=== PATIENT | female | born 1965 | race Caucasian/White ===

== ENCOUNTER → 2021-04-08 17:06 | Outpatient (CLI) | payer OTHER, SELFPAY ==
--- NOTE | 2021-04-08 17:08 | DI.MG.S_ITS ---
BILATERAL DIGITAL SCREENING MAMMOGRAM 3D/2D WITH CAD: 04/08/2021 CLINICAL: Routine screening. Comparison is made to exam dated: 03/15/2019 mammogram - outside location. There are scattered fibroglandular elements in both breasts. Current study was also evaluated with a Computer Aided Detection (CAD) system. There is an asymmetry in the right breast middle depth superior region seen on the mediolateral oblique view only. No other significant masses, calcifications, or other findings are seen in either breast. IMPRESSION: INCOMPLETE: NEEDS ADDITIONAL IMAGING EVALUATION The asymmetry in the right breast is indeterminate. Additional views with possible ultrasound are recommended. This exam was interpreted at Station ID: [id number]. NOTE: For mammograms, a report in lay terms will be sent to the patient. Approximately 15% of breast malignancies will not be visualized mammographically. In the management of a palpable breast mass, a negative mammogram must not discourage biopsy of a clinically suspicious lesion. Electronically Signed By: Glenn Abbasi acr/:04/08/2021 17:45:03 letter sent: Additional Imaging Needed ACR BI-RADS Category 0: Incomplete 3340F
== END ==
PROVIDERS: PCP Student in an Organized Health Care Education/Training Program; Referring Provider Student in an Organized Health Care Education/Training Program; Visit Provider Student in an Organized Health Care Education/Training Program
DX: Z12.31 Encounter for screening mammogram for malignant neoplasm of breast (principal)
CPT/HCPCS: 77063; 77067

== ENCOUNTER → 2021-04-29 13:43 | Outpatient (CLI) | payer OTHER, SELFPAY ==
--- NOTE | 2021-04-29 13:44 | DI.US.S_ITS ---
LIMITED ULTRASOUND OF RIGHT BREAST: 04/29/2021 CLINICAL: Patient returns today to evaluate a focal asymmetry in the right breast. Comparison is made to exams dated: 04/29/2021 mammogram, 04/08/2021 mammogram - [facility], and 03/15/2019 mammogram - outside location. Real-time ultrasound of the right breast was performed. Owens scale images of the real-time examination were reviewed. No significant abnormalities were seen sonographically in the right breast. Fibroglandular tissue but no mass is identifed in the area of the mammographic asymmetry in the right breast 11-12 o'clock position. IMPRESSION: NEGATIVE No sonographic abnormality is seen corresponding to the mammographic asymmetry in the right breast 11-12 o'clock position, which is compatible with normal fibroglandular tissue. Return to screening mammograms is recommended. There is no sonographic evidence of malignancy. A 1 year screening mammogram is recommended. This exam was interpreted at Station ID: [id number]. Electronically Signed By: Steven cifuentes/natalie:04/29/2021 15:15:39 letter sent: Normal Exam Ultrasound BI-RADS: 1 Negative
--- NOTE | 2021-04-29 13:44 | DI.MG.S_ITS ---
UNILATERAL RIGHT DIGITAL DIAGNOSTIC MAMMOGRAM 3D/2D WITH ADDITIONAL VIEWS: 04/29/2021 CLINICAL: Additional evaluation requested from prior study. Comparison is made to exams dated: 04/08/2021 mammogram - [facility] and 03/15/2019 mammogram - outside location. There are scattered fibroglandular elements in right breast. There is an asymmetry in the right breast middle depth superior region seen on the mediolateral oblique view only. This asymmetry disperses with spot compression. No other significant masses or calcifications are seen in the breast. IMPRESSION: INCOMPLETE: NEEDS ADDITIONAL IMAGING EVALUATION The asymmetry in the right breast resembles fibroglandular tissue and is indeterminate. An ultrasound is recommended. This exam was interpreted at Station ID: [id number]. NOTE: For mammograms, a report in lay terms will be sent to the patient. Approximately 15% of breast malignancies will not be visualized mammographically. In the management of a palpable breast mass, a negative mammogram must not discourage biopsy of a clinically suspicious lesion. Electronically Signed By: Steven cifuentes/natalie:04/29/2021 15:14:19 ACR BI-RADS Category 0: Incomplete [id number]
== END ==
PROVIDERS: PCP Student in an Organized Health Care Education/Training Program; Referring Provider Student in an Organized Health Care Education/Training Program; Visit Provider Student in an Organized Health Care Education/Training Program
DX: R92.8 Other abnormal and inconclusive findings on diagnostic imaging of breast (principal); N64.89 Other specified disorders of breast
CPT/HCPCS: 76642; 77065; G0279

== ENCOUNTER → 2021-08-13 07:49 | Outpatient (CLI) | payer OTHER, SELFPAY ==
[2021-08-13 09:48] LABS: Add Manual Diff / Slide Review NO; Basophils Absolute Auto 100 /uL (0-100); Basophils Percent Auto 1.1 % (0-2); Eosinophils Absolute Auto 200 /uL (0-450); Hematocrit 40.9 % (36-46); Hemoglobin 13.4 g/dL (12.0-16.0); Lymphocytes Absolute Auto 1500 /uL (1100-4500); Lymphocytes Percent Auto 29.1 % (25-40); Mean Corpuscular HGB Conc 32.8 % (30-36); Mean Corpuscular Hemoglobin 29.8 PG (26-34); Mean Corpuscular Volume 90.9 fL (80-100); Monocytes Absolute Auto 400 /uL (0-900); Monocytes Percent Auto 6.9 % (3-14); Neutrophils Absolute Auto 3000 /uL (1500-7000); Neutrophils Percent Auto 58.9 % (50-75); Platelet Count 328 X10^3/uL (150-400); Red Cell Distribution Width 13.1 % (11.6-14.8); White Blood Cell Count 5.1 X10^3/uL (4.5-11.0)
[2021-08-13 09:53] LABS: Hemoglobin A1C% w Est Avg Glu 5.4 % (4.0-6.0)
[2021-08-13 10:14] LABS: Alanine Aminotransferase 28 IU/L (<35); Albumin 4.7 g/dL (3.5-5.0); Albumin Globulin Ratio 1.8 (1.0-2.8); Alkaline Phosphatase 87 U/L (38-126); Aspartate Aminotransferase 37 IU/L (14-36); BUN Creatinine Ratio 22.2 (6-22); Bilirubin Total 0.5 mg/dL (0.2-1.3); Blood Urea Nitrogen 18 mg/dL (7-17); Calcium 10.1 mg/dL (8.4-10.2); Carbon Dioxide 30 mmol/L (22-32); Chloride 102 mmol/L (98-107); Cholesterol 222 mg/dL (140-199); Estimated Glomerular Filt Rate > 60.0 mL/min (>60); Globulin 2.6 g/dL (1.7-4.1); Glucose 86 mg/dL (70-100); HDL Cholesterol 79 mg/dL (40-60); HEMOLYSIS < 15 (0-50); LDL Cholesterol Calculated 110 mg/dL (<100); Potassium 4.6 mmol/L (3.4-5.1); Sodium 137 mmol/L (137-145); Total Protein 7.3 g/dL (6.3-8.2); Triglycerides 164 mg/dL (35-150)
[2021-08-13 10:20] LABS: Creatinine Urine Random 69.8 mg/dL
[2021-08-13 10:21] LABS: Free T3, Triiodothyronine Free 2.99 pg/mL (2.77-5.27); Free T4, Direct Thyroxine 1.06 ng/dL (0.78-2.19)
[2021-08-13 10:29] LABS: Microalbumin Urine Random < 0.6 mg/dL (0-1.6)
[2021-08-13 10:35] LABS: Thyroid Stimulating Hormone 1.16 uIU/mL (0.47-4.68)
[2021-08-13 15:46] LABS: Hep C Virus Ab w/Reflex Quant NEGATIVE s/c (NEGATIVE)
== END ==
PROVIDERS: PCP Nurse Practitioner; Referring Provider Nurse Practitioner; Visit Provider Nurse Practitioner
DX: E78.2 Mixed hyperlipidemia (principal); I10 Essential (primary) hypertension; Z00.00 Encounter for general adult medical examination without abnormal findings; Z79.899 Other long term (current) drug therapy; Z86.39 Personal history of other endocrine, nutritional and metabolic disease; Z11.59 Encounter for screening for other viral diseases
CPT/HCPCS: 36415; 80053; 80061; 82043; 82570; 83036; 84439; 84443; 84481; 85025; 86803

== ENCOUNTER → 2021-08-14 11:22 | Outpatient (CLI) | payer OTHER, SELFPAY ==
[2021-08-17 08:50] LABS: Fecal Immunochemical Test Positive (Negative)
== END ==
PROVIDERS: PCP Nurse Practitioner; Referring Provider Nurse Practitioner
DX: Z12.11 Encounter for screening for malignant neoplasm of colon (principal)
CPT/HCPCS: 82274

== ENCOUNTER → 2021-09-14 07:46 | Outpatient (CLI) | payer OTHER, SELFPAY ==
--- NOTE | 2021-09-14 07:47 | DI.US.S_ITS ---
PROCEDURE: US ABDOMEN LIMITED INDICATIONS: FAMILY HISTORY GAVIN TECHNIQUE: Real-time scanning was performed of the abdominal and retroperitoneal organs, with image documentation. COMPARISON: None. FINDINGS: Liver: The liver measures 15.8 cm in length. Increased echogenicity, compatible with hepatic steatosis. No focal nodules are appreciated. The portal vein is patent. Gallbladder: No gallbladder wall thickening, pericholecystic fluid, or shadowing gallstones. Biliary ducts: Intrahepatic bile ducts are non-dilated. Extrahepatic bile duct caliber measures 5.3 mm. Normal is 6-7 mm or less in diameter, or 10 mm or less post-cholecystectomy. Pancreas: Visualized portions of the pancreas are sonographically normal. Miscellaneous: No free abdominal fluid. IMPRESSION: No significant abnormality. Dictated by: Doc Clarke M.D. on 09/14/2021 at 9:00 Approved by: Doc Clarke M.D. on 09/14/2021 at 9:02
== END ==
PROVIDERS: PCP Nurse Practitioner; Referring Provider Nurse Practitioner; Visit Provider Nurse Practitioner
DX: R79.89 Other specified abnormal findings of blood chemistry (principal)
CPT/HCPCS: 76705

== ENCOUNTER → 2021-10-12 11:29 | Outpatient (CLI) | payer OTHER, SELFPAY ==
--- NOTE | 2021-10-12 11:32 | DI.RAD.S_ITS ---
PROCEDURE: XR LUMBAR SPINE 2-3V INDICATIONS: Acute onset back pain with sciatica bilaterally TECHNIQUE: 3 views of the lumbar spine were acquired. COMPARISON: None. FINDINGS: Bones: There is a transitional element at S1. There is moderate leftward curvature of the lower lumbar spine. Mild grade 1 anterolisthesis of L4 on L5. Mild left lateral subluxation of L4 relative to L5. Multilevel disc space narrowing and endplate osteophyte formation, as well as facet hypertrophy. No vertebral body compression fractures. No suspicious bony lesions. Soft tissues: Overlying bowel gas pattern is normal. No suspicious soft tissue calcifications. IMPRESSION: 1. Atypical numbering system as above. 2. Multilevel degenerative disc and facet disease. 3. Leftward curvature of the lower lumbar spine. 4. No acute fracture. No osseous lesion. If symptoms and/or clinical suspicion for pathology persist, further assessment with repeat, or advanced imaging (e.g., CT, MRI, or bone scan) may be helpful for further assessment. Dictated by: Pedro Saeed M.D. on 10/12/2021 at 15:44 Approved by: Pedro Saeed M.D. on 10/12/2021 at 15:46
== END ==
PROVIDERS: PCP Nurse Practitioner; Referring Provider Nurse Practitioner; Visit Provider Nurse Practitioner
DX: M51.16 Intervertebral disc disorders with radiculopathy, lumbar region (principal); M54.50 Low back pain, unspecified
CPT/HCPCS: 72100

== ENCOUNTER → 2022-01-29 15:04 | Outpatient (CLI) | payer OTHER, SELFPAY ==
[2022-01-30 09:38] LABS: Calcium 9.7 mg/dL (8.7-10.2); Parathyroid Hormone, Intact 49 pg/mL (15-65)
== END ==
PROVIDERS: Family Provider Nurse Practitioner; PCP Nurse Practitioner; Referring Provider Nurse Practitioner; Visit Provider Nurse Practitioner
DX: E83.52 Hypercalcemia (principal)
CPT/HCPCS: 36415; 82310; 83970

== ENCOUNTER 2022-02-02 16:00 | Outpatient (RCR) | payer OTHER, SELFPAY ==
--- NOTE | 2021-12-31 15:36 | PT.OPPOC ---
Physical, Occupational & Speech Therapy At [facility] Current Diagnoses Lesion of sciatic nerve, bilateral lower limbs (12/31/21) Other chronic pain (12/31/21) Bunion of unspecified foot (12/31/21) Cervicalgia (12/31/21) Lumbago with sciatica, right side (12/31/21) Lumbago with sciatica, left side (12/31/21) Pain in thoracic spine (12/31/21) Abnormal posture (12/31/21) Visit Care Team Role Provider Type MADIE Cruz Family Provider Advanced Judge Primary Care Provider Specialty: [facility] Practice Address: [address] [place] [address], [id number] Email: [email or web address] Misael Colón DO Attending Provider Physician Referring Provider Specialty: [facility] Address: [address] [place] [address], [id number] Email: Plan Of Care PT-OP-T Assessment and Plan Start: 12/27/21 16:51 Freq: Status: Active Protocol: Document 12/31/21 12:00 AW (Rec: 12/31/21 17:47 AW [id number]) Physical Therapy Assessment Rehab Potential Rehabilitation Potential Good Evaluation Complexity Number of Personal Factors/Comorbidities 1-2 Number of Body Systems Impaired 1-2 Clinical Presentation at Evaluation Stable Impairments Impairments Functional Activities,Pain, Posture,ROM,Strength Other Concerns Fall Risk low Goals Three Impairment LEFS Director Of Laboratory Operations Goal (LTG) Pt will improve LEFS score from 58 to 68 or greater as a measure of improved daily activities management. LTG Duration 6 weeks - 02/11/22 Two Impairment sitting tolerance Longterm Goal (LTG) Pt will sit for 60 minutes with no increase in baseline pain to facilitate return to cycling and rowing LTG Duration 6 weeks - 02/11/22 One Impairment HEP Director Of Laboratory Operations Goal (LTG) Pt will be independent with HEP for core facilitation, general strength, and pain mangement. LTG Duration 6 weeks - 02/11/22 Assessment Summary Assessment Donnie attends physical therapy with complaint of an acute episode of back pain and lower extremity weakness in September which has largely resolved. She presents with habitual postures including significant anterior pelvic tilt which likely predisposed her to this injury. She would benefit from skilled therapy for postural education, core stabilization, and general strengthening to prevent future injury as she returns to regular activities such as rowing, yoga, and hiking. Physical Therapy Plan Frequency and Duration Frequency of Treatment 1-2x/week Duration of Treatment 6 weeks Plan of Care Start Date 12/31/21 Plan of Care End Date 02/11/22 Therapeutic Interventions Therapeutic Interventions Balance Training,Gait Training ,Home Exercise Program,Manual Therapy,Neuromuscular Re- education,Self-Care/Home Management,Soft Tissue Mobilization,Therapeutic Activities,Therapeutic Exercises Modalities Electric Stimulation,Hot Packs Next Visit Focus/Plan Next Note Type Treatment Note Next Visit Plan review and progress supine core facilitation; initiate hip mobility and strength; postural education to address anterior pelvic tilt, thoracic kyphosis Plan of Care Dates Plan of Care Start Date 12/31/21 Plan of Care End Date 02/11/22 Electronically Signed by: Malina Worthington, PT 01/03/22 [id number] Please Sign and Return: I have reviewed this Plan of Care and certify that the skilled therapy services above are required to meet the patient?s needs. Physician Signature Date Printed Name and Credentials Clinical Instructor Signature Printed Name and Credentials
--- NOTE | 2021-12-31 15:36 | PT.OIE ---
Current Diagnoses Lesion of sciatic nerve, bilateral lower limbs (12/31/21) Other chronic pain (12/31/21) Bunion of unspecified foot (12/31/21) Cervicalgia (12/31/21) Lumbago with sciatica, right side (12/31/21) Lumbago with sciatica, left side (12/31/21) Pain in thoracic spine (12/31/21) Abnormal posture (12/31/21) Past Medical History (Last Updated 11/12/21 @ 12:27 by Misael Colón DO) Acquired hypothyroidism Acute bilateral low back pain with bilateral sciatica Allergies Ankle pain (~2014) Bilateral piriformis syndrome Cervical spine disease (~2014) Chicken pox Fibroids (~2014) Foot pain (~2014) Graves disease (~2002) Herpes History of foot surgery (~2014) History of hysterectomy (~2012) History of tonsillectomy (~1966) Hypertension (~2002) Hypertriglyceridemia Lumbar region somatic dysfunction Menopause Migraines Mumps OCD (obsessive compulsive disorder) (~1993) Osteoarthritis (~2014) Pelvic somatic dysfunction Peripheral neuropathy (~2005) Raynaud's disease Sacral region somatic dysfunction Segmental and somatic dysfunction of abdomen and other regions Shoulder pain (~2014) Sleep apnea (~2014) Somatic dysfunction of lower extremity Past Surgical History (Last Reviewed 10/12/21 @ 15:41 by MADIE Cruz) Anesthesia History of foot surgery (~2014) History of hysterectomy (~2012) History of radiation therapy (~2002) History of tonsillectomy (~1966) Melanoma (~1989) Visit Care Team Role Provider Type MADIE Cruz Family Provider Advanced Marine Specialist Primary Care Provider Specialty: Family Practice Address: [address] [place] [address], [id number] Email: [email or web address] Misael Colón DO Attending Provider Physician Referring Provider Specialty: Family Practice Address: [address] [place] [address], [id number] Email: Physical Therapy Initial Evaluation PT-OP-A Visit Information Start: 12/27/21 16:51 Freq: Status: Active Protocol: Document 12/31/21 12:00 AW (Rec: 12/31/21 11:00 AW [id number]) Out-Patient Physical Therapy Visit Information Visit Information Visit Type Initial Evaluation Visit Start Time 11:15 Visit Stop Time 12:00 Total Visit Minutes 45 Visit Number 11/26 Evaluation Information Evaluation Date 12/31/21 Precautions Precautions 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 She ran on the treadmill and felt good . However, a few days later, her back hurt so bad she needed help to get out of bed. She felt her leg would give out when trying to walk in the middle of the night. Walking helped. Sitting made it worse. Over time, her symptoms have 99% resolved. Pt has history of neck and shoulder pain, bilateral knee pain, bunions, hammertoes, flat feet. She adapts with supportive footwear and does not let pain interfere with her daily activities. Prior Treatments and Tests - OMT October 2021. - L/S xray September 2021: There is a transitional element at S1. There is moderate leftward curvature of the lower lumbar spine. Mild grade 1 anterolisthesis of L4 on L5. Mild left lateral subluxation of L4 relative to L5. Multilevel disc space narrowing and endplate osteophyte formation, as well as facet hypertrophy. No vertebral body compression fractures. No suspicious bony lesions. Treatment Goals Patient/Caregiver Goals Back to swimming and yoga at [employer]. PT-OP-C Subjective Start: 12/27/21 16:51 Freq: Status: Active Protocol: Document 12/31/21 12:00 AW (Rec: 12/31/21 12:57 AW [id number]) OP-PT Subjective Patient Comments Patient Comments I'm mostly better. I just want to learn some exercises to keep this from happening again. OP-PT Pain Assessment Pain Assessment Grid Paper Pain Assessment Grid Completed Yes: scanned to EMR PT-OP-D Balance Start: 12/27/21 16:51 Freq: Status: Active Protocol: Document 12/31/21 12:00 AW (Rec: 12/31/21 12:57 AW [id number]) Balance Tests Single Limb Standing Single Limb- Right 15 seconds but with increased shear Single Limb- Left 10 seconds with mild trendelenberg and lateral shear PT-OP-F Manual Assessment Start: 12/27/21 16:51 Freq: Status: Active Protocol: Document 12/31/21 12:00 AW (Rec: 12/31/21 12:57 AW [id number]) Manual Assessments Soft Tissue Assessment Soft Tissue Mobility Assessment Tenderness to palpation at lumbar musculature Joint Mobility Assessment Joint Mobility Assessment Pain provoked with grade III lumbar PA's PT-OP-G Mobility & Gait Start: 12/27/21 16:51 Freq: Status: Active Protocol: Document 12/31/21 12:00 AW (Rec: 12/31/21 17:27 AW [id number]) OP Gait Assessment Comments Gait Comments Pt ambulates with slightly wide base of support, slightly reduced step length, and vague appearance of trendelenberg sign bilaterally . PT-OP-H Neuro Start: 12/27/21 16:51 Freq: Status: Active Protocol: Document 12/31/21 12:00 AW (Rec: 12/31/21 17:27 AW [id number]) Sensation Evaluation Comments Summary Comments Pt has neuropathy in bilateral feet which causes occasional numbness. Pt has Reynaud's as well and states cold sensation often accompanies numbness. Deep Tendon Reflex & Clonus Assessment Deep Tendon Reflex Bicep Deep Tendon Reflex 2+ Normal Achilles Deep Tendon Reflex 1+ Diminished Patellar Deep Tendon Reflex 2+ Normal PT-OP-J Posture/Palpation/Skin Start: 12/27/21 16:51 Freq: Status: Active Protocol: Document 12/31/21 12:00 AW (Rec: 12/31/21 17:27 AW [id number]) Posture Evaluation Comments Posture Comments Significant anterior pelvic tilt. Slight genu varus bilaterally. Left iliac crest, ASIS, and PSIS lower than right. PT-OP-K Range of Motion Start: 12/27/21 16:51 Freq: Status: Active Protocol: Document 12/31/21 12:00 AW (Rec: 12/31/21 17:27 AW [id number]) Lumbar Spine Range of Motion Lumbar Spine Active Comments 65 degrees flexion, 10 degrees extension. Fingertips to 2.5 above knee joint line in lateral flexion bilaterally. Rotation WNL with hips fixed. No complaint of increased pain with lumbar movement in any direction. Hip Goniometric Range of Motion Hip bilat Hip ROM WFL Yes Testing Position Supine Comments No restrictions noted in PROM. End-range external rotation on the left reproduces back pain. HS lacking 15-20 degrees in 90/90 bilaterally Hip ROM Limitations Hip ROM Limitations Soft Tissue Tightness Knee Goniometric Range of Motion Knee bilat Knee ROM WFL Yes PT-OP-M Strength Start: 12/27/21 16:51 Freq: Status: Active Protocol: Document 12/31/21 12:00 AW (Rec: 12/31/21 17:27 AW [id number]) Hip Strength Hip Manual Muscle Testing bilat Flexion (L2) 4+ Good+ Extension (S1) 4+ Good+ Abduction 4+ Good+ Adduction 4+ Good+ Knee Strength Knee Manual Muscle Testing bilat Flexion (S2) 5 Normal Extension (L3) 5 Normal Ankle/Foot Strength Ankle and Foot Manual Muscle Testing bilat Dorsiflexion (L4) 5 Normal Comments PF tested with SL calf raise. Pt able to complete 10 reps right with good elevation. Left side, pt can only complete 6 with less elevation . Pt has history of Achilles tendon surgery. Muscle mass reduced in left calf. PT-OP-Q Treatments Start: 12/27/21 16:51 Freq: Status: Active Protocol: Document 12/31/21 12:00 AW (Rec: 12/31/21 17:34 AW [id number]) Therapeutic Exercises Supine Exercises TrA Supine Exercise Name ppt, isometric TrA, BKFO, single leg march Equipment Used nylon strap under L/S for feedback Comments HEP PT-OP-T Assessment and Plan Start: 12/27/21 16:51 Freq: Status: Active Protocol: Document 12/31/21 12:00 AW (Rec: 12/31/21 17:47 AW [id number]) Physical Therapy Assessment Rehab Potential Rehabilitation Potential Good Evaluation Complexity Number of Personal Factors/Comorbidities 1-2 Number of Body Systems Impaired 1-2 Clinical Presentation at Evaluation Stable Impairments Impairments Functional Activities,Pain, Posture,ROM,Strength Other Concerns Fall Risk low Goals Three Impairment LEFS Defective Cigarette Slitter Goal (LTG) Pt will improve LEFS score from 58 to 68 or greater as a measure of improved daily activities management. LTG Duration 6 weeks - 02/11/22 Two Impairment sitting tolerance Detention Goal (LTG) Pt will sit for 60 minutes with no increase in baseline pain to facilitate return to cycling and rowing LTG Duration 6 weeks - 02/11/22 One Impairment HEP Defective Cigarette Slitter Goal (LTG) Pt will be independent with HEP for core facilitation, general strength, and pain mangement. LTG Duration 6 weeks - 02/11/22 Assessment Summary Assessment Donnie attends physical therapy with complaint of an acute episode of back pain and lower extremity weakness in September which has largely resolved. She presents with habitual postures including significant anterior pelvic tilt which likely predisposed her to this injury. She would benefit from skilled therapy for postural education, core stabilization, and general strengthening to prevent future injury as she returns to regular activities such as rowing, yoga, and hiking. Physical Therapy Plan Frequency and Duration Frequency of Treatment 1-2x/week Duration of Treatment 6 weeks Plan of Care Start Date 12/31/21 Plan of Care End Date 02/11/22 Therapeutic Interventions Therapeutic Interventions Balance Training,Gait Training ,Home Exercise Program,Manual Therapy,Neuromuscular Re- education,Self-Care/Home Management,Soft Tissue Mobilization,Therapeutic Activities,Therapeutic Exercises Modalities Electric Stimulation,Hot Packs Next Visit Focus/Plan Next Note Type Treatment Note Next Visit Plan review and progress supine core facilitation; initiate hip mobility and strength; postural education to address anterior pelvic tilt, thoracic kyphosis
--- NOTE | 2022-01-05 12:02 | PT.OTN ---
Current Diagnoses Lesion of sciatic nerve, bilateral lower limbs (01/05/22) Other chronic pain (01/05/22) Bunion of unspecified foot (01/05/22) Cervicalgia (01/05/22) Lumbago with sciatica, right side (01/05/22) Lumbago with sciatica, left side (01/05/22) Pain in thoracic spine (01/05/22) Abnormal posture (01/05/22) Physical Therapy Treatment Note PT-OP-A Visit Information Start: 12/27/21 16:51 Freq: Status: Active Protocol: Document 01/05/22 11:19 DCW (Rec: 01/05/22 12:01 DCW [id number]) Out-Patient Physical Therapy Visit Information Visit Information Visit Type Treatment Note Visit Start Time 11:19 Visit Stop Time 12:00 Total Visit Minutes 41 Visit Number 2/6 Number of EXHAUST MACHINE OPERATOR Visits 0 Evaluation Information Evaluation Date 12/31/21 Precautions 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 She ran on the treadmill and felt good . However, a few days later, her back hurt so bad she needed help to get out of bed. She felt her leg would give out when trying to walk in the middle of the night. Walking helped. Sitting made it worse. Over time, her symptoms have 99% resolved. Pt has history of neck and shoulder pain, bilateral knee pain, bunions, hammertoes, flat feet. She adapts with supportive footwear and does not let pain interfere with her daily activities. Prior Treatments and Tests - OMT October 2021. - L/S xray September 2021: There is a transitional element at S1. There is moderate leftward curvature of the lower lumbar spine. Mild grade 1 anterolisthesis of L4 on L5. Mild left lateral subluxation of L4 relative to L5. Multilevel disc space narrowing and endplate osteophyte formation, as well as facet hypertrophy. No vertebral body compression fractures. No suspicious bony lesions. Treatment Goals Patient/Caregiver Goals Back to swimming and yoga at [employer] PT-OP-C Subjective Start: 12/27/21 16:51 Freq: Status: Active Protocol: Document 01/05/22 11:19 DCW (Rec: 01/05/22 12:01 DCW [id number]) OP-PT Subjective Patient Comments Patient Comments I started doing my exercises, and now I'm having some mid- back pain. PT-OP-D Balance Start: 12/27/21 16:51 Freq: Status: Active Protocol: Document 12/31/21 12:00 AW (Rec: 12/31/21 12:57 AW [id number]) Balance Tests Single Limb Standing Single Limb- Right 15 seconds but with increased shear Single Limb- Left 10 seconds with mild trendelenberg and lateral shear PT-OP-F Manual Assessment Start: 12/27/21 16:51 Freq: Status: Active Protocol: Document 12/31/21 12:00 AW (Rec: 12/31/21 12:57 AW [id number]) Manual Assessments Soft Tissue Assessment Soft Tissue Mobility Assessment Tenderness to palpation at lumbar musculature Joint Mobility Assessment Joint Mobility Assessment Pain provoked with grade III lumbar PA's PT-OP-G Mobility & Gait Start: 12/27/21 16:51 Freq: Status: Active Protocol: Document 12/31/21 12:00 AW (Rec: 12/31/21 17:27 AW [id number]) OP Gait Assessment Comments Gait Comments Pt ambulates with slightly wide base of support, slightly reduced step length, and vague appearance of trendelenberg sign bilaterally . PT-OP-H Neuro Start: 12/27/21 16:51 Freq: Status: Active Protocol: Document 12/31/21 12:00 AW (Rec: 12/31/21 17:27 AW [id number]) Sensation Evaluation Comments Summary Comments Pt has neuropathy in bilateral feet which causes occasional numbness. Pt has Reynaud's as well and states cold sensation often accompanies numbness. Deep Tendon Reflex & Clonus Assessment Deep Tendon Reflex Bicep Deep Tendon Reflex 2+ Normal Achilles Deep Tendon Reflex 1+ Diminished Patellar Deep Tendon Reflex 2+ Normal PT-OP-J Posture/Palpation/Skin Start: 02/06/22 16:51 Freq: Status: Active Protocol: Document 12/31/21 12:00 AW (Rec: 12/31/21 17:27 AW [id number]) Posture Evaluation Comments Posture Comments Significant anterior pelvic tilt. Slight genu varus bilaterally. Left iliac crest, ASIS, and PSIS lower than right. PT-OP-K Range of Motion Start: 12/27/21 16:51 Freq: Status: Active Protocol: Document 12/31/21 12:00 AW (Rec: 12/31/21 17:27 AW [id number]) Lumbar Spine Range of Motion Lumbar Spine Active Comments 65 degrees flexion, 10 degrees extension. Fingertips to 2.5 above knee joint line in lateral flexion bilaterally. Rotation WNL with hips fixed. No complaint of increased pain with lumbar movement in any direction. Hip Goniometric Range of Motion Hip bilat Hip ROM WFL Yes Testing Position Supine Comments No restrictions noted in PROM. End-range external rotation on the left reproduces back pain. HS lacking 15-20 degrees in 90/90 bilaterally Hip ROM Limitations Hip ROM Limitations Soft Tissue Tightness Knee Goniometric Range of Motion Knee bilat Knee ROM WFL Yes PT-OP-M Strength Start: 12/27/21 16:51 Freq: Status: Active Protocol: Document 12/31/21 12:00 AW (Rec: 12/31/21 17:27 AW [id number]) Hip Strength Hip Manual Muscle Testing bilat Flexion (L2) 4+ Good+ Extension (S1) 4+ Good+ Abduction 4+ Good+ Adduction 4+ Good+ Knee Strength Knee Manual Muscle Testing bilat Flexion (S2) 5 Normal Extension (L3) 5 Normal Ankle/Foot Strength Ankle and Foot Manual Muscle Testing bilat Dorsiflexion (L4) 5 Normal Comments PF tested with SL calf raise. Pt able to complete 10 reps right with good elevation. Left side, pt can only complete 6 with less elevation . Pt has history of Achilles tendon surgery. Muscle mass reduced in left calf. PT-OP-Q Treatments Start: 12/27/21 16:51 Freq: Status: Active Protocol: Document 01/05/22 11:19 DCW (Rec: 01/05/22 12:01 DCW [id number]) Gym Equipment Cable Column (Body Solid) Pallof Press Details 20# Therapeutic Ball LTR Exercise Details Low Trunk Rotation Ball Size/Color Red - 55 cm Therapeutic Exercises Supine Exercises Serratus punch Supine Exercise Name Supine serratus punch Side bilateral Sidelying Exercises hip abduction Sidelying Exercise Name hip abduction Side bilateral reverse clamshell Sidelying Exercise Name reverse clamshell Side bilateral clamshell Sidelying Exercise Name clamshell Side bilateral Standing Exercises Sh Extension Standing Exercise Name Shoulder extension Side bilateral Resistance Lv 3 Equipment Used T-band Rows Standing Exercise Name Rows Side bilateral Resistance Lv 3 Equipment Used T-band pec stretch Standing Exercise Name corner pec stretch Manual Therapy Treatment Soft Tissue Mobilization paraspinals Body Location rhomboids, infraspinatus, supraspinatus Mobilization Type Strumming,Sustained Pressure Intensity/Depth Moderate PT-OP-T Assessment and Plan Start: 12/27/21 16:51 Freq: Status: Active Protocol: Document 01/05/22 11:19 DCW (Rec: 01/05/22 12:01 DCW [id number]) Physical Therapy Assessment Impairments Impairments Functional Activities,Pain, Posture,ROM,Strength Goals Three Impairment LEFS Mcfp Goal (LTG) Pt will improve LEFS score from 58 to 68 or greater as a measure of improved daily activities management. LTG Duration 6 weeks - 02/11/22 Two Impairment sitting tolerance Mcfp Goal (LTG) Pt will sit for 60 minutes with no increase in baseline pain to facilitate return to cycling and rowing LTG Duration 6 weeks - 02/11/22 One Impairment HEP Meat Stuffer Goal (LTG) Pt will be independent with HEP for core facilitation, general strength, and pain management. LTG Duration 6 weeks - 02/11/22 Assessment Summary Assessment Pt tolerated treatment very well today, felt brief STM to paraspinals/parascapular muscles helped relieve a lot of her mid back pain. Pt appears motivated to consistently perform HEP. Physical Therapy Plan Frequency and Duration Frequency of Treatment 1-2x/week Duration of Treatment 6 weeks Plan of Care Start Date 12/31/21 Plan of Care End Date 02/11/22 Therapeutic Interventions Therapeutic Interventions Balance Training,Gait Training ,Home Exercise Program,Manual Therapy,Neuromuscular Re- education,Self-Care/Home Management,Soft Tissue Mobilization,Therapeutic Activities,Therapeutic Exercises Modalities Electric Stimulation,Hot Packs Next Visit Focus/Plan Next Note Type Treatment Note Next Visit Plan review and progress supine core facilitation; initiate hip mobility and strength; postural education to address anterior pelvic tilt, thoracic kyphosis
--- NOTE | 2022-01-13 16:16 | PT.OTN ---
Current Diagnoses Lesion of sciatic nerve, bilateral lower limbs (01/13/22) Other chronic pain (01/13/22) Bunion of unspecified foot (01/13/22) Cervicalgia (01/13/22) Lumbago with sciatica, right side (01/13/22) Lumbago with sciatica, left side (01/13/22) Pain in thoracic spine (01/13/22) Abnormal posture (01/13/22) Physical Therapy Treatment Note PT-OP-A Visit Information Start: 12/27/21 16:51 Freq: Status: Active Protocol: Document 01/13/22 15:17 AW (Rec: 01/13/22 16:16 AW [id number]) Out-Patient Physical Therapy Visit Information Visit Information Visit Type Treatment Note Visit Start Time 15:17 Visit Stop Time 16:00 Total Visit Minutes 43 Visit Number 3/6 Number of COMPUTER NUMERIC CONTROL SETTER Visits 0 Evaluation Information Evaluation Date 12/31/21 Precautions 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 She ran on the treadmill and felt good . However, a few days later, her back hurt so bad she needed help to get out of bed. She felt her leg would give out when trying to walk in the middle of the night. Walking helped. Sitting made it worse. Over time, her symptoms have 99% resolved. Pt has history of neck and shoulder pain, bilateral knee pain, bunions, hammertoes, flat feet. She adapts with supportive footwear and does not let pain interfere with her daily activities. Prior Treatments and Tests - OMT October 2021. - L/S xray September 2021: There is a transitional element at S1. There is moderate leftward curvature of the lower lumbar spine. Mild grade 1 anterolisthesis of L4 on L5. Mild left lateral subluxation of L4 relative to L5. Multilevel disc space narrowing and endplate osteophyte formation, as well as facet hypertrophy. No vertebral body compression fractures. No suspicious bony lesions. Treatment Goals Patient/Caregiver Goals Back to swimming and yoga at [employer]. PT-OP-C Subjective Start: 12/27/21 16:51 Freq: Status: Active Protocol: Document 01/13/22 15:17 AW (Rec: 01/13/22 16:16 AW [id number]) OP-PT Subjective Patient Comments Patient Comments I've been breaking up the exercises into manageable chunks and things are going well. PT-OP-D Balance Start: 12/27/21 16:51 Freq: Status: Active Protocol: Document 12/31/21 12:00 AW (Rec: 12/31/21 12:57 AW [id number]) Balance Tests Single Limb Standing Single Limb- Right 15 seconds but with increased shear Single Limb- Left 10 seconds with mild trendelenberg and lateral shear PT-OP-F Manual Assessment Start: 12/27/21 16:51 Freq: Status: Active Protocol: Document 12/31/21 12:00 AW (Rec: 12/31/21 12:57 AW [id number]) Manual Assessments Soft Tissue Assessment Soft Tissue Mobility Assessment Tenderness to palpation at lumbar musculature Joint Mobility Assessment Joint Mobility Assessment Pain provoked with grade III lumbar PA's PT-OP-G Mobility & Gait Start: 12/27/21 16:51 Freq: Status: Active Protocol: Document 12/31/21 12:00 AW (Rec: 12/31/21 17:27 AW [id number]) OP Gait Assessment Comments Gait Comments Pt ambulates with slightly wide base of support, slightly reduced step length, and vague appearance of trendelenberg sign bilaterally . PT-OP-H Neuro Start: 12/27/21 16:51 Freq: Status: Active Protocol: Document 12/31/21 12:00 AW (Rec: 12/31/21 17:27 AW [id number]) Sensation Evaluation Comments Summary Comments Pt has neuropathy in bilateral feet which causes occasional numbness. Pt has Reynaud's as well and states cold sensation often accompanies numbness. Deep Tendon Reflex & Clonus Assessment Deep Tendon Reflex Bicep Deep Tendon Reflex 2+ Normal Achilles Deep Tendon Reflex 1+ Diminished Patellar Deep Tendon Reflex 2+ Normal PT-OP-J Posture/Palpation/Skin Start: 12/27/21 16:51 Freq: Status: Active Protocol: Document 12/31/21 12:00 AW (Rec: 12/31/21 17:27 AW [id number]) Posture Evaluation Comments Posture Comments Significant anterior pelvic tilt. Slight genu varus bilaterally. Left iliac crest, ASIS, and PSIS lower than right. PT-OP-K Range of Motion Start: 12/27/21 16:51 Freq: Status: Active Protocol: Document 12/31/21 12:00 AW (Rec: 12/31/21 17:27 AW [id number]) Lumbar Spine Range of Motion Lumbar Spine Active Comments 65 degrees flexion, 10 degrees extension. Fingertips to 2.5 above knee joint line in lateral flexion bilaterally. Rotation WNL with hips fixed. No complaint of increased pain with lumbar movement in any direction. Hip Goniometric Range of Motion Hip bilat Hip ROM WFL Yes Testing Position Supine Comments No restrictions noted in PROM. End-range external rotation on the left reproduces back pain. HS lacking 15-20 degrees in 90/90 bilaterally Hip ROM Limitations Hip ROM Limitations Soft Tissue Tightness Knee Goniometric Range of Motion Knee bilat Knee ROM WFL Yes PT-OP-M Strength Start: 12/27/21 16:51 Freq: Status: Active Protocol: Document 12/31/21 12:00 AW (Rec: 12/31/21 17:27 AW [id number]) Hip Strength Hip Manual Muscle Testing bilat Flexion (L2) 4+ Good+ Extension (S1) 4+ Good+ Abduction 4+ Good+ Adduction 4+ Good+ Knee Strength Knee Manual Muscle Testing bilat Flexion (S2) 5 Normal Extension (L3) 5 Normal Ankle/Foot Strength Ankle and Foot Manual Muscle Testing bilat Dorsiflexion (L4) 5 Normal Comments PF tested with SL calf raise. Pt able to complete 10 reps right with good elevation. Left side, pt can only complete 6 with less elevation . Pt has history of Achilles tendon surgery. Muscle mass reduced in left calf. PT-OP-Q Treatments Start: 12/27/21 16:51 Freq: Status: Active Protocol: Document 01/13/22 15:17 AW (Rec: 01/13/22 16:16 AW [id number]) Therapeutic Exercises Supine Exercises hip flexor stretch Supine Exercise Name modified pete test position Side bilateral Reps/Minutes 30 SH x 2 Comments HEP bridge Supine Exercise Name bridge Reps/Minutes 10 SH x 10 Comments cued segmental control TrA Supine Exercise Name ppt, isometric TrA, double leg march; single leg hover Equipment Used nylon strap under L/S for feedback Comments HEP Prone Exercises prone press up Prone Exercise Name prone press up Resistance elbows at side Reps/Minutes 10 SH x 5 Comments PT provides thoracic PA glides during extension Sidelying Exercises hip abduction Sidelying Exercise Name hip abduction Side bilateral Comments cued avoid hip flexion clamshell Sidelying Exercise Name clamshell Side bilateral Comments cued stacked hips Standing Exercises paloff press Standing Exercise Name paloff press Side bilateral Resistance TB3 Sh Extension Standing Exercise Name Shoulder extension Side bilateral Resistance Lv 3 Equipment Used T-band Rows Standing Exercise Name Rows Side bilateral Resistance Lv 3 Equipment Used T-band Manual Therapy Treatment Soft Tissue Mobilization paraspinals Body Location rhomboids, infraspinatus, supraspinatus Mobilization Type Strumming,Sustained Pressure Intensity/Depth Moderate Joint Mobilizations scapulothoracic Joint scapulothoracic Direction depression, retraction Body Position Sidelying T/S Joint T/S Direction AP Body Position Prone Comments grade II-III ~T4-T8 while pt performs press up PT-OP-T Assessment and Plan Start: 12/27/21 16:51 Freq: Status: Active Protocol: Document 01/13/22 15:17 AW (Rec: 01/13/22 16:16 AW [id number]) Physical Therapy Assessment Impairments Impairments Functional Activities,Pain, Posture,ROM,Strength Goals Three Impairment LEFS Prison Goal (LTG) Pt will improve LEFS score from 58 to 68 or greater as a measure of improved daily activities management. LTG Duration 6 weeks - 02/11/22 Two Impairment sitting tolerance Prison Goal (LTG) Pt will sit for 60 minutes with no increase in baseline pain to facilitate return to cycling and rowing LTG Duration 6 weeks - 02/11/22 One Impairment HEP F[employer] Special Agent Goal (LTG) Pt will be independent with HEP for core facilitation, general strength, and pain mangement. LTG Duration 6 weeks - 02/11/22 Assessment Summary Assessment Donnie has been consistent with HEP. She responds well to postural education and has improved awareness of pelvic posture in daily activities. Physical Therapy Plan Frequency and Duration Frequency of Treatment 1-2x/week Duration of Treatment 6 weeks Plan of Care Start Date 12/31/21 Plan of Care End Date 02/11/22 Therapeutic Interventions Therapeutic Interventions Balance Training,Gait Training ,Home Exercise Program,Manual Therapy,Neuromuscular Re- education,Self-Care/Home Management,Soft Tissue Mobilization,Therapeutic Activities,Therapeutic Exercises Modalities Electric Stimulation,Hot Packs Next Visit Focus/Plan Next Note Type Treatment Note Next Visit Plan review and progress supine core facilitation; initiate hip mobility and strength; postural education to address anterior pelvic tilt, thoracic kyphosis
--- NOTE | 2022-01-21 14:42 | PT.OTN ---
Addendum entered and electronically signed by Mia Mullins PTA 01/21/22 15:51: REcheck body mechanics ed, open book added to HEP. Assess stair mgt for mechanics and why having difficulty end day. Original Note: Current Diagnoses Lesion of sciatic nerve, bilateral lower limbs (01/21/22) Other chronic pain (01/21/22) Bunion of unspecified foot (01/21/22) Cervicalgia (01/21/22) Lumbago with sciatica, right side (01/21/22) Lumbago with sciatica, left side (01/21/22) Pain in thoracic spine (01/21/22) Abnormal posture (01/21/22) Physical Therapy Treatment Note PT-OP-A Visit Information Start: 12/27/21 16:51 Freq: Status: Active Protocol: Document 01/21/22 13:47 SP (Rec: 01/21/22 14:38 SP [id number]) Out-Patient Physical Therapy Visit Information Visit Information Visit Type Treatment Note Visit Start Time 13:47 Visit Stop Time 14:42 Total Visit Minutes 55 Visit Number 4/6 Number of CORPSMAN Visits 1 PT-OP-B Current Condition Start: 12/27/21 16:51 Freq: Status: Active Protocol: Document 12/31/21 12:00 AW (Rec: 12/27/21 16:57 AW [id number]) Current Condition History of Current Condition Onset Date September 2021 Current Complaints LBP with BLE radiating pain; neck and shoulder pain ( chronic) History of Current Condition Donnie was in her usual state of health when she went to the gym with her son a few days before . She ran on the treadmill and felt good . However, a few days later, her back hurt so bad she needed help to get out of bed. She felt her leg would give out when trying to walk in the middle of the night. Walking helped. Sitting made it worse. Over time, her symptoms have 99% resolved. Pt has history of neck and shoulder pain, bilateral knee pain, bunions, hammertoes, flat feet. She adapts with supportive footwear and does not let pain interfere with her daily activities. Prior Treatments and Tests - OMT October 2021. - L/S xray September 2021: There is a transitional element at S1. There is moderate leftward curvature of the lower lumbar spine. Mild grade 1 anterolisthesis of L4 on L5. Mild left lateral subluxation of L4 relative to L5. Multilevel disc space narrowing and endplate osteophyte formation, as well as facet hypertrophy. No vertebral body compression fractures. No suspicious bony lesions. Treatment Goals Patient/Caregiver Goals Back to swimming and yoga at [employer]. PT-OP-C Subjective Start: 12/27/21 16:51 Freq: Status: Active Protocol: Document 01/21/22 13:47 SP (Rec: 01/21/22 14:38 SP [id number]) OP-PT Subjective Patient Comments Patient Comments Pt stated did 2 mile hike this am in [place] with son, did well. Did some gardening before came standing and bent over plants low to ground and raised beds having some LB discomfort. Did some swimming since last tx: felt good- freestyle,breast, side, back felt good. Also rowing on sound felt good, no adverse affects: states seat is forward and foot plat off to one side but we can change seats to allow ability to not over work one side, more recreational fun though. The only thing she notices hard doing stairs by end of day, want to address how make better. PT-OP-D Balance Start: 12/27/21 16:51 Freq: Status: Active Protocol: Document 12/31/21 12:00 AW (Rec: 12/31/21 12:57 AW [id number]) Balance Tests Single Limb Standing Single Limb- Right 15 seconds but with increased shear Single Limb- Left 10 seconds with mild trendelenberg and lateral shear PT-OP-F Manual Assessment Start: 12/27/21 16:51 Freq: Status: Active Protocol: Document 12/31/21 12:00 AW (Rec: 12/31/21 12:57 AW [id number]) Manual Assessments Soft Tissue Assessment Soft Tissue Mobility Assessment Tenderness to palpation at lumbar musculature Joint Mobility Assessment Joint Mobility Assessment Pain provoked with grade III lumbar PA's PT-OP-G Mobility & Gait Start: 12/27/21 16:51 Freq: Status: Active Protocol: Document 12/31/21 12:00 AW (Rec: 12/31/21 17:27 AW [id number]) OP Gait Assessment Comments Gait Comments Pt ambulates with slightly wide base of support, slightly reduced step length, and vague appearance of trendelenberg sign bilaterally . PT-OP-H Neuro Start: 12/27/21 16:51 Freq: Status: Active Protocol: Document 12/31/21 12:00 AW (Rec: 12/31/21 17:27 AW [id number]) Sensation Evaluation Comments Summary Comments Pt has neuropathy in bilateral feet which causes occasional numbness. Pt has Reynaud's as well and states cold sensation often accompanies numbness. Deep Tendon Reflex & Clonus Assessment Deep Tendon Reflex Bicep Deep Tendon Reflex 2+ Normal Achilles Deep Tendon Reflex 1+ Diminished Patellar Deep Tendon Reflex 2+ Normal PT-OP-J Posture/Palpation/Skin Start: 12/27/21 16:51 Freq: Status: Active Protocol: Document 12/31/21 12:00 AW (Rec: 12/31/21 17:27 AW [id number]) Posture Evaluation Comments Posture Comments Significant anterior pelvic tilt. Slight genu varus bilaterally. Left iliac crest, ASIS, and PSIS lower than right. PT-OP-K Range of Motion Start: 12/27/21 16:51 Freq: Status: Active Protocol: Document 12/31/21 12:00 AW (Rec: 12/31/21 17:27 AW [id number]) Lumbar Spine Range of Motion Lumbar Spine Active Comments 65 degrees flexion, 10 degrees extension. Fingertips to 2.5 above knee joint line in lateral flexion bilaterally. Rotation WNL with hips fixed. No complaint of increased pain with lumbar movement in any direction. Hip Goniometric Range of Motion Hip bilat Hip ROM WFL Yes Testing Position Supine Comments No restrictions noted in PROM. End-range external rotation on the left reproduces back pain. HS lacking 15-20 degrees in 90/90 bilaterally Hip ROM Limitations Hip ROM Limitations Soft Tissue Tightness Knee Goniometric Range of Motion Knee bilat Knee ROM WFL Yes PT-OP-M Strength Start: 12/27/21 16:51 Freq: Status: Active Protocol: Document 12/31/21 12:00 AW (Rec: 12/31/21 17:27 AW [id number]) Hip Strength Hip Manual Muscle Testing bilat Flexion (L2) 4+ Good+ Extension (S1) 4+ Good+ Abduction 4+ Good+ Adduction 4+ Good+ Knee Strength Knee Manual Muscle Testing bilat Flexion (S2) 5 Normal Extension (L3) 5 Normal Ankle/Foot Strength Ankle and Foot Manual Muscle Testing bilat Dorsiflexion (L4) 5 Normal Comments PF tested with SL calf raise. Pt able to complete 10 reps right with good elevation. Left side, pt can only complete 6 with less elevation . Pt has history of Achilles tendon surgery. Muscle mass reduced in left calf. PT-OP-Q Treatments Start: 12/27/21 16:51 Freq: Status: Active Protocol: Document 01/21/22 13:47 SP (Rec: 01/21/22 14:38 SP [id number]) Therapeutic Exercises Supine Exercises hip flexor stretch Supine Exercise Name modified pete test position Side bilateral Equipment Used towel assist behind thigh Reps/Minutes 30 SH x 2 Comments HEP Sidelying Exercises open book Sidelying Exercise Name added to HEP- good response, painfree Side bilateral Resistance AROM Reps/Minutes x5 ROM vs hold w/ breath for stretch ribcage ROM and pec stretch Comments cued slow mobility, head with arm, scap glide/ TS rotation slocomfort range hip abduction Sidelying Exercise Name hip abduction Side bilateral Resistance AROM Reps/Minutes x10 Comments cued neutral DF, quad fac/ ext , slow lift/ lower, no wobble- good stacked reverse clamshell Sidelying Exercise Name reverse clamshell Side bilateral Resistance AROM Equipment Used flat pillow between knees Reps/Minutes x10 Comments cued slow lift, stacked hips, stable pelvis clamshell Sidelying Exercise Name clamshell Side bilateral Resistance AROM Equipment Used flat pillow between knees Reps/Minutes x10 Comments cued stacked hips, cued lift not higher than hip, core fac no wobble Standing Exercises paloff press Standing Exercise Name paloff press Side bilateral Resistance TB3 Sh Extension Standing Exercise Name Shoulder extension Side bilateral Resistance Lv 3 Equipment Used T-band Reps/Minutes x10 Comments cued press down and toside seam pant, scap depress eccentric Rows Standing Exercise Name Rows Side bilateral Resistance Lv 3 Equipment Used T-band Reps/Minutes x20 Comments good form Self-Care/Home Management Treatment Education Patient Education Body Mechanics,Posture,Safety Other Education *TIme spent spinal alignment w / awareness TA what needed and proper body mechanics gardenin/2 kneel, tall kneel with pad behind knee(s) comfort deeper knee flexion. Discussion wt shift 1/2 kneel vs quadruped with improved understanding and if feeling discomfort then may be needing a break, tired. *Sleeping use pillows between B knees, front chest, under head/ neck good alingment and small under ribcage if comfortable for support spinal alignment. Found helpful. She states also places top arm behind back but doesn hurt her but helps keep from rolling forward. *Initiated open book (forgot provide HO, give next tx)- good response to continue at home. PT-OP-R Modalities Start: 12/27/21 16:51 Freq: Status: Active Protocol: Document 01/21/22 13:47 SP (Rec: 01/21/22 14:38 SP [id number]) Hot Pack/Cold Pack Treatment [facility] Location TS, LS Patient Position Hooklying Treatment Duration (minutes) 10 Patient Tolerance Good Comments decrease LS tightness, awareness w/ yoga breath relaxed arms sides. PT-OP-T Assessment and Plan Start: 12/27/21 16:51 Freq: Status: Active Protocol: Document 01/21/22 13:47 SP (Rec: 01/21/22 14:38 SP [id number]) Physical Therapy Assessment Goals Three Impairment LEFS Senior Living Goal (LTG) Pt will improve LEFS score from 58 to 68 or greater as a measure of improved daily activities management. LTG Duration 6 weeks - 02/11/22 Two Impairment sitting tolerance Senior Living Goal (LTG) Pt will sit for 60 minutes with no increase in baseline pain to facilitate return to cycling and rowing 01/21/22: started to row again: 1 hr feels good this last time . LTG Duration 6 weeks - 02/11/22 One Impairment HEP Refrigeration Brazer/Solderer Goal (LTG) Pt will be independent with HEP for core facilitation, general strength, and pain mangement. LTG Duration 6 weeks - 02/11/22 Assessment Summary Assessment Pt tolerated tx well reviewed HEP sidelying added open book, education with performance mechanics during gardening and sleeping on side with improved spinal alignment demonstrated and understanding . Pt welcoming to [facility] end tx with painfree end of tx. Physical Therapy Plan Frequency and Duration Frequency of Treatment 1-2x/week Duration of Treatment 6 weeks Plan of Care Start Date 12/31/21 Plan of Care End Date 02/11/22 Therapeutic Interventions Therapeutic Interventions Balance Training,Gait Training ,Home Exercise Program,Manual Therapy,Neuromuscular Re- education,Self-Care/Home Management,Soft Tissue Mobilization,Therapeutic Activities,Therapeutic Exercises Modalities Electric Stimulation,Hot Packs Next Visit Focus/Plan Next Note Type Treatment Note Next Visit Plan review and progress supine core facilitation; initiate hip mobility and strength; postural education to address anterior pelvic tilt, thoracic kyphosis
--- NOTE | 2022-01-28 12:00 | PT.OTN ---
Current Diagnoses Lesion of sciatic nerve, bilateral lower limbs (01/28/22) Other chronic pain (01/28/22) Bunion of unspecified foot (01/28/22) Cervicalgia (01/28/22) Lumbago with sciatica, right side (01/28/22) Lumbago with sciatica, left side (01/28/22) Pain in thoracic spine (01/28/22) Abnormal posture (01/28/22) Physical Therapy Treatment Note PT-OP-A Visit Information Start: 12/27/21 16:51 Freq: Status: Active Protocol: Document 01/28/22 11:15 DCW (Rec: 01/28/22 12:00 DCW [id number]) Out-Patient Physical Therapy Visit Information Visit Information Visit Type Treatment Note Visit Start Time 11:15 Visit Stop Time 12:05 Total Visit Minutes 50 Visit Number 5/6 Number of ENDO TECH Visits 0 Evaluation Information Evaluation Date 12/31/21 Precautions Precautions Reynaud's - no cryotherapy PT-OP-B Current Condition Start: 12/27/21 16:51 Freq: Status: Active Protocol: Document 12/31/21 12:00 AW (Rec: 12/27/21 16:57 AW [id number]) Current Condition History of Current Condition Onset Date September 2021 Current Complaints LBP with BLE radiating pain; neck and shoulder pain ( chronic) History of Current Condition Donnie was in her usual state of health when she went to the gym with her son a few days before [place]. She ran on the treadmill and felt good . However, a few days later, her back hurt so bad she needed help to get out of bed. She felt her leg would give out when trying to walk in the middle of the night. Walking helped. Sitting made it worse. Over time, her symptoms have 99% resolved. Pt has history of neck and shoulder pain, bilateral knee pain, bunions, hammertoes, flat feet. She adapts with supportive footwear and does not let pain interfere with her daily activities. Prior Treatments and Tests - OMT October 2021. - L/S xray September 2021: There is a transitional element at S1. There is moderate leftward curvature of the lower lumbar spine. Mild grade 1 anterolisthesis of L4 on L5. Mild left lateral subluxation of L4 relative to L5. Multilevel disc space narrowing and endplate osteophyte formation, as well as facet hypertrophy. No vertebral body compression fractures. No suspicious bony lesions. Treatment Goals Patient/Caregiver Goals Back to swimming and yoga at [employer]. PT-OP-C Subjective Start: 12/27/21 16:51 Freq: Status: Active Protocol: Document 01/28/22 11:15 DCW (Rec: 01/28/22 12:00 DCW [id number]) OP-PT Subjective Patient Comments Patient Comments It feels good when I don't do a lot. PT-OP-D Balance Start: 12/27/21 16:51 Freq: Status: Active Protocol: Document 12/31/21 12:00 AW (Rec: 12/31/21 12:57 AW [id number]) Balance Tests Single Limb Standing Single Limb- Right 15 seconds but with increased shear Single Limb- Left 10 seconds with mild trendelenberg and lateral shear PT-OP-F Manual Assessment Start: 12/27/21 16:51 Freq: Status: Active Protocol: Document 12/31/21 12:00 AW (Rec: 12/31/21 12:57 AW [id number]) Manual Assessments Soft Tissue Assessment Soft Tissue Mobility Assessment Tenderness to palpation at lumbar musculature Joint Mobility Assessment Joint Mobility Assessment Pain provoked with grade III lumbar PA's PT-OP-G Mobility & Gait Start: 12/27/21 16:51 Freq: Status: Active Protocol: Document 12/31/21 12:00 AW (Rec: 12/31/21 17:27 AW [id number]) OP Gait Assessment Comments Gait Comments Pt ambulates with slightly wide base of support, slightly reduced step length, and vague appearance of trendelenberg sign bilaterally . PT-OP-H Neuro Start: 12/27/21 16:51 Freq: Status: Active Protocol: Document 12/31/21 12:00 AW (Rec: 12/31/21 17:27 AW [id number]) Sensation Evaluation Comments Summary Comments Pt has neuropathy in bilateral feet which causes occasional numbness. Pt has Reynaud's as well and states cold sensation often accompanies numbness. Deep Tendon Reflex & Clonus Assessment Deep Tendon Reflex Bicep Deep Tendon Reflex 2+ Normal Achilles Deep Tendon Reflex 1+ Diminished Patellar Deep Tendon Reflex 2+ Normal PT-OP-J Posture/Palpation/Skin Start: 12/27/21 16:51 Freq: Status: Active Protocol: Document 12/31/21 12:00 AW (Rec: 12/31/21 17:27 AW [id number]) Posture Evaluation Comments Posture Comments Significant anterior pelvic tilt. Slight genu varus bilaterally. Left iliac crest, ASIS, and PSIS lower than right. PT-OP-K Range of Motion Start: 12/27/21 16:51 Freq: Status: Active Protocol: Document 12/31/21 12:00 AW (Rec: 12/31/21 17:27 AW [id number]) Lumbar Spine Range of Motion Lumbar Spine Active Comments 65 degrees flexion, 10 degrees extension. Fingertips to 2.5 above knee joint line in lateral flexion bilaterally. Rotation WNL with hips fixed. No complaint of increased pain with lumbar movement in any direction. Hip Goniometric Range of Motion Hip bilat Hip ROM WFL Yes Testing Position Supine Comments No restrictions noted in PROM. End-range external rotation on the left reproduces back pain. HS lacking 15-20 degrees in 90/90 bilaterally Hip ROM Limitations Hip ROM Limitations Soft Tissue Tightness Knee Goniometric Range of Motion Knee bilat Knee ROM WFL Yes PT-OP-M Strength Start: 12/27/21 16:51 Freq: Status: Active Protocol: Document 12/31/21 12:00 AW (Rec: 12/31/21 17:27 AW [id number]) Hip Strength Hip Manual Muscle Testing bilat Flexion (L2) 4+ Good+ Extension (S1) 4+ Good+ Abduction 4+ Good+ Adduction 4+ Good+ Knee Strength Knee Manual Muscle Testing bilat Flexion (S2) 5 Normal Extension (L3) 5 Normal Ankle/Foot Strength Ankle and Foot Manual Muscle Testing bilat Dorsiflexion (L4) 5 Normal Comments PF tested with SL calf raise. Pt able to complete 10 reps right with good elevation. Left side, pt can only complete 6 with less elevation . Pt has history of Achilles tendon surgery. Muscle mass reduced in left calf. PT-OP-Q Treatments Start: 12/27/21 16:51 Freq: Status: Active Protocol: Document 01/28/22 11:15 DCW (Rec: 01/28/22 12:00 DCW [id number]) Therapeutic Exercises Supine Exercises Piriformis stretch Supine Exercise Name Figure-4, Knee to opposite shoulder Side bilateral bridge Supine Exercise Name bridge with marching Sitting Exercises Piriformis stretch Sitting Exercise Name Seated figure-4 Standing Exercises paloff press Standing Exercise Name paloff press Side bilateral Resistance TB3 Sh Extension Standing Exercise Name Shoulder extension Side bilateral Resistance Lv 3 Equipment Used T-band Reps/Minutes x15 Comments good scap depression Rows Standing Exercise Name Rows Side bilateral Resistance Lv 3 Equipment Used T-band Reps/Minutes x15 Comments good form Manual Therapy Treatment Joint Mobilizations L/S Joint L/S Direction A->P Grade III Body Position Prone T/S Joint T/S Direction AP Grade II Body Position Prone PT-OP-R Modalities Start: 12/27/21 16:51 Freq: Status: Active Protocol: Document 01/28/22 11:15 DCW (Rec: 01/28/22 12:00 DC [id number]) Hot Pack/Cold Pack Treatment [facility] Location TS, LS Patient Position Hooklying Treatment Duration (minutes) 10 Patient Tolerance Good Comments decrease LS tightness, awareness w/ yoga breath relaxed arms sides. PT-OP-T Assessment and Plan Start: 12/27/21 16:51 Freq: Status: Active Protocol: Document 01/28/22 11:15 DCW (Rec: 01/28/22 12:00 DC [id number]) Physical Therapy Assessment Impairments Impairments Functional Activities,Pain, Posture,ROM,Strength Goals Three Impairment LEFS Custodial Goal (LTG) Pt will improve LEFS score from 58 to 68 or greater as a measure of improved daily activities management. LTG Duration 6 weeks - 02/11/22 Two Impairment sitting tolerance Chief Projectionist Goal (LTG) Pt will sit for 60 minutes with no increase in baseline pain to facilitate return to cycling and rowing LTG Duration 6 weeks - 02/11/22 One Impairment HEP Chief Projectionist Goal (LTG) Pt will be independent with HEP for core facilitation, general strength, and pain mangement. LTG Duration 6 weeks - 02/11/22 Assessment Summary Assessment Pt very happy with her current progress, feels that she has gotten good ideas and is more aware of her posture and body mechanics. Pt is feeling that discharge following her last scheduled appointment next week is appropriate at this time. Pt tolerated treatment well today. Physical Therapy Plan Frequency and Duration Frequency of Treatment 1-2x/week Duration of Treatment 6 weeks Plan of Care Start Date 12/31/21 Plan of Care End Date 02/11/22 Therapeutic Interventions Therapeutic Interventions Balance Training,Gait Training ,Home Exercise Program,Manual Therapy,Neuromuscular Re- education,Self-Care/Home Management,Soft Tissue Mobilization,Therapeutic Activities,Therapeutic Exercises Modalities Electric Stimulation,Hot Packs Next Visit Focus/Plan Next Note Type Discharge Summary Next Visit Plan review HEP, prep for discharge
--- NOTE | 2022-02-02 16:57 | PT.OTN ---
Current Diagnoses Lesion of sciatic nerve, bilateral lower limbs (02/02/22) Other chronic pain (02/02/22) Bunion of unspecified foot (02/02/22) Cervicalgia (02/02/22) Lumbago with sciatica, right side (02/02/22) Lumbago with sciatica, left side (02/02/22) Pain in thoracic spine (02/02/22) Abnormal posture (02/02/22) Physical Therapy Treatment Note PT-OP-A Visit Information Start: 12/27/21 16:51 Freq: Status: Active Protocol: Document 02/02/22 16:03 AW (Rec: 02/02/22 16:57 AW [id number]) Out-Patient Physical Therapy Visit Information Visit Information Visit Type Treatment Note Visit Start Time 16:04 Visit Stop Time 16:51 Total Visit Minutes 51 Visit Number 6/6 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 She ran on the treadmill and felt good . However, a few days later, her back hurt so bad she needed help to get out of bed. She felt her leg would give out when trying to walk in the middle of the night. Walking helped. Sitting made it worse. Over time, her symptoms have 99% resolved. Pt has history of neck and shoulder pain, bilateral knee pain, bunions, hammertoes, flat feet. She adapts with supportive footwear and does not let pain interfere with her daily activities. Prior Treatments and Tests - OMT October 2021. - L/S xray September 2021: There is a transitional element at S1. There is moderate leftward curvature of the lower lumbar spine. Mild grade 1 anterolisthesis of L4 on L5. Mild left lateral subluxation of L4 relative to L5. Multilevel disc space narrowing and endplate osteophyte formation, as well as facet hypertrophy. No vertebral body compression fractures. No suspicious bony lesions. Treatment Goals Patient/Caregiver Goals Back to swimming and yoga at [employer]. PT-OP-C Subjective Start: 12/27/21 16:51 Freq: Status: Active Protocol: Document 02/02/22 16:03 AW (Rec: 02/02/22 16:57 AW [id number]) OP-PT Subjective Patient Comments Patient Comments I still get sore after a long day of activity but nothing close to what I was having before I started therapy. Patient Reported Progress Improving PT-OP-D Balance Start: 12/27/21 16:51 Freq: Status: Active Protocol: Document 12/31/21 12:00 AW (Rec: 12/31/21 12:57 AW [id number]) Balance Tests Single Limb Standing Single Limb- Right 15 seconds but with increased shear Single Limb- Left 10 seconds with mild trendelenberg and lateral shear PT-OP-F Manual Assessment Start: 12/27/21 16:51 Freq: Status: Active Protocol: Document 12/31/21 12:00 AW (Rec: 12/31/21 12:57 AW [id number]) Manual Assessments Soft Tissue Assessment Soft Tissue Mobility Assessment Tenderness to palpation at lumbar musculature Joint Mobility Assessment Joint Mobility Assessment Pain provoked with grade III lumbar PA's PT-OP-G Mobility & Gait Start: 12/27/21 16:51 Freq: Status: Active Protocol: Document 12/31/21 12:00 AW (Rec: 12/31/21 17:27 AW [id number]) OP Gait Assessment Comments Gait Comments Pt ambulates with slightly wide base of support, slightly reduced step length, and vague appearance of trendelenberg sign bilaterally . PT-OP-H Neuro Start: 12/27/21 16:51 Freq: Status: Active Protocol: Document 12/31/21 12:00 AW (Rec: 12/31/21 17:27 AW [id number]) Sensation Evaluation Comments Summary Comments Pt has neuropathy in bilateral feet which causes occasional numbness. Pt has Reynaud's as well and states cold sensation often accompanies numbness. Deep Tendon Reflex & Clonus Assessment Deep Tendon Reflex Bicep Deep Tendon Reflex 2+ Normal Achilles Deep Tendon Reflex 1+ Diminished Patellar Deep Tendon Reflex 2+ Normal PT-OP-J Posture/Palpation/Skin Start: 12/27/21 16:51 Freq: Status: Active Protocol: Document 12/31/21 12:00 AW (Rec: 12/31/21 17:27 AW [id number]) Posture Evaluation Comments Posture Comments Significant anterior pelvic tilt. Slight genu varus bilaterally. Left iliac crest, ASIS, and PSIS lower than right. PT-OP-K Range of Motion Start: 12/27/21 16:51 Freq: Status: Active Protocol: Document 12/31/21 12:00 AW (Rec: 12/31/21 17:27 AW [id number]) Lumbar Spine Range of Motion Lumbar Spine Active Comments 65 degrees flexion, 10 degrees extension. Fingertips to 2.5 above knee joint line in lateral flexion bilaterally. Rotation WNL with hips fixed. No complaint of increased pain with lumbar movement in any direction. Hip Goniometric Range of Motion Hip bilat Hip ROM WFL Yes Testing Position Supine Comments No restrictions noted in PROM. End-range external rotation on the left reproduces back pain. HS lacking 15-20 degrees in 90/90 bilaterally Hip ROM Limitations Hip ROM Limitations Soft Tissue Tightness Knee Goniometric Range of Motion Knee bilat Knee ROM WFL Yes PT-OP-M Strength Start: 12/27/21 16:51 Freq: Status: Active Protocol: Document 12/31/21 12:00 AW (Rec: 12/31/21 17:27 AW [id number]) Hip Strength Hip Manual Muscle Testing bilat Flexion (L2) 4+ Good+ Extension (S1) 4+ Good+ Abduction 4+ Good+ Adduction 4+ Good+ Knee Strength Knee Manual Muscle Testing bilat Flexion (S2) 5 Normal Extension (L3) 5 Normal Ankle/Foot Strength Ankle and Foot Manual Muscle Testing bilat Dorsiflexion (L4) 5 Normal Comments PF tested with SL calf raise. Pt able to complete 10 reps right with good elevation. Left side, pt can only complete 6 with less elevation . Pt has history of Achilles tendon surgery. Muscle mass reduced in left calf. PT-OP-Q Treatments Start: 12/27/21 16:51 Freq: Status: Active Protocol: Document 02/02/22 16:03 AW (Rec: 02/02/22 16:57 AW [id number]) Therapeutic Exercises Supine Exercises LTR Supine Exercise Name LTR with feet on ball Piriformis stretch Supine Exercise Name Figure-4, Knee to opposite shoulder Side bilateral bridge Supine Exercise Name bridge with feet on ball Sidelying Exercises hip abduction Sidelying Exercise Name hip abduction Side bilateral Resistance AROM Reps/Minutes x10 Comments cued hip in line with trunk or slightly extended. Sitting Exercises HS stretch Sitting Exercise Name HS stretch Standing Exercises paloff press Standing Exercise Name paloff press Side bilateral Resistance TB3 Sh Extension Standing Exercise Name Shoulder extension Side bilateral Resistance Lv 3 Equipment Used T-band Reps/Minutes x15 Comments good scap depression Rows Standing Exercise Name Rows Side bilateral Resistance Lv 3 Equipment Used T-band Reps/Minutes x15 Comments good form Other Exercises modified plank Other Exercise Name modified plank Equipment Used forearms on plinth, feet on floor Comments cued core stab, pt able to hold 30 sec with good control, no pain cat/cow/side bend Other Exercise Name cat/cow/side bend/child pose Comments no pain Manual Therapy Treatment Joint Mobilizations L/S Joint L/S Direction A->P Grade III Body Position Prone T/S Joint T/S Direction AP Grade II Body Position Prone PT-OP-R Modalities Start: 12/27/21 16:51 Freq: Status: Active Protocol: Document 02/02/22 16:03 AW (Rec: 02/02/22 16:57 AW [id number]) Hot Pack/Cold Pack Treatment MHP Location TS, LS Patient Position Hooklying Treatment Duration (minutes) 10 Patient Tolerance Good Comments decrease LS tightness, awareness w/ yoga breath relaxed arms sides. PT-OP-T Assessment and Plan Start: 12/27/21 16:51 Freq: Status: Active Protocol: Document 02/02/22 16:03 AW (Rec: 02/02/22 16:57 AW [id number]) Physical Therapy Assessment Goals Three Impairment LEFS Shelter Goal (LTG) Pt will improve LEFS score from 58 to 68 or greater as a measure of improved daily activities management. 02/02/22 - Pt scores 67 on LEFS today. LTG Duration 6 weeks - 02/11/22 Two Impairment sitting tolerance Medical Artist Goal (LTG) Pt will sit for 60 minutes with no increase in baseline pain to facilitate return to cycling and rowing 02/02/22: Pt is rowing 60 minutes or greater without increased pain. Sitting to sew still painful but better if pt makes a point to take movement breaks. LTG Duration 6 weeks - 02/11/22 One Impairment HEP Medical Artist Goal (LTG) Pt will be independent with HEP for core facilitation, general strength, and pain mangement. 02/02/22 - MET LTG Duration 6 weeks - 02/11/22 Assessment Summary Assessment Pt tolerated final treatment well. Reviewed HEP questions and offered t-ball exercise and modified plank in addition . Pt is pleased with overall progress and is prepared for discharge. Physical Therapy Plan Frequency and Duration Frequency of Treatment 1-2x/week Duration of Treatment 6 weeks Plan of Care Start Date 12/31/21 Plan of Care End Date 02/11/22 Therapeutic Interventions Therapeutic Interventions Balance Training,Gait Training ,Home Exercise Program,Manual Therapy,Neuromuscular Re- education,Self-Care/Home Management,Soft Tissue Mobilization,Therapeutic Activities,Therapeutic Exercises Modalities Electric Stimulation,Hot Packs Discharge Physical Therapy Discharge Reasons Goals Met Discharge Comments Pt has progressed in postural awareness and ability to make small corrections. She is sitting longer without pain especially while active such as during rowing. She is independent with HEP and appropriate for discharge.
== END 2022-02-08 10:49 ==
LOC: PHYS 16:00
PROVIDERS: Family Provider Nurse Practitioner; PCP Nurse Practitioner; Referring Provider Family Medicine; Visit Provider Family Medicine
DX: G57.03 Lesion of sciatic nerve, bilateral lower limbs (principal); M54.42 Lumbago with sciatica, left side; M54.41 Lumbago with sciatica, right side; M54.6 Pain in thoracic spine; G89.29 Other chronic pain; M54.2 Cervicalgia; M21.619 Bunion of unspecified foot; R29.3 Abnormal posture
CPT/HCPCS: 97010; 97110; 97140; 97161; 97535

== ENCOUNTER → 2022-05-14 08:07 | Outpatient (CLI) | payer OTHER, SELFPAY ==
[2022-05-14 09:47] LABS: Alanine Aminotransferase 19 IU/L (<35); Albumin 4.5 g/dL (3.5-5.0); Alkaline Phosphatase 71 U/L (38-126); Aspartate Aminotransferase 26 IU/L (14-36); BUN Creatinine Ratio 18.4 (6-22); Bilirubin Total 0.4 mg/dL (0.2-1.3); Blood Urea Nitrogen 14 mg/dL (7-17); Calcium 9.7 mg/dL (8.4-10.2); Carbon Dioxide 28 mmol/L (22-32); Chloride 104 mmol/L (98-107); Cholesterol 207 mg/dL (140-199); Estimated Glomerular Filt Rate > 60 mL/min (>60); Globulin 2.3 g/dL (1.7-4.1); Glucose 84 mg/dL (70-100); HDL Cholesterol 78 mg/dL (40-60); HEMOLYSIS < 15 (0-50); LDL Cholesterol Calculated 99 mg/dL (<100); Potassium 5.1 mmol/L (3.4-5.1); Sodium 136 mmol/L (137-145); Total Protein 6.8 g/dL (6.3-8.2); Triglycerides 151 mg/dL (35-150)
== END ==
PROVIDERS: Family Provider Nurse Practitioner; PCP Nurse Practitioner; Referring Provider Nurse Practitioner; Visit Provider Nurse Practitioner
DX: E03.9 Hypothyroidism, unspecified (principal); E78.1 Pure hyperglyceridemia; E78.2 Mixed hyperlipidemia; E83.52 Hypercalcemia; R79.89 Other specified abnormal findings of blood chemistry
CPT/HCPCS: 36415; 80053; 80061

== ENCOUNTER → 2022-06-19 09:59 | Outpatient (CLI) | payer OTHER, SELFPAY ==
--- NOTE | 2022-06-19 10:00 | DI.MG.S_ITS ---
BILATERAL DIGITAL SCREENING MAMMOGRAM 3D/2D WITH CAD: 06/19/2022 CLINICAL: Routine screening. Family history of breast cancer. Comparison is made to exams dated: 04/29/2021 mammogram, 04/08/2021 mammogram - [facility], and 03/15/2019 mammogram - outside location. There are scattered fibroglandular elements in both breasts. Current study was also evaluated with a Computer Aided Detection (CAD) system. No significant masses, calcifications, or other findings are seen in either breast. There has been no significant interval change. IMPRESSION: NEGATIVE There is no mammographic evidence of malignancy. A 1 year screening mammogram is recommended. Based on the Tyrer Cuzick model (a risk assessment model) the patient's lifetime risk is 8.2% and her 10 year risk is 3.1%. According to the ACR, ACS, and NCCN guidelines, an annual breast MRI exam along with mammogram is recommended if the patient's lifetime risk is 20% or greater. This exam was interpreted at Station ID: [id number]. NOTE: For mammograms, a report in lay terms will be sent to the patient. Approximately 15% of breast malignancies will not be visualized mammographically. In the management of a palpable breast mass, a negative mammogram must not discourage biopsy of a clinically suspicious lesion. Electronically Signed By: Steven cifuentes/natalie:06/21/2022 08:49:05 letter sent: Normal Exam ACR BI-RADS Category 1: Negative 3341F
== END ==
PROVIDERS: Family Provider Nurse Practitioner; PCP Nurse Practitioner; Referring Provider Nurse Practitioner; Visit Provider Nurse Practitioner
DX: Z12.31 Encounter for screening mammogram for malignant neoplasm of breast (principal); Z80.3 Family history of malignant neoplasm of breast
CPT/HCPCS: 77063; 77067

== ENCOUNTER → 2023-02-07 10:16 | Outpatient (CLI) | payer OTHER, SELFPAY ==
[2023-02-07 11:46] LABS: Appearance Urine UA CLEAR; Bilirubin Urine UA NEGATIVE (NEGATIVE); Color Urine UA YELLOW; Glucose Urine UA NEGATIVE (Negative); Ketones Urine UA NEGATIVE (NEGATIVE); Leukocyte Esterase Urine UA NEGATIVE (NEGATIVE); Nitrite Urine UA NEGATIVE (Negative); Occult Blood Urine UA NEGATIVE (Negative); Protein Urine UA NEGATIVE (Negative); Specific Gravity Urine UA <=1.005 (1.000-1.035); Urobilinogen Urine UA 0.2 E.U./dL (0.2)
[2023-02-07 12:07] LABS: Bacteria Urine None Seen; Culture Indicated Urine Cult Not Indicated; RBC Urine None Seen (0-5/HPF); Urine Comments Microscopic Normal; WBC Urine None Seen (0-5/HPF)
[2023-02-07 12:09] LABS: Creatinine Urine Random 27.4 mg/dL
[2023-02-07 12:14] LABS: Microalbumin Urine Random < 0.6 mg/dL (0-1.6)
== END ==
PROVIDERS: Family Provider Nurse Practitioner; PCP Nurse Practitioner; Referring Provider Nurse Practitioner; Visit Provider Nurse Practitioner
DX: Z00.00 Encounter for general adult medical examination without abnormal findings (principal)
CPT/HCPCS: 81001; 82043; 82570

== ENCOUNTER → 2023-02-08 08:34 | Outpatient (CLI) | payer OTHER, SELFPAY ==
[2023-02-08 10:06] LABS: Add Manual Diff / Slide Review NO; Basophils Absolute Auto 100 /uL (0-100); Basophils Percent Auto 1.3 % (0-2); Eosinophils Absolute Auto 200 /uL (0-450); Hematocrit 40.6 % (36-46); Hemoglobin 13.7 g/dL (12.0-16.0); Lymphocytes Absolute Auto 1500 /uL (1100-4500); Lymphocytes Percent Auto 30.8 % (25-40); Mean Corpuscular HGB Conc 33.8 % (30-36); Mean Corpuscular Volume 88.7 fL (80-100); Monocytes Absolute Auto 300 /uL (0-900); Monocytes Percent Auto 5.7 % (3-14); Neutrophils Absolute Auto 2700 /uL (1500-7000); Neutrophils Percent Auto 58.2 % (50-75); Platelet Count 298 X10^3/uL (150-400); Red Blood Cell Count 4.57 X10^6/uL (4.0-5.2); Red Cell Distribution Width 13.1 % (11.6-14.8); White Blood Cell Count 4.7 X10^3/uL (4.5-11.0)
[2023-02-08 10:43] LABS: Alanine Aminotransferase 22 IU/L (<35); Albumin 4.7 g/dL (3.5-5.0); Alkaline Phosphatase 68 U/L (38-126); Aspartate Aminotransferase 33 IU/L (14-36); BUN Creatinine Ratio 22.5 (6-22); Bilirubin Total 0.5 mg/dL (0.2-1.3); Blood Urea Nitrogen 16 mg/dL (7-17); Calcium 9.7 mg/dL (8.4-10.2); Carbon Dioxide 29 mmol/L (22-32); Chloride 98 mmol/L (98-107); Cholesterol 208 mg/dL (140-199); Estimated Glomerular Filt Rate > 60 mL/min (>60); Globulin 2.4 g/dL (1.7-4.1); Glucose 84 mg/dL (70-100); HDL Cholesterol 89 mg/dL (40-60); HEMOLYSIS < 15 (0-50); LDL Cholesterol Calculated 96 mg/dL (<100); Potassium 4.5 mmol/L (3.4-5.1); Sodium 135 mmol/L (137-145); Total Protein 7.1 g/dL (6.3-8.2); Triglycerides 117 mg/dL (35-150)
[2023-02-08 11:08] LABS: Thyroid Stimulating Hormone 1.74 uIU/mL (0.47-4.68)
[2023-02-10 16:56] LABS: HIV 1 & 2 Ab/Ag 4th Gen Combo NEGATIVE (NEGATIVE); Hep C Virus Ab w/Reflex Quant NEGATIVE s/c (NEGATIVE)
== END ==
PROVIDERS: Family Provider Nurse Practitioner; PCP Nurse Practitioner; Referring Provider Nurse Practitioner; Visit Provider Nurse Practitioner
DX: Z00.00 Encounter for general adult medical examination without abnormal findings (principal); Z11.4 Encounter for screening for human immunodeficiency virus [HIV]; Z11.59 Encounter for screening for other viral diseases
CPT/HCPCS: 36415; 80053; 80061; 84443; 85025; 86803; 87389

== ENCOUNTER → 2023-04-20 13:07 | Outpatient (CLI) | payer OTHER, SELFPAY ==
--- NOTE | 2023-04-20 | DI.CT.S_ITS ---
PROCEDURE: CT SINUS SCREEN WO CON INDICATIONS: Chronic pansinusitis Headache, unspecified TECHNIQUE: Noncontrast 3.0 mm axial images acquired from the frontal sinuses to the mid-sella, with coronal and sagittal reformats. For radiation dose reduction, the following was used: automated exposure control, adjustment of mA and/or kV according to patient size. COMPARISON: None. FINDINGS: Image quality: Excellent. Maxillary Sinuses: No bony remodeling or destruction. Sinuses are clear. Ethmoid Air Cells: No bony remodeling or destruction. Sinuses are clear. Sphenoid Sinuses: No bony remodeling or destruction. Sinuses are clear. Frontal Sinuses: No bony remodeling or destruction. Sinuses are clear. Ostiomeatal Complexes: Ostiomeatal complexes are patent. No Beto cells. Miscellaneous: Visualized intra-orbital contents are normal. No abril bullosa or paradoxical turbinate curvature. No nasal septal deviation. IMPRESSION: No evidence of acute or chronic sinusitis. Dictated by: Antwon Douglas M.D. on 04/20/2023 at 17:04 Approved by: Antwon Douglas M.D. on 04/20/2023 at 17:04
== END ==
PROVIDERS: Family Provider Nurse Practitioner; PCP Nurse Practitioner; Referring Provider Otolaryngology; Visit Provider Otolaryngology
DX: R51.9 Headache, unspecified (principal); J32.4 Chronic pansinusitis
CPT/HCPCS: 70486

== ENCOUNTER → 2023-05-27 10:44 | Outpatient (CLI) | payer OTHER, SELFPAY ==
--- NOTE | 2023-05-27 10:48 | DI.RAD.S_ITS ---
PROCEDURE: XR HIP W PEL IF DONE LT 2V INDICATIONS: left pain TECHNIQUE: Left views of the hip were acquired. COMPARISON: None. FINDINGS: Bones: No fractures or dislocations. No suspicious bony lesions. The visualized pelvic ring appears intact. Soft tissues: No suspicious soft tissue calcifications or masses. IMPRESSION: Normal left hip radiographs Approved by: Ron Whitten M.D. on 05/27/2023 at 17:33
== END ==
PROVIDERS: Family Provider Nurse Practitioner; PCP Nurse Practitioner; Referring Provider Nurse Practitioner Family; Visit Provider Nurse Practitioner Family
DX: M25.552 Pain in left hip (principal)
CPT/HCPCS: 73502

== ENCOUNTER → 2023-06-20 12:51 | Outpatient (CLI) | payer OTHER, SELFPAY ==
--- NOTE | 2023-06-20 12:52 | DI.MG.S_ITS ---
BILATERAL DIGITAL SCREENING MAMMOGRAM 3D/2D WITH CAD: 06/20/2023 CLINICAL: Routine screening. Family history of breast cancer. Comparison is made to exams dated: 06/19/2022 mammogram, 04/08/2021 mammogram - [facility], and 03/15/2019 mammogram - outside location. There are scattered areas of fibroglandular density in both breasts (category b / 25%-50% glandular tissue). Current study was also evaluated with a Computer Aided Detection (CAD) system. No significant masses, calcifications, or other findings are seen in either breast. There has been no significant interval change. IMPRESSION: NEGATIVE There is no mammographic evidence of malignancy. A 1 year screening mammogram is recommended. Based on the Tyrer Cuzick model (a risk assessment model) the patient's lifetime risk is 8.0% and her 10 year risk is 3.2%. According to the ACR, ACS, and NCCN guidelines, an annual breast MRI exam along with mammogram is recommended if the patient's lifetime risk is 20% or greater. This exam was interpreted at Station ID: [id number]. NOTE: For mammograms, a report in lay terms will be sent to the patient. Approximately 15% of breast malignancies will not be visualized mammographically. In the management of a palpable breast mass, a negative mammogram must not discourage biopsy of a clinically suspicious lesion. Electronically Signed By: Qi cleemnte/natalie:06/20/2023 13:21:30 letter sent: Normal Exam ACR BI-RADS Category 1: Negative 3341F
== END ==
PROVIDERS: Family Provider Nurse Practitioner; PCP Nurse Practitioner; Referring Provider Nurse Practitioner; Visit Provider Nurse Practitioner
DX: Z12.31 Encounter for screening mammogram for malignant neoplasm of breast (principal); Z80.3 Family history of malignant neoplasm of breast
CPT/HCPCS: 77063; 77067

== ENCOUNTER → 2023-06-30 11:21 | Outpatient (CLI) | payer OTHER, SELFPAY ==
[2023-07-01 10:13] LABS: Rubeola Measles IgG > 300.0 AU/mL (Immune >16.4); Varicella IgG Antibody 591 index (Immune >165)
[2023-07-01 13:01] LABS: Mumps Virus IgG Antibody >300.0 AU/mL (Immune >10.9)
[2023-07-06 04:54] LABS: Hepatitis B Core Antibody Negative (Negative)
== END ==
PROVIDERS: Internal Medicine; Family Provider Nurse Practitioner; PCP Nurse Practitioner; Referring Provider Nurse Practitioner; Visit Provider Nurse Practitioner
DX: Z13.9 Encounter for screening, unspecified (principal)
CPT/HCPCS: 36415; 86704; 86735; 86762; 86765; 86787

== ENCOUNTER → 2023-08-10 14:39 | Outpatient (CLI) | payer OTHER, SELFPAY ==
--- NOTE | 2023-08-10 14:40 | DI.RAD.S_ITS ---
PROCEDURE: XR T AND L SPINE 4 TO 5 VIEWS INDICATIONS: evaluation for scoliosis, h/o Graves disease TECHNIQUE: 2 views acquired of the thoracolumbar spine. COMPARISON: None. FINDINGS: Bones: Convex left lumbar 30 degree scoliosis noted associated with lateral subluxation of the 3rd vertebral body. Disc space narrowing hypertrophic facet joints present in the mid lumbar spine. Soft tissues: Moderate fecal debris throughout the colon IMPRESSION: 30 degree lumbar levoscoliosis Approved by: Ron Whitten M.D. on 08/10/2023 at 19:04
== END ==
PROVIDERS: Family Provider Nurse Practitioner; PCP Nurse Practitioner; Referring Provider Family Medicine; Visit Provider Family Medicine
DX: M41.9 Scoliosis, unspecified (principal); E03.9 Hypothyroidism, unspecified; E05.00 Thyrotoxicosis with diffuse goiter without thyrotoxic crisis or storm; M54.42 Lumbago with sciatica, left side; M54.41 Lumbago with sciatica, right side
CPT/HCPCS: 72083

== ENCOUNTER → 2023-08-12 13:05 | Outpatient (CLI) | payer OTHER, SELFPAY ==
--- NOTE | 2023-08-12 13:06 | DI.RAD.S_ITS ---
Bone Density Report Name: LUX OROZOC Age: 58 Sex: Female Ethnicity: White Date of : 1965 Indication: postmenopausal; screening for osteoporosis; Referring Provider: KADY CAMPOVERDE Study: Bone densitometry was performed. Exam Date: August 12, 2023 Accession number: [id number] Bone Density: Region BMD T-score Z-score Classification AP Spine(L2) 0.991 -0.3 1.1 Normal Femoral Neck (Left) 0.766 -0.7 0.5 Normal Total Hip (Left) 0.932 -0.1 0.9 Normal Femoral Neck (Right) 0.760 -0.8 0.5 Normal Total Hip (Right) 0.986 0.4 1.3 Normal Total Hip Mean 0.959 0.2 1.1 Normal World Health Organization criteria for BMD impression classify patients as: Normal (T-score at or above -1.0), Osteopenia (T-score between -1.0 and -2.5), or Osteoporosis (T-score at or below -2.5). 10-year Fracture Risk: FRAX not reported because: All T-scores for Spine Total, Hip Total, Femoral Neck at or above -1.0 Impression: The patient has normal bone mass. Discussion: BONE DENSITY IS ABOVE THE MINIMUM DESIRABLE LEVEL AT ALL SKELETAL SITES TESTED. This patient's bone mineral density is above the minimum desirable level (T-score -1.0 or better) at all sites measured. The patient should follow a healthful lifestyle (good nutrition with adequate calcium and vitamin D, and appropriate weight-bearing exercise). Follow-Up: Consider repeating this study in 5 years or sooner if there is some new clinical indication. Reported by: DONTAE JUSTIN M.D. on 08/12/2023 1:35:00 PM.
[2023-08-12 15:58] LABS: TSH w/ Reflex to FT4 5.78 uIU/mL (0.47-4.68)
[2023-08-12 16:49] LABS: Free T4, Direct Thyroxine 1.26 ng/dL (0.78-2.19)
[2023-08-15 13:24] LABS: Hepatitis B Surf Ab Qualitativ Non Reactive (.)
== END ==
PROVIDERS: Family Provider Nurse Practitioner; PCP Nurse Practitioner; Referring Provider Family Medicine; Visit Provider Family Medicine
DX: E05.00 Thyrotoxicosis with diffuse goiter without thyrotoxic crisis or storm (principal); Z78.0 Asymptomatic menopausal state; M41.9 Scoliosis, unspecified; E03.9 Hypothyroidism, unspecified; M54.42 Lumbago with sciatica, left side; M54.41 Lumbago with sciatica, right side; B19.10 Unspecified viral hepatitis B without hepatic coma; Z90.710 Acquired absence of both cervix and uterus
CPT/HCPCS: 36415; 77080; 84439; 84443; 86706

== ENCOUNTER 2023-11-04 13:00 | Outpatient (RCR) | payer OTHER, SELFPAY ==
--- NOTE | 2023-11-02 15:45 | PT.OIE ---
Current Diagnoses Pain in left hip (11/02/23) Past Medical History (Last Updated 08/13/23 @ 09:40 by Afshan Ruelas DO) Acetabular labrum tear Acquired hypothyroidism Acute bilateral low back pain with bilateral sciatica Allergies Ankle pain (~2014) Bilateral piriformis syndrome Cervical spine disease (~2014) Chicken pox Fibroids (~2014) Foot pain (~2014) Graves disease (~2002) Herpes Hypercalcemia Hypertension (~2002) Hypertriglyceridemia Lumbar region somatic dysfunction Menopause Migraines Mumps OCD (obsessive compulsive disorder) (~1993) Osteoarthritis (~2014) Pelvic somatic dysfunction Peripheral neuropathy (~2005) Positive FIT (fecal immunochemical test) Raynaud's disease Sacral region somatic dysfunction Scoliosis Segmental and somatic dysfunction of abdomen and other regions Shoulder pain (~2014) Sleep apnea (~2014) Somatic dysfunction of lower extremity Past Surgical History (Last Reviewed 02/07/23 @ 09:25 by MADIE Cruz) Anesthesia History of foot surgery (~2014) History of hysterectomy (~2012) History of radiation therapy (~2002) History of tonsillectomy (~1966) Melanoma (~1989) Visit Care Team Role Provider Type MADIE Cruz Family Provider Advanced Turf Farmer Primary Care Provider Specialty: Family Practice Address: [address] [place] [address], [facility] Email: [email or web address] MADIE Gaines Attending Provider Non-Staff Referring Provider Specialty: Nursing Address: [address] [place] [address], [id number] Email: Physical Therapy Initial Evaluation PT-OP-A Visit Information Start: 11/03/23 12:35 Freq: Status: Active Protocol: Document 11/02/23 14:00 NM (Rec: 11/03/23 13:00 NM [id number]) Out-Patient Physical Therapy Visit Information Visit Information Visit Type Initial Evaluation Visit Note 12/05 visits Visit Start Time 13:45 Visit Stop Time 14:30 Total Visit Minutes 45 Visit Number 1 Evaluation Information Evaluation Date 11/02/23 PT-OP-B Current Condition Start: 11/03/23 12:35 Freq: Status: Active Protocol: Document 11/02/23 14:00 NM (Rec: 11/03/23 13:00 NM [id number]) Current Condition History of Current Condition Onset Date 2013 Current Complaints L lateral hip pain, L low back pain History of Current Condition Pt presents to clinic with L lateral hip pain near the greater trochanter for the past several months, which has been worsening. She reports a hx of L labrum tear from 2013 ; however, she reports no residual limitations from that . She also has a hx of OA at multiple joints and sciatica ( 3 years ago), for which she was successfully treated, along with levoscoliosis. 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 Her hip pain is worse with sleeping, changing position (e.g. gardening), sitting for > 1 hr , stairs, and walking > 2 mi. Prior Treatments and Tests X-rays 2022: 30 deg lumbar levoscoliosis, nml L hip Future Testing and Treatments Planned Future MRI (to be scheduled) Treatment Goals Patient/Caregiver Goals To be able to safely exercise and sleep with less hip pain Prior Functional Status Baseline Function- ADL's Independent Baseline Function- Mobility Independent Baseline Function- Gait 2 mi Baseline Function- Work/School No limitations during work Baseline Function- Recreation/Hobbies Gardening, pool exercise Current Functional Impairments (Reported) Functional Limitations- Mobility/Gait 1 mi Functional Limitations- Work/School Sit 1 hr before needing to ambulate Functional Limitations- Recreation/ Difficulty with transferring Hobbies to ground to garden or bend over Functional Limitations- Other Unable to sleep due to pain PT-OP-C Subjective Start: 11/03/23 12:35 Freq: Status: Active Protocol: Document 11/02/23 14:00 NM (Rec: 11/03/23 13:00 NM [id number]) OP-PT Subjective Patient Comments Patient Comments See report above for pt hx Patient Questionnaires Lower Extremity Functional Scale LEFS Score 35/80 OP-PT Pain Assessment Location Lumbar spine Pain Location Details left lateral spine Intensity 1 Scale Used Numeric (0 - 10) Description Aching,Dull Frequency Daily Pain Aggravating Factors Position,Bending,Lifting Pain Alleviating Factors Heat L hip Pain Location Details lateral hip ~ greater trochanter Intensity 3 Scale Used Numeric (0 - 10) Description Aching,Dull Frequency Constant Radiating Location to mid lateral thigh Pain Aggravating Factors Position,Changing Position, Activity,Exercise,Sitting, Walking,Stair Climbing,Bending ,Lifting Pain Alleviating Factors Heat Home Pain Medication Use Pain Medications Used Yes: Gabapentin PT-OP-D Balance Start: 11/03/23 12:35 Freq: Status: Active Protocol: Document 11/02/23 14:00 NM (Rec: 11/03/23 13:00 NM [id number]) Balance Tests Single Limb Standing Single Limb- Right 15 sec Single Limb- Left 15 sec PT-OP-E Functional Tests Start: 11/03/23 12:35 Freq: Status: Active Protocol: Document 11/02/23 14:00 NM (Rec: 11/03/23 13:00 NM [id number]) Functional Tests 30 Second Sit to Stand Test Score 15 Comments knee valgus, minor reported hip pain Squat Test Score 1 Comments B knee valgus, pronation; reproduces hip pain Single Leg Squat Test Score 1 Comment Demos knee valgus, + trendelenburg (R hip drop), reproduces hip pain PT-OP-F Manual Assessment Start: 11/03/23 12:35 Freq: Status: Active Protocol: Document 11/02/23 14:00 NM (Rec: 11/03/23 13:00 NM [id number]) Manual Assessments Soft Tissue Assessment Soft Tissue Mobility Assessment Moderate soft tissue restriction of L glute muscles , piriformis. Reproduces pain in L hip. Tenderness along L greater trochanter, but no palpable bursa or mass. L IT band tightness. Lumbar spine paraspinals have superficial restrictions, but are not tender or painful. Joint Mobility Assessment Joint Mobility Assessment Slight limitations in B hip flexion ROM but does not reproduce pain in L hip or low back. P-A springing mobilizations show hypomobile L1-L5, but do not reproduce pain. L lateral curve of lumbar spine. Full hip PROM bilaterally PT-OP-G Mobility & Gait Start: 11/03/23 12:35 Freq: Status: Active Protocol: Document 11/02/23 14:00 NM (Rec: 11/03/23 13:00 NM [id number]) OP Gait Assessment Gait Gait Assistance Required: Independent Gait Deviations General Gait Pattern Within Normal Limits Stair Climbing Evaluation Evaluation Level of Assist On Stairs Independent Technique/Endurance Stair Climbing Direction Ascend and Descend Stair Climbing Technique Step Over Step Number of Steps Climbed 8 Stair Climbing Set # Repetitions (reps) 1 Comments Stair Climbing Comments Reports L hip pain during descending stairs, knee valgus during descent. PT-OP-H Neuro Start: 11/03/23 12:35 Freq: Status: Active Protocol: Document 11/02/23 14:00 NM (Rec: 11/03/23 13:00 NM [id number]) Sensation Evaluation Gross Sensation Gross Sensation WNL PT-OP-J Posture/Palpation/Skin Start: 11/03/23 12:35 Freq: Status: Active Protocol: Document 11/02/23 14:00 NM (Rec: 11/03/23 13:00 NM [id number]) Posture Evaluation Position Standing Evaluation View anterior, lateral, posterior Head/C-Spine Posture Forward Head T-Spine Posture Increased Kyphosis L-Spine Posture Flattened,Fixed Scoliosis on ( L) Pelvis Posture Anteriorly Tilted Weight Distribution Balanced Hip Posture (R) Neutral,(L) Externally Rotated Knee Posture (L) Genu Valgus,(R) Genu Valgus Palpation Assessment Location Lumbar Spine Palpation Location paraspinals Palpation Findings None/Normal Palpation Details No soft tissue restrictions along lumbar spine that reproduce pain Buttock Palpation Location L glutes Palpation Findings Soft Tissue Tightness,Spasm, Tenderness Palpation Details Tenderness and soft tissue tightness of L glutes from sacrum to L greater trochanter L hip Palpation Location greater trochanter, lateral thigh along IT band Palpation Findings Soft Tissue Tightness,Spasm, Tenderness Palpation Details Tenderness of greater trochanter, no palpable mass PT-OP-K Range of Motion Start: 11/03/23 12:35 Freq: Status: Active Protocol: Document 11/02/23 14:00 NM (Rec: 11/03/23 13:00 NM [id number]) Lumbar Spine Range of Motion Lumbar Spine Active Percentage Testing Position Standing Flexion 100 Extension 100 Lateral Flexion Left 100 Lateral Flexion Right 100 Comments Rotation 10 cm bilaterally Lateral flex to knee joint line bilaterally No reported pain with any movement Hip Goniometric Range of Motion Hip Right Hip ROM WFL No Testing Position supine and sitting Flexion w/Knee Flexed 100 Abduction 30 Internal Rotation 40 External Rotation 40 Left Hip ROM WFL No Testing Position supine and sitting Flexion w/Knee Flexed 100 Abduction 30 Internal Rotation 40 External Rotation 40 Comments No reported pain with any motion PT-OP-L Special Tests Start: 11/03/23 12:35 Freq: Status: Active Protocol: Document 11/02/23 14:00 NM (Rec: 11/03/23 13:00 NM [id number]) Special Tests Lumbar Spine Special Tests SI Joint Cluster Test Results negative Comments Anterior gapping, posterior gapping, Thigh thrust Straight Leg Raise Test Results positive Comments left Slump Test Results positive Comments Left Hip Special Tests Cosmo Test Results negative Comments LLE Olivia Test Results positive Comments LLE FADIR Test Results negative Comments LLE Trendelenberg Test Results positive Comments R hip drop when standing on LLE, <15 sec SLS Scour Test Test Results negative Comments LLE Anterior Labral Test Test Results negative Comments LLE JASON Test Results positive Comments LLE, reproduces pain in lateral hip Neural Special Tests- Lower Body Lateral Femoral Cutaneous Nerve Tension Test Results negative Comments LLE Femoral Nerve Tension Test Results negative Comments LLE PT-OP-M Strength Start: 11/03/23 12:35 Freq: Status: Active Protocol: Document 11/02/23 14:00 NM (Rec: 11/03/23 13:00 NM [id number]) Hip Strength Hip Manual Muscle Testing Right Flexion (L2) 4+ Good+ Extension (S1) 4+ Good+ Abduction 4+ Good+ Adduction 4+ Good+ External Rotation 4+ Good+ Internal Rotation 4+ Good+ Left Flexion (L2) 4- Good- Extension (S1) 4- Good- Abduction 4- Good- Adduction 4+ Good+ External Rotation 4 Good Internal Rotation 4 Good Comments No pain with resisted motion Knee Strength Knee Manual Muscle Testing Right Flexion (S2) 4 Good Extension (L3) 4 Good Comments Crepitus Left Flexion (S2) 4- Good- Extension (L3) 4 Good Comments Minor glute pain with resisted knee flex, but does not reproduce lateral hip pain. Crepitus PT-OP-T Assessment and Plan Start: 11/03/23 12:35 Freq: Status: Active Protocol: Document 11/02/23 14:00 NM (Rec: 11/03/23 13:00 NM [id number]) Physical Therapy Assessment Rehab Potential Rehabilitation Potential Good Evaluation Complexity Number of Personal Factors/Comorbidities 3 or More Number of Body Systems Impaired 1-2 Clinical Presentation at Evaluation Stable Impairments Impairments Activity Tolerance,Balance, Functional Activities, Functional Mobility,Gait,Pain, Posture,ROM,Soft Tissue Mobility,Strength Goals Six Impairment sleep Impairment Unable to sleep on L side due to pain Sandstone Splitter Goal (LTG) Pt will report that she is able to sleep for at least 1 hour on her L side with 3/10 pain or less. LTG Duration 8 weeks Five Impairment function, balance Impairment B Single limb stance <15 sec with opposite hip drop on BLE Sandstone Splitter Goal (LTG) Pt will be able to perform a single limb stance for at least 30 seconds bilaterally without demonstrating a trendelenburg sign in order to demonstrate improved hip abduction strength and pelvis stability for functional mobility tasks. LTG Duration 8 weeks Four Impairment Function Impairment B squat with knee valgus, lateral hip pain Short Term Goal (STG) Pt will be able to perform at least 8 BLE squats without hip pain or compensations to demonstrate improved BLE strength and tolerance for exercise. STG Duration 4 weeks Sandstone Splitter Goal (LTG) Pt will be able to perform at least 15 BLE squats without hip pain or compensations to demonstrate improved BLE strength and tolerance for exercise. LTG Duration 8 weeks Three Impairment function Impairment 8 stairs, demos R hip drop on LLE stance, painful in L hip with descent Short Term Goal (STG) Pt will be able to ascend/ descend at least 12 stairs with hip pain of 3/10 or less and no compensations to show improved RLE strength and activity tolerance. STG Duration 4 weeks Custodial Goal (LTG) Pt will be able to ascend/ descend at least 20 stairs with hip pain of 3/10 or less and no compensations to show improved RLE strength and activity tolerance. LTG Duration 8 weeks Two Impairment strength Impairment R hip flex, ext, abd MMT 4-/5 Short Term Goal (STG) Pt will improve her R hip flexion, extension, and abduction MMT grade to at least 4/5 in order demonstrate improved RLE strength for gait, stairs, and recreational activities. STG Duration 4 weeks Sandstone Splitter Goal (LTG) Pt will improve her R hip flexion, extension, and abduction MMT grade to at least 4+/5 in order demonstrate improved RLE strength for gait, stairs, and recreational activities. LTG Duration 8 weeks One Impairment function Impairment LEFS 35/80 Short Term Goal (STG) Pt will improve LEFS score by at least 5 point (40/80) to demonstrate improved activity tolerance and QOL. STG Duration 4 weeks Custodial Goal (LTG) Pt will improve LEFS score by at least 9 points (44/80, MCID ) to demonstrate improved activity tolerance and QOL. LTG Duration 8 weeks Assessment Summary Assessment Pt is a 58 y.o. female presenting to clinic with L lateral hip pain that has worsened over the past several months. Pain is consistent with IT band irritation and piriformis restrictions; however, her hip pain is also likely influenced by her prior labral injury and levoscoliosis and the resulting postural adaptations . She is tender to palpation at the L greater trochanter and piriformis. There is no palpable mass. Pt demos decreased hip flexion ROM and decreased hip flexion/ abduction/extension strength. Despite scoliosis, she does not have any limitations in her thoracolumbar ROM ( symmetrical). She has positive sciatic neural tension signs, which coincides with occasional episodes of low back pain. Pt reports that she has most difficulty with sleeping and positional changes. Pt would benefit from skilled PT to address impairments in L hip strength and ROM, soft tissue restrictions, postural re- education, gait/stair training , and education regarding safe exercise in order for pt to decrease pain symptoms and to improve ADL tolerance for return to PLOF. Physical Therapy Plan Frequency and Duration Frequency of Treatment 1-2x/wk (15 visits) Duration of treatment (weeks) 8 Plan of Care Start Date 11/02/23 Plan of Care End Date 12/28/23 Therapeutic Interventions Therapeutic Interventions Aquatic Therapy,Balance Training,Gait Training,Home Exercise Program,Joint Mobilizations,Manual Therapy, Neuromuscular Re-education, Orthotic/Prosthetic Management ,Patient/Caregiver Education, Self-Care/Home Management,Soft Tissue Mobilization,Taping, Therapeutic Activities, Therapeutic Exercises Modalities Biofeedback,Cold Pack/Ice Massage,Electric Stimulation, Hot Packs,Iontophoresis, Traction- Mechanical, Ultrasound,Vasopneumatic Devices Next Visit Focus/Plan Next Note Type Treatment Note Next Visit Plan Hip stretching, manual tmt on piriformis/lumbar spine, hip abduction/glute strengthening
--- NOTE | 2023-11-02 15:54 | PT.OPPOC ---
Physical, Occupational & Speech Therapy At [facility] Current Diagnoses Pain in left hip (11/02/23) Visit Care Team Role Provider Type MADIE Cruz Family Provider Advanced [employer] Rep Primary Care Provider Specialty: Family Practice Address: [address] [place] [address], [id number] Email: [email or web address] MADIE Gaines Attending Provider Non-Staff Referring Provider Specialty: Nursing Address: [address] [place] [address], [id number] Email: Plan Of Care PT-OP-T Assessment and Plan Start: 11/03/23 12:35 Freq: Status: Active Protocol: Document 11/02/23 14:00 NM (Rec: 11/03/23 13:00 NM [id number]) Physical Therapy Assessment Rehab Potential Rehabilitation Potential Good Evaluation Complexity Number of Personal Factors/Comorbidities 3 or More Number of Body Systems Impaired 1-2 Clinical Presentation at Evaluation Stable Impairments Impairments Activity Tolerance,Balance, Functional Activities, Functional Mobility,Gait,Pain, Posture,ROM,Soft Tissue Mobility,Strength Goals Six Impairment sleep Impairment Unable to sleep on L side due to pain [facility] Goal (LTG) Pt will report that she is able to sleep for at least 1 hour on her L side with 3/10 pain or less. LTG Duration 8 weeks Five Impairment function, balance Impairment B Single limb stance <15 sec with opposite hip drop on BLE [facility] Goal (LTG) Pt will be able to perform a single limb stance for at least 30 seconds bilaterally without demonstrating a trendelenburg sign in order to demonstrate improved hip abduction strength and pelvis stability for functional mobility tasks. LTG Duration 8 weeks Four Impairment Function Impairment B squat with knee valgus, lateral hip pain Short Term Goal (STG) Pt will be able to perform at least 8 BLE squats without hip pain or compensations to demonstrate improved BLE strength and tolerance for exercise. STG Duration 4 weeks [facility] Goal (LTG) Pt will be able to perform at least 15 BLE squats without hip pain or compensations to demonstrate improved BLE strength and tolerance for exercise. LTG Duration 8 weeks Three Impairment function Impairment 8 stairs, demos R hip drop on LLE stance, painful in L hip with descent Short Term Goal (STG) Pt will be able to ascend/ descend at least 12 stairs with hip pain of 3/10 or less and no compensations to show improved RLE strength and activity tolerance. STG Duration 4 weeks [facility] Goal (LTG) Pt will be able to ascend/ descend at least 20 stairs with hip pain of 3/10 or less and no compensations to show improved RLE strength and activity tolerance. LTG Duration 8 weeks Two Impairment strength Impairment R hip flex, ext, abd MMT 4-/5 Short Term Goal (STG) Pt will improve her R hip flexion, extension, and abduction MMT grade to at least 4/5 in order demonstrate improved RLE strength for gait, stairs, and recreational activities. 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 LTG Duration 8 weeks One Impairment function Impairment LEFS 35/80 Short Term Goal (STG) Pt will improve LEFS score by at least 5 point (40/80) to demonstrate improved activity tolerance and QOL. STG Duration 4 weeks [facility] Goal (LTG) Pt will improve LEFS score by at least 9 points (44/80, MCID ) to demonstrate improved activity tolerance and QOL. LTG Duration 8 weeks Assessment Summary Assessment Pt is a 58 y.o. female presenting to clinic with L lateral hip pain that has worsened over the past several months. Pain is consistent with IT band irritation and piriformis restrictions; however, her hip pain is also likely influenced by her prior labral injury and levoscoliosis and the resulting postural adaptations . She is tender to palpation at the L greater trochanter and piriformis. There is no palpable mass. Pt demos decreased hip flexion ROM and decreased hip flexion/ abduction/extension strength. Despite scoliosis, she does not have any limitations in her thoracolumbar ROM ( symmetrical). She has positive sciatic neural tension signs, which coincides with occasional episodes of low back pain. Pt reports that she has most difficulty with sleeping and positional changes. Pt would benefit from skilled PT to address impairments in L hip strength and ROM, soft tissue restrictions, postural re- education, gait/stair training , and education regarding safe exercise in order for pt to decrease pain symptoms and to improve ADL tolerance for return to PLOF. Physical Therapy Plan Frequency and Duration Frequency of Treatment 1-2x/wk (15 visits) Duration of treatment (weeks) 8 Plan of Care Start Date 11/02/23 Plan of Care End Date 12/28/23 Therapeutic Interventions Therapeutic Interventions Aquatic Therapy,Balance Training,Gait Training,Home Exercise Program,Joint Mobilizations,Manual Therapy, Neuromuscular Re-education, Orthotic/Prosthetic Management ,Patient/Caregiver Education, Self-Care/Home Management,Soft Tissue Mobilization,Taping, Therapeutic Activities, Therapeutic Exercises Modalities Biofeedback,Cold Pack/Ice Massage,Electric Stimulation, Hot Packs,Iontophoresis, Traction- Mechanical, Ultrasound,Vasopneumatic Devices Next Visit Focus/Plan Next Note Type Treatment Note Next Visit Plan Hip stretching, manual tmt on piriformis/lumbar spine, hip abduction/glute strengthening Plan of Care Dates Plan of Care Start Date 11/02/23 Plan of Care End Date 12/28/23 Electronically Signed by: Otilia Valverde, PT 11/03/23 [id number] If you are in agreement with this Plan of Care, please return a signed and dated copy. I have reviewed this Plan of Care and certify that the skilled therapy services above are required to meet the patient?s needs. Physician Signature Date Printed Name and Credentials Clinical Instructor Signature Printed Name and Credentials
--- NOTE | 2023-11-04 15:44 | PT.OTN ---
Current Diagnoses Pain in left hip (11/04/23) Physical Therapy Treatment Note PT-OP-A Visit Information Start: 11/03/23 12:35 Freq: Status: Active Protocol: Document 11/04/23 13:05 NM (Rec: 11/04/23 13:45 NM [id number]) Out-Patient Physical Therapy Visit Information Visit Information Visit Type Treatment Note Visit Note 01/05 Visit Start Time 13:00 Visit Stop Time 13:45 Total Visit Minutes 45 Visit Number 2 Evaluation Information Evaluation Date 11/02/23 PT-OP-B Current Condition Start: 11/03/23 12:35 Freq: Status: Active Protocol: Document 11/02/23 14:00 NM (Rec: 11/03/23 13:00 NM [id number]) Current Condition History of Current Condition Onset Date 2013 Current Complaints L lateral hip pain, L low back pain History of Current Condition Pt presents to clinic with L lateral hip pain near the greater trochanter for the past several months, which has been worsening. She reports a hx of L labrum tear from 2013 ; however, she reports no residual limitations from that . She also has a hx of OA at multiple joints and sciatica ( 3 years ago), for which she was successfully treated, along with levoscoliosis. 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 Her hip pain is worse with sleeping, changing position (e.g. gardening), sitting for > 1 hr , stairs, and walking > 2 mi. Prior Treatments and Tests X-rays 2022: 30 deg lumbar levoscoliosis, nml L hip Future Testing and Treatments Planned Future MRI (to be scheduled) Treatment Goals Patient/Caregiver Goals To be able to safely exercise and sleep with less hip pain Prior Functional Status Baseline Function- ADL's Independent Baseline Function- Mobility Independent Baseline Function- Gait 2 mi Baseline Function- Work/School No limitations during work Baseline Function- Recreation/Hobbies Gardening, pool exercise Current Functional Impairments (Reported) Functional Limitations- Mobility/Gait 1 mi Functional Limitations- Work/School Sit 1 hr before needing to ambulate Functional Limitations- Recreation/ Difficulty with transferring Hobbies to ground to garden or bend over Functional Limitations- Other Unable to sleep due to pain PT-OP-C Subjective Start: 11/03/23 12:35 Freq: Status: Active Protocol: Document 11/04/23 13:05 NM (Rec: 11/04/23 13:45 NM [id number]) OP-PT Subjective Patient Comments Patient Comments Pt reports 3/10 in L hip. She will have MRI tonight; will follow up about results at next appt. PT-OP-D Balance Start: 11/03/23 12:35 Freq: Status: Active Protocol: Document 11/02/23 14:00 NM (Rec: 11/03/23 13:00 NM [id number]) Balance Tests Single Limb Standing Single Limb- Right 15 sec Single Limb- Left 15 sec PT-OP-E Functional Tests Start: 11/03/23 12:35 Freq: Status: Active Protocol: Document 11/02/23 14:00 NM (Rec: 11/03/23 13:00 NM [id number]) Functional Tests 30 Second Sit to Stand Test Score 15 Comments knee valgus, minor reported hip pain Squat Test Score 1 Comments B knee valgus, pronation; reproduces hip pain Single Leg Squat Test Score 1 Comment Demos knee valgus, + trendelenburg (R hip drop), reproduces hip pain PT-OP-F Manual Assessment Start: 11/03/23 12:35 Freq: Status: Active Protocol: Document 11/02/23 14:00 NM (Rec: 11/03/23 13:00 NM [id number]) Manual Assessments Soft Tissue Assessment Soft Tissue Mobility Assessment Moderate soft tissue restriction of L glute muscles , piriformis. Reproduces pain in L hip. Tenderness along L greater trochanter, but no palpable bursa or mass. L IT band tightness. Lumbar spine paraspinals have superficial restrictions, but are not tender or painful. Joint Mobility Assessment Joint Mobility Assessment Slight limitations in B hip flexion ROM but does not reproduce pain in L hip or low back. P-A springing mobilizations show hypomobile L1-L5, but do not reproduce pain. L lateral curve of lumbar spine. Full hip PROM bilaterally PT-OP-G Mobility & Gait Start: 11/03/23 12:35 Freq: Status: Active Protocol: Document 11/02/23 14:00 NM (Rec: 11/03/23 13:00 NM [id number]) OP Gait Assessment Gait Gait Assistance Required: Independent Gait Deviations General Gait Pattern Within Normal Limits Stair Climbing Evaluation Evaluation Level of Assist On Stairs Independent Technique/Endurance Stair Climbing Direction Ascend and Descend Stair Climbing Technique Step Over Step Number of Steps Climbed 8 Stair Climbing Set # Repetitions (reps) 1 Comments Stair Climbing Comments Reports L hip pain during descending stairs, knee valgus during descent. PT-OP-H Neuro Start: 11/03/23 12:35 Freq: Status: Active Protocol: Document 11/02/23 14:00 NM (Rec: 11/03/23 13:00 NM [id number]) Sensation Evaluation Gross Sensation Gross Sensation WNL PT-OP-J Posture/Palpation/Skin Start: 11/03/23 12:35 Freq: Status: Active Protocol: Document 11/02/23 14:00 NM (Rec: 11/03/23 13:00 NM [id number]) Posture Evaluation Position Standing Evaluation View anterior, lateral, posterior Head/C-Spine Posture Forward Head T-Spine Posture Increased Kyphosis L-Spine Posture Flattened,Fixed Scoliosis on ( L) Pelvis Posture Anteriorly Tilted Weight Distribution Balanced Hip Posture (R) Neutral,(L) Externally Rotated Knee Posture (L) Genu Valgus,(R) Genu Valgus Palpation Assessment Location Lumbar Spine Palpation Location paraspinals Palpation Findings None/Normal Palpation Details No soft tissue restrictions along lumbar spine that reproduce pain Buttock Palpation Location L glutes Palpation Findings Soft Tissue Tightness,Spasm, Tenderness Palpation Details Tenderness and soft tissue tightness of L glutes from sacrum to L greater trochanter L hip Palpation Location greater trochanter, lateral thigh along IT band Palpation Findings Soft Tissue Tightness,Spasm, Tenderness Palpation Details Tenderness of greater trochanter, no palpable mass PT-OP-K Range of Motion Start: 11/03/23 12:35 Freq: Status: Active Protocol: Document 11/02/23 14:00 NM (Rec: 11/03/23 13:00 NM [id number]) Lumbar Spine Range of Motion Lumbar Spine Active Percentage Testing Position Standing Flexion 100 Extension 100 Lateral Flexion Left 100 Lateral Flexion Right 100 Comments Rotation 10 cm bilaterally Lateral flex to knee joint line bilaterally No reported pain with any movement Hip Goniometric Range of Motion Hip Right Hip ROM WFL No Testing Position supine and sitting Flexion w/Knee Flexed 100 Abduction 30 Internal Rotation 40 External Rotation 40 Left Hip ROM WFL No Testing Position supine and sitting Flexion w/Knee Flexed 100 Abduction 30 Internal Rotation 40 External Rotation 40 Comments No reported pain with any motion PT-OP-L Special Tests Start: 11/03/23 12:35 Freq: Status: Active Protocol: Document 11/02/23 14:00 NM (Rec: 11/03/23 13:00 NM [id number]) Special Tests Lumbar Spine Special Tests SI Joint Cluster Test Results negative Comments Anterior gapping, posterior gapping, Thigh thrust Straight Leg Raise Test Results positive Comments left Slump Test Results positive Comments Left Hip Special Tests Cosmo Test Results negative Comments LLE Olivia Test Results positive Comments LLE FADIR Test Results negative Comments LLE Trendelenberg Test Results positive Comments R hip drop when standing on LLE, <15 sec SLS Scour Test Test Results negative Comments LLE Anterior Labral Test Test Results negative Comments LLE JASON Test Results positive Comments LLE, reproduces pain in lateral hip Neural Special Tests- Lower Body Lateral Femoral Cutaneous Nerve Tension Test Results negative Comments LLE Femoral Nerve Tension Test Results negative Comments LLE PT-OP-M Strength Start: 11/03/23 12:35 Freq: Status: Active Protocol: Document 11/02/23 14:00 NM (Rec: 11/03/23 13:00 NM [id number]) Hip Strength Hip Manual Muscle Testing Right Flexion (L2) 4+ Good+ Extension (S1) 4+ Good+ Abduction 4+ Good+ Adduction 4+ Good+ External Rotation 4+ Good+ Internal Rotation 4+ Good+ Left Flexion (L2) 4- Good- Extension (S1) 4- Good- Abduction 4- Good- Adduction 4+ Good+ External Rotation 4 Good Internal Rotation 4 Good Comments No pain with resisted motion Knee Strength Knee Manual Muscle Testing Right Flexion (S2) 4 Good Extension (L3) 4 Good Comments Crepitus Left Flexion (S2) 4- Good- Extension (L3) 4 Good Comments Minor glute pain with resisted knee flex, but does not reproduce lateral hip pain. Crepitus PT-OP-Q Treatments Start: 11/03/23 12:35 Freq: Status: Active Protocol: Document 11/04/23 13:05 NM (Rec: 11/04/23 13:45 NM [id number]) Therapeutic Exercises Supine Exercises SLR with foot IR Supine Exercise Name in hooklying Side bilateral Reps/Minutes 10x3 Comments with TFL emphasis; no pain but reports fatigue with inc reps Piriformis stretch Supine Exercise Name 1. Leg across opposite leg, 2. figure 4 with opp knee flex Side bilateral Reps/Minutes 2x30 Comments reports a good stretch Cosmo Stretch Side bilateral Reps/Minutes 1x30 Comments pt reports not feeling a stretch Prone Exercises hip extension Prone Exercise Name for glute strengthening Side bilateral Equipment Used leg straight Reps/Minutes 2x10 Comments cues to keep hips on table, no rotation; pt reports fatigue with inc reps Sidelying Exercises Hip abduction Side bilateral Equipment Used bottom leg knee bent to stabilize Reps/Minutes 4x5 Comments cues to prevent post rotation, toe down for glute med; fatiguing Sitting Exercises Hip IR Side bilateral Resistance teal tb (lvl 2) Equipment Used gold ball between knees Reps/Minutes 12x3 Comments added band for resistance Standing Exercises Hip ER Standing Exercise Name 1/2 kneel on stool with opposite leg on ground Side bilateral Resistance teal band lvl 2 Equipment Used stool Reps/Minutes 1x15 Comments for more hip ER rom during movement compared to sitting Manual Therapy Treatment Soft Tissue Mobilization Anterior hip Body Location TFL Mobilization Type Instrument Assisted,Rolling, Sustained Pressure Intensity/Depth Moderate Body Position Supine Comments Moderate mobilization. Will add MWM (IR and ER) next session if pt reports discomfort Glutes Body Location glutes, piriformis, proximal hamstring Mobilization Type Cross-Friction,Instrument Assisted,Rolling,Strumming, Sustained Pressure,Trigger Point Release Intensity/Depth Moderate Body Position Prone Comments Moderate mobilization of piriformis, glutes. Mob with movement of piriformis, leg moving into ER/IR while performing soft tissue. Pt reports relief. Pt with spasming of piriformis at beginning of tmt, but relaxation with sustained pressure, moving from origin to insertion near greater trochanter. PT-OP-T Assessment and Plan Start: 11/03/23 12:35 Freq: Status: Active Protocol: Document 11/04/23 13:05 NM (Rec: 11/04/23 13:45 NM [id number]) Physical Therapy Assessment Goals Six Impairment sleep Impairment Unable to sleep on L side due to pain Usp Goal (LTG) Pt will report that she is able to sleep for at least 1 hour on her L side with 3/10 pain or less. LTG Duration 8 weeks Five Impairment function, balance Impairment B Single limb stance <15 sec with opposite hip drop on BLE Blintze Roller Goal (LTG) Pt will be able to perform a single limb stance for at least 30 seconds bilaterally without demonstrating a trendelenburg sign in order to demonstrate improved hip abduction strength and pelvis stability for functional mobility tasks. LTG Duration 8 weeks Four Impairment Function Impairment B squat with knee valgus, lateral hip pain Short Term Goal (STG) Pt will be able to perform at least 8 BLE squats without hip pain or compensations to demonstrate improved BLE strength and tolerance for exercise. STG Duration 4 weeks Blintze Roller Goal (LTG) Pt will be able to perform at least 15 BLE squats without hip pain or compensations to demonstrate improved BLE strength and tolerance for exercise. LTG Duration 8 weeks Three Impairment function Impairment 8 stairs, demos R hip drop on LLE stance, painful in L hip with descent Short Term Goal (STG) Pt will be able to ascend/ descend at least 12 stairs with hip pain of 3/10 or less and no compensations to show improved RLE strength and activity tolerance. STG Duration 4 weeks Usp Goal (LTG) Pt will be able to ascend/ descend at least 20 stairs with hip pain of 3/10 or less and no compensations to show improved RLE strength and activity tolerance. LTG Duration 8 weeks Two Impairment strength Impairment R hip flex, ext, abd MMT 4-/5 Short Term Goal (STG) Pt will improve her R hip flexion, extension, and abduction MMT grade to at least 4/5 in order demonstrate improved RLE strength for gait, stairs, and recreational activities. STG Duration 4 weeks Usp Goal (LTG) Pt will improve her R hip flexion, extension, and abduction MMT grade to at least 4+/5 in order demonstrate improved RLE strength for gait, stairs, and recreational activities. LTG Duration 8 weeks One Impairment function Impairment LEFS 35/80 Short Term Goal (STG) Pt will improve LEFS score by at least 5 point (40/80) to demonstrate improved activity tolerance and QOL. STG Duration 4 weeks Blintze Roller Goal (LTG) Pt will improve LEFS score by at least 9 points (44/80, MCID ) to demonstrate improved activity tolerance and QOL. LTG Duration 8 weeks Assessment Summary Assessment Pt tolerated first tmt session well. Tmt focus today on strengthening B hip abductors/ extensors/flexors and initiating hip ER stretches to decrease tension near lateral hip and at IT band. She demos improved tolerance for figure 4 position today with contralateral knee bent to prevent excessive strain at L hip. Pt fatigues easily with exercise, but is motivated. Demos weakness in L hip abduction and internal rotation especially. Pt requires cues for correct execution of exercises and for targeting specific muscles with activity. Manual tmt focusing on decreasing soft tissue adhesions of glutes and piriformis; pt demos spasms at piriformis but improved muscle relaxation at end of session. Issued HEP with figure 4 stretch, SLR with IR, SL hip abd, and prone hip ext . Due to pt schooling and job, will add education about posture and activity to next session. Pt would benefit from skilled PT to address impairments in hip strength and endurance in order to improve activity tolerance and return to PLOF. Physical Therapy Plan Frequency and Duration Frequency of Treatment 1-2x/wk (15 visits) Duration of treatment (weeks) 8 Plan of Care Start Date 11/02/23 Plan of Care End Date 12/28/23 Therapeutic Interventions Therapeutic Interventions Aquatic Therapy,Balance Training,Gait Training,Home Exercise Program,Joint Mobilizations,Manual Therapy, Neuromuscular Re-education, Orthotic/Prosthetic Management ,Patient/Caregiver Education, Self-Care/Home Management,Soft Tissue Mobilization,Taping, Therapeutic Activities, Therapeutic Exercises Modalities Biofeedback,Cold Pack/Ice Massage,Electric Stimulation, Hot Packs,Iontophoresis, Traction- Mechanical, Ultrasound,Vasopneumatic Devices Next Visit Focus/Plan Next Note Type Treatment Note Next Visit Plan Hip stretching, manual tmt on piriformis/lumbar spine, continue hip abduction/glute strengthening. Add banded marches. Review HEP as needed. Follow up about pt MRI Education: posture, sitting ergonomics, activity limitations
--- NOTE | 2023-12-09 13:21 | PT-OP ANOTE ---
Pt called on 11/08/23 to cancel all appt on 11/08 and beyond after receiving hip MRI results; pt's physician ordered d/c from PT
--- NOTE | 2023-12-09 13:31 | PT.OPDS ---
Current Diagnoses Pain in left hip (11/04/23) Visit Care Team Role Provider Type MADIE Cruz Family Provider Advanced [employer] Inspector Primary Care Provider Specialty: Family Practice Address: [address] [place] [address], [id number] Email: [email or web address] MADIE Gaines Attending Provider Non-Staff Referring Provider Specialty: Nursing Address: [address] [place] [address], [id number] Email: Visit Number Visit Number 2 Discharge Summary PT-OP-B Current Condition Start: 11/03/23 12:35 Freq: Status: Active Protocol: Document 11/02/23 14:00 NM (Rec: 11/03/23 13:00 NM [id number]) Current Condition History of Current Condition Onset Date 2013 Current Complaints L lateral hip pain, L low back pain History of Current Condition Pt presents to clinic with L lateral hip pain near the greater trochanter for the past several months, which has been worsening. She reports a hx of L labrum tear from 2013 ; however, she reports no residual limitations from that . She also has a hx of OA at multiple joints and sciatica ( 3 years ago), for which she was successfully treated, along with levoscoliosis. 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 Her hip pain is worse with sleeping, changing position (e.g. gardening), sitting for > 1 hr , stairs, and walking > 2 mi. Prior Treatments and Tests X-rays 2022: 30 deg lumbar levoscoliosis, nml L hip Future Testing and Treatments Planned Future MRI (to be scheduled) Treatment Goals Patient/Caregiver Goals To be able to safely exercise and sleep with less hip pain Prior Functional Status Baseline Function- ADL's Independent Baseline Function- Mobility Independent Baseline Function- Gait 2 mi Baseline Function- Work/School No limitations during work Baseline Function- Recreation/Hobbies Gardening, pool exercise Current Functional Impairments (Reported) Functional Limitations- Mobility/Gait 1 mi Functional Limitations- Work/School Sit 1 hr before needing to ambulate Functional Limitations- Recreation/ Difficulty with transferring Hobbies to ground to garden or bend over Functional Limitations- Other Unable to sleep due to pain PT-OP-C Subjective Start: 11/03/23 12:35 Freq: Status: Active Protocol: Document 11/04/23 13:05 NM (Rec: 11/04/23 13:45 NM [id number]) OP-PT Subjective Patient Comments Patient Comments Pt reports 3/10 in L hip. She will have MRI tonight; will follow up about results at next appt. PT-OP-D Balance Start: 11/03/23 12:35 Freq: Status: Active Protocol: Document 11/02/23 14:00 NM (Rec: 11/03/23 13:00 NM [id number]) Balance Tests Single Limb Standing Single Limb- Right 15 sec Single Limb- Left 15 sec PT-OP-E Functional Tests Start: 11/03/23 12:35 Freq: Status: Active Protocol: Document 11/02/23 14:00 NM (Rec: 11/03/23 13:00 NM [id number]) Functional Tests 30 Second Sit to Stand Test Score 15 Comments knee valgus, minor reported hip pain Squat Test Score 1 Comments B knee valgus, pronation; reproduces hip pain Single Leg Squat Test Score 1 Comment Demos knee valgus, + trendelenburg (R hip drop), reproduces hip pain PT-OP-F Manual Assessment Start: 11/03/23 12:35 Freq: Status: Active Protocol: Document 11/02/23 14:00 NM (Rec: 11/03/23 13:00 NM [id number]) Manual Assessments Soft Tissue Assessment Soft Tissue Mobility Assessment Moderate soft tissue restriction of L glute muscles , piriformis. Reproduces pain in L hip. Tenderness along L greater trochanter, but no palpable bursa or mass. L IT band tightness. Lumbar spine paraspinals have superficial restrictions, but are not tender or painful. Joint Mobility Assessment Joint Mobility Assessment Slight limitations in B hip flexion ROM but does not reproduce pain in L hip or low back. P-A springing mobilizations show hypomobile L1-L5, but do not reproduce pain. L lateral curve of lumbar spine. Full hip PROM bilaterally PT-OP-G Mobility & Gait Start: 11/03/23 12:35 Freq: Status: Active Protocol: Document 11/02/23 14:00 NM (Rec: 11/03/23 13:00 NM [id number]) OP Gait Assessment Gait Gait Assistance Required: Independent Gait Deviations General Gait Pattern Within Normal Limits Stair Climbing Evaluation Evaluation Level of Assist On Stairs Independent Technique/Endurance Stair Climbing Direction Ascend and Descend Stair Climbing Technique Step Over Step Number of Steps Climbed 8 Stair Climbing Set # Repetitions (reps) 1 Comments Stair Climbing Comments Reports L hip pain during descending stairs, knee valgus during descent. PT-OP-H Neuro Start: 11/03/23 12:35 Freq: Status: Active Protocol: Document 11/02/23 14:00 NM (Rec: 11/03/23 13:00 NM [id number]) Sensation Evaluation Gross Sensation Gross Sensation WNL PT-OP-J Posture/Palpation/Skin Start: 11/03/23 12:35 Freq: Status: Active Protocol: Document 11/02/23 14:00 NM (Rec: 11/03/23 13:00 NM [id number]) Posture Evaluation Position Standing Evaluation View anterior, lateral, posterior Head/C-Spine Posture Forward Head T-Spine Posture Increased Kyphosis L-Spine Posture Flattened,Fixed Scoliosis on ( L) Pelvis Posture Anteriorly Tilted Weight Distribution Balanced Hip Posture (R) Neutral,(L) Externally Rotated Knee Posture (L) Genu Valgus,(R) Genu Valgus Palpation Assessment Location Lumbar Spine Palpation Location paraspinals Palpation Findings None/Normal Palpation Details No soft tissue restrictions along lumbar spine that reproduce pain Buttock Palpation Location L glutes Palpation Findings Soft Tissue Tightness,Spasm, Tenderness Palpation Details Tenderness and soft tissue tightness of L glutes from sacrum to L greater trochanter L hip Palpation Location greater trochanter, lateral thigh along IT band Palpation Findings Soft Tissue Tightness,Spasm, Tenderness Palpation Details Tenderness of greater trochanter, no palpable mass PT-OP-K Range of Motion Start: 11/03/23 12:35 Freq: Status: Active Protocol: Document 11/02/23 14:00 NM (Rec: 11/03/23 13:00 NM [id number]) Lumbar Spine Range of Motion Lumbar Spine Active Percentage Testing Position Standing Flexion 100 Extension 100 Lateral Flexion Left 100 Lateral Flexion Right 100 Comments Rotation 10 cm bilaterally Lateral flex to knee joint line bilaterally No reported pain with any movement Hip Goniometric Range of Motion Hip Right Hip ROM WFL No Testing Position supine and sitting Flexion w/Knee Flexed 100 Abduction 30 Internal Rotation 40 External Rotation 40 Left Hip ROM WFL No Testing Position supine and sitting Flexion w/Knee Flexed 100 Abduction 30 Internal Rotation 40 External Rotation 40 Comments No reported pain with any motion PT-OP-L Special Tests Start: 11/03/23 12:35 Freq: Status: Active Protocol: Document 11/02/23 14:00 NM (Rec: 11/03/23 13:00 NM [id number]) Special Tests Lumbar Spine Special Tests SI Joint Cluster Test Results negative Comments Anterior gapping, posterior gapping, Thigh thrust Straight Leg Raise Test Results positive Comments left Slump Test Results positive Comments Left Hip Special Tests Cosmo Test Results negative Comments LLE Olivia Test Results positive Comments LLE FADIR Test Results negative Comments LLE Trendelenberg Test Results positive Comments R hip drop when standing on LLE, <15 sec SLS Scour Test Test Results negative Comments LLE Anterior Labral Test Test Results negative Comments LLE JASON Test Results positive Comments LLE, reproduces pain in lateral hip Neural Special Tests- Lower Body Lateral Femoral Cutaneous Nerve Tension Test Results negative Comments LLE Femoral Nerve Tension Test Results negative Comments LLE PT-OP-M Strength Start: 11/03/23 12:35 Freq: Status: Active Protocol: Document 11/02/23 14:00 NM (Rec: 11/03/23 13:00 NM [id number]) Hip Strength Hip Manual Muscle Testing Right Flexion (L2) 4+ Good+ Extension (S1) 4+ Good+ Abduction 4+ Good+ Adduction 4+ Good+ External Rotation 4+ Good+ Internal Rotation 4+ Good+ Left Flexion (L2) 4- Good- Extension (S1) 4- Good- Abduction 4- Good- Adduction 4+ Good+ External Rotation 4 Good Internal Rotation 4 Good Comments No pain with resisted motion Knee Strength Knee Manual Muscle Testing Right Flexion (S2) 4 Good Extension (L3) 4 Good Comments Crepitus Left Flexion (S2) 4- Good- Extension (L3) 4 Good Comments Minor glute pain with resisted knee flex, but does not reproduce lateral hip pain. Crepitus PT-OP-T Assessment and Plan Start: 11/03/23 12:35 Freq: Status: Active Protocol: Document 12/09/23 13:23 NM (Rec: 12/09/23 13:31 NM [id number]) Physical Therapy Assessment Assessment Summary Assessment Pt evaluated on 11/02 for hip pain and attend one treatment session on 11/04. At treatment session, she reported that she would be having a L hip MRI later that evening. She received a hip MRI on 11/04 revealing tear of anterior labrum and hip abductors. Pt called on 11/08 to cancel all future PT appointments at her request and due to request from her physician after MRI results. Pt to be discharged from OP PT services at this time and will need a new referral if future PT required . Physical Therapy Plan Discharge Physical Therapy Discharge Reasons Change in Medical Status Discharge Comments Discharge from PT services at pt and physician request s/p MRI results on 11/08 Next Visit Focus/Plan Next Visit Plan discharge from PT services
== END 2023-12-12 10:17 | disposition home or self-care (01) ==
LOC: PHYS 13:00
PROVIDERS: Family Provider Nurse Practitioner; PCP Nurse Practitioner; Referring Provider Nurse Practitioner Family; Visit Provider Nurse Practitioner Family
DX: M25.552 Pain in left hip (principal)
CPT/HCPCS: 97110; 97140; 97162

== ENCOUNTER → 2023-11-04 18:48 | Outpatient (CLI) | payer OTHER, SELFPAY ==
--- NOTE | 2023-11-04 18:50 | DI.MRI.S_ITS ---
PROCEDURE: MR HIP LT WO CON INDICATIONS: Hip pain TECHNIQUE: Noncontrast coronal T1 spin echo and STIR through the bony pelvis. Coronal and axial T2 fast spin echo with fat saturation, sagittal T1 spin echo, and oblique axial T2 fast spin echo with fat saturation through the hip. COMPARISON: None. FINDINGS: Image quality: Good Bones: Pelvic ring: Overall intact. Femoral head and neck: No fracture. No osteonecrosis. Ligamentum teres: Intact. Lumbar spine and sacrum: Partially seen degenerative changes. Tendons: Abductors: Near full-thickness tear of the medius, and posterior fibers of the minimus at the insertion. Surrounding moderate edema in trochanteric bursal fluid is present. Adductors and rectus abdominis: Intact. No pubic symphyseal edema. IT band: Intact. Iliopsoas: Intact. No bursitis. Hamstrings: Intact. Rectus femoris: Intact. Joint: Joint space: No significant effusion. There are mild degenerative changes. Labrum: Not well evaluated on this study. Questionable mild signal abnormality at the anterior superior aspect. Cartilage: No full-thickness defect. Suspected mild degenerative changes. Soft tissues: Quadratus femoris: No edema or atrophy. Piriformis: Symmetric. Intrapelvic structures: Not well evaluated. No pathologic fluid, aneurysm, lymphadenopathy, or suspicious mass. No bowel obstruction. Bladder is unremarkable. IMPRESSION: High-grade tear of the left abductor muscles, with adjacent edema and trochanteric bursitis. Mild hip degenerative changes. Possible degenerative signal abnormality versus small tear of the anterior superior labrum, consider arthrogram if necessary to further evaluate. Dictated by: Wilfred Riley M.D. on 11/07/2023 at 11:16 Approved by: Wilfred Riley M.D. on 11/07/2023 at 11:22
== END ==
PROVIDERS: Family Provider Nurse Practitioner; PCP Nurse Practitioner; Referring Provider Nurse Practitioner; Visit Provider Nurse Practitioner
DX: S76.212A Strain of adductor muscle, fascia and tendon of left thigh, initial encounter (principal); M70.62 Trochanteric bursitis, left hip; M25.452 Effusion, left hip; M25.552 Pain in left hip
CPT/HCPCS: 73721

== ENCOUNTER → 2024-02-14 06:47 | Outpatient (CLI) | payer OTHER, SELFPAY ==
[2024-02-14 07:48] LABS: Add Manual Diff / Slide Review NO; Basophils Absolute Auto 100 /uL (0-100); Basophils Percent Auto 1.3 % (0-2); Eosinophils Absolute Auto 100 /uL (0-450); Eosinophils Percent Auto 3.4 % (2-4); Hematocrit 40.5 % (36-46); Hemoglobin 13.6 g/dL (12.0-16.0); Lymphocytes Absolute Auto 1000 /uL (1100-4500); Lymphocytes Percent Auto 22.6 % (25-40); Mean Corpuscular HGB Conc 33.6 % (30-36); Mean Corpuscular Hemoglobin 30.5 PG (26-34); Mean Corpuscular Volume 90.8 fL (80-100); Monocytes Absolute Auto 300 /uL (0-900); Monocytes Percent Auto 7.6 % (3-14); Neutrophils Absolute Auto 2800 /uL (1500-7000); Neutrophils Percent Auto 65.1 % (50-75); Platelet Count 279 X10^3/uL (150-400); Red Blood Cell Count 4.46 X10^6/uL (4.0-5.2); Red Cell Distribution Width 13.2 % (11.6-14.8); White Blood Cell Count 4.3 X10^3/uL (4.5-11.0)
[2024-02-14 08:11] LABS: HEMOLYSIS < 15 (0-50)
[2024-02-14 08:18] LABS: Alanine Aminotransferase 25 IU/L (<35); Albumin 4.6 g/dL (3.5-5.0); Albumin Globulin Ratio 1.8 (1.0-2.8); Alkaline Phosphatase 74 U/L (38-126); Aspartate Aminotransferase 28 IU/L (14-36); Bilirubin Total 0.5 mg/dL (0.2-1.3); Blood Urea Nitrogen 18 mg/dL (7-17); Calcium 10.1 mg/dL (8.4-10.2); Carbon Dioxide 28 mmol/L (22-32); Chloride 103 mmol/L (98-107); Cholesterol 199 mg/dL (140-199); Estimated Glomerular Filt Rate > 60 mL/min (>60); Globulin 2.6 g/dL (1.7-4.1); Glucose 84 mg/dL (80-110); HDL Cholesterol 76 mg/dL (40-60); LDL Cholesterol Calculated 96 mg/dL (<100); Potassium 4.8 mmol/L (3.4-5.1); Sodium 136 mmol/L (137-145); Total Protein 7.2 g/dL (6.3-8.2); Triglycerides 135 mg/dL (35-150)
[2024-02-14 08:45] LABS: Progesterone, Total 4.43 ng/mL; Thyroid Stimulating Hormone 0.394 uIU/mL (0.47-4.68)
[2024-02-14 08:52] LABS: Testosterone 21.6 ng/dL (5.71-77.0)
[2024-02-14 09:46] LABS: Creatinine Urine Random 54.9 mg/dL
[2024-02-14 09:52] LABS: Microalbumin Urine Random < 0.6 mg/dL (0-1.6)
[2024-02-19 18:35] LABS: Estrogen 114 pg/mL (40-244)
== END ==
LOC: LAB 06:47 → RESP 06:49
PROVIDERS: Family Provider Nurse Practitioner; PCP Nurse Practitioner; Referring Provider Nurse Practitioner; Visit Provider Nurse Practitioner
DX: E05.00 Thyrotoxicosis with diffuse goiter without thyrotoxic crisis or storm (principal); E03.9 Hypothyroidism, unspecified; R79.89 Other specified abnormal findings of blood chemistry; I10 Essential (primary) hypertension; E78.2 Mixed hyperlipidemia; R53.83 Other fatigue; R63.5 Abnormal weight gain
CPT/HCPCS: 36415; 80053; 80061; 82043; 82570; 82672; 84144; 84403; 84443; 85025; 93005

== ENCOUNTER → 2024-02-23 14:06 | Outpatient (CLI) | payer OTHER, SELFPAY | LOC: CAR 14:07 | PROVIDERS: Family Provider Nurse Practitioner; PCP Nurse Practitioner; Referring Provider Nurse Practitioner; Visit Provider Nurse Practitioner | DX: R00.2 Palpitations (principal); R42 Dizziness and giddiness | CPT/HCPCS: 93246 ==

== ENCOUNTER → 2024-02-28 14:54 | Outpatient (CLI) | payer OTHER, SELFPAY ==
--- NOTE | 2024-02-28 14:54 | DI.CT.S_ITS ---
PROCEDURE: CT ABDOMEN LIVER PROTOCOL INDICATIONS: previous imaging in 2020 showed hepatic steatosis, having ri TECHNIQUE: 4 phase scanning was performed. Non-contrast 5 mm axial sections acquired from the diaphragm to the iliac crests. Following the administration of intravenous contrast, 5 mm thick arterial-phase, portal venous-phase, and 5-minute delayed phase images were acquired through the liver. 5 mm thick coronal and sagittal reformats were performed. For radiation dose reduction, the following was used: automated exposure control, adjustment of mA and/or kV according to patient size. COMPARISON: [facility], ABDOMEN LIMITED, 09/14/2021, 8:23. FINDINGS: Image quality: Excellent. Lower chest: Small hiatal hernia. ABDOMEN: Liver: No solid mass. Normal enhancement. Smooth liver contour. No significant steatosis comparing the Hounsfield units of the noncontrast liver to the spleen. Gallbladder: No radiopaque gallstones or wall thickening. Biliary ducts: No biliary dilation. Pancreas: No ductal dilation. Spleen: Size is within normal limits. Adrenal Glands: No adrenal nodules. Kidneys and Ureters: No hydronephrosis. No solid mass. No complex renal cystic lesion which requires follow up. Stomach and Bowel: Normal colonic caliber, without significant wall thickening. Peritoneum: No abnormal intraperitoneal fluid. No free air. Ventral Wall: No hernia. Abdominal Nodes: No retroperitoneal or mesenteric adenopathy by size criteria. Vessels: Aorta and inferior vena cava are normal in size. PELVIS: Pelvic Organs: Unremarkable. Bladder: Unremarkable. Pelvic Nodes: No enlarged lymph nodes. Miscellaneous: No inguinal hernias are seen. Bones: No aggressive osseous abnormality. Degenerative opposing endplate sclerosis and moderate disc height loss at L4-5. IMPRESSION: No significant hepatic steatosis, comparing the Hounsfield units of the noncontrast liver to the spleen. Smooth liver contour. No solid mass. Small hiatal hernia. Moderate to severe degenerative disc disease at L4-5. Dictated by: Antwon Douglas M.D. on 02/28/2024 at 16:52 Approved by: Antwon Douglas M.D. on 02/28/2024 at 16:55
== END ==
LOC: CT 14:54
PROVIDERS: Family Provider Nurse Practitioner; PCP Nurse Practitioner; Referring Provider Nurse Practitioner; Visit Provider Nurse Practitioner
DX: K76.0 Fatty (change of) liver, not elsewhere classified (principal); R10.11 Right upper quadrant pain; K44.9 Diaphragmatic hernia without obstruction or gangrene; M51.36 Other intervertebral disc degeneration, lumbar region
CPT/HCPCS: 74170; Q9967

== ENCOUNTER → 2024-03-20 08:00 | Outpatient (CLI) | payer OTHER, SELFPAY ==
--- NOTE | 2024-03-20 08:01 | DI.ECHO.S_ITS ---
[facility] : : [address] : : [place] : : [id number] : : Phone: [phone] Echocardiogram Report + + :Name: LUX OROZCO Study Date: 03/20/2024 Height: 68.5 in: :[facility] ReadingLocation: Weight: 200 lb : : Gender: Female BSA: 2.1 m2 : :: 1965 Age: 58 yrs BP: 121/78 mmHg: :Reason For Study: HYPERTENSION : :Ordering Physician: ELI, : :SIDDHARTH Performed By: Kajal Viera : :Referring: SIDDHARTH BENITEZ : + + Interpretation Summary The left ventricle is normal in size and wall thickness. Left ventricular systolic function appears normal without focal wall motion abnormalities. The ejection fraction is estimated to be 55-60%. Diastolic parameters suggest probable normal left ventricular diastolic function and normal filling pressures. The right ventricle is at the upper limits of normal in size. The right ventricular systolic function is normal. The right ventricular systolic pressure is estimated to be at least 26 mmHg based on an estimated right atrial pressure of 3 mm Hg. The left atrial size is normal. There is mild mitral regurgitation. The ascending aorta is mild-moderately enlarged. Procedure: A two-dimensional transthoracic echocardiogram with color flow and Doppler was performed. The study quality was technically adequate. There is no prior echocardiogram noted for this patient. The patient was in sinus rhythm with heart rates between 56-60 bpm during the exam. Left Ventricle: The left ventricle is normal in size and wall thickness. Left ventricular systolic function appears normal without focal wall motion abnormalities. The ejection fraction is estimated to be 55-60%. Diastolic parameters suggest probable normal left ventricular diastolic function and normal filling pressures. Right Ventricle: The right ventricle is at the upper limits of normal in size. The right ventricular systolic function is normal. Atria: The left atrial size is normal. Right atrial size is normal. There is no Doppler evidence for an interatrial shunt. Mitral Valve: The mitral valve is normal in structure and function. There is mild mitral regurgitation. Aortic Valve: The aortic valve is trileaflet. The aortic valve opens well. There is no aortic valve stenosis. No aortic regurgitation is present. Tricuspid Valve: The tricuspid valve is normal in structure and function. There is mild tricuspid regurgitation. The right ventricular systolic pressure is estimated to be at least 26 mmHg based on an estimated right atrial pressure of 3 mm Hg. Pulmonic Valve: The pulmonic valve leaflets are thin and pliable; valve motion is normal. There is mild pulmonic regurgitation. Great Vessels: The aortic root is normal size. The ascending aorta is mild- moderately enlarged. The aortic arch is mildly enlarged. The IVC is of normal diameter and collapses greater than 50% with a sniff. This suggests a low right atrial pressure of 3 mm Hg. Pericardium/ Pleura There is no pericardial effusion. There is no pleural effusion. MMode/2D Measurements & Calculations LVIDd: 5.0 cm LVOT diam: 2.0 cm LVIDs: 3.4 cm Ao root diam: 3.3 cm FS: 30.9 % asc Aorta Diam: 4.1 cm EPSS: 0.52 cm Ao Arch Diam (Prox Trans): 3.4 cm IVSd: 0.58 cm LVPWd: 0.67 cm LV neal. diameter/BSA (cm/m^2): 2.4 LV sys. diameter/BSA (cm/m^2): 1.7 LA A2 area: 18.6 cm2 RA long axis: 4.7 cm LA A4 area: 17.8 cm2 RA area: 13.0 cm2 LA length (vol): 4.8 cm RA vol: 30.1 ml LA vol: 58.4 ml RA : 14.6 ml/m2 LA vol index: 28.4 ml/m2 IVC diam: 2.0 cm RVD1 (basal): 4.1 cm TAPSE: 2.3 cm Doppler Measurements & Calculations Ao V2 max: 154.5 cm/sec LVOT Max Sandip: 116.6 cm/sec Ao V2 mean: 108.3 cm/sec LV V1 max P.5 mmHg Ao max P.5 mmHg LV V1 VTI: 28.0 cm Ao mean P.4 mmHg GIDEON(I,D): 2.3 cm2 Ao V2 VTI: 37.9 cm GIDEON(V,D): 2.3 cm2 sev ratio: 0.74 GIDEON indexed to BSA (cm^2/m^2): 1.1 MV E max sandip: 71.2 cm/sec TR max sandip: 327.9 cm/sec MV A max sandip: 68.3 cm/sec TR max P.7 mmHg MV E/A: 1.0 PA V2 max: 89.1 cm/sec Med Peak E' Sandip: 7.0 cm/sec PA V2 mean: 56.4 cm/sec E/E' med: 10.1 PA mean P.5 mmHg Lat Peak E' Sandip: 10.3 cm/sec PA pr(Accel): 1.9 mmHg E/E' lat: 6.9 E/e' average: 8.5 MV dec time: 0.20 sec SV(OT): 86.3 ml Reading Physician:03:00 PM
== END ==
PROVIDERS: Family Provider Nurse Practitioner; PCP Nurse Practitioner; Referring Provider Nurse Practitioner; Visit Provider Nurse Practitioner
DX: I08.1 Rheumatic disorders of both mitral and tricuspid valves (principal); I10 Essential (primary) hypertension; I77.89 Other specified disorders of arteries and arterioles
CPT/HCPCS: 93306

== ENCOUNTER → 2024-06-21 13:09 | Outpatient (CLI) | payer OTHER, SELFPAY ==
--- NOTE | 2024-06-21 | DI.MG.S_ITS ---
BILATERAL DIGITAL SCREENING MAMMOGRAM 3D/2D WITH CAD: 06/21/2024 CLINICAL: Routine screening. Family history of breast cancer. Comparison is made to exams dated: 06/20/2023 mammogram, 06/19/2022 mammogram, and 04/08/2021 mammogram - [facility]. There are scattered areas of fibroglandular density in both breasts (category b / 25%-50% glandular tissue). Current study was also evaluated with a Computer Aided Detection (CAD) system. No significant masses, calcifications, or other findings are seen in either breast. There has been no significant interval change. IMPRESSION: NEGATIVE There is no mammographic evidence of malignancy. A 1 year screening mammogram is recommended. Based on the Tyrer Cuzick model (a risk assessment model) the patient's lifetime risk is 7.8% and her 10 year risk is 3.3%. According to the ACR, ACS, and NCCN guidelines, an annual breast MRI exam along with mammogram is recommended if the patient's lifetime risk is 20% or greater. This exam was interpreted at Station ID: [id number]. NOTE: For mammograms, a report in lay terms will be sent to the patient. Approximately 15% of breast malignancies will not be visualized mammographically. In the management of a palpable breast mass, a negative mammogram must not discourage biopsy of a clinically suspicious lesion. Electronically Signed By: Nereyda pavon/natalie:06/21/2024 16:59:52 letter sent: Normal Exam ACR BI-RADS Category 1: Negative [id number]
== END ==
PROVIDERS: Family Provider Nurse Practitioner; PCP Nurse Practitioner; Referring Provider Nurse Practitioner; Visit Provider Nurse Practitioner
DX: Z12.31 Encounter for screening mammogram for malignant neoplasm of breast (principal); Z80.3 Family history of malignant neoplasm of breast; R92.323 Mammographic fibroglandular density, bilateral breasts
CPT/HCPCS: 77063; 77067

== ENCOUNTER → 2024-08-08 07:13 | Outpatient (CLI) | payer OTHER, SELFPAY ==
[2024-08-08 08:34] LABS: Hemoglobin A1C% w Est Avg Glu 5.3 % (4.0-6.0)
[2024-08-08 08:47] LABS: Alanine Aminotransferase 26 IU/L (<35); Albumin 4.3 g/dL (3.5-5.0); Albumin Globulin Ratio 1.9 (1.0-2.8); Alkaline Phosphatase 77 U/L (38-126); Aspartate Aminotransferase 29 IU/L (14-36); BUN Creatinine Ratio 19.5 (6-22); Bilirubin Total 0.4 mg/dL (0.2-1.3); Blood Urea Nitrogen 16 mg/dL (7-17); Calcium 9.8 mg/dL (8.4-10.2); Carbon Dioxide 27 mmol/L (22-32); Chloride 95 mmol/L (98-107); Cholesterol 205 mg/dL (140-199); Estimated Glomerular Filt Rate > 60 mL/min (>60); Globulin 2.3 g/dL (1.7-4.1); Glucose 86 mg/dL (80-110); HDL Cholesterol 94 mg/dL (40-60); HEMOLYSIS < 15 (0-50); LDL Cholesterol Calculated 93 mg/dL (<100); Potassium 4.9 mmol/L (3.4-5.1); Sodium 129 mmol/L (137-145); Total Protein 6.6 g/dL (6.3-8.2); Triglycerides 91 mg/dL (35-150)
[2024-08-08 09:11] LABS: TSH w/ Reflex to FT4 2.66 uIU/mL (0.47-4.68)
== END ==
PROVIDERS: Family Provider Nurse Practitioner; PCP Family Medicine; Referring Provider Family Medicine; Visit Provider Family Medicine
DX: Z13.220 Encounter for screening for lipoid disorders (principal); Z13.1 Encounter for screening for diabetes mellitus; E03.9 Hypothyroidism, unspecified; R79.89 Other specified abnormal findings of blood chemistry
CPT/HCPCS: 36415; 80053; 80061; 83036; 84443

== ENCOUNTER 2024-08-09 08:15 | Outpatient (RCR) | payer OTHER, SELFPAY ==
--- NOTE | 2024-07-12 16:02 | PT.OIE ---
Current Diagnoses Pain in left hip (07/12/24) Stiffness of left hip, not elsewhere classified (07/12/24) Weakness (07/12/24) Past Medical History (Last Reviewed 04/04/24 @ 13:44 by MADIE Cruz) Acetabular labrum tear Acquired hypothyroidism Acute bilateral low back pain with bilateral sciatica Allergies Ankle pain (~2014) Ascending aorta dilatation Bilateral piriformis syndrome Cervical spine disease (~2014) Chicken pox Fatigue Fibroids (~2014) Foot pain (~2014) Graves disease (~2002) Hepatic steatosis Herpes Hypercalcemia Hypertension (~2002) Hypertriglyceridemia Lumbar region somatic dysfunction Menopause Migraines Mumps OCD (obsessive compulsive disorder) (~1993) Osteoarthritis (~2014) Pelvic somatic dysfunction Peripheral neuropathy (~2005) Positive FIT (fecal immunochemical test) Raynaud's disease Sacral region somatic dysfunction Scoliosis Segmental and somatic dysfunction of abdomen and other regions Shoulder pain (~2014) Sleep apnea (~2014) Somatic dysfunction of lower extremity Past Surgical History (Last Reviewed 04/04/24 @ 13:44 by MADIE Cruz) Anesthesia History of foot surgery (~2014) History of hysterectomy (~2012) History of radiation therapy (~2002) History of tonsillectomy (~1966) Melanoma (~1989) Visit Care Team Role Provider Type MADIE Cruz Family Provider Advanced Fruit Stuffer Primary Care Provider Specialty: Family Practice Address: [address] [place] [address], [id number] Email: [email or web address] Rosa Fuentes MD Attending Provider Non-Staff Referring Provider Specialty: Orthopedic Surgery Address: [address] [place] [address], [address] Fax: Email: Physical Therapy Initial Evaluation PT-OP-A Visit Information Start: 07/12/24 11:13 Freq: Status: Active Protocol: Document 07/12/24 11:15 NM (Rec: 07/12/24 12:22 NM [id number]) Out-Patient Physical Therapy Visit Information Visit Information Visit Type Initial Evaluation Visit Start Time 11:18 Visit Stop Time 12:03 Visit Number 1 Evaluation Information Evaluation Date 07/12/24 Precautions Precautions complete L glute medius tear , L lumbar scoliosis, neuropathy PT-OP-B Current Condition Start: 07/12/24 11:13 Freq: Status: Active Protocol: Document 07/12/24 11:15 NM (Rec: 07/12/24 12:22 NM [id number]) Current Condition History of Current Condition Onset Date 2 years ago Current Complaints pain, decreased mobility History of Current Condition Pt presents with chronic low back pain, onset 2 years ago. No known TRUPTI; however, pt does have hx of L lumbar scoliosis . Pain is B, but mainly L sided with L sided neural symptoms. Pain primarily radiates to lateral knee, but she has numbness occasionally to L toes. She also has L hip pain since October 2023. Pt has a complete abductor tear. Pt is planning to have surgical repair in July at but has to have low back pain reduced before surgery. However, she has moderate degeneration of lumbar spine. She will have a steroid injection to help with pain in hip, Monday 07/16. She will be planning to have a re- assessment in Aug 10 before planning surgery. Pt's most recent xray in 2022, indicating 30 deg curve. 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 Pt has pain with standing, ambulation, sitting for long periods especially in am or late pm, sleeping, pain with getting out of bed. Prior Treatments and Tests Radiograph of thoracolumbar spine 07/2023: 30 deg convex L lumbar scoliosis associated with lateral subluxation of 3rd vertebral body, disc space narrowoing hypertrophic facet joints in mid lumbar spine Radiograph of lumbar spine 2020: transitional element S1, multilevel degenerative disc and facet disease (mild grade I anterolisthesis L4 on L5, mild left lateral subluxation L4 relative to L5) Treatment Goals Patient/Caregiver Goals decrease pain associated w/ back Current Functional Impairments (Reported) Functional Limitations- ADL's cooking dinner Functional Limitations- Mobility/Gait 60 min for sit or stand walking 1 mi before pain Functional Limitations- Other sleeping: pillows between legs (cannot always sleep on L side); pain with rolling PT-OP-C Subjective Start: 07/12/24 11:13 Freq: Status: Active Protocol: Document 07/12/24 11:15 NM (Rec: 07/12/24 12:22 NM [id number]) OP-PT Subjective Patient Comments Patient Comments pt consents to participate in evaluation Patient Questionnaires Oswestry Low Back Index Oswestry Score 14/50 OP-PT Pain Assessment Location lumbar spine Pain Location Details L side pain near lower hip, mild R Intensity 5 Scale Used Numeric (0 - 10) Description Aching,Sharp Description- Other worse getting out of bed, evening Frequency Frequent Radiating Location lateral hip to knee, numbness in toes Pain Aggravating Factors Position,Standing,Sitting, Walking,Stair Climbing Pain Alleviating Factors None,Massage,Rest PT-OP-E Functional Tests Start: 07/12/24 11:13 Freq: Status: Active Protocol: Document 07/12/24 11:15 NM (Rec: 07/12/24 12:22 NM [id number]) Functional Tests Other Forward Trunk Flexion Test Name of Test measured finger to floor Score 1 in Comment reports stretch but denies pain PT-OP-F Manual Assessment Start: 07/12/24 11:13 Freq: Status: Active Protocol: Document 07/12/24 11:15 NM (Rec: 07/12/24 12:22 NM [id number]) Manual Assessments Soft Tissue Assessment Soft Tissue Mobility Assessment Decreased tissue length on L trunk, increased length on R trunk. Slight limitations in B HS length Joint Mobility Assessment Joint Mobility Assessment Scapular positioning from medial border to spine: 8 cm L , 12 cm R. Lumbar curve and spinous process rotation with apex at mid lumbar L side PT-OP-G Mobility & Gait Start: 07/12/24 11:13 Freq: Status: Active Protocol: Document 07/12/24 11:15 NM (Rec: 07/12/24 12:22 NM [id number]) OP Gait Assessment Gait Gait Assistance Required: Independent Distance (Feet) 150 Gait Deviations General Gait Pattern Antalgic Comments Gait Comments Trendelenburg gait pattern L sided, less stance time LLE PT-OP-H Neuro Start: 07/12/24 12:22 Freq: Status: Active Protocol: Document 07/12/24 11:15 NM (Rec: 07/12/24 16:06 NM [id number]) Sensation Evaluation Comments Summary Comments BLE and trunk intact equally to light touch sensation. Mild hypersensitivity along L medial foot with light touch Deep Tendon Reflex & Clonus Assessment Deep Tendon Reflex Right Patellar Deep Tendon Reflex 2+ Normal Left Patellar Deep Tendon Reflex 4+ Brisk PT-OP-J Posture/Palpation/Skin Start: 07/12/24 11:13 Freq: Status: Active Protocol: Document 07/12/24 11:15 NM (Rec: 07/12/24 12:22 NM [id number]) Posture Evaluation Position Standing Head/C-Spine Posture C-Spine Flattened Thorax Posture (L) Prominent L-Spine Posture Increased Lordosis,Fixed Scoliosis on (L) Shoulder Posture (L) Rounded,(R) Rounded Scapula Posture (L) Neutral,(R) Protracted,(R) Rotated Up,(R) Elevated Pelvis Posture Anteriorly Tilted,(L) Iliac Crest Superior Weight Distribution Weight Shifted Right Hip Posture (L) Externally Rotated,(R) Externally Rotated Knee Posture (L) Genu Valgus,(R) Genu Valgus Patellar Posture (L) Superior,(R) Superior Palpation Assessment Location lumbar spine Palpation Details Tenderness along L SIJ, PSIS. Curve and rotation of lumbar spinous processes to L. Hypomobility of lumbar spine with P-A springing PT-OP-K Range of Motion Start: 07/12/24 11:13 Freq: Status: Active Protocol: Document 07/12/24 11:15 NM (Rec: 07/12/24 12:22 NM [id number]) Lumbar Spine Range of Motion Lumbar Spine Active Percentage Flexion 95 Extension 100 Rotation Left 100 Rotation Right 75 Lateral Flexion Left 75 Lateral Flexion Right 100 Comments no pain or discomfort Hip Goniometric Range of Motion Hip Right Flexion w/Knee Flexed 110 Internal Rotation 40 External Rotation 28 Left Flexion w/Knee Flexed 110 Internal Rotation 38 External Rotation 28 Comments Hip pain with IR; active abduction PT-OP-L Special Tests Start: 07/12/24 11:13 Freq: Status: Active Protocol: Document 07/12/24 11:15 NM (Rec: 07/12/24 12:22 NM [id number]) Special Tests Lumbar Spine Special Tests traction Test Results + Comments reports reduction in symptoms in L foot Mary/quadrant Test Results + Comments increased numbness in L foot Straight Leg Raise Test Results - Slump Test Results - Hip Special Tests Trendelenberg Test Results + L Neural Special Tests- Lower Body Femoral Nerve Tension Test Results + L PT-OP-M Strength Start: 07/12/24 11:13 Freq: Status: Active Protocol: Document 07/12/24 11:15 NM (Rec: 07/12/24 12:22 NM [id number]) Trunk Strength Trunk Manual Muscle Testing Flexion 4+ Good+ Extension 4+ Good+ Rotation Left 4 Good Rotation Right 4 Good Lateral Flexion Left 4+ Good+ Lateral Flexion Right 4+ Good+ Comments R rotation Hip Strength Hip Manual Muscle Testing Right Flexion (L2) 4+ Good+ Extension (S1) 4+ Good+ Abduction 4+ Good+ Adduction 4+ Good+ External Rotation 4+ Good+ Internal Rotation 4+ Good+ Left Flexion (L2) 4 Good Extension (S1) 4- Good- Abduction 3 Fair Adduction 4+ Good+ External Rotation 4+ Good+ Internal Rotation 4+ Good+ Comments pain with hip abduction and extension, limited ROM Knee Strength Knee Manual Muscle Testing Right Flexion (S2) 4+ Good+ Extension (L3) 4+ Good+ Left Flexion (S2) 4+ Good+ Extension (L3) 4+ Good+ Ankle/Foot Strength Ankle and Foot Manual Muscle Testing Right Dorsiflexion (L4) 4+ Good+ Plantarflexion (S1) 4+ Good+ Comments tested in sitting Left Dorsiflexion (L4) 4+ Good+ Plantarflexion (S1) 4+ Good+ Comments tested in sitting PT-OP-Q Treatments Start: 07/12/24 11:13 Freq: Status: Active Protocol: Document 07/12/24 11:15 NM (Rec: 07/12/24 12:22 NM [id number]) Therapeutic Exercises Supine Exercises LTR Supine Exercise Name HEP Side bilateral Resistance AROM Reps/Minutes 2x60 Comments cued to limit ROM to avoid L hip ADD, maintain ppt; feels good bridge Supine Exercise Name HEP Side bilateral Resistance AROM Equipment Used with ppt Reps/Minutes 10 Comments pain free; educated to perform before leaving bed lumbar traction Supine Exercise Name 1. bolster, 2. comoran ball with manual traction (HEP) Side bilateral Reps/Minutes 1. 2 min, 2. 5x10 Comments reports symptom reduction; feels good Standing Exercises lumbar distraction Standing Exercise Name trialed at counter Side bilateral Reps/Minutes 2x10 Comments no change in symptoms Self-Care/Home Management Treatment Education Patient Education Body Mechanics,Joint Protection,Pain Management Other Education Educated on avoiding sitting with legs crossed, hip adduction PT-OP-T Assessment and Plan Start: 07/12/24 11:13 Freq: Status: Active Protocol: Document 07/12/24 11:15 NM (Rec: 07/12/24 12:22 NM [id number]) Physical Therapy Assessment Rehab Potential Rehabilitation Potential Good Evaluation Complexity Number of Personal Factors/Comorbidities 3 or More Number of Body Systems Impaired 3 Clinical Presentation at Evaluation Stable Impairments Impairments Activity Tolerance,Balance, Functional Activities, Functional Mobility,Gait, Integument,Pain,Posture,ROM, Sensation,Soft Tissue Mobility ,Strength,Transfers Other Concerns Barriers to Rehabilitation Pt planning to have hip abductor surgery scheduled in July, but must complete PT for lumbar spine prior to completion Goals Four Impairment body mechanics Short Term Goal (STG) Pt will be educated on core bracing and proper body builder techniques to improve lumbopelvic stability during stance/gait, lifting, and for improved symptom management STG Duration 3 weeks Detention Goal (LTG) Pt will be able to perform at least 8 repetitions of deadlifts or squats to pickle processor objects or during exercises while demonstrating good core bracing to improve lumbopelvic stability during stance/gait, lifting, and for improved symptom management LTG Duration 8 weeks Three Impairment standing time Detention Goal (LTG) Pt will report that she is able to stand >1 hour without increase in low back baseline pain in order to demonstrate improved symptom management and QOL LTG Duration 8 weeks Two Impairment trunk strength 4/5 Detention Goal (LTG) Pt will improve trunk strength by at least 1 grade in order to demonstrate increased strength for postural control and to improve WB status following planned surgery LTG Duration 8 weeks One Impairment oswestry 14/50 Bankruptcy Legal Assistant Goal (LTG) Pt will decrease Oswestry score <10/50 in order to demonstrate improved symptom management and QOL LTG Duration 8 weeks Assessment Summary Assessment Pt is a 59 y.o. female presenting with chronic low back pain and L hip pain. She has a complete tear of her hip abductors that will be repaired in upcoming months; however, pt must complete PT to address her low back pain symptoms prior to further assessment for her hip. Pt's low back symptoms are primarily related to her scoliosis; however, pt also has neural symptoms consistent with lumbar radiculopathy and femoral nerve tension. Pt has mild limitations in lumbar spine ROM and has minimal pain with resisted motions. Her hip L hip AROM is a limiting factor. Pt has hyper-reflexive L patellar reflexes. Her L hip flexor, glute, and quad strength are more limited than on her R side; however, glute strength is likely more limited due to injury to related muscles. Pt responds positively to lumbar traction but has increased symptoms with 3D testing and vertebral compression. PT educated pt on exam findings and plan of care. Pt would benefit from skilled PT to improve symptom management and activity tolerance prior to upcoming hip surgery. Physical Therapy Plan Frequency and Duration Frequency of Treatment 2x/Week Duration of treatment (weeks) 8 Plan of Care Start Date 07/12/24 Plan of Care End Date 09/07/24 Therapeutic Interventions Therapeutic Interventions Balance Training,Gait Training ,Home Exercise Program,Joint Mobilizations,Manual Therapy, Neuromuscular Re-education, Orthotic/Prosthetic Management ,Patient/Caregiver Education, Self-Care/Home Management, Sensory Integration,Soft Tissue Mobilization,Taping, Therapeutic Activities, Therapeutic Exercises Modalities Cold Pack/Ice Massage,Electric Stimulation,Hot Packs Other Therapeutic Interventions Manual traction only due to scoliosis No grade III-IV mobilizations to lumbar spine due to anterolisthesis Next Visit Focus/Plan Next Note Type Treatment Note Next Visit Plan bridge vs STS offload lumbar spine (LLE) in sidelying w/ manual traction, LAD, trunk elongation. Trial lateral flexion stretching in sidelying, strengthening of lateral flexors on R in sidelying, fwd flexion counter stretch. Core bracing: supine w/ progression to seated on comoran ball and standing Manual tx to lumbar spine: STM , rotation mobilizations, contract-relax
--- NOTE | 2024-07-12 16:03 | PT.OPPOC ---
Addendum entered and electronically signed by Otilia Valverde PT 07/17/24 14:41: plan of care faxed 07/17/24 to referring provider phone number Original Note: Physical, Occupational & Speech Therapy At [facility] Current Diagnoses Pain in left hip (07/12/24) Stiffness of left hip, not elsewhere classified (07/12/24) Weakness (07/12/24) Visit Care Team Role Provider Type MADIE Cruz Family Provider Advanced Camera Tuning Engineer Primary Care Provider Specialty: Family Practice Address: [address] [place] [address], [address] Email: [email or web address] Rosa Fuentes MD Attending Provider Non-Staff Referring Provider Specialty: Orthopedic Surgery Address: [address] [place] [address], [address] Fax: Email: Plan Of Care PT-OP-B Current Condition Start: 07/12/24 11:13 Freq: Status: Active Protocol: Document 07/12/24 11:15 NM (Rec: 07/12/24 12:22 NM [id number]) Current Condition History of Current Condition Onset Date 2 years ago Current Complaints pain, decreased mobility History of Current Condition Pt presents with chronic low back pain, onset 2 years ago. No known TRUPTI; however, pt does have hx of L lumbar scoliosis . Pain is B, but mainly L sided with L sided neural symptoms. Pain primarily radiates to lateral knee, but she has numbness occasionally to L toes. She also has L hip pain since October 2023. Pt has a complete abductor tear. Pt is planning to have surgical repair in July at but has to have low back pain reduced before surgery. However, she has moderate degeneration of lumbar spine. She will have a steroid injection to help with pain in hip, Monday 07/16. She will be planning to have a re- assessment in Aug 10 before planning surgery. Pt's most recent xray in 2022, indicating 30 deg curve. 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 Pt has pain with standing, ambulation, sitting for long periods especially in am or late pm, sleeping, pain with getting out of bed. Prior Treatments and Tests Radiograph of thoracolumbar spine 07/2023: 30 deg convex L lumbar scoliosis associated with lateral subluxation of 3rd vertebral body, disc space narrowoing hypertrophic facet joints in mid lumbar spine Radiograph of lumbar spine 2020: transitional element S1, multilevel degenerative disc and facet disease (mild grade I anterolisthesis L4 on L5, mild left lateral subluxation L4 relative to L5) Treatment Goals Patient/Caregiver Goals decrease pain associated w/ back Current Functional Impairments (Reported) Functional Limitations- ADL's cooking dinner Functional Limitations- Mobility/Gait 60 min for sit or stand walking 1 mi before pain Functional Limitations- Other sleeping: pillows between legs (cannot always sleep on L side); pain with rolling PT-OP-T Assessment and Plan Start: 07/12/24 11:13 Freq: Status: Active Protocol: Document 07/12/24 11:15 NM (Rec: 07/12/24 12:22 NM [id number]) Physical Therapy Assessment Rehab Potential Rehabilitation Potential Good Evaluation Complexity Number of Personal Factors/Comorbidities 3 or More Number of Body Systems Impaired 3 Clinical Presentation at Evaluation Stable Impairments Impairments Activity Tolerance,Balance, Functional Activities, Functional Mobility,Gait, Integument,Pain,Posture,ROM, Sensation,Soft Tissue Mobility ,Strength,Transfers Other Concerns Barriers to Rehabilitation Pt planning to have hip abductor surgery scheduled in July, but must complete PT for lumbar spine prior to completion Goals Four Impairment body mechanics Short Term Goal (STG) Pt will be educated on core bracing and proper body rolling machine tender techniques to improve lumbopelvic stability during stance/gait, lifting, and for improved symptom management STG Duration 3 weeks Alf Goal (LTG) Pt will be able to perform at least 8 repetitions of deadlifts or squats to picker/puller objects or during exercises while demonstrating good core bracing to improve lumbopelvic stability during stance/gait, lifting, and for improved symptom management LTG Duration 8 weeks Three Impairment standing time Alf Goal (LTG) Pt will report that she is able to stand >1 hour without increase in low back baseline pain in order to demonstrate improved symptom management and QOL LTG Duration 8 weeks Two Impairment trunk strength 4/5 Electronic Publications Specialist Goal (LTG) Pt will improve trunk strength by at least 1 grade in order to demonstrate increased strength for postural control and to improve WB status following planned surgery LTG Duration 8 weeks One Impairment oswestry 14/50 Alf Goal (LTG) Pt will decrease Oswestry score <10/50 in order to demonstrate improved symptom management and QOL LTG Duration 8 weeks Assessment Summary Assessment Pt is a 59 y.o. female presenting with chronic low back pain and L hip pain. She has a complete tear of her hip abductors that will be repaired in upcoming months; however, pt must complete PT to address her low back pain symptoms prior to further assessment for her hip. Pt's low back symptoms are primarily related to her scoliosis; however, pt also has neural symptoms consistent with lumbar radiculopathy and femoral nerve tension. Pt has mild limitations in lumbar spine ROM and has minimal pain with resisted motions. Her hip L hip AROM is a limiting factor. Pt has hyper-reflexive L patellar reflexes. Her L hip flexor, glute, and quad strength are more limited than on her R side; however, glute strength is likely more limited due to injury to related muscles. Pt responds positively to lumbar traction but has increased symptoms with 3D testing and vertebral compression. PT educated pt on exam findings and plan of care. Pt would benefit from skilled PT to improve symptom management and activity tolerance prior to upcoming hip surgery. Physical Therapy Plan Frequency and Duration Frequency of Treatment 2x/Week Duration of treatment (weeks) 8 Plan of Care Start Date 07/12/24 Plan of Care End Date 09/07/24 Therapeutic Interventions Therapeutic Interventions Balance Training,Gait Training ,Home Exercise Program,Joint Mobilizations,Manual Therapy, Neuromuscular Re-education, Orthotic/Prosthetic Management ,Patient/Caregiver Education, Self-Care/Home Management, Sensory Integration,Soft Tissue Mobilization,Taping, Therapeutic Activities, Therapeutic Exercises Modalities Cold Pack/Ice Massage,Electric Stimulation,Hot Packs Other Therapeutic Interventions Manual traction only due to scoliosis No grade III-IV mobilizations to lumbar spine due to anterolisthesis Next Visit Focus/Plan Next Note Type Treatment Note Next Visit Plan bridge vs STS offload lumbar spine (LLE) in sidelying w/ manual traction, LAD, trunk elongation. Trial lateral flexion stretching in sidelying, strengthening of lateral flexors on R in sidelying, fwd flexion counter stretch. Core bracing: supine w/ progression to seated on ukrainian ball and standing Manual tx to lumbar spine: STM , rotation mobilizations, contract-relax Plan of Care Dates Plan of Care Start Date 07/12/24 Plan of Care End Date 09/07/24 Electronically Signed by: Otilia Valverde, PT 07/13/24 [id number] If you are in agreement with this Plan of Care, please return a signed and dated copy. I have reviewed this Plan of Care and certify that the skilled therapy services above are required to meet the patient?s needs. Physician Signature Date Printed Name and Credentials Clinical Instructor Signature Printed Name and Credentials
--- NOTE | 2024-07-17 15:33 | PT.OTN ---
Current Diagnoses Pain in left hip (07/17/24) Stiffness of left hip, not elsewhere classified (07/17/24) Weakness (07/17/24) Physical Therapy Treatment Note PT-OP-A Visit Information Start: 07/12/24 11:13 Freq: Status: Active Protocol: Document 07/17/24 12:52 AB (Rec: 07/17/24 15:29 AB [id number]) Out-Patient Physical Therapy Visit Information Visit Information Visit Type Treatment Note Visit Note Access Code: [email or web address] Visit Start Time 14:33 Visit Stop Time 15:16 Visit Number 2 Number of ATHLETIC MONITOR Visits 1 Evaluation Information Evaluation Date 07/12/24 Precautions Precautions complete L glute medius tear , L lumbar scoliosis, neuropathy PT-OP-B Current Condition Start: 07/12/24 11:13 Freq: Status: Active Protocol: Document 07/12/24 11:15 NM (Rec: 07/12/24 12:22 NM [id number]) Current Condition History of Current Condition Onset Date 2 years ago Current Complaints pain, decreased mobility History of Current Condition Pt presents with chronic low back pain, onset 2 years ago. No known TRUPTI; however, pt does have hx of L lumbar scoliosis . Pain is B, but mainly L sided with L sided neural symptoms. Pain primarily radiates to lateral knee, but she has numbness occasionally to L toes. She also has L hip pain since October 2023. Pt has a complete abductor tear. Pt is planning to have surgical repair in July at but has to have low back pain reduced before surgery. However, she has moderate degeneration of lumbar spine. She will have a steroid injection to help with pain in hip, Monday 07/16. She will be planning to have a re- assessment in Aug 10 before planning surgery. Pt's most recent xray in 2022, indicating 30 deg curve. 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 Pt has pain with standing, ambulation, sitting for long periods especially in am or late pm, sleeping, pain with getting out of bed. Prior Treatments and Tests Radiograph of thoracolumbar spine 07/2023: 30 deg convex L lumbar scoliosis associated with lateral subluxation of 3rd vertebral body, disc space narrowoing hypertrophic facet joints in mid lumbar spine Radiograph of lumbar spine 2020: transitional element S1, multilevel degenerative disc and facet disease (mild grade I anterolisthesis L4 on L5, mild left lateral subluxation L4 relative to L5) Treatment Goals Patient/Caregiver Goals decrease pain associated w/ back Current Functional Impairments (Reported) Functional Limitations- ADL's cooking dinner Functional Limitations- Mobility/Gait 60 min for sit or stand walking 1 mi before pain Functional Limitations- Other sleeping: pillows between legs (cannot always sleep on L side); pain with rolling PT-OP-C Subjective Start: 07/12/24 11:13 Freq: Status: Active Protocol: Document 07/17/24 12:52 AB (Rec: 07/17/24 15:29 AB [id number]) OP-PT Subjective Patient Comments Patient Comments Patient reports she hand an injection left hip yesterday. Patient reports she has no pain, rode electric bike her. Patient reports she was told to work on glute strength and core strength. PT-OP-E Functional Tests Start: 07/12/24 11:13 Freq: Status: Active Protocol: Document 07/12/24 11:15 NM (Rec: 07/12/24 12:22 NM [id number]) Functional Tests Other Forward Trunk Flexion Test Name of Test measured finger to floor Score 1 in Comment reports stretch but denies pain PT-OP-F Manual Assessment Start: 07/12/24 11:13 Freq: Status: Active Protocol: Document 07/12/24 11:15 NM (Rec: 07/12/24 12:22 NM [id number]) Manual Assessments Soft Tissue Assessment Soft Tissue Mobility Assessment Decreased tissue length on L trunk, increased length on R trunk. Slight limitations in B HS length Joint Mobility Assessment Joint Mobility Assessment Scapular positioning from medial border to spine: 8 cm L , 12 cm R. Lumbar curve and spinous process rotation with apex at mid lumbar L side PT-OP-G Mobility & Gait Start: 07/12/24 11:13 Freq: Status: Active Protocol: Document 07/12/24 11:15 NM (Rec: 07/12/24 12:22 NM [id number]) OP Gait Assessment Gait Gait Assistance Required: Independent Distance (Feet) 150 Gait Deviations General Gait Pattern Antalgic Comments Gait Comments Trendelenburg gait pattern L sided, less stance time LLE PT-OP-H Neuro Start: 07/12/24 12:22 Freq: Status: Active Protocol: Document 07/12/24 11:15 NM (Rec: 07/12/24 16:06 NM [id number]) Sensation Evaluation Comments Summary Comments BLE and trunk intact equally to light touch sensation. Mild hypersensitivity along L medial foot with light touch Deep Tendon Reflex & Clonus Assessment Deep Tendon Reflex Right Patellar Deep Tendon Reflex 2+ Normal Left Patellar Deep Tendon Reflex 4+ Brisk PT-OP-J Posture/Palpation/Skin Start: 07/12/24 11:13 Freq: Status: Active Protocol: Document 07/12/24 11:15 NM (Rec: 07/12/24 12:22 NM [id number]) Posture Evaluation Position Standing Head/C-Spine Posture C-Spine Flattened Thorax Posture (L) Prominent L-Spine Posture Increased Lordosis,Fixed Scoliosis on (L) Shoulder Posture (L) Rounded,(R) Rounded Scapula Posture (L) Neutral,(R) Protracted,(R) Rotated Up,(R) Elevated Pelvis Posture Anteriorly Tilted,(L) Iliac Crest Superior Weight Distribution Weight Shifted Right Hip Posture (L) Externally Rotated,(R) Externally Rotated Knee Posture (L) Genu Valgus,(R) Genu Valgus Patellar Posture (L) Superior,(R) Superior Palpation Assessment Location lumbar spine Palpation Details Tenderness along L SIJ, PSIS. Curve and rotation of lumbar spinous processes to L. Hypomobility of lumbar spine with P-A springing PT-OP-K Range of Motion Start: 07/12/24 11:13 Freq: Status: Active Protocol: Document 07/12/24 11:15 NM (Rec: 07/12/24 12:22 NM [id number]) Lumbar Spine Range of Motion Lumbar Spine Active Percentage Flexion 95 Extension 100 Rotation Left 100 Rotation Right 75 Lateral Flexion Left 75 Lateral Flexion Right 100 Comments no pain or discomfort Hip Goniometric Range of Motion Hip Right Flexion w/Knee Flexed 110 Internal Rotation 40 External Rotation 28 Left Flexion w/Knee Flexed 110 Internal Rotation 38 External Rotation 28 Comments Hip pain with IR; active abduction PT-OP-L Special Tests Start: 07/12/24 11:13 Freq: Status: Active Protocol: Document 07/12/24 11:15 NM (Rec: 07/12/24 12:22 NM [id number]) Special Tests Lumbar Spine Special Tests traction Test Results + Comments reports reduction in symptoms in L foot Mary/quadrant Test Results + Comments increased numbness in L foot Straight Leg Raise Test Results - Slump Test Results - Hip Special Tests Trendelenberg Test Results + L Neural Special Tests- Lower Body Femoral Nerve Tension Test Results + L PT-OP-M Strength Start: 07/12/24 11:13 Freq: Status: Active Protocol: Document 07/12/24 11:15 NM (Rec: 07/12/24 12:22 NM [id number]) Trunk Strength Trunk Manual Muscle Testing Flexion 4+ Good+ Extension 4+ Good+ Rotation Left 4 Good Rotation Right 4 Good Lateral Flexion Left 4+ Good+ Lateral Flexion Right 4+ Good+ Comments R rotation Hip Strength Hip Manual Muscle Testing Right Flexion (L2) 4+ Good+ Extension (S1) 4+ Good+ Abduction 4+ Good+ Adduction 4+ Good+ External Rotation 4+ Good+ Internal Rotation 4+ Good+ Left Flexion (L2) 4 Good Extension (S1) 4- Good- Abduction 3 Fair Adduction 4+ Good+ External Rotation 4+ Good+ Internal Rotation 4+ Good+ Comments pain with hip abduction and extension, limited ROM Knee Strength Knee Manual Muscle Testing Right Flexion (S2) 4+ Good+ Extension (L3) 4+ Good+ Left Flexion (S2) 4+ Good+ Extension (L3) 4+ Good+ Ankle/Foot Strength Ankle and Foot Manual Muscle Testing Right Dorsiflexion (L4) 4+ Good+ Plantarflexion (S1) 4+ Good+ Comments tested in sitting Left Dorsiflexion (L4) 4+ Good+ Plantarflexion (S1) 4+ Good+ Comments tested in sitting PT-OP-Q Treatments Start: 07/12/24 11:13 Freq: Status: Active Protocol: Document 07/17/24 12:52 AB (Rec: 07/17/24 15:29 AB [id number]) Therapeutic Exercises Supine Exercises bent knee fall out Supine Exercise Name HEP Side bilateral Reps/Minutes X10 Comments verbal cues for bracing as LE moves away from core abdominal bracing with LE extension Supine Exercise Name HEP Reps/Minutes X10 Comments unable to fully extend without anterior pelvic tilt bridge Supine Exercise Name HEP Side bilateral Resistance AROM Reps/Minutes 10 Comments Pt ed to push into heels if HS cramps or back pain also dec height w/ pain Sitting Exercises [place] ball Sitting Exercise Name HEP1. lateral pelvic tilt 2. marching Reps/Minutes X10 each Comments Verbal cues, supervision Standing Exercises hip extension with abd bracing Standing Exercise Name HEPfrom flexed trunk position leaning on side of treadmill Side bilateral Reps/Minutes X10 Comments verbal cues to brace as LE is lifted sit to stand Standing Exercise Name HEP without UE use Side bilateral Reps/Minutes X10 Comments Pt ed use of self tactile cues for hip hinge Pallof press Standing Exercise Name HEP1. standing 2. seated on [place] ball HEP Side bilateral Resistance level 2 band Reps/Minutes X15 X 2 Comments Verbal and visual cues Other Exercises bird dog Other Exercise Name HEP Side bilateral Reps/Minutes X10 Comments does not lose dowel PT-OP-T Assessment and Plan Start: 07/12/24 11:13 Freq: Status: Active Protocol: Document 07/17/24 12:52 AB (Rec: 07/17/24 15:29 AB [id number]) Physical Therapy Assessment Goals Six Impairment Unable to sleep on L side due to pain Five Impairment B Single limb stance <15 sec with opposite hip drop on BLE Four Impairment body mechanics Impairment B squat with knee valgus, lateral hip pain Short Term Goal (STG) Pt will be educated on core bracing and proper body engineer techniques to improve lumbopelvic stability during stance/gait, lifting, and for improved symptom management STG Duration 3 weeks Black Top Paver Operator Goal (LTG) Pt will be able to perform at least 8 repetitions of deadlifts or squats to worm picker objects or during exercises while demonstrating good core bracing to improve lumbopelvic stability during stance/gait, lifting, and for improved symptom management LTG Duration 8 weeks Three Impairment standing time Impairment 8 stairs, demos R hip drop on LLE stance, painful in L hip with descent Long-Term Goal (LTG) Pt will report that she is able to stand >1 hour without increase in low back baseline pain in order to demonstrate improved symptom management and QOL LTG Duration 8 weeks Two Impairment trunk strength 4/5 Impairment R hip flex, ext, abd MMT 4-/5 Black Top Paver Operator Goal (LTG) Pt will improve trunk strength by at least 1 grade in order to demonstrate increased strength for postural control and to improve WB status following planned surgery LTG Duration 8 weeks One Impairment oswestry 14/50 Impairment LEFS 35/80 Long-Term Goal (LTG) Pt will decrease Oswestry score <10/50 in order to demonstrate improved symptom management and QOL LTG Duration 8 weeks Assessment Summary Assessment Patient reports a little tingling left LE end of session, attributes to hip ext with abdominal bracing, and comments it is resolving prior to leaving session. Pt ed to lift LE less with standing hip extension. Patient ed to limit ex to Pallof press, sit to stand, bird dog, and bracing with LE extension if having increased pain post this session. Physical Therapy Plan Frequency and Duration Frequency of Treatment 2x/Week Duration of treatment (weeks) 8 Plan of Care Start Date 07/12/24 Plan of Care End Date 09/07/24 Next Visit Focus/Plan Next Note Type Treatment Note Next Visit Plan Assess nino to HEP, modify as needed. offload lumbar spine (LLE) in sidelying w/ manual traction, LAD, trunk elongation. Trial lateral flexion stretching in sidelying, strengthening of lateral flexors on R in Assess nino to last session HEP for core strengthening and glute max strengthening. sidelying, fwd flexion counter stretch. Core bracing: supine w/ progression to seated on [place] ball and standing Manual tx to lumbar spine: STM , rotation mobilizations, contract-relax
--- NOTE | 2024-07-19 15:29 | PT.OTN ---
Current Diagnoses Pain in left hip (07/19/24) Stiffness of left hip, not elsewhere classified (07/19/24) Weakness (07/19/24) Physical Therapy Treatment Note PT-OP-A Visit Information Start: 07/12/24 11:13 Freq: Status: Active Protocol: Document 07/19/24 14:35 NM (Rec: 07/19/24 15:27 NM [id number]) Out-Patient Physical Therapy Visit Information Visit Information Visit Type Treatment Note Visit Start Time 14:36 Visit Stop Time 15:15 Visit Number 3 Evaluation Information Evaluation Date 07/12/24 Precautions Precautions complete L glute medius tear , L lumbar scoliosis, neuropathy PT-OP-B Current Condition Start: 07/12/24 11:13 Freq: Status: Active Protocol: Document 07/12/24 11:15 NM (Rec: 07/12/24 12:22 NM [id number]) Current Condition History of Current Condition Onset Date 2 years ago Current Complaints pain, decreased mobility History of Current Condition Pt presents with chronic low back pain, onset 2 years ago. No known TRUPTI; however, pt does have hx of L lumbar scoliosis . Pain is B, but mainly L sided with L sided neural symptoms. Pain primarily radiates to lateral knee, but she has numbness occasionally to L toes. She also has L hip pain since October 2023. Pt has a complete abductor tear. Pt is planning to have surgical repair in July at but has to have low back pain reduced before surgery. However, she has moderate degeneration of lumbar spine. She will have a steroid injection to help with pain in hip, Monday 07/16. She will be planning to have a re- assessment in Aug 10 before planning surgery. Pt's most recent xray in 2022, indicating 30 deg curve. 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 Pt has pain with standing, ambulation, sitting for long periods especially in am or late pm, sleeping, pain with getting out of bed. Prior Treatments and Tests Radiograph of thoracolumbar spine 07/2023: 30 deg convex L lumbar scoliosis associated with lateral subluxation of 3rd vertebral body, disc space narrowoing hypertrophic facet joints in mid lumbar spine Radiograph of lumbar spine 2020: transitional element S1, multilevel degenerative disc and facet disease (mild grade I anterolisthesis L4 on L5, mild left lateral subluxation L4 relative to L5) Treatment Goals Patient/Caregiver Goals decrease pain associated w/ back Current Functional Impairments (Reported) Functional Limitations- ADL's cooking dinner Functional Limitations- Mobility/Gait 60 min for sit or stand walking 1 mi before pain Functional Limitations- Other sleeping: pillows between legs (cannot always sleep on L side); pain with rolling PT-OP-C Subjective Start: 07/12/24 11:13 Freq: Status: Active Protocol: Document 07/19/24 14:35 NM (Rec: 07/19/24 15:27 NM [id number]) OP-PT Subjective Patient Comments Patient Comments Pt reports that she had an echo stress test yesterday and did not perform HEP. States hip is still feeling well. Continues to have tingling in L leg from low back PT-OP-E Functional Tests Start: 07/12/24 11:13 Freq: Status: Active Protocol: Document 07/12/24 11:15 NM (Rec: 07/12/24 12:22 NM [id number]) Functional Tests Other Forward Trunk Flexion Test Name of Test measured finger to floor Score 1 in Comment reports stretch but denies pain PT-OP-F Manual Assessment Start: 07/12/24 11:13 Freq: Status: Active Protocol: Document 07/12/24 11:15 NM (Rec: 07/12/24 12:22 NM [id number]) Manual Assessments Soft Tissue Assessment Soft Tissue Mobility Assessment Decreased tissue length on L trunk, increased length on R trunk. Slight limitations in B HS length Joint Mobility Assessment Joint Mobility Assessment Scapular positioning from medial border to spine: 8 cm L , 12 cm R. Lumbar curve and spinous process rotation with apex at mid lumbar L side PT-OP-G Mobility & Gait Start: 07/12/24 11:13 Freq: Status: Active Protocol: Document 07/12/24 11:15 NM (Rec: 07/12/24 12:22 NM [id number]) OP Gait Assessment Gait Gait Assistance Required: Independent Distance (Feet) 150 Gait Deviations General Gait Pattern Antalgic Comments Gait Comments Trendelenburg gait pattern L sided, less stance time LLE PT-OP-H Neuro Start: 07/12/24 12:22 Freq: Status: Active Protocol: Document 07/12/24 11:15 NM (Rec: 07/12/24 16:06 NM [id number]) Sensation Evaluation Comments Summary Comments BLE and trunk intact equally to light touch sensation. Mild hypersensitivity along L medial foot with light touch Deep Tendon Reflex & Clonus Assessment Deep Tendon Reflex Right Patellar Deep Tendon Reflex 2+ Normal Left Patellar Deep Tendon Reflex 4+ Brisk PT-OP-J Posture/Palpation/Skin Start: 07/12/24 11:13 Freq: Status: Active Protocol: Document 07/12/24 11:15 NM (Rec: 07/12/24 12:22 NM [id number]) Posture Evaluation Position Standing Head/C-Spine Posture C-Spine Flattened Thorax Posture (L) Prominent L-Spine Posture Increased Lordosis,Fixed Scoliosis on (L) Shoulder Posture (L) Rounded,(R) Rounded Scapula Posture (L) Neutral,(R) Protracted,(R) Rotated Up,(R) Elevated Pelvis Posture Anteriorly Tilted,(L) Iliac Crest Superior Weight Distribution Weight Shifted Right Hip Posture (L) Externally Rotated,(R) Externally Rotated Knee Posture (L) Genu Valgus,(R) Genu Valgus Patellar Posture (L) Superior,(R) Superior Palpation Assessment Location lumbar spine Palpation Details Tenderness along L SIJ, PSIS. Curve and rotation of lumbar spinous processes to L. Hypomobility of lumbar spine with P-A springing PT-OP-K Range of Motion Start: 07/12/24 11:13 Freq: Status: Active Protocol: Document 07/12/24 11:15 NM (Rec: 07/12/24 12:22 NM [id number]) Lumbar Spine Range of Motion Lumbar Spine Active Percentage Flexion 95 Extension 100 Rotation Left 100 Rotation Right 75 Lateral Flexion Left 75 Lateral Flexion Right 100 Comments no pain or discomfort Hip Goniometric Range of Motion Hip Right Flexion w/Knee Flexed 110 Internal Rotation 40 External Rotation 28 Left Flexion w/Knee Flexed 110 Internal Rotation 38 External Rotation 28 Comments Hip pain with IR; active abduction PT-OP-L Special Tests Start: 07/12/24 11:13 Freq: Status: Active Protocol: Document 07/12/24 11:15 NM (Rec: 07/12/24 12:22 NM [id number]) Special Tests Lumbar Spine Special Tests traction Test Results + Comments reports reduction in symptoms in L foot Mary/quadrant Test Results + Comments increased numbness in L foot Straight Leg Raise Test Results - Slump Test Results - Hip Special Tests Trendelenberg Test Results + L Neural Special Tests- Lower Body Femoral Nerve Tension Test Results + L PT-OP-M Strength Start: 07/12/24 11:13 Freq: Status: Active Protocol: Document 07/12/24 11:15 NM (Rec: 07/12/24 12:22 NM [id number]) Trunk Strength Trunk Manual Muscle Testing Flexion 4+ Good+ Extension 4+ Good+ Rotation Left 4 Good Rotation Right 4 Good Lateral Flexion Left 4+ Good+ Lateral Flexion Right 4+ Good+ Comments R rotation Hip Strength Hip Manual Muscle Testing Right Flexion (L2) 4+ Good+ Extension (S1) 4+ Good+ Abduction 4+ Good+ Adduction 4+ Good+ External Rotation 4+ Good+ Internal Rotation 4+ Good+ Left Flexion (L2) 4 Good Extension (S1) 4- Good- Abduction 3 Fair Adduction 4+ Good+ External Rotation 4+ Good+ Internal Rotation 4+ Good+ Comments pain with hip abduction and extension, limited ROM Knee Strength Knee Manual Muscle Testing Right Flexion (S2) 4+ Good+ Extension (L3) 4+ Good+ Left Flexion (S2) 4+ Good+ Extension (L3) 4+ Good+ Ankle/Foot Strength Ankle and Foot Manual Muscle Testing Right Dorsiflexion (L4) 4+ Good+ Plantarflexion (S1) 4+ Good+ Comments tested in sitting Left Dorsiflexion (L4) 4+ Good+ Plantarflexion (S1) 4+ Good+ Comments tested in sitting PT-OP-Q Treatments Start: 07/12/24 11:13 Freq: Status: Active Protocol: Document 07/19/24 14:35 NM (Rec: 07/19/24 15:27 NM [id number]) Therapeutic Exercises Supine Exercises pete stretch Supine Exercise Name HEP Side bilateral Reps/Minutes 60 ea Comments L tighter; strong ant pelvic tilt TrA activation Supine Exercise Name hooklying march Side bilateral Reps/Minutes 10 Comments maintains ppt w/ cueing bent knee fall out Supine Exercise Name HEP review Side bilateral Reps/Minutes 2x10 ea Comments cues for draw abdominal abdominal bracing with LE extension Supine Exercise Name HEP review Side bilateral Reps/Minutes 10 Comments improved post pete stretch Sidelying Exercises lateral flexion stretch Sidelying Exercise Name with lat stretch Side left Reps/Minutes 60 Sitting Exercises swazi ball Sitting Exercise Name 1. cat camel, 2. january Equipment Used cat camel ppt to neutral Reps/Minutes 1. 10, 2. 20 alternating Comments Verbal cues, supervision Standing Exercises hip extension with abd bracing Standing Exercise Name from flexed trunk position leaning on side of treadmill Side bilateral Reps/Minutes 10, 10 w/ level 1 band- d/c band d/t Lat hip pain Comments verbal cues to brace as LE is lifted Other Exercises quadruped Other Exercise Name 1. child's pose stretch, 2. with lateral flexion Side bilateral Reps/Minutes 60 ea Comments feels good Manual Therapy Treatment Consent Patient gave verbal consent for manual Yes treatment Soft Tissue Mobilization lumbar spine Body Location paraspinals, QL, iliopsoas Mobilization Type Rolling,Sustained Pressure, Other Intensity/Depth Superficial Body Position Rsidelying Comments 1. posterior pelvic tilt with iliopsoas mobilization with movement 2. caudal distraction iliac crest for QL stretch 3. lateral flexion paraspinal stretch Manual Traction lumbar spine Body Position Hooklying Reps/Duration 2x30 Comments legs elevated on bolster, use of strap. Monitored for pain or increased neural symptoms, reports reduction in symptoms with traction PT-OP-T Assessment and Plan Start: 07/12/24 11:13 Freq: Status: Active Protocol: Document 07/19/24 14:35 NM (Rec: 07/19/24 15:27 NM [id number]) Physical Therapy Assessment Goals Six Impairment Unable to sleep on L side due to pain Five Impairment B Single limb stance <15 sec with opposite hip drop on BLE Four Impairment body mechanics Impairment B squat with knee valgus, lateral hip pain Short Term Goal (STG) Pt will be educated on core bracing and proper body man techniques to improve lumbopelvic stability during stance/gait, lifting, and for improved symptom management STG Duration 3 weeks Long-Term Goal (LTG) Pt will be able to perform at least 8 repetitions of deadlifts or squats to peanut picker objects or during exercises while demonstrating good core bracing to improve lumbopelvic stability during stance/gait, lifting, and for improved symptom management LTG Duration 8 weeks Three Impairment standing time Impairment 8 stairs, demos R hip drop on LLE stance, painful in L hip with descent Long-Term Goal (LTG) Pt will report that she is able to stand >1 hour without increase in low back baseline pain in order to demonstrate improved symptom management and QOL LTG Duration 8 weeks Two Impairment trunk strength 4/5 Impairment R hip flex, ext, abd MMT 4-/5 Youth Development Specialist Goal (LTG) Pt will improve trunk strength by at least 1 grade in order to demonstrate increased strength for postural control and to improve WB status following planned surgery LTG Duration 8 weeks One Impairment oswestry 14/50 Impairment LEFS 35/80 Long-Term Goal (LTG) Pt will decrease Oswestry score <10/50 in order to demonstrate improved symptom management and QOL LTG Duration 8 weeks Assessment Summary Assessment Pt tolerated session well, reporting reduction in neural symptoms at end of session. Continued with core bracing and hip extension strengthening to promote improved lumbar stabilization. Addressed muscle imbalances with lateral flexion stretches in both sidleying and quadruped, in addition to anterior pelvic tilt with pete stretch. L flank/hip is more restricted than R side. Trialed small resistance with standing but pt reports discomfort in lateral hip with resistance so discontinued. Pt demos better core bracing during supine exercises today with reps but continues to require cues for posterior pelvic tilt and abdominal bracing. Good repsonse to manual treatment today. Pt would benefit from skilled PT for posterior chain flexibility and strengthening in order to improve symptom management and ADL tolerance. Physical Therapy Plan Frequency and Duration Frequency of Treatment 2x/Week Duration of treatment (weeks) 8 Plan of Care Start Date 07/12/24 Plan of Care End Date 09/07/24 Therapeutic Interventions Therapeutic Interventions Balance Training,Gait Training ,Home Exercise Program,Joint Mobilizations,Manual Therapy, Neuromuscular Re-education, Orthotic/Prosthetic Management ,Patient/Caregiver Education, Self-Care/Home Management, Sensory Integration,Soft Tissue Mobilization,Taping, Therapeutic Activities, Therapeutic Exercises Modalities Cold Pack/Ice Massage,Electric Stimulation,Hot Packs Other Therapeutic Interventions Manual traction only due to scoliosis No grade III-IV mobilizations to lumbar spine due to anterolisthesis Next Visit Focus/Plan Next Note Type Treatment Note Next Visit Plan Assess nino to HEP (pt did not attempt last session), modify as needed. pete stretch. Trial ball march w/ lat pulldown or pallof. Retrial resistance w/ standing hip ext offload lumbar spine (LLE) in sidelying w/ manual traction, traction, trunk elongation. Trial lateral flexion stretching in sidelying, strengthening of lateral flexors on R in Assess nino to last session HEP for core strengthening and glute max strengthening. sidelying, fwd flexion counter stretch. Core bracing: supine w/ progression to seated on swazi ball and standing Manual tx to lumbar spine: STM , rotation mobilizations, contract-relax
--- NOTE | 2024-07-25 16:11 | PT.OTN ---
Current Diagnoses Pain in left hip (07/25/24) Stiffness of left hip, not elsewhere classified (07/25/24) Weakness (07/25/24) Physical Therapy Treatment Note PT-OP-A Visit Information Start: 07/12/24 11:13 Freq: Status: Active Protocol: Document 07/25/24 14:08 AB (Rec: 07/25/24 16:11 AB [id number]) Out-Patient Physical Therapy Visit Information Visit Information Visit Type Treatment Note Visit Note Access Code: [email or web address] Visit Start Time 14:34 Visit Stop Time 15:17 Visit Number 4 Number of ROBOT PROGRAMMER Visits 1 Evaluation Information Evaluation Date 07/12/24 PT-OP-B Current Condition Start: 07/12/24 11:13 Freq: Status: Active Protocol: Document 07/12/24 11:15 NM (Rec: 07/12/24 12:22 NM [id number]) Current Condition History of Current Condition Onset Date 2 years ago Current Complaints pain, decreased mobility History of Current Condition Pt presents with chronic low back pain, onset 2 years ago. No known TRUPTI; however, pt does have hx of L lumbar scoliosis . Pain is B, but mainly L sided with L sided neural symptoms. Pain primarily radiates to lateral knee, but she has numbness occasionally to L toes. She also has L hip pain since October 2023. Pt has a complete abductor tear. Pt is planning to have surgical repair in July at but has to have low back pain reduced before surgery. However, she has moderate degeneration of lumbar spine. She will have a steroid injection to help with pain in hip, Monday 07/16. She will be planning to have a re- assessment in Aug 10 before planning surgery. Pt's most recent xray in 2022, indicating 30 deg curve. 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 Pt has pain with standing, ambulation, sitting for long periods especially in am or late pm, sleeping, pain with getting out of bed. Prior Treatments and Tests Radiograph of thoracolumbar spine 07/2023: 30 deg convex L lumbar scoliosis associated with lateral subluxation of 3rd vertebral body, disc space narrowoing hypertrophic facet joints in mid lumbar spine Radiograph of lumbar spine 2020: transitional element S1, multilevel degenerative disc and facet disease (mild grade I anterolisthesis L4 on L5, mild left lateral subluxation L4 relative to L5) Treatment Goals Patient/Caregiver Goals decrease pain associated w/ back Current Functional Impairments (Reported) Functional Limitations- ADL's cooking dinner Functional Limitations- Mobility/Gait 60 min for sit or stand walking 1 mi before pain Functional Limitations- Other sleeping: pillows between legs (cannot always sleep on L side); pain with rolling PT-OP-C Subjective Start: 07/12/24 11:13 Freq: Status: Active Protocol: Document 07/25/24 14:08 AB (Rec: 07/25/24 16:11 AB [id number]) OP-PT Subjective Patient Comments Patient Comments Patient reports she is still doing good, does get an occasional ping of pain. Patient describes the Cosmo stretch as an exercise that doesn't have the same stretch at home as it does on the mat in clinic. PT-OP-E Functional Tests Start: 07/12/24 11:13 Freq: Status: Active Protocol: Document 07/12/24 11:15 NM (Rec: 07/12/24 12:22 NM [id number]) Functional Tests Other Forward Trunk Flexion Test Name of Test measured finger to floor Score 1 in Comment reports stretch but denies pain PT-OP-F Manual Assessment Start: 07/12/24 11:13 Freq: Status: Active Protocol: Document 07/12/24 11:15 NM (Rec: 07/12/24 12:22 NM [id number]) Manual Assessments Soft Tissue Assessment Soft Tissue Mobility Assessment Decreased tissue length on L trunk, increased length on R trunk. Slight limitations in B HS length Joint Mobility Assessment Joint Mobility Assessment Scapular positioning from medial border to spine: 8 cm L , 12 cm R. Lumbar curve and spinous process rotation with apex at mid lumbar L side PT-OP-G Mobility & Gait Start: 07/12/24 11:13 Freq: Status: Active Protocol: Document 07/12/24 11:15 NM (Rec: 07/12/24 12:22 NM [id number]) OP Gait Assessment Gait Gait Assistance Required: Independent Distance (Feet) 150 Gait Deviations General Gait Pattern Antalgic Comments Gait Comments Trendelenburg gait pattern L sided, less stance time LLE PT-OP-H Neuro Start: 07/12/24 12:22 Freq: Status: Active Protocol: Document 07/12/24 11:15 NM (Rec: 07/12/24 16:06 NM [id number]) Sensation Evaluation Comments Summary Comments BLE and trunk intact equally to light touch sensation. Mild hypersensitivity along L medial foot with light touch Deep Tendon Reflex & Clonus Assessment Deep Tendon Reflex Right Patellar Deep Tendon Reflex 2+ Normal Left Patellar Deep Tendon Reflex 4+ Brisk PT-OP-J Posture/Palpation/Skin Start: 07/12/24 11:13 Freq: Status: Active Protocol: Document 07/12/24 11:15 NM (Rec: 07/12/24 12:22 NM [id number]) Posture Evaluation Position Standing Head/C-Spine Posture C-Spine Flattened Thorax Posture (L) Prominent L-Spine Posture Increased Lordosis,Fixed Scoliosis on (L) Shoulder Posture (L) Rounded,(R) Rounded Scapula Posture (L) Neutral,(R) Protracted,(R) Rotated Up,(R) Elevated Pelvis Posture Anteriorly Tilted,(L) Iliac Crest Superior Weight Distribution Weight Shifted Right Hip Posture (L) Externally Rotated,(R) Externally Rotated Knee Posture (L) Genu Valgus,(R) Genu Valgus Patellar Posture (L) Superior,(R) Superior Palpation Assessment Location lumbar spine Palpation Details Tenderness along L SIJ, PSIS. Curve and rotation of lumbar spinous processes to L. Hypomobility of lumbar spine with P-A springing PT-OP-K Range of Motion Start: 07/12/24 11:13 Freq: Status: Active Protocol: Document 07/12/24 11:15 NM (Rec: 07/12/24 12:22 NM [id number]) Lumbar Spine Range of Motion Lumbar Spine Active Percentage Flexion 95 Extension 100 Rotation Left 100 Rotation Right 75 Lateral Flexion Left 75 Lateral Flexion Right 100 Comments no pain or discomfort Hip Goniometric Range of Motion Hip Right Flexion w/Knee Flexed 110 Internal Rotation 40 External Rotation 28 Left Flexion w/Knee Flexed 110 Internal Rotation 38 External Rotation 28 Comments Hip pain with IR; active abduction PT-OP-L Special Tests Start: 07/12/24 11:13 Freq: Status: Active Protocol: Document 07/12/24 11:15 NM (Rec: 07/12/24 12:22 NM [id number]) Special Tests Lumbar Spine Special Tests traction Test Results + Comments reports reduction in symptoms in L foot Mary/quadrant Test Results + Comments increased numbness in L foot Straight Leg Raise Test Results - Slump Test Results - Hip Special Tests Trendelenberg Test Results + L Neural Special Tests- Lower Body Femoral Nerve Tension Test Results + L PT-OP-M Strength Start: 07/12/24 11:13 Freq: Status: Active Protocol: Document 07/12/24 11:15 NM (Rec: 07/12/24 12:22 NM [id number]) Trunk Strength Trunk Manual Muscle Testing Flexion 4+ Good+ Extension 4+ Good+ Rotation Left 4 Good Rotation Right 4 Good Lateral Flexion Left 4+ Good+ Lateral Flexion Right 4+ Good+ Comments R rotation Hip Strength Hip Manual Muscle Testing Right Flexion (L2) 4+ Good+ Extension (S1) 4+ Good+ Abduction 4+ Good+ Adduction 4+ Good+ External Rotation 4+ Good+ Internal Rotation 4+ Good+ Left Flexion (L2) 4 Good Extension (S1) 4- Good- Abduction 3 Fair Adduction 4+ Good+ External Rotation 4+ Good+ Internal Rotation 4+ Good+ Comments pain with hip abduction and extension, limited ROM Knee Strength Knee Manual Muscle Testing Right Flexion (S2) 4+ Good+ Extension (L3) 4+ Good+ Left Flexion (S2) 4+ Good+ Extension (L3) 4+ Good+ Ankle/Foot Strength Ankle and Foot Manual Muscle Testing Right Dorsiflexion (L4) 4+ Good+ Plantarflexion (S1) 4+ Good+ Comments tested in sitting Left Dorsiflexion (L4) 4+ Good+ Plantarflexion (S1) 4+ Good+ Comments tested in sitting PT-OP-Q Treatments Start: 07/12/24 11:13 Freq: Status: Active Protocol: Document 07/25/24 14:08 AB (Rec: 07/25/24 16:11 AB [id number]) Therapeutic Exercises Supine Exercises cosmo stretch Supine Exercise Name HEP Side bilateral Reps/Minutes 60 ea with AROM knee flexion X 10 abdominal bracing with LE extension Supine Exercise Name HEP review Side bilateral Reps/Minutes 10 Comments improved post cosmo stretch Sitting Exercises barbadian ball Sitting Exercise Name january 20. HEP barbadian ball Pallof Resistance level 3 [place] green band Reps/Minutes 1. X 15 Comments Verbal cues, supervision Standing Exercises Pallof press Standing Exercise Name HEP1. standing 2. seated on barbadian ball HEP Side bilateral Resistance level 3 band Reps/Minutes X15 Comments monitored for pain Other Exercises bird dog Other Exercise Name HEP Side bilateral Reps/Minutes X10 Manual Therapy Treatment Soft Tissue Mobilization lumbar spine Body Location paraspinals, QL, iliopsoas Mobilization Type Rolling,Sustained Pressure, Other Intensity/Depth Superficial Body Position Hooklying PT-OP-T Assessment and Plan Start: 07/12/24 11:13 Freq: Status: Active Protocol: Document 07/25/24 14:08 AB (Rec: 07/25/24 16:11 AB [id number]) Physical Therapy Assessment Goals Four Impairment body mechanics Impairment B squat with knee valgus, lateral hip pain Short Term Goal (STG) Pt will be educated on core bracing and proper assembler body techniques to improve lumbopelvic stability during stance/gait, lifting, and for improved symptom management STG Duration 3 weeks Retirement Goal (LTG) Pt will be able to perform at least 8 repetitions of deadlifts or squats to pick remover objects or during exercises while demonstrating good core bracing to improve lumbopelvic stability during stance/gait, lifting, and for improved symptom management LTG Duration 8 weeks Three Impairment standing time Impairment 8 stairs, demos R hip drop on LLE stance, painful in L hip with descent Retirement Goal (LTG) Pt will report that she is able to stand >1 hour without increase in low back baseline pain in order to demonstrate improved symptom management and QOL LTG Duration 8 weeks Two Impairment trunk strength 4/5 Impairment R hip flex, ext, abd MMT 4-/5 Retirement Goal (LTG) Pt will improve trunk strength by at least 1 grade in order to demonstrate increased strength for postural control and to improve WB status following planned surgery LTG Duration 8 weeks One Impairment oswestry 14/50 Impairment LEFS 35/80 Boiler Setter Goal (LTG) Pt will decrease Oswestry score <10/50 in order to demonstrate improved symptom management and QOL LTG Duration 8 weeks Assessment Summary Assessment Patient reports having no pain , tingling or numbness end of session. Physical Therapy Plan Frequency and Duration Frequency of Treatment 2x/Week Duration of treatment (weeks) 8 Plan of Care Start Date 07/12/24 Plan of Care End Date 09/07/24 Next Visit Focus/Plan Next Note Type Treatment Note Next Visit Plan Assess HS, squats.ext offload lumbar spine (LLE) in sidelying w/ manual traction, traction, trunk elongation. Trial lateral flexion stretching in sidelying, strengthening of lateral flexors on R in Assess nino to last session HEP for core strengthening and glute max strengthening. sidelying, fwd flexion counter stretch. Core bracing: supine w/ progression to seated on barbadian ball and standing Manual tx to lumbar spine: STM , rotation mobilizations, contract-relax
--- NOTE | 2024-07-27 12:00 | PT.OTN ---
Current Diagnoses Pain in left hip (07/27/24) Stiffness of left hip, not elsewhere classified (07/27/24) Weakness (07/27/24) Physical Therapy Treatment Note PT-OP-A Visit Information Start: 07/12/24 11:13 Freq: Status: Active Protocol: Document 07/27/24 11:18 NM (Rec: 07/27/24 12:00 NM [id number]) Out-Patient Physical Therapy Visit Information Visit Information Visit Type Treatment Note Visit Start Time 11:18 Visit Stop Time 11:56 Visit Number 5 Number of RETAIL CENTER RECEPTIONIST Visits 0 Evaluation Information Evaluation Date 07/12/24 Precautions Precautions complete L glute medius tear , L lumbar scoliosis, neuropathy PT-OP-B Current Condition Start: 07/12/24 11:13 Freq: Status: Active Protocol: Document 07/12/24 11:15 NM (Rec: 07/12/24 12:22 NM [id number]) Current Condition History of Current Condition Onset Date 2 years ago Current Complaints pain, decreased mobility History of Current Condition Pt presents with chronic low back pain, onset 2 years ago. No known TRUPTI; however, pt does have hx of L lumbar scoliosis . Pain is B, but mainly L sided with L sided neural symptoms. Pain primarily radiates to lateral knee, but she has numbness occasionally to L toes. She also has L hip pain since October 2023. Pt has a complete abductor tear. Pt is planning to have surgical repair in July at but has to have low back pain reduced before surgery. However, she has moderate degeneration of lumbar spine. She will have a steroid injection to help with pain in hip, Monday 07/16. She will be planning to have a re- assessment in Aug 10 before planning surgery. Pt's most recent xray in 2022, indicating 30 deg curve. 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 Pt has pain with standing, ambulation, sitting for long periods especially in am or late pm, sleeping, pain with getting out of bed. Prior Treatments and Tests Radiograph of thoracolumbar spine 07/2023: 30 deg convex L lumbar scoliosis associated with lateral subluxation of 3rd vertebral body, disc space narrowoing hypertrophic facet joints in mid lumbar spine Radiograph of lumbar spine 2020: transitional element S1, multilevel degenerative disc and facet disease (mild grade I anterolisthesis L4 on L5, mild left lateral subluxation L4 relative to L5) Treatment Goals Patient/Caregiver Goals decrease pain associated w/ back Current Functional Impairments (Reported) Functional Limitations- ADL's cooking dinner Functional Limitations- Mobility/Gait 60 min for sit or stand walking 1 mi before pain Functional Limitations- Other sleeping: pillows between legs (cannot always sleep on L side); pain with rolling PT-OP-C Subjective Start: 07/12/24 11:13 Freq: Status: Active Protocol: Document 07/27/24 11:18 NM (Rec: 07/27/24 12:00 NM [id number]) OP-PT Subjective Patient Comments Patient Comments Pt reports that she is getting sharp twinges again in standing, when in [place] yesterday. States no pain with HEP, exercises going well. States low back is feeling better, Reports that still has numbness/tingling but not right now. Goes back to [facility] on 08/07 to determine if getting blood injectino vs surgery PT-OP-E Functional Tests Start: 07/12/24 11:13 Freq: Status: Active Protocol: Document 07/12/24 11:15 NM (Rec: 07/12/24 12:22 NM [id number]) Functional Tests Other Forward Trunk Flexion Test Name of Test measured finger to floor Score 1 in Comment reports stretch but denies pain PT-OP-F Manual Assessment Start: 07/12/24 11:13 Freq: Status: Active Protocol: Document 07/12/24 11:15 NM (Rec: 07/12/24 12:22 NM [id number]) Manual Assessments Soft Tissue Assessment Soft Tissue Mobility Assessment Decreased tissue length on L trunk, increased length on R trunk. Slight limitations in B HS length Joint Mobility Assessment Joint Mobility Assessment Scapular positioning from medial border to spine: 8 cm L , 12 cm R. Lumbar curve and spinous process rotation with apex at mid lumbar L side PT-OP-G Mobility & Gait Start: 07/12/24 11:13 Freq: Status: Active Protocol: Document 07/12/24 11:15 NM (Rec: 07/12/24 12:22 NM [id number]) OP Gait Assessment Gait Gait Assistance Required: Independent Distance (Feet) 150 Gait Deviations General Gait Pattern Antalgic Comments Gait Comments Trendelenburg gait pattern L sided, less stance time LLE PT-OP-H Neuro Start: 07/12/24 12:22 Freq: Status: Active Protocol: Document 07/12/24 11:15 NM (Rec: 07/12/24 16:06 NM [id number]) Sensation Evaluation Comments Summary Comments BLE and trunk intact equally to light touch sensation. Mild hypersensitivity along L medial foot with light touch Deep Tendon Reflex & Clonus Assessment Deep Tendon Reflex Right Patellar Deep Tendon Reflex 2+ Normal Left Patellar Deep Tendon Reflex 4+ Brisk PT-OP-J Posture/Palpation/Skin Start: 07/12/24 11:13 Freq: Status: Active Protocol: Document 07/12/24 11:15 NM (Rec: 07/12/24 12:22 NM [id number]) Posture Evaluation Position Standing Head/C-Spine Posture C-Spine Flattened Thorax Posture (L) Prominent L-Spine Posture Increased Lordosis,Fixed Scoliosis on (L) Shoulder Posture (L) Rounded,(R) Rounded Scapula Posture (L) Neutral,(R) Protracted,(R) Rotated Up,(R) Elevated Pelvis Posture Anteriorly Tilted,(L) Iliac Crest Superior Weight Distribution Weight Shifted Right Hip Posture (L) Externally Rotated,(R) Externally Rotated Knee Posture (L) Genu Valgus,(R) Genu Valgus Patellar Posture (L) Superior,(R) Superior Palpation Assessment Location lumbar spine Palpation Details Tenderness along L SIJ, PSIS. Curve and rotation of lumbar spinous processes to L. Hypomobility of lumbar spine with P-A springing PT-OP-K Range of Motion Start: 07/12/24 11:13 Freq: Status: Active Protocol: Document 07/12/24 11:15 NM (Rec: 07/12/24 12:22 NM [id number]) Lumbar Spine Range of Motion Lumbar Spine Active Percentage Flexion 95 Extension 100 Rotation Left 100 Rotation Right 75 Lateral Flexion Left 75 Lateral Flexion Right 100 Comments no pain or discomfort Hip Goniometric Range of Motion Hip Right Flexion w/Knee Flexed 110 Internal Rotation 40 External Rotation 28 Left Flexion w/Knee Flexed 110 Internal Rotation 38 External Rotation 28 Comments Hip pain with IR; active abduction PT-OP-L Special Tests Start: 07/12/24 11:13 Freq: Status: Active Protocol: Document 07/12/24 11:15 NM (Rec: 07/12/24 12:22 NM [id number]) Special Tests Lumbar Spine Special Tests traction Test Results + Comments reports reduction in symptoms in L foot Mary/quadrant Test Results + Comments increased numbness in L foot Straight Leg Raise Test Results - Slump Test Results - Hip Special Tests Trendelenberg Test Results + L Neural Special Tests- Lower Body Femoral Nerve Tension Test Results + L PT-OP-M Strength Start: 07/12/24 11:13 Freq: Status: Active Protocol: Document 07/12/24 11:15 NM (Rec: 07/12/24 12:22 NM [id number]) Trunk Strength Trunk Manual Muscle Testing Flexion 4+ Good+ Extension 4+ Good+ Rotation Left 4 Good Rotation Right 4 Good Lateral Flexion Left 4+ Good+ Lateral Flexion Right 4+ Good+ Comments R rotation Hip Strength Hip Manual Muscle Testing Right Flexion (L2) 4+ Good+ Extension (S1) 4+ Good+ Abduction 4+ Good+ Adduction 4+ Good+ External Rotation 4+ Good+ Internal Rotation 4+ Good+ Left Flexion (L2) 4 Good Extension (S1) 4- Good- Abduction 3 Fair Adduction 4+ Good+ External Rotation 4+ Good+ Internal Rotation 4+ Good+ Comments pain with hip abduction and extension, limited ROM Knee Strength Knee Manual Muscle Testing Right Flexion (S2) 4+ Good+ Extension (L3) 4+ Good+ Left Flexion (S2) 4+ Good+ Extension (L3) 4+ Good+ Ankle/Foot Strength Ankle and Foot Manual Muscle Testing Right Dorsiflexion (L4) 4+ Good+ Plantarflexion (S1) 4+ Good+ Comments tested in sitting Left Dorsiflexion (L4) 4+ Good+ Plantarflexion (S1) 4+ Good+ Comments tested in sitting PT-OP-Q Treatments Start: 07/12/24 11:13 Freq: Status: Active Protocol: Document 07/27/24 11:18 NM (Rec: 07/27/24 12:00 NM [id number]) Therapeutic Exercises Supine Exercises pete stretch Supine Exercise Name HEP review Side bilateral Reps/Minutes 60 ea with AROM knee flexion Comments cued comfortable stretch only; edu only few knee ext to limit nerve mob TrA activation Supine Exercise Name 90/90 position trialed > hooklying january w/ knee ext Side bilateral Reps/Minutes 10 ea leg -alt ea; 10 alt january, tactile and verbal cues TRA Comments maintains ppt w/ cueing, good breath work; 90/90 too advanced Prone Exercises hip extension Prone Exercise Name trialed Side bilateral Reps/Minutes 10 ea Comments cued TrA Sitting Exercises kyrgyz ball Sitting Exercise Name 1. january w/ lat pull down 2. HEP review Pallof, 3. lat pull down Resistance level 3 [place] green band Equipment Used 65 cm swissball Reps/Minutes 1. 15 ea leg (non-alt), 2. 30, 3. 20 Comments Verbal cues for TrA, supervision Manual Therapy Treatment Consent Patient gave verbal consent for manual Yes treatment Soft Tissue Mobilization lumbar spine Body Location paraspinals, QL, iliopsoas Mobilization Type Rolling,Sustained Pressure, Other Intensity/Depth Superficial Comments reports feels good with lateral paraspinal stretch but sidelying and hooklying. reports slight tingling after several reps, stopped once finished 1. caudal distraction iliac crest for QL 2. ppt with iliopsoas mobilization 3. TFL with slight lateral distraction of iliac crest PT-OP-T Assessment and Plan Start: 07/12/24 11:13 Freq: Status: Active Protocol: Document 07/27/24 11:18 NM (Rec: 07/27/24 12:00 NM [id number]) Physical Therapy Assessment Goals Four Impairment body mechanics Impairment B squat with knee valgus, lateral hip pain Short Term Goal (STG) Pt will be educated on core bracing and proper mechanic/welder techniques to improve lumbopelvic stability during stance/gait, lifting, and for improved symptom management STG Duration 3 weeks Mcfp Goal (LTG) Pt will be able to perform at least 8 repetitions of deadlifts or squats to cone picker objects or during exercises while demonstrating good core bracing to improve lumbopelvic stability during stance/gait, lifting, and for improved symptom management LTG Duration 8 weeks Three Impairment standing time Impairment 8 stairs, demos R hip drop on LLE stance, painful in L hip with descent Mcfp Goal (LTG) Pt will report that she is able to stand >1 hour without increase in low back baseline pain in order to demonstrate improved symptom management and QOL LTG Duration 8 weeks Two Impairment trunk strength 4/5 Impairment R hip flex, ext, abd MMT 4-/5 Immunology Teacher Goal (LTG) Pt will improve trunk strength by at least 1 grade in order to demonstrate increased strength for postural control and to improve WB status following planned surgery LTG Duration 8 weeks One Impairment oswestry 14/50 Impairment LEFS 35/80 Immunology Teacher Goal (LTG) Pt will decrease Oswestry score <10/50 in order to demonstrate improved symptom management and QOL LTG Duration 8 weeks Assessment Summary Assessment Pt reports intermittent tingling in LLE with hip extension and flexion biased core exercises; however, reduced with neutral spine positioning and cueing for posterior pelvic tilt/core bracing. Requires increased time for supine core exercises to facilitate better form. Pt able to progress january to include knee ext with tactile/verbal cues for core bracing. However, unable to progress to 90/90 position due to limitations with maintaining corrext execution. Added lat pull down to promote better lumbar spine strength. Pt still requires occasional cues for coordinating breathwork with correct core activation while on exercise ball. No numbness or tingling reported at end of session. Physical Therapy Plan Frequency and Duration Frequency of Treatment 2x/Week Duration of treatment (weeks) 8 Plan of Care Start Date 07/12/24 Plan of Care End Date 09/07/24 Therapeutic Interventions Therapeutic Interventions Balance Training,Gait Training ,Home Exercise Program,Joint Mobilizations,Manual Therapy, Neuromuscular Re-education, Orthotic/Prosthetic Management ,Patient/Caregiver Education, Self-Care/Home Management, Sensory Integration,Soft Tissue Mobilization,Taping, Therapeutic Activities, Therapeutic Exercises Modalities Cold Pack/Ice Massage,Electric Stimulation,Hot Packs Other Therapeutic Interventions Manual traction only due to scoliosis No grade III-IV mobilizations to lumbar spine due to anterolisthesis Next Visit Focus/Plan Next Note Type Treatment Note Next Visit Plan Assess HS, squats.ext offload lumbar spine (LLE) in sidelying w/ manual traction, traction, trunk elongation. Trial lateral flexion stretching in sidelying, strengthening of lateral flexors on R in Assess nino to last session HEP for core strengthening and glute max strengthening. sidelying, fwd flexion counter stretch. Core bracing: supine w/ progression to seated on kyrgyz ball and standing Manual tx to lumbar spine: STM , rotation mobilizations, contract-relax
--- NOTE | 2024-07-30 15:15 | PT.OTN ---
Current Diagnoses Pain in left hip (07/30/24) Stiffness of left hip, not elsewhere classified (07/30/24) Weakness (07/30/24) Physical Therapy Treatment Note PT-OP-A Visit Information Start: 07/12/24 11:13 Freq: Status: Active Protocol: Document 07/30/24 14:32 NM (Rec: 07/30/24 15:15 NM [id number]) Out-Patient Physical Therapy Visit Information Visit Information Visit Type Treatment Note Visit Start Time 14:33 Visit Stop Time 15:11 Visit Number 6 Evaluation Information Evaluation Date 07/12/24 Precautions Precautions complete L glute medius tear , L lumbar scoliosis, neuropathy PT-OP-B Current Condition Start: 07/12/24 11:13 Freq: Status: Active Protocol: Document 07/12/24 11:15 NM (Rec: 07/12/24 12:22 NM [id number]) Current Condition History of Current Condition Onset Date 2 years ago Current Complaints pain, decreased mobility History of Current Condition Pt presents with chronic low back pain, onset 2 years ago. No known TRUPTI; however, pt does have hx of L lumbar scoliosis . Pain is B, but mainly L sided with L sided neural symptoms. Pain primarily radiates to lateral knee, but she has numbness occasionally to L toes. She also has L hip pain since October 2023. Pt has a complete abductor tear. Pt is planning to have surgical repair in July at but has to have low back pain reduced before surgery. However, she has moderate degeneration of lumbar spine. She will have a steroid injection to help with pain in hip, Monday 07/16. She will be planning to have a re- assessment in Aug 10 before planning surgery. Pt's most recent xray in 2022, indicating 30 deg curve. 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 Pt has pain with standing, ambulation, sitting for long periods especially in am or late pm, sleeping, pain with getting out of bed. Prior Treatments and Tests Radiograph of thoracolumbar spine 07/2023: 30 deg convex L lumbar scoliosis associated with lateral subluxation of 3rd vertebral body, disc space narrowoing hypertrophic facet joints in mid lumbar spine Radiograph of lumbar spine 2020: transitional element S1, multilevel degenerative disc and facet disease (mild grade I anterolisthesis L4 on L5, mild left lateral subluxation L4 relative to L5) Treatment Goals Patient/Caregiver Goals decrease pain associated w/ back Current Functional Impairments (Reported) Functional Limitations- ADL's cooking dinner Functional Limitations- Mobility/Gait 60 min for sit or stand walking 1 mi before pain Functional Limitations- Other sleeping: pillows between legs (cannot always sleep on L side); pain with rolling PT-OP-C Subjective Start: 07/12/24 11:13 Freq: Status: Active Protocol: Document 07/30/24 14:32 NM (Rec: 07/30/24 15:15 NM [id number]) OP-PT Subjective Patient Comments Patient Comments Pt reports no change since last session, reports no numbness/tingling. No soreness since last session. She also did a lot of yard work, states a little sore but goes away with sleeping. Reports no pain at the moment, reports no pain wiht ambulating 4 blocks. Did HEP and reports well. PT-OP-E Functional Tests Start: 07/12/24 11:13 Freq: Status: Active Protocol: Document 07/12/24 11:15 NM (Rec: 07/12/24 12:22 NM [id number]) Functional Tests Other Forward Trunk Flexion Test Name of Test measured finger to floor Score 1 in Comment reports stretch but denies pain PT-OP-F Manual Assessment Start: 07/12/24 11:13 Freq: Status: Active Protocol: Document 07/12/24 11:15 NM (Rec: 07/12/24 12:22 NM [id number]) Manual Assessments Soft Tissue Assessment Soft Tissue Mobility Assessment Decreased tissue length on L trunk, increased length on R trunk. Slight limitations in B HS length Joint Mobility Assessment Joint Mobility Assessment Scapular positioning from medial border to spine: 8 cm L , 12 cm R. Lumbar curve and spinous process rotation with apex at mid lumbar L side PT-OP-G Mobility & Gait Start: 07/12/24 11:13 Freq: Status: Active Protocol: Document 07/12/24 11:15 NM (Rec: 07/12/24 12:22 NM [id number]) OP Gait Assessment Gait Gait Assistance Required: Independent Distance (Feet) 150 Gait Deviations General Gait Pattern Antalgic Comments Gait Comments Trendelenburg gait pattern L sided, less stance time LLE PT-OP-H Neuro Start: 07/12/24 12:22 Freq: Status: Active Protocol: Document 07/12/24 11:15 NM (Rec: 07/12/24 16:06 NM [id number]) Sensation Evaluation Comments Summary Comments BLE and trunk intact equally to light touch sensation. Mild hypersensitivity along L medial foot with light touch Deep Tendon Reflex & Clonus Assessment Deep Tendon Reflex Right Patellar Deep Tendon Reflex 2+ Normal Left Patellar Deep Tendon Reflex 4+ Brisk PT-OP-J Posture/Palpation/Skin Start: 07/12/24 11:13 Freq: Status: Active Protocol: Document 07/12/24 11:15 NM (Rec: 07/12/24 12:22 NM [id number]) Posture Evaluation Position Standing Head/C-Spine Posture C-Spine Flattened Thorax Posture (L) Prominent L-Spine Posture Increased Lordosis,Fixed Scoliosis on (L) Shoulder Posture (L) Rounded,(R) Rounded Scapula Posture (L) Neutral,(R) Protracted,(R) Rotated Up,(R) Elevated Pelvis Posture Anteriorly Tilted,(L) Iliac Crest Superior Weight Distribution Weight Shifted Right Hip Posture (L) Externally Rotated,(R) Externally Rotated Knee Posture (L) Genu Valgus,(R) Genu Valgus Patellar Posture (L) Superior,(R) Superior Palpation Assessment Location lumbar spine Palpation Details Tenderness along L SIJ, PSIS. Curve and rotation of lumbar spinous processes to L. Hypomobility of lumbar spine with P-A springing PT-OP-K Range of Motion Start: 07/12/24 11:13 Freq: Status: Active Protocol: Document 07/12/24 11:15 NM (Rec: 07/12/24 12:22 NM [id number]) Lumbar Spine Range of Motion Lumbar Spine Active Percentage Flexion 95 Extension 100 Rotation Left 100 Rotation Right 75 Lateral Flexion Left 75 Lateral Flexion Right 100 Comments no pain or discomfort Hip Goniometric Range of Motion Hip Right Flexion w/Knee Flexed 110 Internal Rotation 40 External Rotation 28 Left Flexion w/Knee Flexed 110 Internal Rotation 38 External Rotation 28 Comments Hip pain with IR; active abduction PT-OP-L Special Tests Start: 07/12/24 11:13 Freq: Status: Active Protocol: Document 07/12/24 11:15 NM (Rec: 07/12/24 12:22 NM [id number]) Special Tests Lumbar Spine Special Tests traction Test Results + Comments reports reduction in symptoms in L foot Mary/quadrant Test Results + Comments increased numbness in L foot Straight Leg Raise Test Results - Slump Test Results - Hip Special Tests Trendelenberg Test Results + L Neural Special Tests- Lower Body Femoral Nerve Tension Test Results + L PT-OP-M Strength Start: 07/12/24 11:13 Freq: Status: Active Protocol: Document 07/12/24 11:15 NM (Rec: 07/12/24 12:22 NM [id number]) Trunk Strength Trunk Manual Muscle Testing Flexion 4+ Good+ Extension 4+ Good+ Rotation Left 4 Good Rotation Right 4 Good Lateral Flexion Left 4+ Good+ Lateral Flexion Right 4+ Good+ Comments R rotation Hip Strength Hip Manual Muscle Testing Right Flexion (L2) 4+ Good+ Extension (S1) 4+ Good+ Abduction 4+ Good+ Adduction 4+ Good+ External Rotation 4+ Good+ Internal Rotation 4+ Good+ Left Flexion (L2) 4 Good Extension (S1) 4- Good- Abduction 3 Fair Adduction 4+ Good+ External Rotation 4+ Good+ Internal Rotation 4+ Good+ Comments pain with hip abduction and extension, limited ROM Knee Strength Knee Manual Muscle Testing Right Flexion (S2) 4+ Good+ Extension (L3) 4+ Good+ Left Flexion (S2) 4+ Good+ Extension (L3) 4+ Good+ Ankle/Foot Strength Ankle and Foot Manual Muscle Testing Right Dorsiflexion (L4) 4+ Good+ Plantarflexion (S1) 4+ Good+ Comments tested in sitting Left Dorsiflexion (L4) 4+ Good+ Plantarflexion (S1) 4+ Good+ Comments tested in sitting PT-OP-Q Treatments Start: 07/12/24 11:13 Freq: Status: Active Protocol: Document 07/30/24 14:32 NM (Rec: 07/30/24 15:15 NM [id number]) Gym Equipment Shuttle Recovery B squat Details cued breathwork Resistance 75# (3 navy) Shuttle Recovery Platform Stable Reps/Time 2x10 Therapeutic Exercises Supine Exercises TrA activation Supine Exercise Name 1. dying bug, 2. cross body stabilization dying bug, 3. KTC Side bilateral Equipment Used blue ball Reps/Minutes 1. 2x10, 2. 10 ea, 3. 2 min to dec symptoms Comments tingling w/ L cross body, reduced with knees to chest Standing Exercises hip flexor stretch Side bilateral Equipment Used 3rd 6 step up Reps/Minutes 60 ea hip extension with abd bracing Standing Exercise Name d/c from HEP due to inc tingling with HEP sit to stand Standing Exercise Name band added to HEP Side bilateral Resistance level 3 band at thighs Reps/Minutes 10 Comments no pain in hip or neural symptoms Pallof press Standing Exercise Name 1. pallof walkout, 2. pallof + overhead Side bilateral Reps/Minutes 1. 10, 2. Comments cued smaller ROM for walkout ( reports dec in tingling) Other Exercises quadruped Other Exercise Name with hip hike Side bilateral Reps/Minutes 10 ea bird dog Other Exercise Name HEP review Side bilateral Reps/Minutes 10 Comments medium difficulty PT-OP-T Assessment and Plan Start: 07/12/24 11:13 Freq: Status: Active Protocol: Document 07/30/24 14:32 NM (Rec: 07/30/24 15:15 NM [id number]) Physical Therapy Assessment Goals Four Impairment body mechanics Impairment B squat with knee valgus, lateral hip pain Short Term Goal (STG) Pt will be educated on core bracing and proper body bumper techniques to improve lumbopelvic stability during stance/gait, lifting, and for improved symptom management STG Duration 3 weeks [facility] Goal (LTG) Pt will be able to perform at least 8 repetitions of deadlifts or squats to pickle cutter objects or during exercises while demonstrating good core bracing to improve lumbopelvic stability during stance/gait, lifting, and for improved symptom management LTG Duration 8 weeks Three Impairment standing time Impairment 8 stairs, demos R hip drop on LLE stance, painful in L hip with descent Home Help Aide Goal (LTG) Pt will report that she is able to stand >1 hour without increase in low back baseline pain in order to demonstrate improved symptom management and QOL LTG Duration 8 weeks Two Impairment trunk strength 4/5 Impairment R hip flex, ext, abd MMT 4-/5 [facility] Goal (LTG) Pt will improve trunk strength by at least 1 grade in order to demonstrate increased strength for postural control and to improve WB status following planned surgery LTG Duration 8 weeks One Impairment oswestry 14/50 Impairment LEFS 35/80 [facility] Goal (LTG) Pt will decrease Oswestry score <10/50 in order to demonstrate improved symptom management and QOL LTG Duration 8 weeks Assessment Summary Assessment Pt tolerated session well. She does have a slight increase in symptoms with exercises when core poorly stabilized or with hip extension. However, pt's symptoms resolved quickly with flexion (e.g. knee to chest) or with core bracing. Pt able to progress pallof to walkout and press with overhead resistance. Requires cues for breathwork and abdominal bracing. Trialed B squat on leg press to progress STS (band issued for home), which pt able to tolerate without increase in symptoms. Pt would benefit from skilled PT for progressive core, trunk , and BLE strengthening to improve symptom management and activity tolerance. Physical Therapy Plan Frequency and Duration Frequency of Treatment 2x/Week Duration of treatment (weeks) 8 Plan of Care Start Date 07/12/24 Plan of Care End Date 09/07/24 Therapeutic Interventions Therapeutic Interventions Balance Training,Gait Training ,Home Exercise Program,Joint Mobilizations,Manual Therapy, Neuromuscular Re-education, Orthotic/Prosthetic Management ,Patient/Caregiver Education, Self-Care/Home Management, Sensory Integration,Soft Tissue Mobilization,Taping, Therapeutic Activities, Therapeutic Exercises Modalities Cold Pack/Ice Massage,Electric Stimulation,Hot Packs Other Therapeutic Interventions Manual traction only due to scoliosis No grade III-IV mobilizations to lumbar spine due to anterolisthesis Next Visit Focus/Plan Next Note Type Treatment Note Next Visit Plan trial deadlift/hinge. progress leg press. cont w/ sb abnded exercises offload lumbar spine (LLE) in sidelying w/ manual traction, traction, trunk elongation. Trial lateral flexion stretching in sidelying, strengthening of lateral flexors on R in Assess nino to last session HEP for core strengthening and glute max strengthening. sidelying, fwd flexion counter stretch. Core bracing: supine w/ progression to seated on ethiopian ball and standing Manual tx to lumbar spine: STM , rotation mobilizations, contract-relax
--- NOTE | 2024-08-03 15:16 | PT.OTN ---
Current Diagnoses Pain in left hip (08/03/24) Stiffness of left hip, not elsewhere classified (08/03/24) Weakness (08/03/24) Physical Therapy Treatment Note PT-OP-A Visit Information Start: 07/12/24 11:13 Freq: Status: Active Protocol: Document 08/03/24 14:30 NM (Rec: 08/03/24 15:16 NM [id number]) Out-Patient Physical Therapy Visit Information Visit Information Visit Type Treatment Note Visit Start Time 14:31 Visit Stop Time 15:11 Visit Number 7 Evaluation Information Evaluation Date 07/12/24 Precautions Precautions complete L glute medius tear , L lumbar scoliosis, neuropathy PT-OP-B Current Condition Start: 07/12/24 11:13 Freq: Status: Active Protocol: Document 07/12/24 11:15 NM (Rec: 07/12/24 12:22 NM [id number]) Current Condition History of Current Condition Onset Date 2 years ago Current Complaints pain, decreased mobility History of Current Condition Pt presents with chronic low back pain, onset 2 years ago. No known TRUPTI; however, pt does have hx of L lumbar scoliosis . Pain is B, but mainly L sided with L sided neural symptoms. Pain primarily radiates to lateral knee, but she has numbness occasionally to L toes. She also has L hip pain since October 2023. Pt has a complete abductor tear. Pt is planning to have surgical repair in July at but has to have low back pain reduced before surgery. However, she has moderate degeneration of lumbar spine. She will have a steroid injection to help with pain in hip, Monday 07/16. She will be planning to have a re- assessment in Aug 10 before planning surgery. Pt's most recent xray in 2022, indicating 30 deg curve. 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 Pt has pain with standing, ambulation, sitting for long periods especially in am or late pm, sleeping, pain with getting out of bed. Prior Treatments and Tests Radiograph of thoracolumbar spine 07/2023: 30 deg convex L lumbar scoliosis associated with lateral subluxation of 3rd vertebral body, disc space narrowoing hypertrophic facet joints in mid lumbar spine Radiograph of lumbar spine 2020: transitional element S1, multilevel degenerative disc and facet disease (mild grade I anterolisthesis L4 on L5, mild left lateral subluxation L4 relative to L5) Treatment Goals Patient/Caregiver Goals decrease pain associated w/ back Current Functional Impairments (Reported) Functional Limitations- ADL's cooking dinner Functional Limitations- Mobility/Gait 60 min for sit or stand walking 1 mi before pain Functional Limitations- Other sleeping: pillows between legs (cannot always sleep on L side); pain with rolling PT-OP-C Subjective Start: 07/12/24 11:13 Freq: Status: Active Protocol: Document 08/03/24 14:30 NM (Rec: 08/03/24 15:16 NM [id number]) OP-PT Subjective Patient Comments Patient Comments Pt reports that she's marcelo a lot of fun things and activities. She reports that she has been moving boxes all morning but states no increase in pain levels or numbness/ tingling. Still occurring intermittently but states overall feeling good. PT-OP-E Functional Tests Start: 07/12/24 11:13 Freq: Status: Active Protocol: Document 07/12/24 11:15 NM (Rec: 07/12/24 12:22 NM [id number]) Functional Tests Other Forward Trunk Flexion Test Name of Test measured finger to floor Score 1 in Comment reports stretch but denies pain PT-OP-F Manual Assessment Start: 07/12/24 11:13 Freq: Status: Active Protocol: Document 07/12/24 11:15 NM (Rec: 07/12/24 12:22 NM [id number]) Manual Assessments Soft Tissue Assessment Soft Tissue Mobility Assessment Decreased tissue length on L trunk, increased length on R trunk. Slight limitations in B HS length Joint Mobility Assessment Joint Mobility Assessment Scapular positioning from medial border to spine: 8 cm L , 12 cm R. Lumbar curve and spinous process rotation with apex at mid lumbar L side PT-OP-G Mobility & Gait Start: 07/12/24 11:13 Freq: Status: Active Protocol: Document 07/12/24 11:15 NM (Rec: 07/12/24 12:22 NM [id number]) OP Gait Assessment Gait Gait Assistance Required: Independent Distance (Feet) 150 Gait Deviations General Gait Pattern Antalgic Comments Gait Comments Trendelenburg gait pattern L sided, less stance time LLE PT-OP-H Neuro Start: 07/12/24 12:22 Freq: Status: Active Protocol: Document 07/12/24 11:15 NM (Rec: 07/12/24 16:06 NM [id number]) Sensation Evaluation Comments Summary Comments BLE and trunk intact equally to light touch sensation. Mild hypersensitivity along L medial foot with light touch Deep Tendon Reflex & Clonus Assessment Deep Tendon Reflex Right Patellar Deep Tendon Reflex 2+ Normal Left Patellar Deep Tendon Reflex 4+ Brisk PT-OP-J Posture/Palpation/Skin Start: 07/12/24 11:13 Freq: Status: Active Protocol: Document 07/12/24 11:15 NM (Rec: 07/12/24 12:22 NM [id number]) Posture Evaluation Position Standing Head/C-Spine Posture C-Spine Flattened Thorax Posture (L) Prominent L-Spine Posture Increased Lordosis,Fixed Scoliosis on (L) Shoulder Posture (L) Rounded,(R) Rounded Scapula Posture (L) Neutral,(R) Protracted,(R) Rotated Up,(R) Elevated Pelvis Posture Anteriorly Tilted,(L) Iliac Crest Superior Weight Distribution Weight Shifted Right Hip Posture (L) Externally Rotated,(R) Externally Rotated Knee Posture (L) Genu Valgus,(R) Genu Valgus Patellar Posture (L) Superior,(R) Superior Palpation Assessment Location lumbar spine Palpation Details Tenderness along L SIJ, PSIS. Curve and rotation of lumbar spinous processes to L. Hypomobility of lumbar spine with P-A springing PT-OP-K Range of Motion Start: 07/12/24 11:13 Freq: Status: Active Protocol: Document 07/12/24 11:15 NM (Rec: 07/12/24 12:22 NM [id number]) Lumbar Spine Range of Motion Lumbar Spine Active Percentage Flexion 95 Extension 100 Rotation Left 100 Rotation Right 75 Lateral Flexion Left 75 Lateral Flexion Right 100 Comments no pain or discomfort Hip Goniometric Range of Motion Hip Right Flexion w/Knee Flexed 110 Internal Rotation 40 External Rotation 28 Left Flexion w/Knee Flexed 110 Internal Rotation 38 External Rotation 28 Comments Hip pain with IR; active abduction PT-OP-L Special Tests Start: 07/12/24 11:13 Freq: Status: Active Protocol: Document 07/12/24 11:15 NM (Rec: 07/12/24 12:22 NM [id number]) Special Tests Lumbar Spine Special Tests traction Test Results + Comments reports reduction in symptoms in L foot Mary/quadrant Test Results + Comments increased numbness in L foot Straight Leg Raise Test Results - Slump Test Results - Hip Special Tests Trendelenberg Test Results + L Neural Special Tests- Lower Body Femoral Nerve Tension Test Results + L PT-OP-M Strength Start: 07/12/24 11:13 Freq: Status: Active Protocol: Document 07/12/24 11:15 NM (Rec: 07/12/24 12:22 NM [id number]) Trunk Strength Trunk Manual Muscle Testing Flexion 4+ Good+ Extension 4+ Good+ Rotation Left 4 Good Rotation Right 4 Good Lateral Flexion Left 4+ Good+ Lateral Flexion Right 4+ Good+ Comments R rotation Hip Strength Hip Manual Muscle Testing Right Flexion (L2) 4+ Good+ Extension (S1) 4+ Good+ Abduction 4+ Good+ Adduction 4+ Good+ External Rotation 4+ Good+ Internal Rotation 4+ Good+ Left Flexion (L2) 4 Good Extension (S1) 4- Good- Abduction 3 Fair Adduction 4+ Good+ External Rotation 4+ Good+ Internal Rotation 4+ Good+ Comments pain with hip abduction and extension, limited ROM Knee Strength Knee Manual Muscle Testing Right Flexion (S2) 4+ Good+ Extension (L3) 4+ Good+ Left Flexion (S2) 4+ Good+ Extension (L3) 4+ Good+ Ankle/Foot Strength Ankle and Foot Manual Muscle Testing Right Dorsiflexion (L4) 4+ Good+ Plantarflexion (S1) 4+ Good+ Comments tested in sitting Left Dorsiflexion (L4) 4+ Good+ Plantarflexion (S1) 4+ Good+ Comments tested in sitting PT-OP-Q Treatments Start: 07/12/24 11:13 Freq: Status: Active Protocol: Document 08/03/24 14:30 NM (Rec: 08/03/24 15:16 NM [id number]) Therapeutic Exercises Standing Exercises lat pull down Standing Exercise Name 1. pull down w/ january (alt), 2 . pull down Side bilateral Resistance 1. lvl 2 band, 2. lvl 4 > 5 Reps/Minutes 1. 2x15 ea, 2. 2x10 lateral flexion Standing Exercise Name with arm over head and lateral flexion, leg off step for distraction Side bilateral Equipment Used 4 step Reps/Minutes 10x10 ea Comments opening on L side, mild tingling on R side w/ L compression lateral step down Side bilateral Equipment Used 4, B hand support Reps/Minutes 10 Other Exercises carries Other Exercise Name 1. suitcase, 2. symmetrical, 3 . asymmetrical Side bilateral Resistance 8# db Reps/Minutes 2x25 ft ea direction Comments cued upright posture; feels appropriate muscle activation Therapeutic Activity Therapeutic Activity hip hinge Reps/Minutes 10 minutes Comments 1. hip hinge w/ dowel, 15 ea Wall for tactile cue 2. crate pick ups, w/o wt and w/ 5# 3. staggered stance hip hinge w/ push and dowel, simulate vacuum and broom Cued neutral spine and abdominal bracing to facilitate TrA and multifidus. No rounding of spine Manual Therapy Treatment Consent Patient gave verbal consent for manual Yes treatment Soft Tissue Mobilization lumbar spine Body Location paraspinals, QL, iliopsoas Mobilization Type Rolling,Sustained Pressure, Other Intensity/Depth Superficial Comments reports feels good with lateral paraspinal stretch but sidelying and hooklying. 1. caudal distraction iliac crest for QL 2. ppt with iliopsoas mobilization 3. TFL with slight lateral distraction of iliac crest PT-OP-T Assessment and Plan Start: 07/12/24 11:13 Freq: Status: Active Protocol: Document 08/03/24 14:30 NM (Rec: 08/03/24 15:16 NM [id number]) Physical Therapy Assessment Goals Four Impairment body mechanics Impairment . Short Term Goal (STG) Pt will be educated on core bracing and proper body maker techniques to improve lumbopelvic stability during stance/gait, lifting, and for improved symptom management 08/03/24: educated on core bracing and body mechanics w.o pain STG Duration 3 weeks MET Research Scientist Goal (LTG) Pt will be able to perform at least 8 repetitions of deadlifts or squats to corn picker objects or during exercises while demonstrating good core bracing to improve lumbopelvic stability during stance/gait, lifting, and for improved symptom management LTG Duration 8 weeks Three Impairment standing time Impairment . Research Scientist Goal (LTG) Pt will report that she is able to stand >1 hour without increase in low back baseline pain in order to demonstrate improved symptom management and QOL LTG Duration 8 weeks Two Impairment trunk strength 4/5 Impairment . Halfway Goal (LTG) Pt will improve trunk strength by at least 1 grade in order to demonstrate increased strength for postural control and to improve WB status following planned surgery LTG Duration 8 weeks One Impairment oswestry 14/50 Impairment . Halfway Goal (LTG) Pt will decrease Oswestry score <10/50 in order to demonstrate improved symptom management and QOL LTG Duration 8 weeks Assessment Summary Assessment Pt tolerated session well, mild increase in tingling with activities but decreased when stopped. Pt progressed to standing lat pull down with highest level resistance band and standing march with lat pull down. Pt challenged to maintain balance with standing march due to L glute weakness . Trialed 4 lateral touch down and lateral flexion to facilitate glute activation, lumbopelvic stability, and to facilitate paraspinal lengthening; very challenging for pt. Good response to manual therapy today, continues to have increased tightness of B hip flexors, especially on L side. Remaining session emphasis on body mechanics to address correct execution, core/trunk bracing, and improve ADL tolerance. Pt would benefit from skilled PT for progressive strengthening of trunk and BLE, in addition to flexibility in order to improve ability to participate in ADLs, manage symptoms, and prepare pt for functional mobility related to upcoming procedure. Physical Therapy Plan Frequency and Duration Frequency of Treatment 2x/Week Duration of treatment (weeks) 8 Plan of Care Start Date 07/12/24 Plan of Care End Date 09/07/24 Therapeutic Interventions Therapeutic Interventions Balance Training,Gait Training ,Home Exercise Program,Joint Mobilizations,Manual Therapy, Neuromuscular Re-education, Orthotic/Prosthetic Management ,Patient/Caregiver Education, Self-Care/Home Management, Sensory Integration,Soft Tissue Mobilization,Taping, Therapeutic Activities, Therapeutic Exercises Modalities Cold Pack/Ice Massage,Electric Stimulation,Hot Packs Other Therapeutic Interventions Manual traction only due to scoliosis No grade III-IV mobilizations to lumbar spine due to anterolisthesis Next Visit Focus/Plan Next Note Type Treatment Note Next Visit Plan progress leg press. cont w/ sb banded exercises and core offload lumbar spine (LLE) in sidelying w/ manual traction, traction, trunk elongation. Trial lateral flexion stretching in sidelying, strengthening of lateral flexors on R in Assess nino to last session HEP for core strengthening and glute max strengthening. sidelying, fwd flexion counter stretch. Core bracing: supine w/ progression to seated on egyptian ball and standing Manual tx to lumbar spine: STM , rotation mobilizations, contract-relax
--- NOTE | 2024-08-07 15:23 | PT.OTN ---
Current Diagnoses Pain in left hip (08/07/24) Stiffness of left hip, not elsewhere classified (08/07/24) Weakness (08/07/24) Physical Therapy Treatment Note PT-OP-A Visit Information Start: 07/12/24 11:13 Freq: Status: Active Protocol: Document 08/07/24 14:33 NM (Rec: 08/07/24 15:23 NM [id number]) Out-Patient Physical Therapy Visit Information Visit Information Visit Type Treatment Note Visit Start Time 14:35 Visit Stop Time 15:15 Visit Number 8 Evaluation Information Evaluation Date 07/12/24 Precautions Precautions complete L glute medius tear , L lumbar scoliosis, neuropathy PT-OP-B Current Condition Start: 07/12/24 11:13 Freq: Status: Active Protocol: Document 07/12/24 11:15 NM (Rec: 07/12/24 12:22 NM [id number]) Current Condition History of Current Condition Onset Date 2 years ago Current Complaints pain, decreased mobility History of Current Condition Pt presents with chronic low back pain, onset 2 years ago. No known TRUPTI; however, pt does have hx of L lumbar scoliosis . Pain is B, but mainly L sided with L sided neural symptoms. Pain primarily radiates to lateral knee, but she has numbness occasionally to L toes. She also has L hip pain since October 2023. Pt has a complete abductor tear. Pt is planning to have surgical repair in July at but has to have low back pain reduced before surgery. However, she has moderate degeneration of lumbar spine. She will have a steroid injection to help with pain in hip, Monday 07/16. She will be planning to have a re- assessment in Aug 10 before planning surgery. Pt's most recent xray in 2022, indicating 30 deg curve. 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 Pt has pain with standing, ambulation, sitting for long periods especially in am or late pm, sleeping, pain with getting out of bed. Prior Treatments and Tests Radiograph of thoracolumbar spine 07/2023: 30 deg convex L lumbar scoliosis associated with lateral subluxation of 3rd vertebral body, disc space narrowoing hypertrophic facet joints in mid lumbar spine Radiograph of lumbar spine 2020: transitional element S1, multilevel degenerative disc and facet disease (mild grade I anterolisthesis L4 on L5, mild left lateral subluxation L4 relative to L5) Treatment Goals Patient/Caregiver Goals decrease pain associated w/ back Current Functional Impairments (Reported) Functional Limitations- ADL's cooking dinner Functional Limitations- Mobility/Gait 60 min for sit or stand walking 1 mi before pain Functional Limitations- Other sleeping: pillows between legs (cannot always sleep on L side); pain with rolling PT-OP-C Subjective Start: 07/12/24 11:13 Freq: Status: Active Protocol: Document 08/07/24 14:33 NM (Rec: 08/07/24 15:23 NM [id number]) OP-PT Subjective Patient Comments Patient Comments Pt reports doing well. States felt good after last session. She reports that she has more tingling in LLE today. Reports that she worked all am and drove to [place] and back; helped son move furniture. PT-OP-E Functional Tests Start: 07/12/24 11:13 Freq: Status: Active Protocol: Document 07/12/24 11:15 NM (Rec: 07/12/24 12:22 NM [id number]) Functional Tests Other Forward Trunk Flexion Test Name of Test measured finger to floor Score 1 in Comment reports stretch but denies pain PT-OP-F Manual Assessment Start: 07/12/24 11:13 Freq: Status: Active Protocol: Document 07/12/24 11:15 NM (Rec: 07/12/24 12:22 NM [id number]) Manual Assessments Soft Tissue Assessment Soft Tissue Mobility Assessment Decreased tissue length on L trunk, increased length on R trunk. Slight limitations in B HS length Joint Mobility Assessment Joint Mobility Assessment Scapular positioning from medial border to spine: 8 cm L , 12 cm R. Lumbar curve and spinous process rotation with apex at mid lumbar L side PT-OP-G Mobility & Gait Start: 07/12/24 11:13 Freq: Status: Active Protocol: Document 07/12/24 11:15 NM (Rec: 07/12/24 12:22 NM [id number]) OP Gait Assessment Gait Gait Assistance Required: Independent Distance (Feet) 150 Gait Deviations General Gait Pattern Antalgic Comments Gait Comments Trendelenburg gait pattern L sided, less stance time LLE PT-OP-H Neuro Start: 07/12/24 12:22 Freq: Status: Active Protocol: Document 07/12/24 11:15 NM (Rec: 07/12/24 16:06 NM [id number]) Sensation Evaluation Comments Summary Comments BLE and trunk intact equally to light touch sensation. Mild hypersensitivity along L medial foot with light touch Deep Tendon Reflex & Clonus Assessment Deep Tendon Reflex Right Patellar Deep Tendon Reflex 2+ Normal Left Patellar Deep Tendon Reflex 4+ Brisk PT-OP-J Posture/Palpation/Skin Start: 07/12/24 11:13 Freq: Status: Active Protocol: Document 07/12/24 11:15 NM (Rec: 07/12/24 12:22 NM [id number]) Posture Evaluation Position Standing Head/C-Spine Posture C-Spine Flattened Thorax Posture (L) Prominent L-Spine Posture Increased Lordosis,Fixed Scoliosis on (L) Shoulder Posture (L) Rounded,(R) Rounded Scapula Posture (L) Neutral,(R) Protracted,(R) Rotated Up,(R) Elevated Pelvis Posture Anteriorly Tilted,(L) Iliac Crest Superior Weight Distribution Weight Shifted Right Hip Posture (L) Externally Rotated,(R) Externally Rotated Knee Posture (L) Genu Valgus,(R) Genu Valgus Patellar Posture (L) Superior,(R) Superior Palpation Assessment Location lumbar spine Palpation Details Tenderness along L SIJ, PSIS. Curve and rotation of lumbar spinous processes to L. Hypomobility of lumbar spine with P-A springing PT-OP-K Range of Motion Start: 07/12/24 11:13 Freq: Status: Active Protocol: Document 07/12/24 11:15 NM (Rec: 07/12/24 12:22 NM [id number]) Lumbar Spine Range of Motion Lumbar Spine Active Percentage Flexion 95 Extension 100 Rotation Left 100 Rotation Right 75 Lateral Flexion Left 75 Lateral Flexion Right 100 Comments no pain or discomfort Hip Goniometric Range of Motion Hip Right Flexion w/Knee Flexed 110 Internal Rotation 40 External Rotation 28 Left Flexion w/Knee Flexed 110 Internal Rotation 38 External Rotation 28 Comments Hip pain with IR; active abduction PT-OP-L Special Tests Start: 07/12/24 11:13 Freq: Status: Active Protocol: Document 07/12/24 11:15 NM (Rec: 07/12/24 12:22 NM [id number]) Special Tests Lumbar Spine Special Tests traction Test Results + Comments reports reduction in symptoms in L foot Mary/quadrant Test Results + Comments increased numbness in L foot Straight Leg Raise Test Results - Slump Test Results - Hip Special Tests Trendelenberg Test Results + L Neural Special Tests- Lower Body Femoral Nerve Tension Test Results + L PT-OP-M Strength Start: 07/12/24 11:13 Freq: Status: Active Protocol: Document 07/12/24 11:15 NM (Rec: 07/12/24 12:22 NM [id number]) Trunk Strength Trunk Manual Muscle Testing Flexion 4+ Good+ Extension 4+ Good+ Rotation Left 4 Good Rotation Right 4 Good Lateral Flexion Left 4+ Good+ Lateral Flexion Right 4+ Good+ Comments R rotation Hip Strength Hip Manual Muscle Testing Right Flexion (L2) 4+ Good+ Extension (S1) 4+ Good+ Abduction 4+ Good+ Adduction 4+ Good+ External Rotation 4+ Good+ Internal Rotation 4+ Good+ Left Flexion (L2) 4 Good Extension (S1) 4- Good- Abduction 3 Fair Adduction 4+ Good+ External Rotation 4+ Good+ Internal Rotation 4+ Good+ Comments pain with hip abduction and extension, limited ROM Knee Strength Knee Manual Muscle Testing Right Flexion (S2) 4+ Good+ Extension (L3) 4+ Good+ Left Flexion (S2) 4+ Good+ Extension (L3) 4+ Good+ Ankle/Foot Strength Ankle and Foot Manual Muscle Testing Right Dorsiflexion (L4) 4+ Good+ Plantarflexion (S1) 4+ Good+ Comments tested in sitting Left Dorsiflexion (L4) 4+ Good+ Plantarflexion (S1) 4+ Good+ Comments tested in sitting PT-OP-Q Treatments Start: 07/12/24 11:13 Freq: Status: Active Protocol: Document 08/07/24 14:33 NM (Rec: 08/07/24 15:23 NM [id number]) Gym Equipment Shuttle Recovery B squat Details cued breathwork Resistance 75# (3 navy) Shuttle Recovery Platform Stable Reps/Time 3x10 Therapeutic Exercises Prone Exercises paraspinal extension Prone Exercise Name 1. trunk ext (1/2 superman), 2 . hip ext, 3. lumbar ext (opp arm/leg) Side bilateral Reps/Minutes 10 ea Comments appropriate activation w/o symptom increase; cued keep chest on plinth Standing Exercises deadlift Side bilateral Resistance level 3 band under feet Equipment Used mirror for visual cues Reps/Minutes 10 Comments good hip hinge; reports tingling in LLE Pallof press Standing Exercise Name pallof press Side bilateral Resistance level 4 Reps/Minutes 15 ea Other Exercises carries Other Exercise Name 1. suitcase, 2. symmetrical, 3 . asymmetrical Side bilateral Resistance 10# db Reps/Minutes 2x25 ft ea direction Comments cued upright posture; feels appropriate muscle activation Manual Therapy Treatment Consent Patient gave verbal consent for manual Yes treatment Soft Tissue Mobilization lumbar spine Body Location paraspinals, QL, iliopsoas Mobilization Type Rolling,Sustained Pressure, Other Intensity/Depth Superficial Body Position prone,supine Comments Prone paraspinals and QL; supine hip flexors and lateral iliac crest distraction 1. caudal distraction posterior iliac crest for QL 2. ppt with iliopsoas mobilization 3. TFL with slight lateral distraction of iliac crest 4. lateral distraction of iliac crest PT-OP-T Assessment and Plan Start: 07/12/24 11:13 Freq: Status: Active Protocol: Document 08/07/24 14:33 NM (Rec: 08/07/24 15:23 NM [id number]) Physical Therapy Assessment Goals Four Impairment body mechanics Impairment . Short Term Goal (STG) Pt will be educated on core bracing and proper assembler body techniques to improve lumbopelvic stability during stance/gait, lifting, and for improved symptom management 08/03/24: educated on core bracing and body mechanics w.o pain STG Duration 3 weeks MET Intermediate Goal (LTG) Pt will be able to perform at least 8 repetitions of deadlifts or squats to bulk picker objects or during exercises while demonstrating good core bracing to improve lumbopelvic stability during stance/gait, lifting, and for improved symptom management LTG Duration 8 weeks Three Impairment standing time Impairment . Intermediate Goal (LTG) Pt will report that she is able to stand >1 hour without increase in low back baseline pain in order to demonstrate improved symptom management and QOL 08/07/24: pt reports can stand about 30 minutes before her back starts to hurt LTG Duration 8 weeks Two Impairment trunk strength 4/5 Impairment . Intermediate Goal (LTG) Pt will improve trunk strength by at least 1 grade in order to demonstrate increased strength for postural control and to improve WB status following planned surgery LTG Duration 8 weeks One Impairment oswestry 14/50 Impairment . Painting Contractor Goal (LTG) Pt will decrease Oswestry score <10/50 in order to demonstrate improved symptom management and QOL LTG Duration 8 weeks Assessment Summary Assessment Pt tolerated session well. Progressed resistance and form with carries today. Demonstrates improved hip hinge today with core activation using band; however , reports increased tingling in LLE, so discontinued rest of session. Trialed prone paraspinal and hip strengthening; pt able to perform without increase in symptoms or pain, but is limited by range. Pt has increased restriction of B hip flexors, R>L; reduced with mobilization. Donnie would benefit from skilled PT for further progressive strengthening and flexibility in order to improve symptom management and activity tolerance. Physical Therapy Plan Frequency and Duration Frequency of Treatment 2x/Week Duration of treatment (weeks) 8 Plan of Care Start Date 07/12/24 Plan of Care End Date 09/07/24 Therapeutic Interventions Therapeutic Interventions Balance Training,Gait Training ,Home Exercise Program,Joint Mobilizations,Manual Therapy, Neuromuscular Re-education, Orthotic/Prosthetic Management ,Patient/Caregiver Education, Self-Care/Home Management, Sensory Integration,Soft Tissue Mobilization,Taping, Therapeutic Activities, Therapeutic Exercises Modalities Cold Pack/Ice Massage,Electric Stimulation,Hot Packs Other Therapeutic Interventions Manual traction only due to scoliosis No grade III-IV mobilizations to lumbar spine due to anterolisthesis Next Visit Focus/Plan Next Note Type Progress Note Next Visit Plan Ask about MD follow up. Assess tolerance to prone extension exercises. progress leg press. cont w/ sb banded exercises and core offload lumbar spine (LLE), traction, trunk elongation. sidelying, fwd flexion counter stretch. Core bracing: supine w/ progression to seated on jordanian ball and standing Manual tx to lumbar spine: STM , rotation mobilizations, contract-relax
--- NOTE | 2024-08-09 08:59 | PT.OTN ---
Current Diagnoses Pain in left hip (08/09/24) Stiffness of left hip, not elsewhere classified (08/09/24) Weakness (08/09/24) Physical Therapy Treatment Note PT-OP-A Visit Information Start: 07/12/24 11:13 Freq: Status: Active Protocol: Document 08/09/24 08:14 NM (Rec: 08/09/24 08:59 NM [id number]) Out-Patient Physical Therapy Visit Information Visit Information Visit Type Progress Note Visit Start Time 08:15 Visit Stop Time 08:55 Visit Number 9 Evaluation Information Evaluation Date 07/12/24 Precautions Precautions complete L glute medius tear , L lumbar scoliosis, neuropathy PT-OP-B Current Condition Start: 07/12/24 11:13 Freq: Status: Active Protocol: Document 07/12/24 11:15 NM (Rec: 07/12/24 12:22 NM [id number]) Current Condition History of Current Condition Onset Date 2 years ago Current Complaints pain, decreased mobility History of Current Condition Pt presents with chronic low back pain, onset 2 years ago. No known TRUPTI; however, pt does have hx of L lumbar scoliosis . Pain is B, but mainly L sided with L sided neural symptoms. Pain primarily radiates to lateral knee, but she has numbness occasionally to L toes. She also has L hip pain since October 2023. Pt has a complete abductor tear. Pt is planning to have surgical repair in July at but has to have low back pain reduced before surgery. However, she has moderate degeneration of lumbar spine. She will have a steroid injection to help with pain in hip, Monday 07/16. She will be planning to have a re- assessment in Aug 10 before planning surgery. Pt's most recent xray in 2022, indicating 30 deg curve. 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 Pt has pain with standing, ambulation, sitting for long periods especially in am or late pm, sleeping, pain with getting out of bed. Prior Treatments and Tests Radiograph of thoracolumbar spine 07/2023: 30 deg convex L lumbar scoliosis associated with lateral subluxation of 3rd vertebral body, disc space narrowoing hypertrophic facet joints in mid lumbar spine Radiograph of lumbar spine 2020: transitional element S1, multilevel degenerative disc and facet disease (mild grade I anterolisthesis L4 on L5, mild left lateral subluxation L4 relative to L5) Treatment Goals Patient/Caregiver Goals decrease pain associated w/ back Current Functional Impairments (Reported) Functional Limitations- ADL's cooking dinner Functional Limitations- Mobility/Gait 60 min for sit or stand walking 1 mi before pain Functional Limitations- Other sleeping: pillows between legs (cannot always sleep on L side); pain with rolling PT-OP-C Subjective Start: 07/12/24 11:13 Freq: Status: Active Protocol: Document 08/09/24 08:14 NM (Rec: 08/09/24 08:59 NM [id number]) OP-PT Subjective Patient Comments Patient Comments Pt went to the surgeon. They are planning for surgery at end of August-September. Pt is wanting to be done with PT today because planning to do PT afterward, will need 6 weeks in brace. Pt reports still has numbness and tingling intermittently. PT-OP-E Functional Tests Start: 07/12/24 11:13 Freq: Status: Active Protocol: Document 07/12/24 11:15 NM (Rec: 07/12/24 12:22 NM [id number]) Functional Tests Other Forward Trunk Flexion Test Name of Test measured finger to floor Score 1 in Comment reports stretch but denies pain PT-OP-F Manual Assessment Start: 07/12/24 11:13 Freq: Status: Active Protocol: Document 07/12/24 11:15 NM (Rec: 07/12/24 12:22 NM [id number]) Manual Assessments Soft Tissue Assessment Soft Tissue Mobility Assessment Decreased tissue length on L trunk, increased length on R trunk. Slight limitations in B HS length Joint Mobility Assessment Joint Mobility Assessment Scapular positioning from medial border to spine: 8 cm L , 12 cm R. Lumbar curve and spinous process rotation with apex at mid lumbar L side PT-OP-G Mobility & Gait Start: 07/12/24 11:13 Freq: Status: Active Protocol: Document 07/12/24 11:15 NM (Rec: 07/12/24 12:22 NM [id number]) OP Gait Assessment Gait Gait Assistance Required: Independent Distance (Feet) 150 Gait Deviations General Gait Pattern Antalgic Comments Gait Comments Trendelenburg gait pattern L sided, less stance time LLE PT-OP-H Neuro Start: 07/12/24 12:22 Freq: Status: Active Protocol: Document 07/12/24 11:15 NM (Rec: 07/12/24 16:06 NM [id number]) Sensation Evaluation Comments Summary Comments BLE and trunk intact equally to light touch sensation. Mild hypersensitivity along L medial foot with light touch Deep Tendon Reflex & Clonus Assessment Deep Tendon Reflex Right Patellar Deep Tendon Reflex 2+ Normal Left Patellar Deep Tendon Reflex 4+ Brisk PT-OP-J Posture/Palpation/Skin Start: 07/12/24 11:13 Freq: Status: Active Protocol: Document 07/12/24 11:15 NM (Rec: 07/12/24 12:22 NM [id number]) Posture Evaluation Position Standing Head/C-Spine Posture C-Spine Flattened Thorax Posture (L) Prominent L-Spine Posture Increased Lordosis,Fixed Scoliosis on (L) Shoulder Posture (L) Rounded,(R) Rounded Scapula Posture (L) Neutral,(R) Protracted,(R) Rotated Up,(R) Elevated Pelvis Posture Anteriorly Tilted,(L) Iliac Crest Superior Weight Distribution Weight Shifted Right Hip Posture (L) Externally Rotated,(R) Externally Rotated Knee Posture (L) Genu Valgus,(R) Genu Valgus Patellar Posture (L) Superior,(R) Superior Palpation Assessment Location lumbar spine Palpation Details Tenderness along L SIJ, PSIS. Curve and rotation of lumbar spinous processes to L. Hypomobility of lumbar spine with P-A springing PT-OP-K Range of Motion Start: 07/12/24 11:13 Freq: Status: Active Protocol: Document 08/09/24 08:14 NM (Rec: 08/09/24 08:59 NM [id number]) Lumbar Spine Range of Motion Lumbar Spine Active Percentage Flexion 95 Extension 100 Rotation Left 100 Rotation Right 75 Lateral Flexion Left 75 Lateral Flexion Right 100 Comments no pain or discomfort 08/09/24: 2 from floor, 95% flexion, no other changes to ROM PT-OP-L Special Tests Start: 07/12/24 11:13 Freq: Status: Active Protocol: Document 07/12/24 11:15 NM (Rec: 07/12/24 12:22 NM [id number]) Special Tests Lumbar Spine Special Tests traction Test Results + Comments reports reduction in symptoms in L foot Mary/quadrant Test Results + Comments increased numbness in L foot Straight Leg Raise Test Results - Slump Test Results - Hip Special Tests Trendelenberg Test Results + L Neural Special Tests- Lower Body Femoral Nerve Tension Test Results + L PT-OP-M Strength Start: 07/12/24 11:13 Freq: Status: Active Protocol: Document 08/09/24 08:14 NM (Rec: 08/09/24 08:59 NM [id number]) Trunk Strength Trunk Manual Muscle Testing Flexion 5 Normal Extension 5 Normal Rotation Left 5 Normal Rotation Right 5 Normal Lateral Flexion Left 5 Normal Lateral Flexion Right 5 Normal Comments R rotation 08/09/24: 5/5; pain free PT-OP-Q Treatments Start: 07/12/24 11:13 Freq: Status: Active Protocol: Document 08/09/24 08:14 NM (Rec: 08/09/24 08:59 NM [id number]) Therapeutic Exercises Supine Exercises hamstring mobilization Side bilateral Equipment Used towel behind knee Reps/Minutes 15 ea Prone Exercises paraspinal extension Prone Exercise Name 1. hip ext, 2. opp arm/leg, 3. same arm/leg Reps/Minutes 1. 10, 2. 10 ea, 3. Comments limited ROM Sitting Exercises t[place] ball Sitting Exercise Name 1. january, 2. january w/ shldr ER , 3. january + w/ shoulder ER, 4. lat tilts Side bilateral Equipment Used 65 cm ball Reps/Minutes 1. 20x3 ea, 2. 15 ea, 3. 15 ea, 4. 20 Standing Exercises squats Standing Exercise Name wall squats Side bilateral Equipment Used 65 cm ball behind pt Reps/Minutes 2x10 Comments reports mild increase in tingling hip flexor stretch Standing Exercise Name seated on ball Side bilateral Equipment Used 65 cm Reps/Minutes 30 ea (~10 breaths) Manual Therapy Treatment Consent Patient gave verbal consent for manual Yes treatment Soft Tissue Mobilization lumbar spine Body Location paraspinals, QL, iliopsoas, HS Mobilization Type Rolling,Sustained Pressure, Other Intensity/Depth Superficial Body Position prone,supine Comments Prone paraspinals and QL; supine hip flexors and lateral iliac crest distraction 1. caudal distraction posterior iliac crest for QL 2. ppt with iliopsoas mobilization 3. TFL with slight lateral distraction of iliac crest 4. lateral distraction of iliac crest PT-OP-T Assessment and Plan Start: 07/12/24 11:13 Freq: Status: Active Protocol: Document 08/09/24 08:14 NM (Rec: 08/09/24 08:59 NM [id number]) Physical Therapy Assessment Goals Four Impairment body mechanics Impairment . Short Term Goal (STG) Pt will be educated on core bracing and proper body service team member techniques to improve lumbopelvic stability during stance/gait, lifting, and for improved symptom management 08/03/24: educated on core bracing and body mechanics w.o pain STG Duration 3 weeks MET Bench Hand Goal (LTG) Pt will be able to perform at least 8 repetitions of deadlifts or squats to rock picker objects or during exercises while demonstrating good core bracing to improve lumbopelvic stability during stance/gait, lifting, and for improved symptom management 08/09/24: able to do deadlifts and squats to rock picker objects from ground but causes increased tingling in legs in 08/07 and 08/09 sessions; not issued as HEP. Pt has been educated on body mechanics LTG Duration 8 weeks MET Three Impairment standing time Impairment . Bench Hand Goal (LTG) Pt will report that she is able to stand >1 hour without increase in low back baseline pain in order to demonstrate improved symptom management and QOL 08/07/24: pt reports can stand about 30 minutes before her back starts to hurt LTG Duration 8 weeks NOT MET Two Impairment trunk strength 4/5 Impairment . Bench Hand Goal (LTG) Pt will improve trunk strength by at least 1 grade in order to demonstrate increased strength for postural control and to improve WB status following planned surgery 08/09/24: 5/5 w/o pain LTG Duration 8 weeks MET One Impairment oswestry 14/50 Impairment . Bench Hand Goal (LTG) Pt will decrease Oswestry score <10/50 in order to demonstrate improved symptom management and QOL 08/09/24: LTG Duration 8 weeks Progress Towards Goals Progress Towards Goals Progressing Toward Goals,Slow Progress due to Medical Issues ,Goals Met Progress Comments Did not meet standing goal due to back/hip pain; however, improvements in all other areas Assessment Summary Assessment Pt tolerated session well. Reports mild tingling with wall squats. Demonstrates good form with squats including improved core bracing and form . Demonstrates improved trunk and core stability on exercise ball with activities. Pt still responds well to prone exercises in limited ROM without increase in back/hip pain or neural symptoms in LLE . PT and pt discussed discharge today as pt will be having surgery in upcoming months with many months of PT following; pt is compliant with HEP and understands performing maintenance program . Physical Therapy Plan Frequency and Duration Frequency of Treatment 2x/Week Duration of treatment (weeks) 8 Plan of Care Start Date 07/12/24 Plan of Care End Date 09/07/24 Therapeutic Interventions Therapeutic Interventions Balance Training,Gait Training ,Home Exercise Program,Joint Mobilizations,Manual Therapy, Neuromuscular Re-education, Orthotic/Prosthetic Management ,Patient/Caregiver Education, Self-Care/Home Management, Sensory Integration,Soft Tissue Mobilization,Taping, Therapeutic Activities, Therapeutic Exercises Modalities Cold Pack/Ice Massage,Electric Stimulation,Hot Packs Other Therapeutic Interventions Manual traction only due to scoliosis No grade III-IV mobilizations to lumbar spine due to anterolisthesis Discharge Physical Therapy Discharge Reasons Patient Request Discharge Comments Pt planning to have surgery, scheduling for next month. Pt requesting discharge today due to planned PT following surgery to save benefits Next Visit Focus/Plan Next Note Type Discharge Summary Next Visit Plan discharge from PT
--- NOTE | 2024-08-09 12:18 | PT.OTN ---
Current Diagnoses Pain in left hip (08/09/24) Stiffness of left hip, not elsewhere classified (08/09/24) Weakness (08/09/24) Physical Therapy Treatment Note PT-OP-A Visit Information Start: 07/12/24 11:13 Freq: Status: Active Protocol: Document 08/09/24 08:14 NM (Rec: 08/09/24 08:59 NM [id number]) Out-Patient Physical Therapy Visit Information Visit Information Visit Type Progress Note Visit Start Time 08:15 Visit Stop Time 08:55 Visit Number 9 Evaluation Information Evaluation Date 07/12/24 Precautions Precautions complete L glute medius tear , L lumbar scoliosis, neuropathy PT-OP-B Current Condition Start: 07/12/24 11:13 Freq: Status: Active Protocol: Document 07/12/24 11:15 NM (Rec: 07/12/24 12:22 NM [id number]) Current Condition History of Current Condition Onset Date 2 years ago Current Complaints pain, decreased mobility History of Current Condition Pt presents with chronic low back pain, onset 2 years ago. No known TRUPTI; however, pt does have hx of L lumbar scoliosis . Pain is B, but mainly L sided with L sided neural symptoms. Pain primarily radiates to lateral knee, but she has numbness occasionally to L toes. She also has L hip pain since October 2023. Pt has a complete abductor tear. Pt is planning to have surgical repair in July at but has to have low back pain reduced before surgery. However, she has moderate degeneration of lumbar spine. She will have a steroid injection to help with pain in hip, Monday 07/16. She will be planning to have a re- assessment in Aug 10 before planning surgery. Pt's most recent xray in 2022, indicating 30 deg curve. 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 Pt has pain with standing, ambulation, sitting for long periods especially in am or late pm, sleeping, pain with getting out of bed. Prior Treatments and Tests Radiograph of thoracolumbar spine 07/2023: 30 deg convex L lumbar scoliosis associated with lateral subluxation of 3rd vertebral body, disc space narrowoing hypertrophic facet joints in mid lumbar spine Radiograph of lumbar spine 2020: transitional element S1, multilevel degenerative disc and facet disease (mild grade I anterolisthesis L4 on L5, mild left lateral subluxation L4 relative to L5) Treatment Goals Patient/Caregiver Goals decrease pain associated w/ back Current Functional Impairments (Reported) Functional Limitations- ADL's cooking dinner Functional Limitations- Mobility/Gait 60 min for sit or stand walking 1 mi before pain Functional Limitations- Other sleeping: pillows between legs (cannot always sleep on L side); pain with rolling PT-OP-C Subjective Start: 07/12/24 11:13 Freq: Status: Active Protocol: Document 08/09/24 08:14 NM (Rec: 08/09/24 08:59 NM [id number]) OP-PT Subjective Patient Comments Patient Comments Pt went to the surgeon. They are planning for surgery at end of August-September. Pt is wanting to be done with PT today because planning to do PT afterward, will need 6 weeks in brace. Pt reports still has numbness and tingling intermittently. PT-OP-E Functional Tests Start: 07/12/24 11:13 Freq: Status: Active Protocol: Document 07/12/24 11:15 NM (Rec: 07/12/24 12:22 NM [id number]) Functional Tests Other Forward Trunk Flexion Test Name of Test measured finger to floor Score 1 in Comment reports stretch but denies pain PT-OP-F Manual Assessment Start: 07/12/24 11:13 Freq: Status: Active Protocol: Document 07/12/24 11:15 NM (Rec: 07/12/24 12:22 NM [id number]) Manual Assessments Soft Tissue Assessment Soft Tissue Mobility Assessment Decreased tissue length on L trunk, increased length on R trunk. Slight limitations in B HS length Joint Mobility Assessment Joint Mobility Assessment Scapular positioning from medial border to spine: 8 cm L , 12 cm R. Lumbar curve and spinous process rotation with apex at mid lumbar L side PT-OP-G Mobility & Gait Start: 07/12/24 11:13 Freq: Status: Active Protocol: Document 07/12/24 11:15 NM (Rec: 07/12/24 12:22 NM [id number]) OP Gait Assessment Gait Gait Assistance Required: Independent Distance (Feet) 150 Gait Deviations General Gait Pattern Antalgic Comments Gait Comments Trendelenburg gait pattern L sided, less stance time LLE PT-OP-H Neuro Start: 07/12/24 12:22 Freq: Status: Active Protocol: Document 07/12/24 11:15 NM (Rec: 07/12/24 16:06 NM [id number]) Sensation Evaluation Comments Summary Comments BLE and trunk intact equally to light touch sensation. Mild hypersensitivity along L medial foot with light touch Deep Tendon Reflex & Clonus Assessment Deep Tendon Reflex Right Patellar Deep Tendon Reflex 2+ Normal Left Patellar Deep Tendon Reflex 4+ Brisk PT-OP-J Posture/Palpation/Skin Start: 07/12/24 11:13 Freq: Status: Active Protocol: Document 07/12/24 11:15 NM (Rec: 07/12/24 12:22 NM [id number]) Posture Evaluation Position Standing Head/C-Spine Posture C-Spine Flattened Thorax Posture (L) Prominent L-Spine Posture Increased Lordosis,Fixed Scoliosis on (L) Shoulder Posture (L) Rounded,(R) Rounded Scapula Posture (L) Neutral,(R) Protracted,(R) Rotated Up,(R) Elevated Pelvis Posture Anteriorly Tilted,(L) Iliac Crest Superior Weight Distribution Weight Shifted Right Hip Posture (L) Externally Rotated,(R) Externally Rotated Knee Posture (L) Genu Valgus,(R) Genu Valgus Patellar Posture (L) Superior,(R) Superior Palpation Assessment Location lumbar spine Palpation Details Tenderness along L SIJ, PSIS. Curve and rotation of lumbar spinous processes to L. Hypomobility of lumbar spine with P-A springing PT-OP-K Range of Motion Start: 07/12/24 11:13 Freq: Status: Active Protocol: Document 08/09/24 08:14 NM (Rec: 08/09/24 08:59 NM [id number]) Lumbar Spine Range of Motion Lumbar Spine Active Percentage Flexion 95 Extension 100 Rotation Left 100 Rotation Right 75 Lateral Flexion Left 75 Lateral Flexion Right 100 Comments no pain or discomfort 08/09/24: 2 from floor, 95% flexion, no other changes to ROM PT-OP-L Special Tests Start: 07/12/24 11:13 Freq: Status: Active Protocol: Document 07/12/24 11:15 NM (Rec: 07/12/24 12:22 NM [id number]) Special Tests Lumbar Spine Special Tests traction Test Results + Comments reports reduction in symptoms in L foot Mary/quadrant Test Results + Comments increased numbness in L foot Straight Leg Raise Test Results - Slump Test Results - Hip Special Tests Trendelenberg Test Results + L Neural Special Tests- Lower Body Femoral Nerve Tension Test Results + L PT-OP-M Strength Start: 07/12/24 11:13 Freq: Status: Active Protocol: Document 08/09/24 08:14 NM (Rec: 08/09/24 08:59 NM [id number]) Trunk Strength Trunk Manual Muscle Testing Flexion 5 Normal Extension 5 Normal Rotation Left 5 Normal Rotation Right 5 Normal Lateral Flexion Left 5 Normal Lateral Flexion Right 5 Normal Comments R rotation 08/09/24: 5/5; pain free PT-OP-Q Treatments Start: 07/12/24 11:13 Freq: Status: Active Protocol: Document 08/09/24 08:14 NM (Rec: 08/09/24 08:59 NM [id number]) Therapeutic Exercises Supine Exercises hamstring mobilization Side bilateral Equipment Used towel behind knee Reps/Minutes 15 ea Prone Exercises paraspinal extension Prone Exercise Name 1. hip ext, 2. opp arm/leg, 3. same arm/leg Reps/Minutes 1. 10, 2. 10 ea, 3. Comments limited ROM Sitting Exercises mexican ball Sitting Exercise Name 1. january, 2. january w/ shldr ER , 3. january + w/ shoulder ER, 4. lat tilts Side bilateral Equipment Used 65 cm ball Reps/Minutes 1. 20x3 ea, 2. 15 ea, 3. 15 ea, 4. 20 Standing Exercises squats Standing Exercise Name wall squats Side bilateral Equipment Used 65 cm ball behind pt Reps/Minutes 2x10 Comments reports mild increase in tingling hip flexor stretch Standing Exercise Name seated on ball Side bilateral Equipment Used 65 cm Reps/Minutes 30 ea (~10 breaths) Manual Therapy Treatment Consent Patient gave verbal consent for manual Yes treatment Soft Tissue Mobilization lumbar spine Body Location paraspinals, QL, iliopsoas, HS Mobilization Type Rolling,Sustained Pressure, Other Intensity/Depth Superficial Body Position prone,supine Comments Prone paraspinals and QL; supine hip flexors and lateral iliac crest distraction 1. caudal distraction posterior iliac crest for QL 2. ppt with iliopsoas mobilization 3. TFL with slight lateral distraction of iliac crest 4. lateral distraction of iliac crest PT-OP-T Assessment and Plan Start: 07/12/24 11:13 Freq: Status: Active Protocol: Document 08/09/24 08:14 NM (Rec: 08/09/24 08:59 NM [id number]) Physical Therapy Assessment Goals Four Impairment body mechanics Impairment . Short Term Goal (STG) Pt will be educated on core bracing and proper body mechanic apprentice techniques to improve lumbopelvic stability during stance/gait, lifting, and for improved symptom management 08/03/24: educated on core bracing and body mechanics w.o pain STG Duration 3 weeks MET Microphone Boom Operator Goal (LTG) Pt will be able to perform at least 8 repetitions of deadlifts or squats to spanish moss picker objects or during exercises while demonstrating good core bracing to improve lumbopelvic stability during stance/gait, lifting, and for improved symptom management 08/09/24: able to do deadlifts and squats to spanish moss picker objects from ground but causes increased tingling in legs in 08/07 and 08/09 sessions; not issued as HEP. Pt has been educated on body mechanics LTG Duration 8 weeks MET Three Impairment standing time Impairment . Microphone Boom Operator Goal (LTG) Pt will report that she is able to stand >1 hour without increase in low back baseline pain in order to demonstrate improved symptom management and QOL 08/07/24: pt reports can stand about 30 minutes before her back starts to hurt LTG Duration 8 weeks NOT MET Two Impairment trunk strength 4/5 Impairment . Microphone Boom Operator Goal (LTG) Pt will improve trunk strength by at least 1 grade in order to demonstrate increased strength for postural control and to improve WB status following planned surgery 08/09/24: 5/5 w/o pain LTG Duration 8 weeks MET One Impairment oswestry 14/50 Impairment . Microphone Boom Operator Goal (LTG) Pt will decrease Oswestry score <10/50 in order to demonstrate improved symptom management and QOL 08/09/24: 4/50 LTG Duration 8 weeks MET Progress Towards Goals Progress Towards Goals Progressing Toward Goals,Slow Progress due to Medical Issues ,Goals Met Progress Comments Did not meet standing goal due to back/hip pain; however, improvements in all other areas Assessment Summary Assessment Pt tolerated session well. Reports mild tingling with wall squats. Demonstrates good form with squats including improved core bracing and form . Demonstrates improved trunk and core stability on exercise ball with activities. Pt still responds well to prone exercises in limited ROM without increase in back/hip pain or neural symptoms in LLE . PT and pt discussed discharge today as pt will be having surgery in upcoming months with many months of PT following; pt is compliant with HEP and understands performing maintenance program . Physical Therapy Plan Frequency and Duration Frequency of Treatment 2x/Week Duration of treatment (weeks) 8 Plan of Care Start Date 07/12/24 Plan of Care End Date 09/07/24 Therapeutic Interventions Therapeutic Interventions Balance Training,Gait Training ,Home Exercise Program,Joint Mobilizations,Manual Therapy, Neuromuscular Re-education, Orthotic/Prosthetic Management ,Patient/Caregiver Education, Self-Care/Home Management, Sensory Integration,Soft Tissue Mobilization,Taping, Therapeutic Activities, Therapeutic Exercises Modalities Cold Pack/Ice Massage,Electric Stimulation,Hot Packs Other Therapeutic Interventions Manual traction only due to scoliosis No grade III-IV mobilizations to lumbar spine due to anterolisthesis Discharge Physical Therapy Discharge Reasons Patient Request Discharge Comments Pt planning to have surgery, scheduling for next month. Pt requesting discharge today due to planned PT following surgery to save benefits Next Visit Focus/Plan Next Note Type Discharge Summary Next Visit Plan discharge from PT
== END 2024-08-14 13:23 | disposition home or self-care (01) ==
LOC: PHYS 08:15
PROVIDERS: Family Provider Nurse Practitioner; PCP Nurse Practitioner; Referring Provider Orthopaedic Surgery Sports Medicine; Visit Provider Orthopaedic Surgery Sports Medicine
DX: M25.552 Pain in left hip (principal); M25.652 Stiffness of left hip, not elsewhere classified; R53.1 Weakness
CPT/HCPCS: 97110; 97140; 97161; 97530

== ENCOUNTER → 2024-10-29 14:23 | Outpatient (CLI) | payer OTHER, SELFPAY | PROVIDERS: Family Provider Family Medicine; PCP Family Medicine; Visit Provider Nurse Practitioner Family | DX: R30.0 Dysuria (principal); N89.8 Other specified noninflammatory disorders of vagina | CPT/HCPCS: 87086; 87210 ==

== ENCOUNTER 2025-03-28 13:45 | Outpatient (RCR) | payer OTHER, SELFPAY ==
--- NOTE | 2024-12-18 15:55 | PT.OIE ---
Current Diagnoses Pain in left hip (12/18/24) Stiffness of left hip, not elsewhere classified (12/18/24) Trochanteric bursitis, left hip (12/18/24) Unsteadiness on feet (12/18/24) Other abnormalities of gait and mobility (12/18/24) Weakness (12/18/24) Strain of muscle, fascia and tendon of unspecified hip, sequela (12/18/24) Past Medical History (Last Reviewed 04/04/24 @ 13:44 by MADIE Cruz) Acetabular labrum tear Acquired hypothyroidism Acute bilateral low back pain with bilateral sciatica Allergies Ankle pain (~2014) Ascending aorta dilatation Bilateral piriformis syndrome Cervical spine disease (~2014) Chicken pox Fatigue Fibroids (~2014) Foot pain (~2014) Graves disease (~2002) Hepatic steatosis Herpes Hypercalcemia Hypertension (~2002) Hypertriglyceridemia Lumbar region somatic dysfunction Menopause Migraines Mumps OCD (obsessive compulsive disorder) (~1993) Osteoarthritis (~2014) Pelvic somatic dysfunction Peripheral neuropathy (~2005) Positive FIT (fecal immunochemical test) Raynaud's disease Sacral region somatic dysfunction Scoliosis Segmental and somatic dysfunction of abdomen and other regions Shoulder pain (~2014) Sleep apnea (~2014) Somatic dysfunction of lower extremity Past Surgical History (Last Reviewed 04/04/24 @ 13:44 by MADIE Cruz) Anesthesia History of foot surgery (~2014) History of hysterectomy (~2012) History of radiation therapy (~2002) History of tonsillectomy (~1966) Melanoma (~1989) Visit Care Team Role Provider Type Nubia Khan MD Family Provider Physician Primary Care Provider Specialty: Family Practice PROBATE CLERK Address: [address] [place] [address], [id number] Fax: Email: [email or web address] Candy Mcmahon PA-C Attending Provider Non-Staff Referring Provider Specialty: Medical Address: [facility] [place], [address] Fax: Email: Physical Therapy Initial Evaluation PT-OP-A Visit Information Start: 12/18/24 07:27 Freq: Status: Active Protocol: Document 12/18/24 07:28 NM (Rec: 12/18/24 08:18 NM [id number]) Out-Patient Physical Therapy Visit Information Visit Information Visit Type Initial Evaluation Visit Start Time 07:32 Visit Stop Time 08:15 Visit Number 1 Evaluation Information Evaluation Date 12/18/24 Precautions Precautions Glute medius repair 11/02/24; brace x6 weeks, WBAT with wean crutches 2>1>0 after 6 weeks, upright stationary bike (no resistance), stop shy of pinchy PROM (IR no limit, ER 0 deg 2 weeks, ext 0 deg for 2 weeks, flex 120 deg for week 3 , no straight leg raise, abduction 0-25 deg by week 3 ( passive), no passive ADD past midline 6 weeks PT-OP-B Current Condition Start: 12/18/24 07:27 Freq: Status: Active Protocol: Document 12/18/24 07:28 NM (Rec: 12/18/24 08:18 NM [id number]) Current Condition History of Current Condition Onset Date DOS 11/02/24 History of Current Condition Pt had L glute med repaired. Pt had surgery 11/02, currently 6 weeks 4 days post- op. Does not have to wear brace when out in community; can begin to wean off use of brace. Currently WBAT with crutches, to wean off beginning 6 weeks. No pain currently, no complications following surgery. Has follow up with surgeon last , all going well, no changes. She reports that her L calf is tender, increased since weight bearing; also had Cammie procedure previously on that leg. 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 No numbness/tingling into LLE unless standing for long periods. Home modified to live on main level, office 2nd level. Ok to walk in pool, bike per MD. Reports sensitive extreme cold in her L foot following surgery, but not numbness/tingling or temperature changes. Did not perform HEP provided post-op ( PROM), also reports not remaining passive ROM prior to last appt with surgeon. 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 ( does not require a lot of standing) PT-OP-C Subjective Start: 12/18/24 07:27 Freq: Status: Active Protocol: Document 12/18/24 07:28 NM (Rec: 12/18/24 08:18 NM [id number]) OP-PT Subjective Patient Comments Patient Comments Pt consents to participate in PT evaluation Patient Questionnaires Lower Extremity Functional Scale LEFS Score 32/80 OP-PT Pain Assessment Location L hip Pain Location Details lateral hip Description Aching Description- Other tightness Pain Aggravating Factors Changing Position,ADL's, Activity,Exercise,Standing, Walking,Stair Climbing Pain Alleviating Factors Cold,Medication Other Pain Alleviating Factors change position; tylenol 4x/ day, baby aspirin Comments Pain Comments Still has back pain PT-OP-E Functional Tests Start: 12/18/24 07:27 Freq: Status: Active Protocol: Document 12/18/24 07:28 NM (Rec: 12/18/24 09:22 NM [id number]) Functional Tests 6 Minute Walk Test Distance 823 ft Device Used 2 axillary crutches Comments no glute pain but has L sided LBP Other Single leg stance Score 5 sec L, 8 sec R Comment maintains L level hips; no brace PT-OP-F Manual Assessment Start: 12/18/24 07:27 Freq: Status: Active Protocol: Document 12/18/24 07:28 NM (Rec: 12/18/24 09:22 NM [id number]) Manual Assessments Soft Tissue Assessment Soft Tissue Mobility Assessment Restrictions of L hip flexors Joint Mobility Assessment Joint Mobility Assessment Decreased hip extension ROM actively, no joint pain passively PT-OP-G Mobility & Gait Start: 12/18/24 07:27 Freq: Status: Active Protocol: Document 12/18/24 07:28 NM (Rec: 12/18/24 08:18 NM [id number]) OP Mobility Evaluation Bed Mobility Rolling IND Supine to and from Sit IND Transfers Sit to Stand IND with UE assist OP Gait Assessment Gait Gait Assistance Required: Independent Distance (Feet) 150 Assistive Devices Assistive Device Gait Belt,Axillary Crutches Orthotic/Prosthetic Devices or Brace: Yes Gait Deviations General Gait Pattern Antalgic,Flexed Trunk Factors Limiting Gait Function Factors Limiting Gait Function Decreased Activity Tolerance, Decreased Strength,Limited Range of Motion,Pain PT-OP-J Posture/Palpation/Skin Start: 12/18/24 07:27 Freq: Status: Active Protocol: Document 12/18/24 07:28 NM (Rec: 12/18/24 09:22 NM [id number]) Posture Evaluation Position Standing Head/C-Spine Posture Forward Head L-Spine Posture Increased Lordosis Pelvis Posture Anteriorly Tilted Weight Distribution Weight Shifted Right Comments Posture Comments Demos slight forward trunk posturing Palpation Assessment Location L hip Palpation Details Minimal tenderness along glute max muscle belly and glute medius/minimus None along incision Minimal low back tenderness but tightness present Skin Assessment Incisional Assessment Incision Appearance/Comments Incision intact, no tenderness , no redness or signs of infection PT-OP-K Range of Motion Start: 12/18/24 07:27 Freq: Status: Active Protocol: Document 12/18/24 07:28 NM (Rec: 12/18/24 08:18 NM [id number]) Hip Goniometric Range of Motion Hip Left Flexion w/Knee Flexed 110 Extension 0 Abduction 23 Internal Rotation 30 External Rotation 15 L PROM Flexion w/Knee Flexed 105 Extension 10 Abduction 20 Right Flexion w/Knee Flexed 110 Abduction 25 Internal Rotation 25 External Rotation 32 PT-OP-M Strength Start: 12/18/24 07:27 Freq: Status: Active Protocol: Document 12/18/24 07:28 NM (Rec: 12/18/24 08:18 NM [id number]) Hip Strength Hip Manual Muscle Testing Right Flexion (L2) 4 Good Extension (S1) 4 Good Abduction 4 Good Adduction 4 Good External Rotation 4 Good Internal Rotation 4 Good Left Flexion (L2) 3 Fair Extension (S1) 3- Fair- Abduction 3- Fair- Adduction 3 Fair External Rotation 3 Fair Internal Rotation 3 Fair Comments abduction tested in supine, extension tested in sidelying as unable to perform prone Knee Strength Knee Manual Muscle Testing Right Flexion (S2) 4+ Good+ Extension (L3) 4+ Good+ Left Flexion (S2) 3+ Fair+ Extension (L3) 3+ Fair+ PT-OP-Q Treatments Start: 12/18/24 07:27 Freq: Status: Active Protocol: Document 12/18/24 07:28 NM (Rec: 12/18/24 08:18 NM [id number]) Therapeutic Exercises Supine Exercises gluteal squeeze Supine Exercise Name HEP Side left Reps/Minutes 10x3 Comments pain free; good activation bridge Equipment Used with ppt Reps/Minutes 2x5 Comments cued push through heels; no pain Prone Exercises prone hip extension Side left Comments reports pinch so d/c AROM prone hamstring curls Side left Resistance AROM Reps/Minutes 10 Comments pain free; limited ROM prone on elbows Side bilateral Reps/Minutes 1 min Comments for hip flexor stretch; minimal stretch felt Gait Training Gait Activity axillary crutches Device Used 1 crutch Level of Assistance CGA Surface stable Distance/Duration 2x50ft Treatment Focus posture, sequencing, pattern, gait mechanics Comments Minimal pain L hip with stance . Emphasis on posture and sequencing of 1 crutch with LLE, moderate cues for initial gait mechanics including posture and initial stance time PT-OP-T Assessment and Plan Start: 12/18/24 07:27 Freq: Status: Active Protocol: Document 12/18/24 07:28 NM (Rec: 12/18/24 08:18 NM [id number]) Physical Therapy Assessment Rehab Potential Rehabilitation Potential Good Evaluation Complexity Number of Personal Factors/Comorbidities 3 or More Number of Body Systems Impaired 4 or More Clinical Presentation at Evaluation Stable Impairments Impairments Activity Tolerance,Balance, Functional Activities, Functional Mobility,Gait, Integument,Pain,Posture,ROM, Sensation,Soft Tissue Mobility ,Strength,Transfers Goals Five Impairment . Four Impairment SLS time 5 sec LLE indicating weakness; L hip strength impaired Impairment ... Short Term Goal (STG) Pt will be able to stand on LLE at least 10 sec without L hip pain or compensation to demonstrate functional L glute medius strength for gait/ stance STG Duration 02/12/25 Skilled Nursing Goal (LTG) Pt will increase L hip strength globally to at least 4+/5 MMT in order to demonstrate improved strength for ADLs/IADLs and return to recreational activities including hiking and ambulation LTG Duration 03/15/25 Three Impairment 6 MWT distance 823 ft w/ B crutches, brace Impairment ... Short Term Goal (STG) Pt will ambulate with minimal gait deviations without brace and without LRAD if appropriate at least 500 ft for community distances in order to return to PLOF STG Duration 01/29/25 Resident Intern Goal (LTG) Pt will ambulate at least 1500 ft (75% age-gender norm) during 6 MWT without LRAD or brace and no L hip pain in order to return to ambulation program LTG Duration 03/15/25 Two Impairment not performing HEP; LEFS 32/80 indicating ADL/IADL impairment Impairment ... Short Term Goal (STG) Pt will be IND with HEP to maximize progression with PT and transition to maintenance upon discharge STG Duration 01/29/25 Resident Intern Goal (LTG) Pt will report that she is not limited in standing time due to L hip pain in order to be able to cook meals LTG Duration 03/15/25 One Impairment L hip ROM limited Impairment ... Short Term Goal (STG) Pt will have symmetrical ROM within at least 3 deg in B hips with pain <3/10 L hip STG Duration 01/15/25 Assessment Summary Assessment Pt is a 59 y.o. presenting to clinic 6 weeks s/p L glute medius repair and L open bursectomy. Pt is currently WBAT on B axillary crutches with a brace, but now able to wean from brace and crutches. Pt has mild limitations in L hip AROM and PROM, most specifically with extension and rotation. Pt's L hip strength is decreased following surgery; however, able to activate all muscles appropriately. Pt's 6 MWT distance is 823 ft with crutches and brace, below age- related norm; hip pain is present during ambulation, and pt fatigues quickly. She has extensive family caregiving at this time for her recovery. 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 Pt also has concurrent low back pain with radicular symptoms related to scoliosis, which has been limiting for pt's rehabilitation in past PT episodes of care. PT educated pt on exam findings and plan of care. Pt would benefit from skilled PT for progressive L hip flexibility and strengthening in order to improve symptom management, increase mobility, and improve ability to perform all ADLs/ IADLs with more independence. Physical Therapy Plan Frequency and Duration Frequency of Treatment 2x/Week Duration of treatment (weeks) 12 Plan of Care Start Date 12/18/24 Plan of Care End Date 03/15/25 Therapeutic Interventions Therapeutic Interventions Aquatic Therapy,Balance Training,Gait Training,Home Exercise Program,Joint Mobilizations,Manual Therapy, Neuromuscular Re-education, Orthotic/Prosthetic Management ,Patient/Caregiver Education, Self-Care/Home Management, Sensory Integration,Soft Tissue Mobilization,Taping, Therapeutic Activities, Therapeutic Exercises Modalities Cold Pack/Ice Massage,Electric Stimulation,Hot Packs, Ultrasound Other Therapeutic Interventions TrP treatment Next Visit Focus/Plan Next Note Type Treatment Note Next Visit Plan Progress per protocol. Trial upright bike w/o resistance Cont with glute strengthening: prone hip ext, bridge progression, leg press. Trial hip flexor stretch standing. Gait training: pre-gait, progress to 1 crutch vs cane
--- NOTE | 2024-12-20 07:49 | PT-OP ANOTE ---
Pt thought 12/20 appt was on 12/21; did not show up. PT had opening, appt moved to 12/21 to accommodate
--- NOTE | 2024-12-21 11:20 | PT.OTN ---
Current Diagnoses Pain in left hip (12/21/24) Stiffness of left hip, not elsewhere classified (12/21/24) Trochanteric bursitis, left hip (12/21/24) Unsteadiness on feet (12/21/24) Other abnormalities of gait and mobility (12/21/24) Weakness (12/21/24) Strain of muscle, fascia and tendon of unspecified hip, sequela (12/21/24) Physical Therapy Treatment Note PT-OP-A Visit Information Start: 12/18/24 07:27 Freq: Status: Active Protocol: Document 12/21/24 07:28 NM (Rec: 12/21/24 11:20 NM [id number]) Out-Patient Physical Therapy Visit Information Visit Information Visit Type Treatment Note Visit Note allergic to tape Visit Start Time 07:32 Visit Stop Time 08:15 Visit Number 01/05 Evaluation Information Evaluation Date 12/18/24 Precautions Precautions Glute medius repair 11/02/24; brace x6 weeks, WBAT with wean crutches 2>1>0 after 6 weeks, upright stationary bike (no resistance), stop shy of pinchy PROM (IR no limit, ER 0 deg 2 weeks, ext 0 deg for 2 weeks, flex 120 deg for week 3 , no straight leg raise, abduction 0-25 deg by week 3 ( passive), no passive ADD past midline 6 weeks PT-OP-B Current Condition Start: 12/18/24 07:27 Freq: Status: Active Protocol: Document 12/18/24 07:28 NM (Rec: 12/18/24 08:18 NM [id number]) Current Condition History of Current Condition Onset Date DOS 11/02/24 History of Current Condition Pt had L glute med repaired. Pt had surgery 11/02, currently 6 weeks 4 days post- op. Does not have to wear brace when out in community; can begin to wean off use of brace. Currently WBAT with crutches, to wean off beginning 6 weeks. No pain currently, no complications following surgery. Has follow up with surgeon last , all going well, no changes. She reports that her L calf is tender, increased since weight bearing; also had Cammie procedure previously on that leg. 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 No numbness/tingling into LLE unless standing for long periods. Home modified to live on main level, office 2nd level. Ok to walk in pool, bike per MD. Reports sensitive extreme cold in her L foot following surgery, but not numbness/tingling or temperature changes. Did not perform HEP provided post-op ( PROM), also reports not remaining passive ROM prior to last appt with surgeon. 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 She is having low back pain. She got silicone. Pt ok to ambulate without brace at home, but has to use in community due uneven surfaces. Has been using 1 crutch at home, no brace per surgeon recommendations; occasionally walks a few feet without a crutch but states has to reach for furniture occasionally PT-OP-E Functional Tests Start: 12/18/24 07:27 Freq: Status: Active Protocol: Document 12/18/24 07:28 NM (Rec: 12/18/24 09:22 NM [id number]) Functional Tests 6 Minute Walk Test Distance 823 ft Device Used 2 axillary crutches Comments no glute pain but has L sided LBP Other Single leg stance Score 5 sec L, 8 sec R Comment maintains L level hips; no brace PT-OP-F Manual Assessment Start: 12/18/24 07:27 Freq: Status: Active Protocol: Document 12/18/24 07:28 NM (Rec: 12/18/24 09:22 NM [id number]) Manual Assessments Soft Tissue Assessment Soft Tissue Mobility Assessment Restrictions of L hip flexors Joint Mobility Assessment Joint Mobility Assessment Decreased hip extension ROM actively, no joint pain passively PT-OP-G Mobility & Gait Start: 12/18/24 07:27 Freq: Status: Active Protocol: Document 12/18/24 07:28 NM (Rec: 12/18/24 08:18 NM [id number]) OP Mobility Evaluation Bed Mobility Rolling IND Supine to and from Sit IND Transfers Sit to Stand IND with UE assist OP Gait Assessment Gait Gait Assistance Required: Independent Distance (Feet) 150 Assistive Devices Assistive Device Gait Belt,Axillary Crutches Orthotic/Prosthetic Devices or Brace: Yes Gait Deviations General Gait Pattern Antalgic,Flexed Trunk Factors Limiting Gait Function Factors Limiting Gait Function Decreased Activity Tolerance, Decreased Strength,Limited Range of Motion,Pain PT-OP-J Posture/Palpation/Skin Start: 12/18/24 07:27 Freq: Status: Active Protocol: Document 12/18/24 07:28 NM (Rec: 12/18/24 09:22 NM [id number]) Posture Evaluation Position Standing Head/C-Spine Posture Forward Head L-Spine Posture Increased Lordosis Pelvis Posture Anteriorly Tilted Weight Distribution Weight Shifted Right Comments Posture Comments Demos slight forward trunk posturing Palpation Assessment Location L hip Palpation Details Minimal tenderness along glute max muscle belly and glute medius/minimus None along incision Minimal low back tenderness but tightness present Skin Assessment Incisional Assessment Incision Appearance/Comments Incision intact, no tenderness , no redness or signs of infection PT-OP-K Range of Motion Start: 12/18/24 07:27 Freq: Status: Active Protocol: Document 12/18/24 07:28 NM (Rec: 12/18/24 08:18 NM [id number]) Hip Goniometric Range of Motion Hip Left Flexion w/Knee Flexed 110 Extension 0 Abduction 23 Internal Rotation 30 External Rotation 15 L PROM Flexion w/Knee Flexed 105 Extension 10 Abduction 20 Right Flexion w/Knee Flexed 110 Abduction 25 Internal Rotation 25 External Rotation 32 PT-OP-M Strength Start: 12/18/24 07:27 Freq: Status: Active Protocol: Document 12/18/24 07:28 NM (Rec: 12/18/24 08:18 NM [id number]) Hip Strength Hip Manual Muscle Testing Right Flexion (L2) 4 Good Extension (S1) 4 Good Abduction 4 Good Adduction 4 Good External Rotation 4 Good Internal Rotation 4 Good Left Flexion (L2) 3 Fair Extension (S1) 3- Fair- Abduction 3- Fair- Adduction 3 Fair External Rotation 3 Fair Internal Rotation 3 Fair Comments abduction tested in supine, extension tested in sidelying as unable to perform prone Knee Strength Knee Manual Muscle Testing Right Flexion (S2) 4+ Good+ Extension (L3) 4+ Good+ Left Flexion (S2) 3+ Fair+ Extension (L3) 3+ Fair+ PT-OP-Q Treatments Start: 12/18/24 07:27 Freq: Status: Active Protocol: Document 12/21/24 07:28 NM (Rec: 12/21/24 11:20 NM [id number]) Therapeutic Exercises Supine Exercises bridge Supine Exercise Name HEP review Side bilateral Equipment Used feet on small blue ball (edu to use several pillows or couch arm at home) Reps/Minutes 2x10 Comments no pain in glute but feels activation Prone Exercises prone IR/ER Prone Exercise Name AROM Side left Reps/Minutes 2x60 ea prone hip extension Side left Reps/Minutes 10 Comments partial ROM; cued for glute activation prone hamstring curls Prone Exercise Name HEP review Side left Resistance level 1 band at ankles Reps/Minutes 2x8 Comments feels activation but no pain in buttocks Standing Exercises hip flexor stretch Standing Exercise Name staggered stance Side left Equipment Used with ppt Reps/Minutes 60 ea Comments edu L only; does not feel in prone stool hip IR/ER Standing Exercise Name PROM/AAROM Side left Equipment Used knee on stool Reps/Minutes 2 min Comments feels more in IR but pain free ; cued to remain small ROM and inc as able Gait Training Gait Activity Pre-gait Description c/o brace Device Used 1 crutch > no crutch for all Level of Assistance close SBA Surface stable Treatment Focus weight shifting, gait mechanics Comments 1. Weight shifts A/P 2. Weight shifts A/L 3. Weight shifts diagonal 4. heel <> toe rocking axillary crutches Description c/o brace Device Used 1 crutch R Level of Assistance close SBA, prn CGA Surface stable Comments 1. 1 tomasz stepping over c/ 1 crutch 2. 6 hurdles c/ reciprocal pattern, minimal use of crutch except for balance no hip pain 3. 1 tomasz c/o crutch able to maintain level hips, slightly antalgic (limp w/ L stance) but not painful 4. trialed - 6 hurdles c/ reciprocal pattern close SBA, slightly antalgic ( limp w/ L stance) but not painful. Recommended continue use of crutch at this time Manual Therapy Treatment Consent Patient gave verbal consent for manual Yes treatment Soft Tissue Mobilization L hip Body Location hip flexors, TFL, quad, glutes Mobilization Type Rolling,Strumming,Sustained Pressure Intensity/Depth Superficial Comments Hooklying and prone with pillows under hips. Increased restrictions of hip flexors. No tenderness over glutes. Monitored for pain scar mobility Body Location L lateral hip Mobilization Type Instrument Assisted,Rolling, Other Intensity/Depth Superficial Body Position Sidelying Comments Pillow between legs for support and to prevent adduction. Superficial scar mobility with rolling, lifting , twisting. More restricted distally nearer to greater trochanter. Trialed superficial IASTM to decrease adhesions. No scabbing or redness present. Monitored for pain Self-Care/Home Management Treatment Education Patient Education Body Mechanics,Fall Risk,Pain Management,Safety Other Education Recommended use of 1 crutch at home since ambulating without brace Recommended brace and use of at least 1 crutch in community PT-OP-T Assessment and Plan Start: 12/18/24 07:27 Freq: Status: Active Protocol: Document 12/21/24 07:28 NM (Rec: 12/21/24 11:20 NM [id number]) Physical Therapy Assessment Goals Four Impairment SLS time 5 sec LLE indicating weakness; L hip strength impaired Impairment ... Short Term Goal (STG) Pt will be able to stand on LLE at least 10 sec without L hip pain or compensation to demonstrate functional L glute medius strength for gait/ stance STG Duration 02/12/25 [employer] Goal (LTG) Pt will increase L hip strength globally to at least 4+/5 MMT in order to demonstrate improved strength for ADLs/IADLs and return to recreational activities including hiking and ambulation LTG Duration 03/15/25 Three Impairment 6 MWT distance 823 ft w/ B crutches, brace Impairment ... Short Term Goal (STG) Pt will ambulate with minimal gait deviations without brace and without LRAD if appropriate at least 500 ft for community distances in order to return to PLOF STG Duration 01/29/25 [facility] Goal (LTG) Pt will ambulate at least 1500 ft (75% age-gender norm) during 6 MWT without LRAD or brace and no L hip pain in order to return to ambulation program LTG Duration 03/15/25 Two Impairment not performing HEP; LEFS 32/80 indicating ADL/IADL impairment Impairment ... Short Term Goal (STG) Pt will be IND with HEP to maximize progression with PT and transition to maintenance upon discharge STG Duration 01/29/25 [facility] Goal (LTG) Pt will report that she is not limited in standing time due to L hip pain in order to be able to cook meals LTG Duration 03/15/25 One Impairment L hip ROM limited Impairment ... Short Term Goal (STG) Pt will have symmetrical ROM within at least 3 deg in B hips with pain <3/10 L hip STG Duration 01/15/25 Assessment Summary Assessment Pt tolerated session well, no pain in L hip during session. Currently 7 weeks post-op. Progressing per protocol. Exhibits weakness in L glute with hip extension; prone hip extension still challenging but no pain or pulling sensation. Only able to perform partial ROM. Progressed glute strengthening with bridge on ball, in addition to resistance for hamstring curl. Pt fatigues with exercise quickly. Trialed hip ER/IR, cueing needed to limit ROM as progressing (not due to pain but just limited motion). Maintains level pelvis in stance with 1 crutch but not without AD; no pain at hip but demos glute weakness in stance and with trunk control. Initiated scar mobility as limited distally. Pt would continue to benefit from skilled PT for progressive ROM anad strengthening per protocol to improve gait and increase mobility. Physical Therapy Plan Frequency and Duration Frequency of Treatment 2x/Week Duration of treatment (weeks) 12 Plan of Care Start Date 12/18/24 Plan of Care End Date 03/15/25 Therapeutic Interventions Therapeutic Interventions Aquatic Therapy,Balance Training,Gait Training,Home Exercise Program,Joint Mobilizations,Manual Therapy, Neuromuscular Re-education, Orthotic/Prosthetic Management ,Patient/Caregiver Education, Self-Care/Home Management, Sensory Integration,Soft Tissue Mobilization,Taping, Therapeutic Activities, Therapeutic Exercises Modalities Cold Pack/Ice Massage,Electric Stimulation,Hot Packs, Ultrasound Other Therapeutic Interventions TrP treatment Next Visit Focus/Plan Next Note Type Treatment Note Next Visit Plan Progress per protocol. supine PROM of hip. Trial upright bike w/o resistance Cont with glute strengthening: recheck prone hip ext, bridge progression, partial squat > squat progression> leg press. Hip abd with IR, SLS, proprioception. Gait training: pre-gait, progress to 1 crutch vs cane vs no AD (trial cane next session)
--- NOTE | 2024-12-25 15:52 | PT.OTN ---
Current Diagnoses Pain in left hip (12/25/24) Stiffness of left hip, not elsewhere classified (12/25/24) Trochanteric bursitis, left hip (12/25/24) Unsteadiness on feet (12/25/24) Other abnormalities of gait and mobility (12/25/24) Weakness (12/25/24) Strain of muscle, fascia and tendon of unspecified hip, sequela (12/25/24) Physical Therapy Treatment Note PT-OP-A Visit Information Start: 12/18/24 07:27 Freq: Status: Active Protocol: Document 12/25/24 13:46 NM (Rec: 12/25/24 14:37 NM [id number]) Out-Patient Physical Therapy Visit Information Visit Information Visit Type Treatment Note Visit Note allergic to tape Visit Start Time 13:47 Visit Stop Time 14:36 Visit Number 02/02 Evaluation Information Evaluation Date 12/18/24 Precautions Precautions Glute medius repair 11/02/24; brace x6 weeks, WBAT with wean crutches 2>1>0 after 6 weeks, upright stationary bike (no resistance), stop shy of pinchy PROM (IR no limit, ER 0 deg 2 weeks, ext 0 deg for 2 weeks, flex 120 deg for week 3 , no straight leg raise, abduction 0-25 deg by week 3 ( passive), no passive ADD past midline 6 weeks PT-OP-B Current Condition Start: 12/18/24 07:27 Freq: Status: Active Protocol: Document 12/18/24 07:28 NM (Rec: 12/18/24 08:18 NM [id number]) Current Condition History of Current Condition Onset Date DOS 11/02/24 History of Current Condition Pt had L glute med repaired. Pt had surgery 11/02, currently 6 weeks 4 days post- op. Does not have to wear brace when out in community; can begin to wean off use of brace. Currently WBAT with crutches, to wean off beginning 6 weeks. No pain currently, no complications following surgery. Has follow up with surgeon last , all going well, no changes. She reports that her L calf is tender, increased since weight bearing; also had Cammie procedure previously on that leg. 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 No numbness/tingling into LLE unless standing for long periods. Home modified to live on main level, office 2nd level. Ok to walk in pool, bike per MD. Reports sensitive extreme cold in her L foot following surgery, but not numbness/tingling or temperature changes. Did not perform HEP provided post-op ( PROM), also reports not remaining passive ROM prior to last appt with surgeon. 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 Had 2 meetings yesterday, so had to be out and about a lot; lots of sitting. Reports a little soreness along lateral hip from those meetings, then followed with exercises. States did her exercises too hard. She also reports that she stood for a long time to make a crockpot meal today. Pt reports that she has been ambulating at home without any crutches, without brace; reports no pain but has to make a conscious effort to have tall posture which is hard. States that PT-OP-E Functional Tests Start: 12/18/24 07:27 Freq: Status: Active Protocol: Document 12/18/24 07:28 NM (Rec: 12/18/24 09:22 NM [id number]) Functional Tests 6 Minute Walk Test Distance 823 ft Device Used 2 axillary crutches Comments no glute pain but has L sided LBP Other Single leg stance Score 5 sec L, 8 sec R Comment maintains L level hips; no brace PT-OP-F Manual Assessment Start: 12/18/24 07:27 Freq: Status: Active Protocol: Document 12/18/24 07:28 NM (Rec: 12/18/24 09:22 NM [id number]) Manual Assessments Soft Tissue Assessment Soft Tissue Mobility Assessment Restrictions of L hip flexors Joint Mobility Assessment Joint Mobility Assessment Decreased hip extension ROM actively, no joint pain passively PT-OP-G Mobility & Gait Start: 12/18/24 07:27 Freq: Status: Active Protocol: Document 12/18/24 07:28 NM (Rec: 12/18/24 08:18 NM [id number]) OP Mobility Evaluation Bed Mobility Rolling IND Supine to and from Sit IND Transfers Sit to Stand IND with UE assist OP Gait Assessment Gait Gait Assistance Required: Independent Distance (Feet) 150 Assistive Devices Assistive Device Gait Belt,Axillary Crutches Orthotic/Prosthetic Devices or Brace: Yes Gait Deviations General Gait Pattern Antalgic,Flexed Trunk Factors Limiting Gait Function Factors Limiting Gait Function Decreased Activity Tolerance, Decreased Strength,Limited Range of Motion,Pain PT-OP-J Posture/Palpation/Skin Start: 12/18/24 07:27 Freq: Status: Active Protocol: Document 12/18/24 07:28 NM (Rec: 12/18/24 09:22 NM [id number]) Posture Evaluation Position Standing Head/C-Spine Posture Forward Head L-Spine Posture Increased Lordosis Pelvis Posture Anteriorly Tilted Weight Distribution Weight Shifted Right Comments Posture Comments Demos slight forward trunk posturing Palpation Assessment Location L hip Palpation Details Minimal tenderness along glute max muscle belly and glute medius/minimus None along incision Minimal low back tenderness but tightness present Skin Assessment Incisional Assessment Incision Appearance/Comments Incision intact, no tenderness , no redness or signs of infection PT-OP-K Range of Motion Start: 12/18/24 07:27 Freq: Status: Active Protocol: Document 12/18/24 07:28 NM (Rec: 12/18/24 08:18 NM [id number]) Hip Goniometric Range of Motion Hip Left Flexion w/Knee Flexed 110 Extension 0 Abduction 23 Internal Rotation 30 External Rotation 15 L PROM Flexion w/Knee Flexed 105 Extension 10 Abduction 20 Right Flexion w/Knee Flexed 110 Abduction 25 Internal Rotation 25 External Rotation 32 PT-OP-M Strength Start: 12/18/24 07:27 Freq: Status: Active Protocol: Document 12/18/24 07:28 NM (Rec: 12/18/24 08:18 NM [id number]) Hip Strength Hip Manual Muscle Testing Right Flexion (L2) 4 Good Extension (S1) 4 Good Abduction 4 Good Adduction 4 Good External Rotation 4 Good Internal Rotation 4 Good Left Flexion (L2) 3 Fair Extension (S1) 3- Fair- Abduction 3- Fair- Adduction 3 Fair External Rotation 3 Fair Internal Rotation 3 Fair Comments abduction tested in supine, extension tested in sidelying as unable to perform prone Knee Strength Knee Manual Muscle Testing Right Flexion (S2) 4+ Good+ Extension (L3) 4+ Good+ Left Flexion (S2) 3+ Fair+ Extension (L3) 3+ Fair+ PT-OP-Q Treatments Start: 12/18/24 07:27 Freq: Status: Active Protocol: Document 12/25/24 13:46 NM (Rec: 12/25/24 14:37 NM [id number]) Cardio Equipment Bicycle (Upright) Duration (Minutes) 5 Resistance 2 Seat Position 7 Other warm up Therapeutic Exercises Prone Exercises prone hip extension Prone Exercise Name HEP Side left Reps/Minutes 4x5 Comments able to lift 4, no pain today ; min thigh lift from table Standing Exercises marching Standing Exercise Name for hip flex strength Side bilateral Resistance 1# ankle weight Reps/Minutes 2x10 Comments no pa partial squat Side bilateral Resistance AROM Equipment Used B hand support on bar for balance Reps/Minutes 3x8 Comments no hip pain; hip abduction Standing Exercise Name with hip IR- HEP Side bilateral Resistance AROM Equipment Used B hand support on bar Reps/Minutes 2x10 ea Comments cued tall posture, core bracing, form, no trunk lean opp Gait Training Gait Activity spc Device Used spc R hand Level of Assistance SBA Surface stable- indoors Distance/Duration 8 min Treatment Focus posture, less UE support, balance, gait mechanics Comments Less dependence on UE and demos taller posture with spc vs 1 crutch. Cueing needed initially to coordinate spc and for gait mechanics but demos improved taller posture, less tendency to lean toward R side with stance. Still has slight pulling feeling reported at L anterior hip with swing phase but denies pain Manual Therapy Treatment Consent Patient gave verbal consent for manual Yes treatment Soft Tissue Mobilization L hip Body Location hip flexors, TFL, quad, glutes Mobilization Type Rolling,Strumming,Sustained Pressure Intensity/Depth Superficial Comments Performed in sidelying and hooklying. Increased trigger points around hip flexors and TFL, tender but reduced with soft tissue mobilization. No glute tenderness or incision tenderness Self-Care/Home Management Treatment Education Other Education SonBinh, present for part of session. Recommended to pt and son that pt does not carry laundry or bags/groceries etc at this time due to tendency to lean to R side d/t pull on L glute repair. Also educated on ok to do upright bike at gym; recommended against other LE weights/equipment at this time; likely ok to do supported upper body (press bicep curls) with back support as long as hips above knees, pt not compensating with trunk or heavy weights , but pt should check with surgeon first PT-OP-T Assessment and Plan Start: 12/18/24 07:27 Freq: Status: Active Protocol: Document 12/25/24 13:46 NM (Rec: 12/25/24 14:37 NM [id number]) Physical Therapy Assessment Goals Four Impairment SLS time 5 sec LLE indicating weakness; L hip strength impaired Impairment ... Short Term Goal (STG) Pt will be able to stand on LLE at least 10 sec without L hip pain or compensation to demonstrate functional L glute medius strength for gait/ stance STG Duration 02/12/25 Assisted Goal (LTG) Pt will increase L hip strength globally to at least 4+/5 MMT in order to demonstrate improved strength for ADLs/IADLs and return to recreational activities including hiking and ambulation LTG Duration 03/15/25 Three Impairment 6 MWT distance 823 ft w/ B crutches, brace Impairment ... 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 Short Term Goal (STG) Pt will be IND with HEP to maximize progression with PT and transition to maintenance upon discharge STG Duration 01/29/25 Assisted Goal (LTG) Pt will report that she is not limited in standing time due to L hip pain in order to be able to cook meals LTG Duration 03/15/25 One Impairment L hip ROM limited Impairment ... Short Term Goal (STG) Pt will have symmetrical ROM within at least 3 deg in B hips with pain <3/10 L hip STG Duration 01/15/25 Assessment Summary Assessment Pt reports significantly less soreness in her hips/back at end of session, in addition to less pulling at anterior hip with gait. Education provided to pt and son about exercise pt allowed to do per protocol; recommended ask surgeon before return to gym for upper body. Pt able to progress to standing glute strengthening with support for balance; cueing needed for correct execution and to limit trunk compensations. No glute pain during gait or exercises. Trialed ambulation with spc for improved postural control and less UE support during gait except for balance. Currently 7 weeks post op. Pt would continue to benefit from skilled PT for progressive strengthening, gait training, and balance training in order to return to PLOF. Physical Therapy Plan Frequency and Duration Frequency of Treatment 2x/Week Duration of treatment (weeks) 12 Plan of Care Start Date 12/18/24 Plan of Care End Date 03/15/25 Therapeutic Interventions Therapeutic Interventions Aquatic Therapy,Balance Training,Gait Training,Home Exercise Program,Joint Mobilizations,Manual Therapy, Neuromuscular Re-education, Orthotic/Prosthetic Management ,Patient/Caregiver Education, Self-Care/Home Management, Sensory Integration,Soft Tissue Mobilization,Taping, Therapeutic Activities, Therapeutic Exercises Modalities Cold Pack/Ice Massage,Electric Stimulation,Hot Packs, Ultrasound Other Therapeutic Interventions TrP treatment Next Visit Focus/Plan Next Note Type Treatment Note Next Visit Plan Progress per protocol. supine PROM of hip. Upright bike. trial leg press. Cont with glute strengthening: recheck prone hip ext, bridge progression, partial squat > squat progression> leg press. Hip abd with IR, SLS, proprioception. Gait training: pre-gait, progress to 1 crutch vs cane vs no AD (trial cane next session)
--- NOTE | 2024-12-28 15:44 | PT.OTN ---
Current Diagnoses Pain in left hip (12/28/24) Stiffness of left hip, not elsewhere classified (12/28/24) Trochanteric bursitis, left hip (12/28/24) Unsteadiness on feet (12/28/24) Other abnormalities of gait and mobility (12/28/24) Weakness (12/28/24) Strain of muscle, fascia and tendon of unspecified hip, sequela (12/28/24) Physical Therapy Treatment Note PT-OP-A Visit Information Start: 12/18/24 07:27 Freq: Status: Active Protocol: Document 12/28/24 13:48 NM (Rec: 12/28/24 14:33 NM [id number]) Out-Patient Physical Therapy Visit Information Visit Information Visit Type Treatment Note Visit Note allergic to tape Visit Start Time 13:49 Visit Stop Time 14:30 Visit Number 03/05 Evaluation Information Evaluation Date 12/18/24 Precautions Precautions Glute medius repair 11/02/24; brace x6 weeks, WBAT with wean crutches 2>1>0 after 6 weeks, upright stationary bike (no resistance), stop shy of pinchy PROM (IR no limit, ER 0 deg 2 weeks, ext 0 deg for 2 weeks, flex 120 deg for week 3 , no straight leg raise, abduction 0-25 deg by week 3 ( passive), no passive ADD past midline 6 weeks PT-OP-B Current Condition Start: 12/18/24 07:27 Freq: Status: Active Protocol: Document 12/18/24 07:28 NM (Rec: 12/18/24 08:18 NM [id number]) Current Condition History of Current Condition Onset Date DOS 11/02/24 History of Current Condition Pt had L glute med repaired. Pt had surgery 11/02, currently 6 weeks 4 days post- op. Does not have to wear brace when out in community; can begin to wean off use of brace. Currently WBAT with crutches, to wean off beginning 6 weeks. No pain currently, no complications following surgery. Has follow up with surgeon last , all going well, no changes. She reports that her L calf is tender, increased since weight bearing; also had Cammie procedure previously on that leg. 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 No numbness/tingling into LLE unless standing for long periods. Home modified to live on main level, office 2nd level. Ok to walk in pool, bike per MD. Reports sensitive extreme cold in her L foot following surgery, but not numbness/tingling or temperature changes. Did not perform HEP provided post-op ( PROM), also reports not remaining passive ROM prior to last appt with surgeon. 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 Reports tired after pool, used muscles did not use in a while . No longer feels the discomfort in the front of pool. Presents with spc and brace to clinic. Reports no pain with ambulation without brace and using spc. PT-OP-E Functional Tests Start: 12/18/24 07:27 Freq: Status: Active Protocol: Document 12/18/24 07:28 NM (Rec: 12/18/24 09:22 NM [id number]) Functional Tests 6 Minute Walk Test Distance 823 ft Device Used 2 axillary crutches Comments no glute pain but has L sided LBP Other Single leg stance Score 5 sec L, 8 sec R Comment maintains L level hips; no brace PT-OP-F Manual Assessment Start: 12/18/24 07:27 Freq: Status: Active Protocol: Document 12/18/24 07:28 NM (Rec: 12/18/24 09:22 NM [id number]) Manual Assessments Soft Tissue Assessment Soft Tissue Mobility Assessment Restrictions of L hip flexors Joint Mobility Assessment Joint Mobility Assessment Decreased hip extension ROM actively, no joint pain passively PT-OP-G Mobility & Gait Start: 12/18/24 07:27 Freq: Status: Active Protocol: Document 12/18/24 07:28 NM (Rec: 12/18/24 08:18 NM [id number]) OP Mobility Evaluation Bed Mobility Rolling IND Supine to and from Sit IND Transfers Sit to Stand IND with UE assist OP Gait Assessment Gait Gait Assistance Required: Independent Distance (Feet) 150 Assistive Devices Assistive Device Gait Belt,Axillary Crutches Orthotic/Prosthetic Devices or Brace: Yes Gait Deviations General Gait Pattern Antalgic,Flexed Trunk Factors Limiting Gait Function Factors Limiting Gait Function Decreased Activity Tolerance, Decreased Strength,Limited Range of Motion,Pain PT-OP-J Posture/Palpation/Skin Start: 12/18/24 07:27 Freq: Status: Active Protocol: Document 12/18/24 07:28 NM (Rec: 12/18/24 09:22 NM [id number]) Posture Evaluation Position Standing Head/C-Spine Posture Forward Head L-Spine Posture Increased Lordosis Pelvis Posture Anteriorly Tilted Weight Distribution Weight Shifted Right Comments Posture Comments Demos slight forward trunk posturing Palpation Assessment Location L hip Palpation Details Minimal tenderness along glute max muscle belly and glute medius/minimus None along incision Minimal low back tenderness but tightness present Skin Assessment Incisional Assessment Incision Appearance/Comments Incision intact, no tenderness , no redness or signs of infection PT-OP-K Range of Motion Start: 12/18/24 07:27 Freq: Status: Active Protocol: Document 12/18/24 07:28 NM (Rec: 12/18/24 08:18 NM [id number]) Hip Goniometric Range of Motion Hip Left Flexion w/Knee Flexed 110 Extension 0 Abduction 23 Internal Rotation 30 External Rotation 15 L PROM Flexion w/Knee Flexed 105 Extension 10 Abduction 20 Right Flexion w/Knee Flexed 110 Abduction 25 Internal Rotation 25 External Rotation 32 PT-OP-M Strength Start: 12/18/24 07:27 Freq: Status: Active Protocol: Document 12/18/24 07:28 NM (Rec: 12/18/24 08:18 NM [id number]) Hip Strength Hip Manual Muscle Testing Right Flexion (L2) 4 Good Extension (S1) 4 Good Abduction 4 Good Adduction 4 Good External Rotation 4 Good Internal Rotation 4 Good Left Flexion (L2) 3 Fair Extension (S1) 3- Fair- Abduction 3- Fair- Adduction 3 Fair External Rotation 3 Fair Internal Rotation 3 Fair Comments abduction tested in supine, extension tested in sidelying as unable to perform prone Knee Strength Knee Manual Muscle Testing Right Flexion (S2) 4+ Good+ Extension (L3) 4+ Good+ Left Flexion (S2) 3+ Fair+ Extension (L3) 3+ Fair+ PT-OP-Q Treatments Start: 12/18/24 07:27 Freq: Status: Active Protocol: Document 12/28/24 13:48 NM (Rec: 12/28/24 14:33 NM [id number]) Gym Equipment Shuttle Recovery B squat Details no pain; good form; no pulling sensation Resistance 50# (1 navy) Reps/Time 2x10 Therapeutic Exercises Prone Exercises prone IR/ER Side left Resistance light resistance from PT ea direction Reps/Minutes 10 ea Comments full ROM prone hip extension Prone Exercise Name HEP review Side bilateral Reps/Minutes 2x10 - L able to lift several inches off table Comments improved height and thigh lift from table Standing Exercises wall squat Standing Exercise Name trialed and d/c Side bilateral Reps/Minutes 2 Comments reports pull at lateral hip d/ c partial squat Standing Exercise Name HEP Side bilateral Resistance AROM Equipment Used B hand support on counter Reps/Minutes 2x10 Comments no pain Manual Therapy Treatment Consent Patient gave verbal consent for manual Yes treatment Soft Tissue Mobilization L hip Body Location hip flexors, TFL, quad, glutes Mobilization Type Rolling,Strumming,Sustained Pressure Intensity/Depth Superficial Comments Performed in sidelying and hooklying. Fewer trigger points around hip flexors and TFL, not tender but reduced with soft tissue mobilization. No glute tenderness or incision tenderness scar mobility Body Location L lateral hip Mobilization Type Instrument Assisted,Rolling, Other Intensity/Depth Superficial Body Position Sidelying Comments Pillow between legs for support and to prevent adduction. Superficial scar mobility with rolling, lifting , twisting. More restricted distally nearer to greater trochanter. Improved from last time, no palpable adhesions below scar. Monitored for pain educated on use of STM at home , have gently perform if pt unable to reach. demonstrated on pt's arm Neuro Re-Education Treatment Balance Activities proprioception Details rockerboard- double leg Surface unstable Equipment rail to assist on/off; close SBA Reps/Duration 8 min total Comments 1. rockerboard A/P 2. perturbations on A/P board 3. rockerboard M/L 4. perturbations M/L board No pain in hips. cueing for tall posture. able to maintain steady balance, level pelvis SLS Details HEP Reps/Duration 3x10 ea leg Comments prn hand support on bar to steady, maintains level pelvis until fatigues cued for gluteal activation, core bracing, and tall posture ; no pain Self-Care/Home Management Treatment Education Other Education Educated can ambulate w/ cane and w/o brace in community as long as remains painfree, good gait mechanics as demonstrate in clinic. Continue with spc use in community. However, would recommend use of brace if pain occurs or if pt having to ambulate longer distances (e.g. to [facility]) PT-OP-T Assessment and Plan Start: 12/18/24 07:27 Freq: Status: Active Protocol: Document 12/28/24 13:48 NM (Rec: 12/28/24 14:33 NM [id number]) Physical Therapy Assessment Goals Four Impairment SLS time 5 sec LLE indicating weakness; L hip strength impaired Impairment ... Short Term Goal (STG) Pt will be able to stand on LLE at least 10 sec without L hip pain or compensation to demonstrate functional L glute medius strength for gait/ stance STG Duration 02/12/25 Organisation And Methods Analyst Goal (LTG) Pt will increase L hip strength globally to at least 4+/5 MMT in order to demonstrate improved strength for ADLs/IADLs and return to recreational activities including hiking and ambulation LTG Duration 03/15/25 Three Impairment 6 MWT distance 823 ft w/ B crutches, brace Impairment ... Short Term Goal (STG) Pt will ambulate with minimal gait deviations without brace and without LRAD if appropriate at least 500 ft for community distances in order to return to PLOF STG Duration 01/29/25 Organisation And Methods Analyst Goal (LTG) Pt will ambulate at least 1500 ft (75% age-gender norm) during 6 MWT without LRAD or brace and no L hip pain in order to return to ambulation program LTG Duration 03/15/25 Two Impairment not performing HEP; LEFS 32/80 indicating ADL/IADL impairment Impairment ... Short Term Goal (STG) Pt will be IND with HEP to maximize progression with PT and transition to maintenance upon discharge STG Duration 01/29/25 [facility] Goal (LTG) Pt will report that she is not limited in standing time due to L hip pain in order to be able to cook meals LTG Duration 03/15/25 One Impairment L hip ROM limited Impairment ... Short Term Goal (STG) Pt will have symmetrical ROM within at least 3 deg in B hips with pain <3/10 L hip STG Duration 01/15/25 Assessment Summary Assessment Pt tolerated session well. Reports no pain during or at end of session. Pt does have pulling in L glute with wall squat, so discontinued. Able to perform partial supported squat toward chair and B squat on shuttle without pulling/ pain but limited resistance. Demos improved ROM with prone hip IR and ER, did not measure due to time. Pt also able to completely lift thigh from plinth during prone hip ext, an improvement from last session and especially from evaluation. Maintains balance during unstable proprioception activities. SLS still challenging past 10 sec but able to perform with level pelvis until fatigues; added to HEP. Pt would continue to benefit from skilled PT for progressive strengthening and ROM per protocol in order to return to PLOF. Physical Therapy Plan Frequency and Duration Frequency of Treatment 2x/Week Duration of treatment (weeks) 12 Plan of Care Start Date 12/18/24 Plan of Care End Date 03/15/25 Therapeutic Interventions Therapeutic Interventions Aquatic Therapy,Balance Training,Gait Training,Home Exercise Program,Joint Mobilizations,Manual Therapy, Neuromuscular Re-education, Orthotic/Prosthetic Management ,Patient/Caregiver Education, Self-Care/Home Management, Sensory Integration,Soft Tissue Mobilization,Taping, Therapeutic Activities, Therapeutic Exercises Modalities Cold Pack/Ice Massage,Electric Stimulation,Hot Packs, Ultrasound Other Therapeutic Interventions TrP treatment Next Visit Focus/Plan Next Note Type Treatment Note Next Visit Plan Progress per protocol. supine PROM of hip. Upright bike. progress leg press. trial lunge, step up. cont proprioception- progress to foam, ball toss, etc Cont with glute strengthening: recheck prone hip ext, bridge progression, partial squat > squat progression> leg press. Hip abd with IR, SLS, proprioception. Gait training: pre-gait, progress to 1 crutch vs cane vs no AD (trial cane next session)
--- NOTE | 2025-01-04 10:36 | PT.OTN ---
Current Diagnoses Pain in left hip (01/04/25) Stiffness of left hip, not elsewhere classified (01/04/25) Trochanteric bursitis, left hip (01/04/25) Unsteadiness on feet (01/04/25) Other abnormalities of gait and mobility (01/04/25) Weakness (01/04/25) Strain of muscle, fascia and tendon of unspecified hip, sequela (01/04/25) Physical Therapy Treatment Note PT-OP-A Visit Information Start: 12/18/24 07:27 Freq: Status: Active Protocol: Document 01/04/25 08:06 AB (Rec: 01/04/25 10:36 AB [id number]) Out-Patient Physical Therapy Visit Information Visit Information Visit Type Treatment Note Visit Note allergic to tape Visit Start Time 09:48 Visit Stop Time 10:31 Visit Number 04/04 Number of SUPERVISOR COLD ROLLING Visits 1 Evaluation Information Evaluation Date 12/18/24 Precautions Precautions Glute medius repair 11/02/24; brace x6 weeks, WBAT with wean crutches 2>1>0 after 6 weeks, upright stationary bike (no resistance), stop shy of pinchy PROM (IR no limit, ER 0 deg 2 weeks, ext 0 deg for 2 weeks, flex 120 deg for week 3 , no straight leg raise, abduction 0-25 deg by week 3 ( passive), no passive ADD past midline 6 weeks PT-OP-B Current Condition Start: 12/18/24 07:27 Freq: Status: Active Protocol: Document 12/18/24 07:28 NM (Rec: 12/18/24 08:18 NM [id number]) Current Condition History of Current Condition Onset Date DOS 11/02/24 History of Current Condition Pt had L glute med repaired. Pt had surgery 11/02, currently 6 weeks 4 days post- op. Does not have to wear brace when out in community; can begin to wean off use of brace. Currently WBAT with crutches, to wean off beginning 6 weeks. No pain currently, no complications following surgery. Has follow up with surgeon last , all going well, no changes. She reports that her L calf is tender, increased since weight bearing; also had Cammie procedure previously on that leg. 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 No numbness/tingling into LLE unless standing for long periods. Home modified to live on main level, office 2nd level. Ok to walk in pool, bike per MD. Reports sensitive extreme cold in her L foot following surgery, but not numbness/tingling or temperature changes. Did not perform HEP provided post-op ( PROM), also reports not remaining passive ROM prior to last appt with surgeon. 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 Patient reports she feels pretty good, has been walking around home without device, is using SPC when out it public. Patient reports she has sensitivity witht the scar, comments feeling occasional tugging SI area. Patient rates 1/10 discomfort lateral L hip . SLS L LE 3 seconds without UE Use, with ipslateral trunk sidebend and reports of pulling L ITB. PT-OP-E Functional Tests Start: 12/18/24 07:27 Freq: Status: Active Protocol: Document 12/18/24 07:28 NM (Rec: 12/18/24 09:22 NM [id number]) Functional Tests 6 Minute Walk Test Distance 823 ft Device Used 2 axillary crutches Comments no glute pain but has L sided LBP Other Single leg stance Score 5 sec L, 8 sec R Comment maintains L level hips; no brace PT-OP-F Manual Assessment Start: 12/18/24 07:27 Freq: Status: Active Protocol: Document 12/18/24 07:28 NM (Rec: 12/18/24 09:22 NM [id number]) Manual Assessments Soft Tissue Assessment Soft Tissue Mobility Assessment Restrictions of L hip flexors Joint Mobility Assessment Joint Mobility Assessment Decreased hip extension ROM actively, no joint pain passively PT-OP-G Mobility & Gait Start: 12/18/24 07:27 Freq: Status: Active Protocol: Document 12/18/24 07:28 NM (Rec: 12/18/24 08:18 NM [id number]) OP Mobility Evaluation Bed Mobility Rolling IND Supine to and from Sit IND Transfers Sit to Stand IND with UE assist OP Gait Assessment Gait Gait Assistance Required: Independent Distance (Feet) 150 Assistive Devices Assistive Device Gait Belt,Axillary Crutches Orthotic/Prosthetic Devices or Brace: Yes Gait Deviations General Gait Pattern Antalgic,Flexed Trunk Factors Limiting Gait Function Factors Limiting Gait Function Decreased Activity Tolerance, Decreased Strength,Limited Range of Motion,Pain PT-OP-J Posture/Palpation/Skin Start: 12/18/24 07:27 Freq: Status: Active Protocol: Document 12/18/24 07:28 NM (Rec: 12/18/24 09:22 NM [id number]) Posture Evaluation Position Standing Head/C-Spine Posture Forward Head L-Spine Posture Increased Lordosis Pelvis Posture Anteriorly Tilted Weight Distribution Weight Shifted Right Comments Posture Comments Demos slight forward trunk posturing Palpation Assessment Location L hip Palpation Details Minimal tenderness along glute max muscle belly and glute medius/minimus None along incision Minimal low back tenderness but tightness present Skin Assessment Incisional Assessment Incision Appearance/Comments Incision intact, no tenderness , no redness or signs of infection PT-OP-K Range of Motion Start: 12/18/24 07:27 Freq: Status: Active Protocol: Document 12/18/24 07:28 NM (Rec: 12/18/24 08:18 NM [id number]) Hip Goniometric Range of Motion Hip Left Flexion w/Knee Flexed 110 Extension 0 Abduction 23 Internal Rotation 30 External Rotation 15 L PROM Flexion w/Knee Flexed 105 Extension 10 Abduction 20 Right Flexion w/Knee Flexed 110 Abduction 25 Internal Rotation 25 External Rotation 32 PT-OP-M Strength Start: 12/18/24 07:27 Freq: Status: Active Protocol: Document 12/18/24 07:28 NM (Rec: 12/18/24 08:18 NM [id number]) Hip Strength Hip Manual Muscle Testing Right Flexion (L2) 4 Good Extension (S1) 4 Good Abduction 4 Good Adduction 4 Good External Rotation 4 Good Internal Rotation 4 Good Left Flexion (L2) 3 Fair Extension (S1) 3- Fair- Abduction 3- Fair- Adduction 3 Fair External Rotation 3 Fair Internal Rotation 3 Fair Comments abduction tested in supine, extension tested in sidelying as unable to perform prone Knee Strength Knee Manual Muscle Testing Right Flexion (S2) 4+ Good+ Extension (L3) 4+ Good+ Left Flexion (S2) 3+ Fair+ Extension (L3) 3+ Fair+ PT-OP-Q Treatments Start: 12/18/24 07:27 Freq: Status: Active Protocol: Document 01/04/25 08:06 AB (Rec: 01/04/25 10:36 [id number]) Gym Equipment Shuttle Recovery B squat Details no pain; good form; Resistance 50# (1 navy) Reps/Time 2x10 Therapeutic Exercises Prone Exercises prone IR/ER Side left Resistance light resistance from PT ea direction Reps/Minutes 10 ea Comments full ROM prone hip extension Prone Exercise Name HEP review Side bilateral Reps/Minutes 2x10 - L able to lift several inches off table Comments improved height and thigh lift from table Standing Exercises step ups Standing Exercise Name step up step back bilateral UE use Side left Resistance 4 inch step Reps/Minutes X10 X 2 Comments Riley for pain, Pt ed pain rules Manual Therapy Treatment Consent Patient gave verbal consent for manual Yes treatment Soft Tissue Mobilization L hip Body Location hip flexors, TFL, quad, glutes Mobilization Type Rolling,Strumming,Sustained Pressure Intensity/Depth Superficial Comments Pt reports having no pain scar mobility Body Location L lateral hip Mobilization Type Instrument Assisted,Rolling, Other Intensity/Depth Superficial Body Position Sidelying Comments Pillow between legs for support and to prevent adduction. PT-OP-T Assessment and Plan Start: 12/18/24 07:27 Freq: Status: Active Protocol: Document 01/04/25 08:06 AB (Rec: 01/04/25 10:36 [id number]) Physical Therapy Assessment Goals Four Impairment SLS time 5 sec LLE indicating weakness; L hip strength impaired Impairment ... Short Term Goal (STG) Pt will be able to stand on LLE at least 10 sec without L hip pain or compensation to demonstrate functional L glute medius strength for gait/ stance STG Duration 02/12/25 Custodial Goal (LTG) Pt will increase L hip strength globally to at least 4+/5 MMT in order to demonstrate improved strength for ADLs/IADLs and return to recreational activities including hiking and ambulation LTG Duration 03/15/25 Three Impairment 6 MWT distance 823 ft w/ B crutches, brace Impairment ... Short Term Goal (STG) Pt will ambulate with minimal gait deviations without brace and without LRAD if appropriate at least 500 ft for community distances in order to return to PLOF STG Duration 01/29/25 Custodial Goal (LTG) Pt will ambulate at least 1500 ft (75% age-gender norm) during 6 MWT without LRAD or brace and no L hip pain in order to return to ambulation program LTG Duration 03/15/25 Two Impairment not performing HEP; LEFS 32/80 indicating ADL/IADL impairment Impairment ... Short Term Goal (STG) Pt will be IND with HEP to maximize progression with PT and transition to maintenance upon discharge STG Duration 01/29/25 Can Machine Operator Goal (LTG) Pt will report that she is not limited in standing time due to L hip pain in order to be able to cook meals LTG Duration 03/15/25 One Impairment L hip ROM limited Impairment ... Short Term Goal (STG) Pt will have symmetrical ROM within at least 3 deg in B hips with pain <3/10 L hip STG Duration 01/15/25 Assessment Summary Assessment Patient reports having no pain end of session, does have pulling sensation L ITB area with SLS 3 sec without UE use and has been advised to use SPC out of home and rest/use SPC as needed when ITB pulling is sensed. Donnie reports having no pain end of session. Physical Therapy Plan Frequency and Duration Frequency of Treatment 2x/Week Duration of treatment (weeks) 12 Plan of Care Start Date 12/18/24 Plan of Care End Date 03/15/25 Next Visit Focus/Plan Next Note Type Treatment Note Next Visit Plan Progress per protocol. supine PROM of hip. Upright bike. progress leg press. trial lunge, assess nino to step up/ possibly progres to 6 inch work up to 6 inch steps with one rail as able. cont proprioception- progress to foam, ball toss, etc Cont with glute strengthening: recheck prone hip ext, bridge progression, partial squat > squat progression> leg press. Hip abd with IR, SLS, proprioception. Gait training:
--- NOTE | 2025-01-07 15:51 | PT.OTN ---
Current Diagnoses Pain in left hip (01/07/25) Stiffness of left hip, not elsewhere classified (01/07/25) Trochanteric bursitis, left hip (01/07/25) Unsteadiness on feet (01/07/25) Other abnormalities of gait and mobility (01/07/25) Weakness (01/07/25) Strain of muscle, fascia and tendon of unspecified hip, sequela (01/07/25) Physical Therapy Treatment Note PT-OP-A Visit Information Start: 12/18/24 07:27 Freq: Status: Active Protocol: Document 01/07/25 13:00 NM (Rec: 01/07/25 15:50 NM [id number]) Out-Patient Physical Therapy Visit Information Visit Information Visit Type Treatment Note Visit Note allergic to tape Visit Start Time 13:01 Visit Stop Time 13:45 Visit Number 05/05 Number of DISTRICT BRANCH MANAGER Visits 0 Evaluation Information Evaluation Date 12/18/24 Precautions Precautions Glute medius repair 11/02/24; brace x6 weeks, WBAT with wean crutches 2>1>0 after 6 weeks, upright stationary bike (no resistance), stop shy of pinchy PROM (IR no limit, ER 0 deg 2 weeks, ext 0 deg for 2 weeks, flex 120 deg for week 3 , no straight leg raise, abduction 0-25 deg by week 3 ( passive), no passive ADD past midline 6 weeks PT-OP-B Current Condition Start: 12/18/24 07:27 Freq: Status: Active Protocol: Document 12/18/24 07:28 NM (Rec: 12/18/24 08:18 NM [id number]) Current Condition History of Current Condition Onset Date DOS 11/02/24 History of Current Condition Pt had L glute med repaired. Pt had surgery 11/02, currently 6 weeks 4 days post- op. Does not have to wear brace when out in community; can begin to wean off use of brace. Currently WBAT with crutches, to wean off beginning 6 weeks. No pain currently, no complications following surgery. Has follow up with surgeon last , all going well, no changes. She reports that her L calf is tender, increased since weight bearing; also had Cammie procedure previously on that leg. 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 No numbness/tingling into LLE unless standing for long periods. Home modified to live on main level, office 2nd level. Ok to walk in pool, bike per MD. Reports sensitive extreme cold in her L foot following surgery, but not numbness/tingling or temperature changes. Did not perform HEP provided post-op ( PROM), also reports not remaining passive ROM prior to last appt with surgeon. 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 She reports that she gets pulling at at [employer]. Follows up with Dr. Fuentes on . Denies pulling PT-OP-E Functional Tests Start: 12/18/24 07:27 Freq: Status: Active Protocol: Document 12/18/24 07:28 NM (Rec: 12/18/24 09:22 NM [id number]) Functional Tests 6 Minute Walk Test Distance 823 ft Device Used 2 axillary crutches Comments no glute pain but has L sided LBP Other Single leg stance Score 5 sec L, 8 sec R Comment maintains L level hips; no brace PT-OP-F Manual Assessment Start: 12/18/24 07:27 Freq: Status: Active Protocol: Document 12/18/24 07:28 NM (Rec: 12/18/24 09:22 NM [id number]) Manual Assessments Soft Tissue Assessment Soft Tissue Mobility Assessment Restrictions of L hip flexors Joint Mobility Assessment Joint Mobility Assessment Decreased hip extension ROM actively, no joint pain passively PT-OP-G Mobility & Gait Start: 12/18/24 07:27 Freq: Status: Active Protocol: Document 12/18/24 07:28 NM (Rec: 01/28/25 08:18 NM [id number]) OP Mobility Evaluation Bed Mobility Rolling IND Supine to and from Sit IND Transfers Sit to Stand IND with UE assist OP Gait Assessment Gait Gait Assistance Required: Independent Distance (Feet) 150 Assistive Devices Assistive Device Gait Belt,Axillary Crutches Orthotic/Prosthetic Devices or Brace: Yes Gait Deviations General Gait Pattern Antalgic,Flexed Trunk Factors Limiting Gait Function Factors Limiting Gait Function Decreased Activity Tolerance, Decreased Strength,Limited Range of Motion,Pain PT-OP-J Posture/Palpation/Skin Start: 12/18/24 07:27 Freq: Status: Active Protocol: Document 12/18/24 07:28 NM (Rec: 12/18/24 09:22 NM [id number]) Posture Evaluation Position Standing Head/C-Spine Posture Forward Head L-Spine Posture Increased Lordosis Pelvis Posture Anteriorly Tilted Weight Distribution Weight Shifted Right Comments Posture Comments Demos slight forward trunk posturing Palpation Assessment Location L hip Palpation Details Minimal tenderness along glute max muscle belly and glute medius/minimus None along incision Minimal low back tenderness but tightness present Skin Assessment Incisional Assessment Incision Appearance/Comments Incision intact, no tenderness , no redness or signs of infection PT-OP-K Range of Motion Start: 12/18/24 07:27 Freq: Status: Active Protocol: Document 12/18/24 07:28 NM (Rec: 12/18/24 08:18 NM [id number]) Hip Goniometric Range of Motion Hip Left Flexion w/Knee Flexed 110 Extension 0 Abduction 23 Internal Rotation 30 External Rotation 15 L PROM Flexion w/Knee Flexed 105 Extension 10 Abduction 20 Right Flexion w/Knee Flexed 110 Abduction 25 Internal Rotation 25 External Rotation 32 PT-OP-M Strength Start: 12/18/24 07:27 Freq: Status: Active Protocol: Document 12/18/24 07:28 NM (Rec: 12/18/24 08:18 NM [id number]) Hip Strength Hip Manual Muscle Testing Right Flexion (L2) 4 Good Extension (S1) 4 Good Abduction 4 Good Adduction 4 Good External Rotation 4 Good Internal Rotation 4 Good Left Flexion (L2) 3 Fair Extension (S1) 3- Fair- Abduction 3- Fair- Adduction 3 Fair External Rotation 3 Fair Internal Rotation 3 Fair Comments abduction tested in supine, extension tested in sidelying as unable to perform prone Knee Strength Knee Manual Muscle Testing Right Flexion (S2) 4+ Good+ Extension (L3) 4+ Good+ Left Flexion (S2) 3+ Fair+ Extension (L3) 3+ Fair+ PT-OP-Q Treatments Start: 12/18/24 07:27 Freq: Status: Active Protocol: Document 01/07/25 13:00 NM (Rec: 01/07/25 15:50 NM [id number]) Therapeutic Exercises Supine Exercises bridge Supine Exercise Name trialed in PT- single leg bridge (HEP) Side bilateral Reps/Minutes 5 - emphasis on L Comments cued level pelvis, no pain but challenging, weaker L side Standing Exercises lunge Standing Exercise Name HEP -lunge: 1. fwd, 2. lateral Side bilateral Equipment Used 1 hand support balance, mirror for visual cues pelvis Reps/Minutes 1. 2x5, 2. 5 ea (inc crepitus/ pop knees so limit reps) Comments no pain in hips/glutes, challenging; step ups Standing Exercise Name step up step back bilateral UE use Side left Resistance 4 step Reps/Minutes 2x10, trialed 5 at 6 step up Comments cueing level pelvis, no pain but feels in glute; sore last session Manual Therapy Treatment Consent Patient gave verbal consent for manual Yes treatment Soft Tissue Mobilization L hip Body Location hip flexors, TFL, quad, glutes Mobilization Type Rolling,Strumming,Sustained Pressure Body Position Sidelying Comments Pillow between legs for support, prevent hip ADD. No pain or tenderness at anterior hip. Less restricted at ITB and hip flexors. Tenderness over glute near L SIJ, palpable trigger point; improved with superficial > moderate mobilization over area scar mobility Body Location L lateral hip Mobilization Type Instrument Assisted,Rolling, Other Intensity/Depth Superficial Body Position Sidelying Comments Pillow between legs for support and to prevent adduction. More restricted distally. Less sensivity for pain Neuro Re-Education Treatment Balance Activities SLS Surface stable Equipment prn hand support balance, mirror visual cues Comments 4 ea foot cueing for glute activation rigoberto on LLE, posture, level pelvis (rigoberto with mirror), not to rest opposite leg on stance limb PT-OP-T Assessment and Plan Start: 12/18/24 07:27 Freq: Status: Active Protocol: Document 01/07/25 13:00 NM (Rec: 01/07/25 15:50 NM [id number]) Physical Therapy Assessment Goals Four Impairment SLS time 5 sec LLE indicating weakness; L hip strength impaired Impairment ... Short Term Goal (STG) Pt will be able to stand on LLE at least 10 sec without L hip pain or compensation to demonstrate functional L glute medius strength for gait/ stance STG Duration 02/12/25 Light Equipment Operator Goal (LTG) Pt will increase L hip strength globally to at least 4+/5 MMT in order to demonstrate improved strength for ADLs/IADLs and return to recreational activities including hiking and ambulation LTG Duration 03/15/25 Three Impairment 6 MWT distance 823 ft w/ B crutches, brace Impairment ... Short Term Goal (STG) Pt will ambulate with minimal gait deviations without brace and without LRAD if appropriate at least 500 ft for community distances in order to return to PLOF 01/07/25: pt ambulating without brace and with spc for balance for community distances STG Duration 01/29/25 Light Equipment Operator Goal (LTG) Pt will ambulate at least 1500 ft (75% age-gender norm) during 6 MWT without LRAD or brace and no L hip pain in order to return to ambulation program LTG Duration 03/15/25 Two Impairment not performing HEP; LEFS 32/80 indicating ADL/IADL impairment Impairment ... Short Term Goal (STG) Pt will be IND with HEP to maximize progression with PT and transition to maintenance upon discharge 01/07/25: pt compliant with HEP STG Duration 01/29/25 MET Light Equipment Operator Goal (LTG) Pt will report that she is not limited in standing time due to L hip pain in order to be able to cook meals LTG Duration 03/15/25 One Impairment L hip ROM limited Impairment ... Short Term Goal (STG) Pt will have symmetrical ROM within at least 3 deg in B hips with pain <3/10 L hip STG Duration 01/15/25 Assessment Summary Assessment Pt tolerated session well. No pain in glute during exercises . Reports prn pulling at ITB during SLS, lessened with glute activation and cueing to limit attempting to rest RLE on LLE. Mirror for visual feedback, recommended use at home to watch pelvis height. Able to achieve 4 sec SLS without UE support. Initiated lunges and single leg bridge. Forward lunges and single leg bridge have good form but challenging; minimal cues needed. Lateral lunge causes increased knee pain, so minimal reps; good glute activation but no pain. Still needs cueing for level pelvis at step up, maintains better level hips with 6 than 4. Still needs UE support due to weakness; sore glute but denies pain. Physical Therapy Plan Frequency and Duration Frequency of Treatment 2x/Week Duration of treatment (weeks) 12 Plan of Care Start Date 12/18/24 Plan of Care End Date 03/15/25 Therapeutic Interventions Therapeutic Interventions Aquatic Therapy,Balance Training,Gait Training,Home Exercise Program,Joint Mobilizations,Manual Therapy, Neuromuscular Re-education, Orthotic/Prosthetic Management ,Patient/Caregiver Education, Self-Care/Home Management, Sensory Integration,Soft Tissue Mobilization,Taping, Therapeutic Activities, Therapeutic Exercises Modalities Cold Pack/Ice Massage,Electric Stimulation,Hot Packs, Ultrasound Other Therapeutic Interventions TrP treatment Next Visit Focus/Plan Next Note Type Progress Note Next Visit Plan appt 01/24 with MD. Progress per protocol. Upright bike. progress leg press. cont lunge as needed. progress step up, assess nino to step up/ possibly progres to 6 inch work up to 6 inch steps with one rail as able. cont proprioception- progress to foam, ball toss, etc Cont with glute strengthening: recheck prone hip ext, bridge progression, partial squat > squat progression> leg press. Hip abd with IR, SLS, proprioception. Gait training: w/o AD
--- NOTE | 2025-01-21 15:55 | PT.OTN ---
Current Diagnoses Pain in left hip (01/21/25) Stiffness of left hip, not elsewhere classified (01/21/25) Trochanteric bursitis, left hip (01/21/25) Unsteadiness on feet (01/21/25) Other abnormalities of gait and mobility (01/21/25) Weakness (01/21/25) Strain of muscle, fascia and tendon of unspecified hip, sequela (01/21/25) Physical Therapy Treatment Note PT-OP-A Visit Information Start: 12/18/24 07:27 Freq: Status: Active Protocol: Document 01/21/25 12:59 NM (Rec: 01/21/25 13:50 NM [id number]) Out-Patient Physical Therapy Visit Information Visit Information Visit Type Progress Note Visit Note allergic to tape Visit Start Time 13:04 Visit Stop Time 13:40 Visit Number 06/04 Evaluation Information Evaluation Date 12/18/24 Precautions Precautions Glute medius repair 11/02/24; brace x6 weeks, WBAT with wean crutches 2>1>0 after 6 weeks PT-OP-B Current Condition Start: 12/18/24 07:27 Freq: Status: Active Protocol: Document 12/18/24 07:28 NM (Rec: 12/18/24 08:18 NM [id number]) Current Condition History of Current Condition Onset Date DOS 11/02/24 History of Current Condition Pt had L glute med repaired. Pt had surgery 11/02, currently 6 weeks 4 days post- op. Does not have to wear brace when out in community; can begin to wean off use of brace. Currently WBAT with crutches, to wean off beginning 6 weeks. No pain currently, no complications following surgery. Has follow up with surgeon last , all going well, no changes. She reports that her L calf is tender, increased since weight bearing; also had Cammie procedure previously on that leg. 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 No numbness/tingling into LLE unless standing for long periods. Home modified to live on main level, office 2nd level. Ok to walk in pool, bike per MD. Reports sensitive extreme cold in her L foot following surgery, but not numbness/tingling or temperature changes. Did not perform HEP provided post-op ( PROM), also reports not remaining passive ROM prior to last appt with surgeon. 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 She walked 1.5 mi yesterday, no spc or brace. Has not had any issues or pain with ambulation; gets prn pain along L mid ITB but reports resolves usually. She reports that she has had intermittent pain near L SIJ ( no specific known cause, not every day, very brief) where she has been standing. Pt went to visit father last week in [place], has not been doing exercises because lost of her pieces of paper. She reports tried to do exercises from memory, reports no knee strength but states exercises do not cause any pain, only fatigue. Has been walking on stable concrete paths, biking on stationary bike, doing pool a few times per week. States cued her to stop limping over weekend [place] PT-OP-E Functional Tests Start: 12/18/24 07:27 Freq: Status: Active Protocol: Document 12/18/24 07:28 NM (Rec: 12/18/24 09:22 NM [id number]) Functional Tests 6 Minute Walk Test Distance 823 ft Device Used 2 axillary crutches Comments no glute pain but has L sided LBP Other Single leg stance Score 5 sec L, 8 sec R Comment maintains L level hips; no brace PT-OP-F Manual Assessment Start: 12/18/24 07:27 Freq: Status: Active Protocol: Document 12/18/24 07:28 NM (Rec: 12/18/24 09:22 NM [id number]) Manual Assessments Soft Tissue Assessment Soft Tissue Mobility Assessment Restrictions of L hip flexors Joint Mobility Assessment Joint Mobility Assessment Decreased hip extension ROM actively, no joint pain passively PT-OP-G Mobility & Gait Start: 12/18/24 07:27 Freq: Status: Active Protocol: Document 12/18/24 07:28 NM (Rec: 12/18/24 08:18 NM [id number]) OP Mobility Evaluation Bed Mobility Rolling IND Supine to and from Sit IND Transfers Sit to Stand IND with UE assist OP Gait Assessment Gait Gait Assistance Required: Independent Distance (Feet) 150 Assistive Devices Assistive Device Gait Belt,Axillary Crutches Orthotic/Prosthetic Devices or Brace: Yes Gait Deviations General Gait Pattern Antalgic,Flexed Trunk Factors Limiting Gait Function Factors Limiting Gait Function Decreased Activity Tolerance, Decreased Strength,Limited Range of Motion,Pain PT-OP-J Posture/Palpation/Skin Start: 12/18/24 07:27 Freq: Status: Active Protocol: Document 12/18/24 07:28 NM (Rec: 12/18/24 09:22 NM [id number]) Posture Evaluation Position Standing Head/C-Spine Posture Forward Head L-Spine Posture Increased Lordosis Pelvis Posture Anteriorly Tilted Weight Distribution Weight Shifted Right Comments Posture Comments Demos slight forward trunk posturing Palpation Assessment Location L hip Palpation Details Minimal tenderness along glute max muscle belly and glute medius/minimus None along incision Minimal low back tenderness but tightness present Skin Assessment Incisional Assessment Incision Appearance/Comments Incision intact, no tenderness , no redness or signs of infection PT-OP-K Range of Motion Start: 12/18/24 07:27 Freq: Status: Active Protocol: Document 01/21/25 12:59 NM (Rec: 01/21/25 13:50 NM [id number]) Hip Goniometric Range of Motion Hip Left Flexion w/Knee Flexed 115 Extension 8 Abduction 30 Internal Rotation 40 External Rotation 25 Right Flexion w/Knee Flexed 110 Abduction 25 Internal Rotation 25 External Rotation 32 PT-OP-M Strength Start: 12/18/24 07:27 Freq: Status: Active Protocol: Document 01/21/25 12:59 NM (Rec: 01/21/25 13:50 NM [id number]) Hip Strength Hip Manual Muscle Testing Right Flexion (L2) 4 Good Extension (S1) 4 Good Abduction 4 Good Adduction 4 Good External Rotation 4 Good Internal Rotation 4 Good Left Flexion (L2) 4 Good Extension (S1) 4- Good- Abduction 4- Good- Adduction 4 Good External Rotation 4 Good Internal Rotation 4 Good PT-OP-Q Treatments Start: 12/18/24 07:27 Freq: Status: Active Protocol: Document 01/21/25 12:59 NM (Rec: 01/21/25 13:50 NM [id number]) Therapeutic Exercises Supine Exercises bridge Supine Exercise Name single leg bridge (HEP review) Side bilateral Equipment Used self transfer to floor via lunge and 1/2 kneel c/ UE assist chair/plinth Reps/Minutes 10 Comments cued level pelvis, no pain but challenging, weaker L side Prone Exercises plank Prone Exercise Name modified plank on mat (UE extension) Equipment Used mat on floor Reps/Minutes 3x10 holds Comments no pain; challenging, does not bother low back Standing Exercises lateral stepping Standing Exercise Name HEP Side bilateral Resistance level 1 band thighs Equipment Used partial squat position, near bar but did not use UE support Reps/Minutes 2x10 ft ea Comments no pain; crepitus in knees lunge Standing Exercise Name fwd HEP review Side bilateral Equipment Used prn 1 UE support balance only Reps/Minutes 10 Comments no lateral lunge d/t knee pain ; improved ROM, no pain in hip /back step ups Standing Exercise Name 1. step up fwd/step down, 2. stairs Side bilateral Resistance 6 step Reps/Minutes 1. 10 ea, 2. 4 steps (no UE assist, reciprocal) Comments hip drop c/ stairs descent but not pain in glute, feels in R knee Other Exercises 6 MWT Other Exercise Name no AD, no brace Reps/Minutes 1442 ft Comments minimal deviations as fatigues ; no glute pain or lateral ITB pain Neuro Re-Education Treatment Balance Activities SLS Comments 8 ea, demos R hip drop on LLE with fatigue but no pain, better pelvic stability overall Self-Care/Home Management Treatment Education Patient Education Joint Protection,Pain Management Other Education Educated on strengthening 3x/ wk (HEP states MWF but pt can perform any 3 days not subsequently) and ambulation/ pool/bike 5x/wk per protocol PT-OP-T Assessment and Plan Start: 12/18/24 07:27 Freq: Status: Active Protocol: Document 01/21/25 12:59 NM (Rec: 01/21/25 13:50 NM [id number]) Physical Therapy Assessment Goals Four Impairment SLS time 5 sec LLE indicating weakness; L hip strength impaired Impairment ... Short Term Goal (STG) Pt will be able to stand on LLE at least 10 sec without L hip pain or compensation to demonstrate functional L glute medius strength for gait/ stance 01/21/25: 8 ea leg, demos hip drop on contralateral side with fatigue STG Duration 02/12/25 PROGRESSING 01/21 Administrative Supervisor Goal (LTG) Pt will increase L hip strength globally to at least 4+/5 MMT in order to demonstrate improved strength for ADLs/IADLs and return to recreational activities including hiking and ambulation 01/21/25: progressing 01/21: 4-/5 to 4/5 MMT L hip LTG Duration 03/15/25 Three Impairment 6 MWT distance 823 ft w/ B crutches, brace Impairment ... Short Term Goal (STG) Pt will ambulate with minimal gait deviations without brace and without LRAD if appropriate at least 500 ft for community distances in order to return to PLOF 01/07/25: pt ambulating without brace and with spc for balance for community distances 01/21/25: pt able to ambulate without AD, minimal gait deviations STG Duration 01/29/25 MET Administrative Supervisor Goal (LTG) Pt will ambulate at least 1500 ft (75% age-gender norm) during 6 MWT without LRAD or brace and no L hip pain in order to return to ambulation program 01/21/25: 1442 ft no brace, no AD, minimal gait deviations, no pain LTG Duration 03/15/25 PROGRESSING 01/21 Two Impairment not performing HEP; LEFS 32/80 indicating ADL/IADL impairment Impairment ... Short Term Goal (STG) Pt will be IND with HEP to maximize progression with PT and transition to maintenance upon discharge 01/07/25: pt compliant with HEP STG Duration 01/29/25 MET Administrative Supervisor Goal (LTG) Pt will report that she is not limited in standing time due to L hip pain in order to be able to cook meals 01/21/25: no standing limitations due to her L hip, only limited due to her back pain LTG Duration 03/15/25 MET 01/21 One Impairment L hip ROM limited Impairment ... Short Term Goal (STG) Pt will have symmetrical ROM within at least 3 deg in B hips with pain <3/10 L hip 01/21/25: no pain; L and R hips comparable ROM, limited into ER and IR, still restricted with full ext ROM STG Duration 01/15/25 MET 3/3 Progress Towards Goals Progress Towards Goals Progressing Toward Goals,Slow Progress due to Activity Tolerance,Slow Progress due to Attendance Issues,Goals Met Assessment Summary Assessment Pt tolerated session well; decreased time due to . Reports no glute or lateral hip pain with exercises. Able to transfer to floor with UE assist and close SBA by PT in order to perform single leg bridges; needs cueing for level pelvis but better form on mat vs plinth. L glutes still weaker than RLE. One instance of sharp SIJ pain while in position for single leg bridge, but lasts <1 second and does not recur. Trialed progression to stairs and side steps with squat position. Limited by R knee pain, no glute pain; good form with minimal cues needed. Education provided on how frequently to perform strengthening, in addition to ambulation/pool in order to avoid overuse of glute. Physical Therapy Plan Frequency and Duration Frequency of Treatment 2x/Week Duration of treatment (weeks) 12 Plan of Care Start Date 12/18/24 Plan of Care End Date 03/15/25 Therapeutic Interventions Therapeutic Interventions Aquatic Therapy,Balance Training,Gait Training,Home Exercise Program,Joint Mobilizations,Manual Therapy, Neuromuscular Re-education, Orthotic/Prosthetic Management ,Patient/Caregiver Education, Self-Care/Home Management, Sensory Integration,Soft Tissue Mobilization,Taping, Therapeutic Activities, Therapeutic Exercises Modalities Cold Pack/Ice Massage,Electric Stimulation,Hot Packs, Ultrasound Other Therapeutic Interventions TrP treatment Next Visit Focus/Plan Next Note Type Treatment Note Next Visit Plan appt 01/24 with MD- ask about visit. Progress per protocol in chart. Progress leg press uni squat vs B squat. Trial 8 step up, 4-6 lateral step up vs lateral lunge due to knee pain . Can add resistance to single leg bridge and lunges/step up . Trial side planks and progress prone planks. Cont with functional mobility: stairs, back to hiking (amb on stable/unstable surface) and proprioception/single leg balance May need to assess SIJ if pain continues. Trial elliptical. cont proprioception- progress to foam, ball toss, etc Cont with glute strengthening: recheck prone hip ext, bridge progression, partial squat > squat progression> leg press. Hip abd with IR, SLS, proprioception. Gait training: w/o AD
--- NOTE | 2025-02-12 16:00 | PT.OTN ---
Current Diagnoses Pain in left hip (02/12/25) Stiffness of left hip, not elsewhere classified (02/12/25) Trochanteric bursitis, left hip (02/12/25) Unsteadiness on feet (02/12/25) Other abnormalities of gait and mobility (02/12/25) Weakness (02/12/25) Strain of muscle, fascia and tendon of unspecified hip, sequela (02/12/25) Physical Therapy Treatment Note PT-OP-A Visit Information Start: 12/18/24 07:27 Freq: Status: Active Protocol: Document 02/12/25 13:50 [facility] (Rec: 02/13/25 12:45 [facility] [id number]) Out-Patient Physical Therapy Visit Information Visit Information Visit Type Treatment Note Visit Start Time 13:50 Visit Stop Time 14:30 Visit Number 07/05 PT-OP-B Current Condition Start: 12/18/24 07:27 Freq: Status: Active Protocol: Document 12/18/24 07:28 NM (Rec: 12/18/24 08:18 NM [id number]) Current Condition History of Current Condition Onset Date DOS 11/02/24 History of Current Condition Pt had L glute med repaired. Pt had surgery 11/02, currently 6 weeks 4 days post- op. Does not have to wear brace when out in community; can begin to wean off use of brace. Currently WBAT with crutches, to wean off beginning 6 weeks. No pain currently, no complications following surgery. Has follow up with surgeon last , all going well, no changes. She reports that her L calf is tender, increased since weight bearing; also had Cammie procedure previously on that leg. 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 No numbness/tingling into LLE unless standing for long periods. Home modified to live on main level, office 2nd level. Ok to walk in pool, bike per MD. Reports sensitive extreme cold in her L foot following surgery, but not numbness/tingling or temperature changes. Did not perform HEP provided post-op ( PROM), also reports not remaining passive ROM prior to last appt with surgeon. 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 Walking feels good but if she stands still it irritates her. PT-OP-E Functional Tests Start: 12/18/24 07:27 Freq: Status: Active Protocol: Document 12/18/24 07:28 NM (Rec: 12/18/24 09:22 NM [id number]) Functional Tests 6 Minute Walk Test Distance 823 ft Device Used 2 axillary crutches Comments no glute pain but has L sided LBP Other Single leg stance Score 5 sec L, 8 sec R Comment maintains L level hips; no brace PT-OP-F Manual Assessment Start: 12/18/24 07:27 Freq: Status: Active Protocol: Document 12/18/24 07:28 NM (Rec: 12/18/24 09:22 NM [id number]) Manual Assessments Soft Tissue Assessment Soft Tissue Mobility Assessment Restrictions of L hip flexors Joint Mobility Assessment Joint Mobility Assessment Decreased hip extension ROM actively, no joint pain passively PT-OP-G Mobility & Gait Start: 12/18/24 07:27 Freq: Status: Active Protocol: Document 12/18/24 07:28 NM (Rec: 12/18/24 08:18 NM [id number]) OP Mobility Evaluation Bed Mobility Rolling IND Supine to and from Sit IND Transfers Sit to Stand IND with UE assist OP Gait Assessment Gait Gait Assistance Required: Independent Distance (Feet) 150 Assistive Devices Assistive Device Gait Belt,Axillary Crutches Orthotic/Prosthetic Devices or Brace: Yes Gait Deviations General Gait Pattern Antalgic,Flexed Trunk Factors Limiting Gait Function Factors Limiting Gait Function Decreased Activity Tolerance, Decreased Strength,Limited Range of Motion,Pain PT-OP-J Posture/Palpation/Skin Start: 12/18/24 07:27 Freq: Status: Active Protocol: Document 12/18/24 07:28 NM (Rec: 12/18/24 09:22 NM [id number]) Posture Evaluation Position Standing Head/C-Spine Posture Forward Head L-Spine Posture Increased Lordosis Pelvis Posture Anteriorly Tilted Weight Distribution Weight Shifted Right Comments Posture Comments Demos slight forward trunk posturing Palpation Assessment Location L hip Palpation Details Minimal tenderness along glute max muscle belly and glute medius/minimus None along incision Minimal low back tenderness but tightness present Skin Assessment Incisional Assessment Incision Appearance/Comments Incision intact, no tenderness , no redness or signs of infection PT-OP-K Range of Motion Start: 12/18/24 07:27 Freq: Status: Active Protocol: Document 01/21/25 12:59 NM (Rec: 01/21/25 13:50 NM [id number]) Hip Goniometric Range of Motion Hip Left Flexion w/Knee Flexed 115 Extension 8 Abduction 30 Internal Rotation 40 External Rotation 25 Right Flexion w/Knee Flexed 110 Abduction 25 Internal Rotation 25 External Rotation 32 PT-OP-M Strength Start: 12/18/24 07:27 Freq: Status: Active Protocol: Document 01/21/25 12:59 NM (Rec: 01/21/25 13:50 NM [id number]) Hip Strength Hip Manual Muscle Testing Right Flexion (L2) 4 Good Extension (S1) 4 Good Abduction 4 Good Adduction 4 Good External Rotation 4 Good Internal Rotation 4 Good Left Flexion (L2) 4 Good Extension (S1) 4- Good- Abduction 4- Good- Adduction 4 Good External Rotation 4 Good Internal Rotation 4 Good PT-OP-Q Treatments Start: 12/18/24 07:27 Freq: Status: Active Protocol: Document 02/12/25 13:36 [facility] (Rec: 02/12/25 14:34 [facility] [id number]) Therapeutic Exercises Supine Exercises iliopsoas stretch Reps/Minutes hold 1 min pete test positions single knee to chest Reps/Minutes ld 1 min Other Exercises prone knee flexion Reps/Minutes hold 1 min Self-Care/Home Management Treatment Education Patient Education Home Exercise Program Other Education pt was educated on home stretching program and given handouts as well as a theraband for quad stretch in prone, she was educated on core stabilzation with her exercises as a way to protect her SI joint PT-OP-T Assessment and Plan Start: 12/18/24 07:27 Freq: Status: Active Protocol: Document 02/12/25 13:50 [facility] (Rec: 02/13/25 12:45 [facility] [id number]) Physical Therapy Assessment Assessment Summary Assessment Donnie reports she is feeling much better with her hip and is cleared for all activity now. She reports her Left side low back and SI joint has been bothering her so today we focused on core stabilization with her hip exercises and added in stretches for her hips which she tolerated well. She is tight on the left side for her quad, iliopsoas, and hip flexion Physical Therapy Plan Frequency and Duration Frequency of Treatment 2x/Week Duration of treatment (weeks) 12 Plan of Care Start Date 12/18/24 Plan of Care End Date 03/15/25 Therapeutic Interventions Therapeutic Interventions Aquatic Therapy,Balance Training,Gait Training,Home Exercise Program,Joint Mobilizations,Manual Therapy, Neuromuscular Re-education, Orthotic/Prosthetic Management ,Patient/Caregiver Education, Self-Care/Home Management, Sensory Integration,Soft Tissue Mobilization,Taping, Therapeutic Activities, Therapeutic Exercises Modalities Cold Pack/Ice Massage,Electric Stimulation,Hot Packs, Ultrasound Other Therapeutic Interventions TrP treatment Next Visit Focus/Plan Next Note Type Treatment Note Next Visit Plan continue to progress strengthening as donnie is cleared for all activity, core stability exercises and hip stretches
--- NOTE | 2025-02-19 14:30 | PT.OTN ---
Current Diagnoses Pain in left hip (02/19/25) Stiffness of left hip, not elsewhere classified (02/19/25) Trochanteric bursitis, left hip (02/19/25) Unsteadiness on feet (02/19/25) Other abnormalities of gait and mobility (02/19/25) Weakness (02/19/25) Strain of muscle, fascia and tendon of unspecified hip, sequela (02/19/25) Physical Therapy Treatment Note PT-OP-A Visit Information Start: 12/18/24 07:27 Freq: Status: Active Protocol: Document 02/19/25 13:44 SP (Rec: 02/19/25 14:38 SP [id number]) Out-Patient Physical Therapy Visit Information Visit Information Visit Type Treatment Note Visit Start Time 13:45 Visit Stop Time 14:30 Visit Number 08/05 (12/31 with PN) Number of ORNAMENTAL IRONWORKER HELPER Visits 1 Evaluation Information Evaluation Date 12/18/24 Precautions Precautions Glute medius repair 11/02/24; brace x6 weeks, WBAT with wean crutches 2>1>0 after 6 weeks PT-OP-B Current Condition Start: 12/18/24 07:27 Freq: Status: Active Protocol: Document 12/18/24 07:28 NM (Rec: 12/18/24 08:18 NM [id number]) Current Condition History of Current Condition Onset Date DOS 11/02/24 History of Current Condition Pt had L glute med repaired. Pt had surgery 11/02, currently 6 weeks 4 days post- op. Does not have to wear brace when out in community; can begin to wean off use of brace. Currently WBAT with crutches, to wean off beginning 6 weeks. No pain currently, no complications following surgery. Has follow up with surgeon last , all going well, no changes. She reports that her L calf is tender, increased since weight bearing; also had Cammie procedure previously on that leg. 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 No numbness/tingling into LLE unless standing for long periods. Home modified to live on main level, office 2nd level. Ok to walk in pool, bike per MD. Reports sensitive extreme cold in her L foot following surgery, but not numbness/tingling or temperature changes. Did not perform HEP provided post-op ( PROM), also reports not remaining passive ROM prior to last appt with surgeon. 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 She has been walking 2 miles level surfaces daily and has helped with recovery. PT-OP-E Functional Tests Start: 12/18/24 07:27 Freq: Status: Active Protocol: Document 12/18/24 07:28 NM (Rec: 12/18/24 09:22 NM [id number]) Functional Tests 6 Minute Walk Test Distance 823 ft Device Used 2 axillary crutches Comments no glute pain but has L sided LBP Other Single leg stance Score 5 sec L, 8 sec R Comment maintains L level hips; no brace PT-OP-F Manual Assessment Start: 12/18/24 07:27 Freq: Status: Active Protocol: Document 12/18/24 07:28 NM (Rec: 12/18/24 09:22 NM [id number]) Manual Assessments Soft Tissue Assessment Soft Tissue Mobility Assessment Restrictions of L hip flexors Joint Mobility Assessment Joint Mobility Assessment Decreased hip extension ROM actively, no joint pain passively PT-OP-G Mobility & Gait Start: 12/18/24 07:27 Freq: Status: Active Protocol: Document 12/18/24 07:28 NM (Rec: 12/18/24 08:18 NM [id number]) OP Mobility Evaluation Bed Mobility Rolling IND Supine to and from Sit IND Transfers Sit to Stand IND with UE assist OP Gait Assessment Gait Gait Assistance Required: Independent Distance (Feet) 150 Assistive Devices Assistive Device Gait Belt,Axillary Crutches Orthotic/Prosthetic Devices or Brace: Yes Gait Deviations General Gait Pattern Antalgic,Flexed Trunk Factors Limiting Gait Function Factors Limiting Gait Function Decreased Activity Tolerance, Decreased Strength,Limited Range of Motion,Pain PT-OP-J Posture/Palpation/Skin Start: 12/18/24 07:27 Freq: Status: Active Protocol: Document 12/18/24 07:28 NM (Rec: 12/18/24 09:22 NM [id number]) Posture Evaluation Position Standing Head/C-Spine Posture Forward Head L-Spine Posture Increased Lordosis Pelvis Posture Anteriorly Tilted Weight Distribution Weight Shifted Right Comments Posture Comments Demos slight forward trunk posturing Palpation Assessment Location L hip Palpation Details Minimal tenderness along glute max muscle belly and glute medius/minimus None along incision Minimal low back tenderness but tightness present Skin Assessment Incisional Assessment Incision Appearance/Comments Incision intact, no tenderness , no redness or signs of infection PT-OP-K Range of Motion Start: 12/18/24 07:27 Freq: Status: Active Protocol: Document 01/21/25 12:59 NM (Rec: 01/21/25 13:50 NM [id number]) Hip Goniometric Range of Motion Hip Left Flexion w/Knee Flexed 115 Extension 8 Abduction 30 Internal Rotation 40 External Rotation 25 Right Flexion w/Knee Flexed 110 Abduction 25 Internal Rotation 25 External Rotation 32 PT-OP-M Strength Start: 12/18/24 07:27 Freq: Status: Active Protocol: Document 01/21/25 12:59 NM (Rec: 01/21/25 13:50 NM [id number]) Hip Strength Hip Manual Muscle Testing Right Flexion (L2) 4 Good Extension (S1) 4 Good Abduction 4 Good Adduction 4 Good External Rotation 4 Good Internal Rotation 4 Good Left Flexion (L2) 4 Good Extension (S1) 4- Good- Abduction 4- Good- Adduction 4 Good External Rotation 4 Good Internal Rotation 4 Good PT-OP-Q Treatments Start: 12/18/24 07:27 Freq: Status: Active Protocol: Document 02/19/25 13:44 SP (Rec: 02/19/25 14:38 SP [id number]) Cardio Equipment Bicycle (Upright) Duration (Minutes) 4 Resistance 5 Seat Position 5 Other 69 RPMs comfortable pacing Therapeutic Exercises Supine Exercises Piriformis Stretch DL elevated Supine Exercise Name verbal review Comments reports very hard TA fall out Supine Exercise Name HEP Side bilateral Resistance AROM> TB #1 at thighs Reps/Minutes 10 reps Comments cued slower pacing level pelvis iliopsoas stretch Reps/Minutes hold 1 min pete test positions single knee to chest Supine Exercise Name Reviewed Side bilateral Resistance L tighter than R Reps/Minutes 1 min Comments Cued BUE support not over pressure, gentle stretch bridge Supine Exercise Name TA segmental bridge Side bilateral Equipment Used ball between knees gentle pressure Reps/Minutes 12 Comments cued level pelvis, no pain, good form today better no hitch in neyda up Sidelying Exercises Clamshell Sidelying Exercise Name Trialed, add to HEP next tx Side bilateral Resistance AROM Equipment Used pillow between knees Reps/Minutes 10 each Comments Cued TA, ankle DF neutral, better range strength with pillow Hip Abduction Sidelying Exercise Name trialed, add to HEP next tx Side bilateral Resistance AROM Equipment Used pillow between knees Reps/Minutes 10 reps Comments cued stacked on side top arm on table TA draw in, ankle DF neutral Sitting Exercises hip ER stretch Sitting Exercise Name FIg 4- Side bilateral Equipment Used ankle over opp knee Reps/Minutes 30 SH Comments cued AROM first then can add gentle streatch Standing Exercises step ups Standing Exercise Name lateral step down- readded to HEP Side bilateral Resistance 6 step Equipment Used rail support Reps/Minutes 10 reps Comments cued knee alignment PT-OP-T Assessment and Plan Start: 12/18/24 07:27 Freq: Status: Active Protocol: Document 02/19/25 13:44 SP (Rec: 02/19/25 14:38 SP [id number]) Physical Therapy Assessment Goals Four Impairment SLS time 5 sec LLE indicating weakness; L hip strength impaired Impairment ... Short Term Goal (STG) Pt will be able to stand on LLE at least 10 sec without L hip pain or compensation to demonstrate functional L glute medius strength for gait/ stance 01/21/25: 8 ea leg, demos hip drop on contralateral side with fatigue STG Duration 02/12/25 PROGRESSING 01/21 Candy Maker Helper Goal (LTG) Pt will increase L hip strength globally to at least 4+/5 MMT in order to demonstrate improved strength for ADLs/IADLs and return to recreational activities including hiking and ambulation 01/21/25: progressing 01/21: 4-/5 to 4/5 MMT L hip LTG Duration 03/15/25 Three Impairment 6 MWT distance 823 ft w/ B crutches, brace Impairment ... Short Term Goal (STG) Pt will ambulate with minimal gait deviations without brace and without LRAD if appropriate at least 500 ft for community distances in order to return to PLOF 01/07/25: pt ambulating without brace and with spc for balance for community distances 01/21/25: pt able to ambulate without AD, minimal gait deviations STG Duration 01/29/25 MET Custodial Goal (LTG) Pt will ambulate at least 1500 ft (75% age-gender norm) during 6 MWT without LRAD or brace and no L hip pain in order to return to ambulation program 01/21/25: 1442 ft no brace, no AD, minimal gait deviations, no pain LTG Duration 03/15/25 PROGRESSING 01/21 Two Impairment not performing HEP; LEFS 32/80 indicating ADL/IADL impairment Impairment ... Short Term Goal (STG) Pt will be IND with HEP to maximize progression with PT and transition to maintenance upon discharge 01/07/25: pt compliant with HEP STG Duration 01/29/25 MET Candy Maker Helper Goal (LTG) Pt will report that she is not limited in standing time due to L hip pain in order to be able to cook meals 01/21/25: no standing limitations due to her L hip, only limited due to her back pain LTG Duration 03/15/25 MET 3/3 One Impairment L hip ROM limited Impairment ... Short Term Goal (STG) Pt will have symmetrical ROM within at least 3 deg in B hips with pain <3/10 L hip 01/21/25: no pain; L and R hips comparable ROM, limited into ER and IR, still restricted with full ext ROM STG Duration 01/15/25 MET 3/3 Assessment Summary Assessment Pt arrives without HOs, No PT copies to refer to, discussed bring with her next tx to make copies for EMR. Modified hip abd and clamshell with pillow between BLEs due to challenge lifting, improved range with pillow. Added ball btwn for glut drive support and segmental mobility for better TA and spinal support no pain. Good tolerance to added TB during KFO for progress hip strengthening and TA. Reintroduced lateral step ups for hip strengthening wtih no pain and improvement less momentum and UE support. Physical Therapy Plan Frequency and Duration Frequency of Treatment 2x/Week Duration of treatment (weeks) 12 Plan of Care Start Date 12/18/24 Plan of Care End Date 03/15/25 Therapeutic Interventions Therapeutic Interventions Aquatic Therapy,Balance Training,Gait Training,Home Exercise Program,Joint Mobilizations,Manual Therapy, Neuromuscular Re-education, Orthotic/Prosthetic Management ,Patient/Caregiver Education, Self-Care/Home Management, Sensory Integration,Soft Tissue Mobilization,Taping, Therapeutic Activities, Therapeutic Exercises Modalities Cold Pack/Ice Massage,Electric Stimulation,Hot Packs, Ultrasound Other Therapeutic Interventions TrP treatment Next Visit Focus/Plan Next Note Type Treatment Note Next Visit Plan Recheck lateral step up, nino added modifications. POC: continue to progress strengthening as richard is cleared for all activity, core stability exercises and hip stretches
--- NOTE | 2025-02-27 14:29 | PT.OTN ---
Current Diagnoses Pain in left hip (02/27/25) Stiffness of left hip, not elsewhere classified (02/27/25) Trochanteric bursitis, left hip (02/27/25) Unsteadiness on feet (02/27/25) Other abnormalities of gait and mobility (02/27/25) Weakness (02/27/25) Strain of muscle, fascia and tendon of unspecified hip, sequela (02/27/25) Physical Therapy Treatment Note PT-OP-A Visit Information Start: 12/18/24 07:27 Freq: Status: Active Protocol: Document 02/27/25 13:49 SP (Rec: 02/27/25 14:33 SP Laptop) Out-Patient Physical Therapy Visit Information Visit Information Visit Type Treatment Note Visit Start Time 13:49 Visit Stop Time 14:29 Visit Number 09/04 (01/28 with PN) Number of TECH BRAZER TESTER Visits 2 Evaluation Information Evaluation Date 12/18/24 Precautions Precautions Glute medius repair 11/02/24; brace x6 weeks, WBAT with wean crutches 2>1>0 after 6 weeks PT-OP-B Current Condition Start: 12/18/24 07:27 Freq: Status: Active Protocol: Document 12/18/24 07:28 NM (Rec: 12/18/24 08:18 NM [id number]) Current Condition History of Current Condition Onset Date DOS 11/02/24 History of Current Condition Pt had L glute med repaired. Pt had surgery 11/02, currently 6 weeks 4 days post- op. Does not have to wear brace when out in community; can begin to wean off use of brace. Currently WBAT with crutches, to wean off beginning 6 weeks. No pain currently, no complications following surgery. Has follow up with surgeon last , all going well, no changes. She reports that her L calf is tender, increased since weight bearing; also had Cammie procedure previously on that leg. 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 No numbness/tingling into LLE unless standing for long periods. Home modified to live on main level, office 2nd level. Ok to walk in pool, bike per MD. Reports sensitive extreme cold in her L foot following surgery, but not numbness/tingling or temperature changes. Did not perform HEP provided post-op ( PROM), also reports not remaining passive ROM prior to last appt with surgeon. 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 She is able to walk 2.25 miles with only 3 brief stop stand rests. PT-OP-E Functional Tests Start: 12/18/24 07:27 Freq: Status: Active Protocol: Document 12/18/24 07:28 NM (Rec: 12/18/24 09:22 NM [id number]) Functional Tests 6 Minute Walk Test Distance 823 ft Device Used 2 axillary crutches Comments no glute pain but has L sided LBP Other Single leg stance Score 5 sec L, 8 sec R Comment maintains L level hips; no brace PT-OP-F Manual Assessment Start: 12/18/24 07:27 Freq: Status: Active Protocol: Document 12/18/24 07:28 NM (Rec: 12/18/24 09:22 NM [id number]) Manual Assessments Soft Tissue Assessment Soft Tissue Mobility Assessment Restrictions of L hip flexors Joint Mobility Assessment Joint Mobility Assessment Decreased hip extension ROM actively, no joint pain passively PT-OP-G Mobility & Gait Start: 12/18/24 07:27 Freq: Status: Active Protocol: Document 12/18/24 07:28 NM (Rec: 12/18/24 08:18 NM [id number]) OP Mobility Evaluation Bed Mobility Rolling IND Supine to and from Sit IND Transfers Sit to Stand IND with UE assist OP Gait Assessment Gait Gait Assistance Required: Independent Distance (Feet) 150 Assistive Devices Assistive Device Gait Belt,Axillary Crutches Orthotic/Prosthetic Devices or Brace: Yes Gait Deviations General Gait Pattern Antalgic,Flexed Trunk Factors Limiting Gait Function Factors Limiting Gait Function Decreased Activity Tolerance, Decreased Strength,Limited Range of Motion,Pain PT-OP-J Posture/Palpation/Skin Start: 12/18/24 07:27 Freq: Status: Active Protocol: Document 12/18/24 07:28 NM (Rec: 12/18/24 09:22 NM [id number]) Posture Evaluation Position Standing Head/C-Spine Posture Forward Head L-Spine Posture Increased Lordosis Pelvis Posture Anteriorly Tilted Weight Distribution Weight Shifted Right Comments Posture Comments Demos slight forward trunk posturing Palpation Assessment Location L hip Palpation Details Minimal tenderness along glute max muscle belly and glute medius/minimus None along incision Minimal low back tenderness but tightness present Skin Assessment Incisional Assessment Incision Appearance/Comments Incision intact, no tenderness , no redness or signs of infection PT-OP-K Range of Motion Start: 12/18/24 07:27 Freq: Status: Active Protocol: Document 01/21/25 12:59 NM (Rec: 01/21/25 13:50 NM [id number]) Hip Goniometric Range of Motion Hip Left Flexion w/Knee Flexed 115 Extension 8 Abduction 30 Internal Rotation 40 External Rotation 25 Right Flexion w/Knee Flexed 110 Abduction 25 Internal Rotation 25 External Rotation 32 PT-OP-M Strength Start: 12/18/24 07:27 Freq: Status: Active Protocol: Document 01/21/25 12:59 NM (Rec: 01/21/25 13:50 NM [id number]) Hip Strength Hip Manual Muscle Testing Right Flexion (L2) 4 Good Extension (S1) 4 Good Abduction 4 Good Adduction 4 Good External Rotation 4 Good Internal Rotation 4 Good Left Flexion (L2) 4 Good Extension (S1) 4- Good- Abduction 4- Good- Adduction 4 Good External Rotation 4 Good Internal Rotation 4 Good PT-OP-Q Treatments Start: 12/18/24 07:27 Freq: Status: Active Protocol: Document 02/27/25 13:49 SP (Rec: 02/27/25 14:33 SP Laptop) Cardio Equipment Bicycle (Upright) Duration (Minutes) 4 Resistance 5 Seat Position 5 Other 69 RPMs comfortable pacing Therapeutic Exercises Supine Exercises bridge Supine Exercise Name TA segmental bridge Side bilateral Reps/Minutes 5 SH x5 - good challenge Comments no pain, good form today better no hitch in neyda up Prone Exercises quad stretch Prone Exercise Name verbal review Equipment Used use strap Sidelying Exercises Clamshell Sidelying Exercise Name add to HEP with HO Side bilateral Resistance AROM> TB #1 Equipment Used no pillow needed Reps/Minutes 10 each Comments improved alignment on side Hip Abduction Sidelying Exercise Name add to HEP with HO Side bilateral Resistance AROM Equipment Used no pillow needed Reps/Minutes 10 reps Comments improved stacked on side Standing Exercises lateral stepping Standing Exercise Name verbal review continue as HEP lunge Standing Exercise Name fwd (hold lateral due to knee and SI discomfort) Side bilateral Resistance rail if needed. Equipment Used foot on/off 1st step, alternate fwd Reps/Minutes 10 each LE Comments cued slow, painfree range with good stability step ups Standing Exercise Name lateral step down- readded to HEP Side bilateral Resistance 6 step Equipment Used rail support Reps/Minutes 10 reps Comments cued knee alignment Gait Training Gait Activity 6MWT Description MET goal >1500 ft Device Used none Comments 01/21 1442 ft 02/27/25: 1682 ft- slight PT-OP-T Assessment and Plan Start: 12/18/24 07:27 Freq: Status: Active Protocol: Document 02/27/25 13:49 SP (Rec: 02/27/25 14:33 SP Laptop) Physical Therapy Assessment Goals Four Impairment SLS time 5 sec LLE indicating weakness; L hip strength impaired Impairment ... Short Term Goal (STG) Pt will be able to stand on LLE at least 10 sec without L hip pain or compensation to demonstrate functional L glute medius strength for gait/ stance 01/21/25: 8 ea leg, demos hip drop on contralateral side with fatigue STG Duration 02/12/25 PROGRESSING 01/21 Correction Goal (LTG) Pt will increase L hip strength globally to at least 4+/5 MMT in order to demonstrate improved strength for ADLs/IADLs and return to recreational activities including hiking and ambulation 01/21/25: progressing 01/21: 4-/5 to 4/5 MMT L hip LTG Duration 03/15/25 Three Impairment 6 MWT distance 823 ft w/ B crutches, brace Impairment ... Short Term Goal (STG) Pt will ambulate with minimal gait deviations without brace and without LRAD if appropriate at least 500 ft for community distances in order to return to PLOF 01/07/25: pt ambulating without brace and with spc for balance for community distances 01/21/25: pt able to ambulate without AD, minimal gait deviations STG Duration 01/29/25 MET Correction Goal (LTG) Pt will ambulate at least 1500 ft (75% age-gender norm) during 6 MWT without LRAD or brace and no L hip pain in order to return to ambulation program 01/21/25: 1442 ft no brace, no AD, minimal gait deviations, no pain 02/27/25: is able to walk 2.25 miles with 3 stop stand brief rests. Completed 1682 ft in 6 Min, only 1 brief L SI twinge LTG Duration 03/15/25 GOAL MET 02/27/25 Two Impairment not performing HEP; LEFS 32/80 indicating ADL/IADL impairment Impairment ... Short Term Goal (STG) Pt will be IND with HEP to maximize progression with PT and transition to maintenance upon discharge 01/07/25: pt compliant with HEP STG Duration 01/29/25 MET Rotating Equipment Specialist Goal (LTG) Pt will report that she is not limited in standing time due to L hip pain in order to be able to cook meals 01/21/25: no standing limitations due to her L hip, only limited due to her back pain LTG Duration 03/15/25 MET 3/3 One Impairment L hip ROM limited Impairment ... Short Term Goal (STG) Pt will have symmetrical ROM within at least 3 deg in B hips with pain <3/10 L hip 01/21/25: no pain; L and R hips comparable ROM, limited into ER and IR, still restricted with full ext ROM STG Duration 01/15/25 MET 3/3 Assessment Summary Assessment Pt responded well to condensed HEP to more resistance sidelying and standing weight bearing with good response and tolerance. She is doing well with walking and MET many goals. Would benefit from progressive dynamic balance activities and uneven surface to return to trail walking. Physical Therapy Plan Frequency and Duration Frequency of Treatment 2x/Week Duration of treatment (weeks) 12 Plan of Care Start Date 12/18/24 Plan of Care End Date 03/15/25 Therapeutic Interventions Therapeutic Interventions Aquatic Therapy,Balance Training,Gait Training,Home Exercise Program,Joint Mobilizations,Manual Therapy, Neuromuscular Re-education, Orthotic/Prosthetic Management ,Patient/Caregiver Education, Self-Care/Home Management, Sensory Integration,Soft Tissue Mobilization,Taping, Therapeutic Activities, Therapeutic Exercises Modalities Cold Pack/Ice Massage,Electric Stimulation,Hot Packs, Ultrasound Other Therapeutic Interventions TrP treatment Next Visit Focus/Plan Next Note Type Treatment Note Next Visit Plan Recheck lateral lunges. Progress uneven surface and SLS activities. Is making progress with GOALs. POC: continue to progress strengthening as richard is cleared for all activity, core stability exercises and hip stretches
--- NOTE | 2025-03-05 11:03 | PT-OP ANOTE ---
pt did not show for her appt and I called her to check in. She states she thought her appt was at 1:45. I did offer her a 11:30 as I had a opening but she was not able to make it that early with work. I confirmed her next appt on 03/28/25 at 1:45
--- NOTE | 2025-03-28 16:34 | PT.OTN ---
Current Diagnoses Pain in left hip (03/28/25) Stiffness of left hip, not elsewhere classified (03/28/25) Trochanteric bursitis, left hip (03/28/25) Unsteadiness on feet (03/28/25) Other abnormalities of gait and mobility (03/28/25) Weakness (03/28/25) Strain of muscle, fascia and tendon of unspecified hip, sequela (03/28/25) Physical Therapy Treatment Note PT-OP-A Visit Information Start: 12/18/24 07:27 Freq: Status: Active Protocol: Document 03/28/25 13:54 [facility] (Rec: 03/28/25 14:30 [facility] [id number]) Out-Patient Physical Therapy Visit Information Visit Information Visit Type Treatment Note Visit Note pt 10 min late for appt Visit Start Time 13:55 Visit Stop Time 14:30 Visit Number 11 Number of FILM WASHER Visits 0 PT-OP-B Current Condition Start: 12/18/24 07:27 Freq: Status: Active Protocol: Document 12/18/24 07:28 NM (Rec: 12/18/24 08:18 NM [id number]) Current Condition History of Current Condition Onset Date DOS 11/02/24 History of Current Condition Pt had L glute med repaired. Pt had surgery 11/02, currently 6 weeks 4 days post- op. Does not have to wear brace when out in community; can begin to wean off use of brace. Currently WBAT with crutches, to wean off beginning 6 weeks. No pain currently, no complications following surgery. Has follow up with surgeon last , all going well, no changes. She reports that her L calf is tender, increased since weight bearing; also had Cammie procedure previously on that leg. 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 No numbness/tingling into LLE unless standing for long periods. Home modified to live on main level, office 2nd level. Ok to walk in pool, bike per MD. Reports sensitive extreme cold in her L foot following surgery, but not numbness/tingling or temperature changes. Did not perform HEP provided post-op ( PROM), also reports not remaining passive ROM prior to last appt with surgeon. 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 She notes her hip is not hurting but she does feel the SI joint at times. PT-OP-E Functional Tests Start: 12/18/24 07:27 Freq: Status: Active Protocol: Document 12/18/24 07:28 NM (Rec: 12/18/24 09:22 NM [id number]) Functional Tests 6 Minute Walk Test Distance 823 ft Device Used 2 axillary crutches Comments no glute pain but has L sided LBP Other Single leg stance Score 5 sec L, 8 sec R Comment maintains L level hips; no brace PT-OP-F Manual Assessment Start: 12/18/24 07:27 Freq: Status: Active Protocol: Document 12/18/24 07:28 NM (Rec: 12/18/24 09:22 NM [id number]) Manual Assessments Soft Tissue Assessment Soft Tissue Mobility Assessment Restrictions of L hip flexors Joint Mobility Assessment Joint Mobility Assessment Decreased hip extension ROM actively, no joint pain passively PT-OP-G Mobility & Gait Start: 12/18/24 07:27 Freq: Status: Active Protocol: Document 12/18/24 07:28 NM (Rec: 12/18/24 08:18 NM [id number]) OP Mobility Evaluation Bed Mobility Rolling IND Supine to and from Sit IND Transfers Sit to Stand IND with UE assist OP Gait Assessment Gait Gait Assistance Required: Independent Distance (Feet) 150 Assistive Devices Assistive Device Gait Belt,Axillary Crutches Orthotic/Prosthetic Devices or Brace: Yes Gait Deviations General Gait Pattern Antalgic,Flexed Trunk Factors Limiting Gait Function Factors Limiting Gait Function Decreased Activity Tolerance, Decreased Strength,Limited Range of Motion,Pain PT-OP-J Posture/Palpation/Skin Start: 12/18/24 07:27 Freq: Status: Active Protocol: Document 12/18/24 07:28 NM (Rec: 12/18/24 09:22 NM [id number]) Posture Evaluation Position Standing Head/C-Spine Posture Forward Head L-Spine Posture Increased Lordosis Pelvis Posture Anteriorly Tilted Weight Distribution Weight Shifted Right Comments Posture Comments Demos slight forward trunk posturing Palpation Assessment Location L hip Palpation Details Minimal tenderness along glute max muscle belly and glute medius/minimus None along incision Minimal low back tenderness but tightness present Skin Assessment Incisional Assessment Incision Appearance/Comments Incision intact, no tenderness , no redness or signs of infection PT-OP-K Range of Motion Start: 12/18/24 07:27 Freq: Status: Active Protocol: Document 01/21/25 12:59 NM (Rec: 01/21/25 13:50 NM [id number]) Hip Goniometric Range of Motion Hip Left Flexion w/Knee Flexed 115 Extension 8 Abduction 30 Internal Rotation 40 External Rotation 25 Right Flexion w/Knee Flexed 110 Abduction 25 Internal Rotation 25 External Rotation 32 PT-OP-M Strength Start: 12/18/24 07:27 Freq: Status: Active Protocol: Document 01/21/25 12:59 NM (Rec: 01/21/25 13:50 NM [id number]) Hip Strength Hip Manual Muscle Testing Right Flexion (L2) 4 Good Extension (S1) 4 Good Abduction 4 Good Adduction 4 Good External Rotation 4 Good Internal Rotation 4 Good Left Flexion (L2) 4 Good Extension (S1) 4- Good- Abduction 4- Good- Adduction 4 Good External Rotation 4 Good Internal Rotation 4 Good PT-OP-Q Treatments Start: 12/18/24 07:27 Freq: Status: Active Protocol: Document 03/28/25 13:54 [facility] (Rec: 03/28/25 14:30 [facility] [id number]) Therapeutic Exercises Supine Exercises TA fall out Supine Exercise Name progressed to TA with january Reps/Minutes x 20 reps single knee to chest Supine Exercise Name Reviewed Side bilateral Resistance both hips felt equal Reps/Minutes 1 min Comments Cued BUE support not over pressure, gentle stretch bridge Supine Exercise Name TA segmental bridge Side bilateral Reps/Minutes 5 SH x5 - good challenge Comments no pain, good form today better no hitch in neyda up Prone Exercises quad stretch Equipment Used use strap Reps/Minutes hold 1 min each side Sidelying Exercises Clamshell Sidelying Exercise Name add to HEP with HO Side bilateral Resistance AROM> TB #1 Equipment Used no pillow needed Reps/Minutes 10 each Comments improved alignment on side Sitting Exercises hip ER stretch Sitting Exercise Name FIg 4- Side bilateral Equipment Used ankle over opp knee Reps/Minutes 30 SH Comments cued AROM first then can add gentle streatch Other Exercises bjorn pose Reps/Minutes center and then hands to left PT-OP-T Assessment and Plan Start: 12/18/24 07:27 Freq: Status: Active Protocol: Document 03/28/25 16:32 [facility] (Rec: 03/28/25 16:34 [facility] [id number]) Physical Therapy Assessment Goals Four Impairment SLS time 5 sec LLE indicating weakness; L hip strength impaired Impairment ... Short Term Goal (STG) Pt will be able to stand on LLE at least 10 sec without L hip pain or compensation to demonstrate functional L glute medius strength for gait/ stance 01/21/25: 8 ea leg, demos hip drop on contralateral side with fatigue STG Duration 02/12/25 PROGRESSING 3 Snf Goal (LTG) Pt will increase L hip strength globally to at least 4+/5 MMT in order to demonstrate improved strength for ADLs/IADLs and return to recreational activities including hiking and ambulation goal met LTG Duration 03/15/25 Assessment Summary Assessment Donnie has made good overall progress and is not able to walk 5-7 miles with her job. She is feeling good overall with her hip and she notes c/o SI pain decrease with walking . At this point she is I with her HEP and will be discharged to a I HEP Physical Therapy Plan Discharge Physical Therapy Discharge Reasons Goals Met
== END 2025-03-29 13:51 | disposition home or self-care (01) ==
LOC: PHYS 13:45
PROVIDERS: Family Provider Family Medicine; PCP Family Medicine; Referring Provider Physician Assistant; Visit Provider Physician Assistant
DX: M70.62 Trochanteric bursitis, left hip (principal); M25.552 Pain in left hip; S76.0 Injury of muscle, fascia and tendon of hip; M25.652 Stiffness of left hip, not elsewhere classified; R53.1 Weakness; R26.89 Other abnormalities of gait and mobility; R26.81 Unsteadiness on feet
CPT/HCPCS: 97110; 97112; 97116; 97140; 97162; 97535

== ENCOUNTER → 2025-05-07 11:57 | Outpatient (CLI) | payer OTHER, SELFPAY ==
--- NOTE | 2025-05-07 11:58 | DI.MG.S_ITS ---
MM diagnostic mammo BI: 05/07/2025. BI-RADS: 1 CLINICAL: 59-year old female for bilateral diagnostic mammogram. Tyrer-Cuzick lifetime risk of 10.8%. No personal or first-degree family history of breast cancer. Current reported family history of breast cancer: paternal aunt's daughter and paternal aunt's second daughter. PRIOR EXAMS 06/21/2024, 06/20/2023, 06/19/2022, 04/29/2021, 04/08/2021. MAMMOGRAPHY TECHNIQUE: 2D and 3D (tomosynthesis) digital mammographic views obtained, with additional images as needed for full coverage. Current study was also evaluated with a Computer Aided Detection (CAD) system. DENSITY B. There are scattered areas of fibroglandular density. MAMMOGRAPHY FINDINGS Right: No suspicious mass, asymmetry, microcalcification, or other abnormality seen. Left: CC only, Outer, Middle depth: The finding seen on recent screening mammogram did not persist with additional imaging and is consistent with superimposition of normal breast tissue. There is an asymmetry seen only on one view. IMPRESSION: * No evidence of malignancy. RECOMMENDATIONS Bilateral * Annual screening mammography. COMMENTS: Findings and recommendations were conveyed to the patient during today's evaluation. Clinical follow-up as needed for itching sensation. OVERALL ASSESSMENT CATEGORY BI-RADS-1: Negative. The [employer] recommends annual screening mammography beginning at age 40 for women with average risk of breast cancer. ELECTRONICALLY SIGNED: Jackson Zhang M.D. on 05/07/2025 at 01:12:46 PM PT Interpreting Station ID: [id number]
== END ==
PROVIDERS: Family Provider Family Medicine; PCP Family Medicine; Referring Provider Family Medicine; Visit Provider Family Medicine
DX: N64.59 Other signs and symptoms in breast (principal); Z80.3 Family history of malignant neoplasm of breast
CPT/HCPCS: 77066; G0279

== ENCOUNTER → 2025-06-03 06:58 | Outpatient (CLI) | payer OTHER, SELFPAY ==
[2025-06-03 07:41] LABS: Add Manual Diff / Slide Review NO; Hematocrit 37.6 % (36-46); Hemoglobin 13.0 g/dL (12.0-16.0); Lymphocytes Absolute Auto 1500 /uL (1100-4500); Mean Corpuscular HGB Conc 34.5 % (30-36); Mean Corpuscular Hemoglobin 31.1 PG (26-34); Mean Corpuscular Volume 90.0 fL (80-100); Platelet Count 292 X10^3/uL (150-400)
[2025-06-03 08:04] LABS: Alanine Aminotransferase 30 IU/L (<35); Albumin 4.5 g/dL (3.5-5.0); Albumin Globulin Ratio 2.0 (1.0-2.8); Alkaline Phosphatase 78 U/L (38-126); Blood Urea Nitrogen 14 mg/dL (7-17); Calcium 9.7 mg/dL (8.4-10.2); Carbon Dioxide 26 mmol/L (22-32); Chloride 101 mmol/L (98-107); Cholesterol 206 mg/dL (140-199); Estimated Glomerular Filt Rate > 60 mL/min (>60); Globulin 2.2 g/dL (1.7-4.1); Glucose 94 mg/dL (70-99); HDL Cholesterol 70 mg/dL (40-60); HEMOLYSIS < 15 (0-50); Potassium 4.7 mmol/L (3.4-5.1); Sodium 134 mmol/L (137-145); Total Protein 6.7 g/dL (6.3-8.2); Triglycerides 162 mg/dL (35-150)
[2025-06-03 08:28] LABS: TSH w/ Reflex to FT4 0.14 uIU/mL (0.47-4.68)
[2025-06-03 08:54] LABS: Free T4, Direct Thyroxine 1.39 ng/dL (0.78-2.19)
[2025-06-06 11:36] LABS: ANA Screen, IFA Negative (.)
== END ==
PROVIDERS: Family Provider Family Medicine; PCP Family Medicine; Referring Provider Family Medicine; Visit Provider Family Medicine
DX: E03.9 Hypothyroidism, unspecified (principal); E05.00 Thyrotoxicosis with diffuse goiter without thyrotoxic crisis or storm; R79.89 Other specified abnormal findings of blood chemistry; I10 Essential (primary) hypertension; K76.0 Fatty (change of) liver, not elsewhere classified; R21 Rash and other nonspecific skin eruption; E78.2 Mixed hyperlipidemia
CPT/HCPCS: 36415; 80053; 80061; 84439; 84443; 85025; 85651; 86038; 86140

== ENCOUNTER → 2025-09-19 07:09 | Outpatient (CLI) | payer OTHER, SELFPAY ==
--- NOTE | 2025-09-19 07:10 | DI.US.S_ITS ---
PROCEDURE: US ABDOMEN LIMITED INDICATIONS: fatty liver TECHNIQUE: Real-time scanning was performed of the abdominal and retroperitoneal organs, with image documentation. COMPARISON: [facility], , US ABDOMEN LIMITED, 09/14/2021, 8:23. FINDINGS: Liver: Liver parenchyma is hyperechoic and homogeneous. No mass, cirrhosis or intrahepatic biliary dilation. Right liver measures 15.8 centimetres. Gallbladder: No gallstones. No wall thickening. No pericholecystic edema. Negative sonographic Mora's sign. Biliary ducts: Intrahepatic bile ducts are non-dilated. Extrahepatic bile duct caliber measures 2 mm. Normal is 6-7 mm or less in diameter, or 10 mm or less post-cholecystectomy. Pancreas: Not well seen due to bowel gas artifacts. Miscellaneous: No free abdominal fluid. Study limited due to bowel gas. IMPRESSION: Echogenic probably fatty liver. No mass, intrahepatic biliary dilation or cirrhosis. Normal gallbladder and common bile duct. Study limited by bowel gas for Dictated by: Rosalba Erickson M.D. on 09/19/2025 at 13:42 Approved by: Rosalba Erickson M.D. on 09/19/2025 at 13:43
== END ==
PROVIDERS: PCP Family Medicine; Referring Provider Family Medicine; Visit Provider Family Medicine
DX: E66.811 Obesity, class 1 (principal); K76.0 Fatty (change of) liver, not elsewhere classified; R10.11 Right upper quadrant pain
CPT/HCPCS: 76705